=== PATIENT | male | born 1960 | race Caucasian/White ===

== ENCOUNTER 2017-06-15 22:32 | Inpatient (IN) | payer BC ==
[~2017-06-15] VITALS: Ht 182.9 cm; Wt 87.7 kg
[2017-06-15] MEDS ORDERED: HYDROmorphone 2 MG/ML VIAL IV/SQ PRN (23:30)
[2017-06-15] MEDS ORDERED: IV RINGERS,LACTATED 1000ML 1,000 ML IV SCH (23:30)
[2017-06-15] MEDS ORDERED: ONDANSETRON PF 4 MG/2 ML VIAL. IV ONE (23:30)
[2017-06-15 23:41] LABS: BASO # 0.1 x10^3/uL (0.0-0.2); BASO % 1 % (0-3); EOS % 0 % (0-3); HEMATOCRIT 47.5 % (39.0-53.0); HEMOGLOBIN 16.2 g/dL (13.0-17.5); LYMPH # 0.6 x10^3/uL (1.0-4.8); LYMPH % 5 % (24-48); MEAN CORPUSCULAR HEMOGLOBIN 32 pg (25-35); MEAN CORPUSCULAR HGB CONC 34 g/dL (31-37); MEAN CORPUSCULAR VOLUME 93 fL (79-100); MONO % 7 % (0-9); NEUT % 87 % (31-73); PLATELET COUNT 184 x10^3/uL (140-400); WHITE BLOOD COUNT 12.6 x10^3/uL (4.0-11.0)
[2017-06-16] VITALS (8 sets, daily range): BP systolic 115–141; BP diastolic 73–87
[2017-06-16] LABS: CALCIUM 9.5 mg/dL (8.5-10.1); CREATININE 0.9 mg/dL (0.7-1.3); GFR 86.4; POTASSIUM 3.8 mmol/L (3.5-5.1)
[2017-06-16 00:06] LABS: BILIRUBIN,URINE SMALL (NEG); GLUCOSE,URINE NEGATIVE (NEG); NITRITE,URINE NEGATIVE (NEG); PROTEIN,URINE NEGATIVE (NEG-TRACE)
[2017-06-16 00:11] LABS: ALBUMIN 4.3 g/dL (3.4-5.0); ALBUMIN/GLOBULIN RATIO 1.3 (1.0-1.7); TOTAL BILIRUBIN 0.8 mg/dL (0.2-1.0); TOTAL PROTEIN 7.5 g/dL (6.4-8.2)
[2017-06-16 00:22] LABS: BACTERIA,URINE FEW /HPF (0-FEW); SQUAMOUS EPITHELIAL CELL,UR OCC /LPF; WBC,URINE OCC /HPF (0-4)
[2017-06-16] MEDS ORDERED: IOHEXOL 300 MG/ML 100ML VIAL. IV ONE (00:30)
[2017-06-16] MEDS ORDERED: CONTRAST GIVEN MC PRN ×2 (00:30→10:45)
[2017-06-16 00:32] LABS: PLT ESTIMATE ADEQUATE (ADEQUATE)
--- NOTE | 2017-06-16 00:34 | PHYS DOC ---
Past Medical History Past Medical History: Other Additional Past Medical Histor: esophageal achalasia; bowel obstruction. Hairy cell leukemia (in remission) Past Medical History Gallstones; kidney stones Past Surgical History: Other Additional Past Surgical Histo: ESOPHAGECTOMY ( MED 08/2015) Past Surgical History Power port with removal Smoking: Quit Greater Than 1 Year Alcohol Use: None Drug Use: None Social History Narrative: Adult General Chief Complaint Chief Complaint: ABDOMINAL PAIN HPI HPI Patient is a 57 year old male who presents with abdominal pain. Pain first started on Saturday at 1600 PM. It was intermittent. However became persistent and worse tonight. He also started vomiting tonight. Last stool was yesterday. No blood in his stool. No recent travel. No fevers. Tonight with the pain however became very sweaty. He said prior bowel obstruction and is concerned that this could be a recurrent obstruction. He also was diagnosed with gallstones on a prior visit so is unclear if this is related to a flare of his gallbladder. He's had a esophagectomy performed at in August 2015 for esophageal achalasia. Review of Systems Review of Systems Constitutional: Denies fever or chills Eyes: Denies change in visual acuity, redness, or eye pain HENT: Denies nasal congestion or sore throat Respiratory: Denies cough or shortness of breath Cardiovascular: No chest pain GI: POS abdominal pain with nausea & vomiting, DENIES bloody stools or diarrhea (last stool yesterday) : Denies dysuria or hematuria Musculoskeletal: Denies back pain or joint pain Integument: Denies rash or skin lesions Neurologic: Denies headache, focal weakness or sensory changes All other systems were reviewed and found to be within normal limits, except as documented in this note. Current Medications Current Medications Current Medications Medications (Trade) Dose Ordered Sig/Michael Start Time Stop Time Status Last Admin Dose Admin Hydromorphone HCl (Dilaudid) 1 mg PRN Q15MIN PRN 06/15/17 23:30 06/16/17 23:29 06/15/17 23:54 1 MG Info (Do NOT chart on this entry -- for MONITORING) 1 each PRN DAILY PRN 06/16/17 00:30 06/18/17 00:29 Iohexol (Omnipaque 300 Mg/ml) 75 ml 1X ONCE 06/16/17 00:30 06/16/17 00:31 DC 06/16/17 00:40 75 ML Lidocaine HCl (Glydo (Lidocaine) Jelly) 1 nicolas 1X ONCE 06/16/17 01:30 06/16/17 01:31 DC 06/16/17 02:00 1 NICOLAS Morphine Sulfate 2 mg PRN Q2HR PRN 06/16/17 01:30 06/17/17 01:29 Ondansetron HCl (Zofran) 4 mg PRN Q8HRS PRN 06/16/17 01:30 06/17/17 01:29 Potassium Chloride/Dextrose/ Sod Cl 1,000 ml @ 125 mls/hr 1X ONCE 06/16/17 01:30 06/16/17 09:29 06/16/17 02:56 125 MLS/HR Ringer's Solution 1,000 ml @ 1,000 mls/hr Q1H 06/15/17 23:30 06/16/17 00:29 DC 06/15/17 23:54 1,000 MLS/HR Allergies Allergies Allergies Coded Allergies Type Severity Reaction Last Updated Verified clindamycin Allergy Intermediate 05/04/14 Yes codeine Allergy Intermediate 05/04/14 Yes sulfamethoxazole Allergy Intermediate Rash 05/04/14 Yes trimethoprim Allergy Intermediate Rash 05/04/14 Yes Physical Exam Physical Exam Constitutional: Well developed, well nourished, no acute distress, non-toxic appearance. HENT: Normocephalic, atraumatic, bilateral external ears normal, oropharynx moist, no oral exudates, nose normal. Eyes: PERRLA, EOMI, conjunctiva normal, no discharge. Neck: Normal range of motion, no tenderness, supple, no stridor. Cardiovascular:Heart rate regular rhythm, no murmur Lungs & Thorax: Bilateral breath sounds clear to auscultation Abdomen: Bowel sounds increased, soft, diffuse tenderness, no masses, no pulsatile masses. Skin: Warm, dry, no erythema, no rash. Back: No tenderness, no CVA tenderness. Extremities: No tenderness, no cyanosis, no clubbing, ROM intact, no edema. Neurologic: Alert and oriented X 3, normal motor function, normal sensory function, no focal deficits noted. Psychologic: Affect normal, judgement normal, mood normal. Current Patient Data Vital Signs Vital Signs Date Time Temp Pulse Resp B/P (MAP) Pulse Ox O2 Delivery O2 Flow Rate FiO2 06/16/17 01:05 84 16 111/66 (81) 94 Room Air 06/15/17 23:20 97.9 97.9 Lab Values Laboratory Tests Test 06/15/17 23:30 06/15/17 23:50 White Blood Count 12.6 x10^3/uL (4.0-11.0) H Red Blood Count 5.10 x10^6/uL (4.30-5.70) Hemoglobin 16.2 g/dL (13.0-17.5) Hematocrit 47.5 % (39.0-53.0) Mean Corpuscular Volume 93 fL (79-100) Mean Corpuscular Hemoglobin 32 pg (25-35) Mean Corpuscular Hemoglobin Concent 34 g/dL (31-37) Red Cell Distribution Width 13.0 % (11.5-14.5) Platelet Count 184 x10^3/uL (140-400) Neutrophils (%) (Auto) 87 % (31-73) H Lymphocytes (%) (Auto) 5 % (24-48) L Monocytes (%) (Auto) 7 % (0-9) Eosinophils (%) (Auto) 0 % (0-3) Basophils (%) (Auto) 1 % (0-3) Neutrophils # (Auto) 11.0 x10^3uL (1.8-7.7) H Lymphocytes # (Auto) 0.6 x10^3/uL (1.0-4.8) L Monocytes # (Auto) 0.9 x10^3/uL (0.0-1.1) Eosinophils # (Auto) 0.0 x10^3/uL (0.0-0.7) Basophils # (Auto) 0.1 x10^3/uL (0.0-0.2) Segmented Neutrophils % 93 % (35-66) H Band Neutrophils % 5 % (0-9) Lymphocytes % 1 % (24-48) L Monocytes % 1 % (0-10) Platelet Estimate Adequate (ADEQUATE) Sodium Level 142 mmol/L (136-145) Potassium Level 3.8 mmol/L (3.5-5.1) Chloride Level 104 mmol/L (98-107) Carbon Dioxide Level 26 mmol/L (21-32) Anion Gap 12 (6-14) Blood Urea Nitrogen 10 mg/dL (8-26) Creatinine 0.9 mg/dL (0.7-1.3) Estimated GFR (Cockcroft-Gault) 86.4 BUN/Creatinine Ratio 11 (6-20) Glucose Level 134 mg/dL (70-99) H Calcium Level 9.5 mg/dL (8.5-10.1) Total Bilirubin 0.8 mg/dL (0.2-1.0) Aspartate Amino Transferase (AST) 32 U/L (15-37) Alanine Aminotransferase (ALT) 32 U/L (16-63) Alkaline Phosphatase 143 U/L (46-116) H Total Protein 7.5 g/dL (6.4-8.2) Albumin 4.3 g/dL (3.4-5.0) Albumin/Globulin Ratio 1.3 (1.0-1.7) Lipase 95 U/L (73-393) Urine Collection Type Unknown Urine Color Tayler Urine Clarity Clear Urine pH 6.0 Urine Specific [place] >=1.030 Urine Protein Negative mg/dL (NEG-TRACE) Urine Glucose (UA) Negative mg/dL (NEG) Urine Ketones (Stick) 15 mg/dL (NEG) Urine Blood Negative (NEG) Urine Nitrite Negative (NEG) Urine Bilirubin Small (NEG) Urine Urobilinogen Dipstick 1.0 mg/dL (0.2 mg/dL) Urine Leukocyte Esterase Negative (NEG) Urine RBC 1-2 /HPF (0-2) Urine WBC Occ /HPF (0-4) Urine Squamous Epithelial Cells Occ /LPF Urine Bacteria Few /HPF (0-FEW) Urine Mucus Marked /LPF Laboratory Tests 06/15/17 23:30 Laboratory Tests 06/15/17 23:30 Radiology/Procedures Radiology/Procedures [facility] [address] [place], [place] [id number] IMAGING REPORT Signed PATIENT: FUENTES RAGLAND ACCOUNT: [id number] : 1960 LOCATION: ER AGE: 57 SEX: M EXAM STATUS: REG ER ORD. PHYSICIAN: ANABELLA MUNOZ MD REASON: esophagectomy; h/o prior bowel obst; h/o gallstones; now w pain and vomitin PROCEDURE: CT ABD PELV W/ IV CONTRST ONLY EXAM: CT ABDOMEN/PELVIS WITH CONTRAST. HISTORY: Abdominal pain, vomiting, small bowel obstruction, esophagectomy, leukemia. TECHNIQUE: Computed tomography of the abdomen and pelvis was performed after the intravenous administration of 75 mL Isovue-370. COMPARISON: None. FINDINGS: Lung windows through the visualized portions of the bases reveal changes of esophagectomy with gastric pull-through. There is mild associated atelectasis in the right base. Bone windows reveal no suspicious lesions. Gallstones are noted. There is no pericholecystic inflammation. The liver, spleen, adrenal glands, kidneys and pancreas are unremarkable. There are no pathologically enlarged lymph nodes. A small amount of free pelvic fluid is likely reactive. There is a small bowel obstruction with transition point just deep to the anterior abdominal wall, just superior to the umbilicus as seen on coronal image 13 and axial image 43. This is along the distal jejunum or proximal ileum. The remainder of the small bowel is completely decompressed. There is mild edema about the most distal involved small bowel loops. IMPRESSION: 1. Small bowel obstruction with transition point just deep to the anterior abdominal wall just superior to the umbilicus. This appears complete by CT. 2. Cholelithiasis. 3. Status post esophagectomy with gastric pull-through. No evidence of active disease. *One or more of the following individualized dose reduction techniques were utilized for this examination: 1. Automated exposure control. 2. Adjustment of the mA and/or kV according to patient size. 3. Use of iterative reconstruction technique. Electronically signed by: Pricila Vargas MD (06/16/2017 1:07 AM) [facility] DICTATED and SIGNED BY: DALE VARGAS MD DATE: 06/16/17101 CC: ANABELLA MUNOZ MD; MP ALBERTO MD ~ Course & Med Decision Making Course & Med Decision Making Evaluated patient upon arrival. IV NS, IV dilaudid and zofran. Concerned about recurrent bowel obstruction due to extensive abdominal surgery history. However , with recent gallstone diagnosis could be biliary colic. lab is unremarkable ( except for ketones in urine). At 0030 am; back from CT; awaiting results. CT results back at 0115 am with SBO. He would prefer to stay here and see if it would resolve with NG (which it did last time). Admit Dr Naik with consult Dr Benz. I have spoken with the patient and/or caregivers. I have explained the patient' s condition, diagnosis and treatment plan based on the information available to me at this time. I have answered the patient's and/or caregiver's questions and addressed any concerns. The patient and/or caregivers have as good an understanding of the patient's diagnosis, condition and treatment plan as can be expected at this point. The patient has been stabilized within the capability of the emergency department. The patient will be transported for further care and management or will be moved to an observation or inpatient service. I have communicated with the staff or medical practitioner taking over this patient's care. Dragon Disclaimer Dragon Disclaimer This electronic medical record was generated, in whole or in part, using a voice recognition dictation system. Departure Departure Impression: Primary Impression: Abdominal pain Additional Impressions: Nausea & vomiting Small bowel obstruction Disposition: 09 ADMITTED INPATIENT Admitting Physician: Alix Naik Condition: STABLE Referrals: MP ALBERTO MD (PCP) Problem Qualifiers Primary Impression: Abdominal pain Abdominal location: generalized Qualified Codes: R10.84 - Generalized abdominal pain Additional Impressions: Nausea & vomiting Vomiting type: unspecified Vomiting Intractability: intractable Qualified Codes: R11.2 - Nausea with vomiting, unspecified ANABELLA MUNOZ MD Jun 16, 2017 00:34
--- NOTE | 2017-06-16 01:11 | RAD ---
EXAM: CT ABDOMEN/PELVIS WITH CONTRAST. HISTORY: Abdominal pain, vomiting, small bowel obstruction, esophagectomy, leukemia. TECHNIQUE: Computed tomography of the abdomen and pelvis was performed after the intravenous administration of 75 mL Isovue-370. COMPARISON: None. FINDINGS: Lung windows through the visualized portions of the bases reveal changes of esophagectomy with gastric pull-through. There is mild associated atelectasis in the right base. Bone windows reveal no suspicious lesions. Gallstones are noted. There is no pericholecystic inflammation. The liver, spleen, adrenal glands, kidneys and pancreas are unremarkable. There are no pathologically enlarged lymph nodes. A small amount of free pelvic fluid is likely reactive. There is a small bowel obstruction with transition point just deep to the anterior abdominal wall, just superior to the umbilicus as seen on coronal image 13 and axial image 43. This is along the distal jejunum or proximal ileum. The remainder of the small bowel is completely decompressed. There is mild edema about the most distal involved small bowel loops. IMPRESSION: 1. Small bowel obstruction with transition point just deep to the anterior abdominal wall just superior to the umbilicus. This appears complete by CT. 2. Cholelithiasis. 3. Status post esophagectomy with gastric pull-through. No evidence of active disease. *One or more of the following individualized dose reduction techniques were utilized for this examination: 1. Automated exposure control. 2. Adjustment of the mA and/or kV according to patient size. 3. Use of iterative reconstruction technique. Electronically signed by: Pricila Vargas MD (06/16/2017 1:07 AM) [facility]
[2017-06-16] MEDS ORDERED: LIDOCAINE 2% JELLY 6ML IN APPLICATOR. MM ONE (01:30)
[2017-06-16] MEDS ORDERED: ONDANSETRON PF 4 MG/2 ML VIAL. IV PRN (01:30)
[2017-06-16] MEDS ORDERED: POTASSIUM CL 20MEQ D5-0.45NACL 1,000 ML IV ONE (01:30)
[2017-06-16] MEDS ORDERED: PHENOL ORAL SPRAY 177ML BOTTLE. PO PRN ×2 (06:30→13:15)
[2017-06-16] MEDS ORDERED: HYDROmorphone 2 MG/ML VIAL IV/SQ PRN (09:00)
--- NOTE | 2017-06-16 10:17 | PDOC2 ---
CONSULT Date of Consult Date of Consult DATE: 06/16/17 TIME: 10:12 Reason for Consult Reason for Consult: SBO Referring Physician Referring Physician: Gumaro Identification/Chief Complaint Chief Complaint abd pain Problems: Source Source: Patient History of Present Illness Reason for Visit: 57 yo M with hx of esophagectomy for achalasia in 08/2015. SBO previously 10/2015 , treated without surgery. Presents with c/o severe abd pain. Patient reports pain is much improved today. Feels somewhat bloated. No flatus or stools. Past Medical History Cardiovascular: No pertinent hx Pulmonary: Other GI: No pertinent hx Heme/Onc: Cancer Musculoskeletal: Other Renal/: No pertinent hx Endocrine: No pertinent hx Past Surgical History Past Surgical History: Other (esophagectomy) Family History Family History: No Significant Social History Quit ALCOHOL: none Current Problem List Problem List Problems Medical Problems: (1) Abdominal pain Status: Acute (2) Nausea & vomiting Status: Acute (3) Small bowel obstruction Status: Acute Current Medications Current Medications Current Medications Hydromorphone HCl (Dilaudid) 1 mg PRN Q15MIN PRN IV/SQ PAIN GREATER THAN 3/10 Last administered on 06/15/17 23:54; Start 06/15/17 at 23:30; Stop 06/16/17 at 08:49; Status DC Ringer's Solution 1,000 ml @ 1,000 mls/hr Q1H IV Last administered on 23:54; Start 06/15/17 at 23:30; Stop 06/16/17 at 00:29; Status DC Ondansetron HCl (Zofran) 4 mg 1X ONCE IV Last administered on 06/15/17 23:54 ; Start 06/15/17 at 23:30; Stop 06/15/17 at 23:31; Status DC Iohexol (Omnipaque 300 Mg/ml) 75 ml 1X ONCE IV Last administered on 00:40; Start 06/16/17 at 00:30; Stop 06/16/17 at 00:31; Status DC Info (Do NOT chart on this entry -- for MONITORING) 1 each PRN DAILY PRN MC SEE COMMENTS; Start 06/16/17 at 00:30; Stop 06/18/17 at 00:29 Lidocaine HCl (Glydo (Lidocaine) Jelly) 1 nicolas 1X ONCE MM Last administered on 06/16/17 02:00; Start 06/16/17 at 01:30; Stop 06/16/17 at 01:31; Status DC Ondansetron HCl (Zofran) 4 mg PRN Q8HRS PRN IV NAUSEA/VOMITING; Start at 01:30; Stop 06/16/17 at 08:49; Status DC Morphine Sulfate 2 mg PRN Q2HR PRN IV PAIN; Start 06/16/17 at 01:30; Stop at 01:29 Potassium Chloride/Dextrose/ Sod Cl 1,000 ml @ 125 mls/hr 1X ONCE IV Last administered on 06/16/17t 02:56; Start 06/16/17 at 01:30; Stop 06/16/17 at 09 :29; Status DC Throat Lozenges (Chloraseptic) 1 spray PRN Q2HR PRN PO SORE THROAT; Start at 06:30 Hydromorphone HCl (Dilaudid) 1 mg PRN Q2HR PRN IV/SQ PAIN GREATER THAN 3/10; Start 06/16/17 at 09:00; Stop 06/17/17 at 08:59 Ondansetron HCl (Zofran) 4 mg PRN Q6HRS PRN IV NAUSEA/VOMITING; Start at 09:00; Stop 06/17/17 at 08:59 Famotidine (Pepcid Vial) 20 mg BID IVP ; Start 06/16/17 at 09:00 Potassium Chloride/Dextrose/ Sod Cl 1,000 ml @ 75 mls/hr [id number] IV ; Start at 09:00 Active Scripts Active Reported No Known Medications Prior To Admisstion (Info) Each 1 Each MC Allergies Allergies: Coded Allergies: clindamycin (Verified Allergy, Intermediate, 05/04/14) codeine (Verified Allergy, Intermediate, 05/04/14) sulfamethoxazole (Verified Allergy, Intermediate, Rash, 05/04/14) trimethoprim (Verified Allergy, Intermediate, Rash, 05/04/14) ROS Gastrointestinal: Yes Abdominal Pain Physical Exam General: Alert, Oriented X3, Cooperative, No acute distress HEENT: Atraumatic, EOMI Lungs: Normal air movement Abdomen: Soft, No tenderness, Other (well healed incision, no hernia) Extremities: No clubbing, No cyanosis Skin: No rashes, No breakdown Neuro: Normal speech, Sensation intact Psych/Mental Status: Mental status NL, Mood NL Vitals VITALS Vital Signs Date Time Temp Pulse Resp B/P (MAP) Pulse Ox O2 Delivery O2 Flow Rate FiO2 06/16/17 07:00 98.2 73 18 115/76 (89) 96 Room Air 98.2 Labs Labs Laboratory Tests Test 06/15/17 23:30 06/15/17 23:50 White Blood Count 12.6 x10^3/uL (4.0-11.0) Red Blood Count 5.10 x10^6/uL (4.30-5.70) Hemoglobin 16.2 g/dL (13.0-17.5) Hematocrit 47.5 % (39.0-53.0) Mean Corpuscular Volume 93 fL (79-100) Mean Corpuscular Hemoglobin 32 pg (25-35) Mean Corpuscular Hemoglobin Concent 34 g/dL (31-37) Red Cell Distribution Width 13.0 % (11.5-14.5) Platelet Count 184 x10^3/uL (140-400) Neutrophils (%) (Auto) 87 % (31-73) Lymphocytes (%) (Auto) 5 % (24-48) Monocytes (%) (Auto) 7 % (0-9) Eosinophils (%) (Auto) 0 % (0-3) Basophils (%) (Auto) 1 % (0-3) Neutrophils # (Auto) 11.0 x10^3uL (1.8-7.7) Lymphocytes # (Auto) 0.6 x10^3/uL (1.0-4.8) Monocytes # (Auto) 0.9 x10^3/uL (0.0-1.1) Eosinophils # (Auto) 0.0 x10^3/uL (0.0-0.7) Basophils # (Auto) 0.1 x10^3/uL (0.0-0.2) Segmented Neutrophils % 93 % (35-66) Band Neutrophils % 5 % (0-9) Lymphocytes % 1 % (24-48) Monocytes % 1 % (0-10) Platelet Estimate Adequate (ADEQUATE) Sodium Level 142 mmol/L (136-145) Potassium Level 3.8 mmol/L (3.5-5.1) Chloride Level 104 mmol/L (98-107) Carbon Dioxide Level 26 mmol/L (21-32) Anion Gap 12 (6-14) Blood Urea Nitrogen 10 mg/dL (8-26) Creatinine 0.9 mg/dL (0.7-1.3) Estimated GFR (Cockcroft-Gault) 86.4 BUN/Creatinine Ratio 11 (6-20) Glucose Level 134 mg/dL (70-99) Calcium Level 9.5 mg/dL (8.5-10.1) Total Bilirubin 0.8 mg/dL (0.2-1.0) Aspartate Amino Transf (AST/SGOT) 32 U/L (15-37) Alanine Aminotransferase (ALT/SGPT) 32 U/L (16-63) Alkaline Phosphatase 143 U/L (46-116) Total Protein 7.5 g/dL (6.4-8.2) Albumin 4.3 g/dL (3.4-5.0) Albumin/Globulin Ratio 1.3 (1.0-1.7) Lipase 95 U/L (73-393) Urine Collection Type Unknown Urine Color Tayler Urine Clarity Clear Urine pH 6.0 Urine Specific [place] >=1.030 Urine Protein Negative mg/dL (NEG-TRACE) Urine Glucose (UA) Negative mg/dL (NEG) Urine Ketones (Stick) 15 mg/dL (NEG) Urine Blood Negative (NEG) Urine Nitrite Negative (NEG) Urine Bilirubin Small (NEG) Urine Urobilinogen Dipstick 1.0 mg/dL (0.2 mg/dL) Urine Leukocyte Esterase Negative (NEG) Urine RBC 1-2 /HPF (0-2) Urine WBC Occ /HPF (0-4) Urine Squamous Epithelial Cells Occ /LPF Urine Bacteria Few /HPF (0-FEW) Urine Mucus Marked /LPF Laboratory Tests Test 06/15/17 23:30 06/15/17 23:50 White Blood Count 12.6 x10^3/uL (4.0-11.0) Red Blood Count 5.10 x10^6/uL (4.30-5.70) Hemoglobin 16.2 g/dL (13.0-17.5) Hematocrit 47.5 % (39.0-53.0) Mean Corpuscular Volume 93 fL (79-100) Mean Corpuscular Hemoglobin 32 pg (25-35) Mean Corpuscular Hemoglobin Concent 34 g/dL (31-37) Red Cell Distribution Width 13.0 % (11.5-14.5) Platelet Count 184 x10^3/uL (140-400) Neutrophils (%) (Auto) 87 % (31-73) Lymphocytes (%) (Auto) 5 % (24-48) Monocytes (%) (Auto) 7 % (0-9) Eosinophils (%) (Auto) 0 % (0-3) Basophils (%) (Auto) 1 % (0-3) Neutrophils # (Auto) 11.0 x10^3uL (1.8-7.7) Lymphocytes # (Auto) 0.6 x10^3/uL (1.0-4.8) Monocytes # (Auto) 0.9 x10^3/uL (0.0-1.1) Eosinophils # (Auto) 0.0 x10^3/uL (0.0-0.7) Basophils # (Auto) 0.1 x10^3/uL (0.0-0.2) Segmented Neutrophils % 93 % (35-66) Band Neutrophils % 5 % (0-9) Lymphocytes % 1 % (24-48) Monocytes % 1 % (0-10) Platelet Estimate Adequate (ADEQUATE) Sodium Level 142 mmol/L (136-145) Potassium Level 3.8 mmol/L (3.5-5.1) Chloride Level 104 mmol/L (98-107) Carbon Dioxide Level 26 mmol/L (21-32) Anion Gap 12 (6-14) Blood Urea Nitrogen 10 mg/dL (8-26) Creatinine 0.9 mg/dL (0.7-1.3) Estimated GFR (Cockcroft-Gault) 86.4 BUN/Creatinine Ratio 11 (6-20) Glucose Level 134 mg/dL (70-99) Calcium Level 9.5 mg/dL (8.5-10.1) Total Bilirubin 0.8 mg/dL (0.2-1.0) Aspartate Amino Transf (AST/SGOT) 32 U/L (15-37) Alanine Aminotransferase (ALT/SGPT) 32 U/L (16-63) Alkaline Phosphatase 143 U/L (46-116) Total Protein 7.5 g/dL (6.4-8.2) Albumin 4.3 g/dL (3.4-5.0) Albumin/Globulin Ratio 1.3 (1.0-1.7) Lipase 95 U/L (73-393) Urine Collection Type Unknown Urine Color Tayler Urine Clarity Clear Urine pH 6.0 Urine Specific [place] >=1.030 Urine Protein Negative mg/dL (NEG-TRACE) Urine Glucose (UA) Negative mg/dL (NEG) Urine Ketones (Stick) 15 mg/dL (NEG) Urine Blood Negative (NEG) Urine Nitrite Negative (NEG) Urine Bilirubin Small (NEG) Urine Urobilinogen Dipstick 1.0 mg/dL (0.2 mg/dL) Urine Leukocyte Esterase Negative (NEG) Urine RBC 1-2 /HPF (0-2) Urine WBC Occ /HPF (0-4) Urine Squamous Epithelial Cells Occ /LPF Urine Bacteria Few /HPF (0-FEW) Urine Mucus Marked /LPF Images Images CT concerning for complete SBO Assessment/Plan Assessment/Plan SBO, clinically improved pt wishes to avoid surgery given CT findings, will proceed with SBFT, for therapeutic and diagnostic effect if not improved, may need to consider OR Thanks for consult! GILLIAN ORANTES MD Jun 16, 2017 10:17
[2017-06-16] MEDS: POTASSIUM CL 30MEQ D5-0.45NACL 1,000 ML IV SCH ×2 (10:36→23:51)
[2017-06-16] MEDS: FAMOTIDINE 20 MG/2 ML VIAL IVP SCH ×2 (10:37→22:23)
[2017-06-16] MEDS ORDERED: IOHEXOL 300 MG/ML 100ML VIAL. PO ONE (10:45)
[2017-06-16] MEDS: MORPHINE SULFATE 2 MG/ML DISP.SYRIN. IV PRN ×2 (12:39→18:28)
[2017-06-16] MEDS: ONDANSETRON PF 4 MG/2 ML VIAL. IV PRN ×2 (13:08→18:37)
--- NOTE | 2017-06-16 13:31 | RAD ---
Single AP view abdomen 06/16/2017 Clinical indication: Small bowel obstruction. Comparison: CT abdomen and pelvis 06/16/2017. Findings: Multiple mildly dilated loops of small bowel in the upper abdomen. There is a relative paucity of distal colonic gas. There is an NG tube with the proximal side port at the GE junction. There is retained contrast within the urinary bladder likely from prior intravenous administration. Impression: 1. Gaseous dilated loops of small bowel likely representing small bowel obstruction. Progress radiographs to completion recommended. 2. NG tube with proximal side port at the GE junction. Advancement is recommended.
[2017-06-16] MEDS ORDERED: PROCHLORPERAZINE 10 MG/2 ML VIAL. IV PRN (15:00)
--- NOTE | 2017-06-16 15:41 | PDOC1 ---
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 Acute onset of mostly epigastric pain severe 10 out of 10, some nausea, and emesis at home. SBO on CT scan, now seen with NG tube. Nausea, bucket at bedside, general surgery consulted. Conservative management. Small bowel series ordered done but results still pending. 3 of small bowel obstruction about a year ago, treated conservatively. Done at . History of aerosol 5 check to me for severe or end- stage achalasia in August 2015 with gastric pull-up. Chest x-ray shows the gastric pull-up and SBO He is improved. No flatus. Feels constipated. Past Medical History Cardiovascular: No pertinent hx Pulmonary: Other GI: No pertinent hx Heme/Onc: Cancer Musculoskeletal: Other Renal/: No pertinent hx Endocrine: No pertinent hx Past Surgical History Past Surgical History: Other (esophagectomy) Family History Family History: No Significant Social History Smoke: No ALCOHOL: none Drugs: None Current Problem List Problem List Problems Medical Problems: (1) Abdominal pain Status: Acute (2) Nausea & vomiting Status: Acute (3) Small bowel obstruction Status: Acute Problems: Current Medications Current Medications Current Medications Hydromorphone HCl (Dilaudid) 1 mg PRN Q15MIN PRN IV/SQ PAIN GREATER THAN 3/10 Last administered on 06/15/17 23:54; Start 06/15/17 at 23:30; Stop 06/16/17 at 08:49; Status DC Ringer's Solution 1,000 ml @ 1,000 mls/hr Q1H IV Last administered on 23:54; Start 06/15/17 at 23:30; Stop 06/16/17 at 00:29; Status DC Ondansetron HCl (Zofran) 4 mg 1X ONCE IV Last administered on 06/15/17 23:54 ; Start 06/15/17 at 23:30; Stop 06/15/17 at 23:31; Status DC Iohexol (Omnipaque 300 Mg/ml) 75 ml 1X ONCE IV Last administered on 00:40; Start 06/16/17 at 00:30; Stop 06/16/17 at 00:31; Status DC Info (Do NOT chart on this entry -- for MONITORING) 1 each PRN DAILY PRN MC SEE COMMENTS; Start 06/16/17 at 00:30; Stop 06/18/17 at 00:29 Lidocaine HCl (Glydo (Lidocaine) Jelly) 1 nicolas 1X ONCE MM Last administered on 06/16/17 02:00; Start 06/16/17 at 01:30; Stop 06/16/17 at 01:31; Status DC Ondansetron HCl (Zofran) 4 mg PRN Q8HRS PRN IV NAUSEA/VOMITING; Start at 01:30; Stop 06/16/17 at 08:49; Status DC Morphine Sulfate 2 mg PRN Q2HR PRN IV PAIN Last administered on 06/16/17 12: 39; Start 06/16/17 at 01:30; Stop 06/17/17 at 01:29 Potassium Chloride/Dextrose/ Sod Cl 1,000 ml @ 125 mls/hr 1X ONCE IV Last administered on 06/16/17 02:56; Start 06/16/17 at 01:30; Stop 06/16/17 at 09 :29; Status DC Throat Lozenges (Chloraseptic) 1 spray PRN Q2HR PRN PO SORE THROAT; Start at 06:30 Hydromorphone HCl (Dilaudid) 1 mg PRN Q2HR PRN IV/SQ PAIN GREATER THAN 3/10; Start 06/16/17 at 09:00; Stop 06/17/17 at 08:59 Ondansetron HCl (Zofran) 4 mg PRN Q6HRS PRN IV NAUSEA/VOMITING Last administered on 06/16/17 13:08; Start 06/16/17 at 09:00; Stop 06/17/17 at 08 :59 Famotidine (Pepcid Vial) 20 mg BID IVP Last administered on 06/16/17 10:37; Start 06/16/17 at 09:00 Potassium Chloride/Dextrose/ Sod Cl 1,000 ml @ 75 mls/hr [id number] IV Last administered on 06/16/17 10:36; Start 06/16/17 at 09:00 Iohexol (Omnipaque 300 Mg/ml) 400 ml 1X ONCE PO Last administered on 13:08; Start 06/16/17 at 10:45; Stop 06/16/17 at 10:46; Status DC Info (Do NOT chart on this entry -- for MONITORING) 1 each PRN DAILY PRN MC SEE COMMENTS; Start 06/16/17 at 10:45; Stop 06/18/17 at 10:44 Throat Lozenges (Chloraseptic) 1 spray PRN Q2HR PRN PO SORE THROAT; Start at 13:15; Status Cancel Prochlorperazine Edisylate (Compazine) 10 mg PRN Q6HRS PRN IV NAUSEA/VOMITING Last administered on 06/16/17t 14:57; Start 06/16/17 at 15:00 Active Scripts Active Reported No Known Medications Prior To Admisstion (Info) Each 1 Each MC Allergies Allergies: Coded Allergies: clindamycin (Verified Allergy, Intermediate, 05/04/14) codeine (Verified Allergy, Intermediate, 05/04/14) sulfamethoxazole (Verified Allergy, Intermediate, Rash, 05/04/14) trimethoprim (Verified Allergy, Intermediate, Rash, 05/04/14) ROS Review of System As per history of present illness, all else 14 point systems reviewed negative Physical Exam Physical Exam Physical Exam General: Alert, Oriented X3, Cooperative, No acute distress HEENT: Atraumatic, PERRLA, and NG tube right nostril, bucket at bedside Lungs: Normal air movement, Other (wheezy) Heart: S1S2, RRR, no thrills, no gallops, no murmurs Cardiovascular: S1, S2 Abdomen: Normal bowel sounds, Soft, No tenderness, No hepatosplenomegaly, No masses, Other (obese) Rectal Exam: not examined PELVIC: Nml ext genitalia Extremities: No rashes, no edema, pulses full and equal Skin: No rashes, No breakdown, No significant lesion Neuro: Normal gait, Normal speech, Strength at 5/5 X4 ext, Normal tone, Sensation intact, Cranial nerves 3-12 NL, Reflexes 2+ Psych/Mental Status: Mental status NL, Mood NL Vitals Vitals Vital Signs Date Time Temp Pulse Resp B/P (MAP) Pulse Ox O2 Delivery O2 Flow Rate FiO2 06/16/17 14:57 97.9 86 20 133/87 (102) 95 Room Air 97.9 Labs Labs Laboratory Tests Test 06/15/17 23:30 06/15/17 23:50 White Blood Count 12.6 x10^3/uL (4.0-11.0) Red Blood Count 5.10 x10^6/uL (4.30-5.70) Hemoglobin 16.2 g/dL (13.0-17.5) Hematocrit 47.5 % (39.0-53.0) Mean Corpuscular Volume 93 fL (79-100) Mean Corpuscular Hemoglobin 32 pg (25-35) Mean Corpuscular Hemoglobin Concent 34 g/dL (31-37) Red Cell Distribution Width 13.0 % (11.5-14.5) Platelet Count 184 x10^3/uL (140-400) Neutrophils (%) (Auto) 87 % (31-73) Lymphocytes (%) (Auto) 5 % (24-48) Monocytes (%) (Auto) 7 % (0-9) Eosinophils (%) (Auto) 0 % (0-3) Basophils (%) (Auto) 1 % (0-3) Neutrophils # (Auto) 11.0 x10^3uL (1.8-7.7) Lymphocytes # (Auto) 0.6 x10^3/uL (1.0-4.8) Monocytes # (Auto) 0.9 x10^3/uL (0.0-1.1) Eosinophils # (Auto) 0.0 x10^3/uL (0.0-0.7) Basophils # (Auto) 0.1 x10^3/uL (0.0-0.2) Segmented Neutrophils % 93 % (35-66) Band Neutrophils % 5 % (0-9) Lymphocytes % 1 % (24-48) Monocytes % 1 % (0-10) Platelet Estimate Adequate (ADEQUATE) Sodium Level 142 mmol/L (136-145) Potassium Level 3.8 mmol/L (3.5-5.1) Chloride Level 104 mmol/L (98-107) Carbon Dioxide Level 26 mmol/L (21-32) Anion Gap 12 (6-14) Blood Urea Nitrogen 10 mg/dL (8-26) Creatinine 0.9 mg/dL (0.7-1.3) Estimated GFR (Cockcroft-Gault) 86.4 BUN/Creatinine Ratio 11 (6-20) Glucose Level 134 mg/dL (70-99) Calcium Level 9.5 mg/dL (8.5-10.1) Total Bilirubin 0.8 mg/dL (0.2-1.0) Aspartate Amino Transf (AST/SGOT) 32 U/L (15-37) Alanine Aminotransferase (ALT/SGPT) 32 U/L (16-63) Alkaline Phosphatase 143 U/L (46-116) Total Protein 7.5 g/dL (6.4-8.2) Albumin 4.3 g/dL (3.4-5.0) Albumin/Globulin Ratio 1.3 (1.0-1.7) Lipase 95 U/L (73-393) Urine Collection Type Unknown Urine Color Tayler Urine Clarity Clear Urine pH 6.0 Urine Specific [place] >=1.030 Urine Protein Negative mg/dL (NEG-TRACE) Urine Glucose (UA) Negative mg/dL (NEG) Urine Ketones (Stick) 15 mg/dL (NEG) Urine Blood Negative (NEG) Urine Nitrite Negative (NEG) Urine Bilirubin Small (NEG) Urine Urobilinogen Dipstick 1.0 mg/dL (0.2 mg/dL) Urine Leukocyte Esterase Negative (NEG) Urine RBC 1-2 /HPF (0-2) Urine WBC Occ /HPF (0-4) Urine Squamous Epithelial Cells Occ /LPF Urine Bacteria Few /HPF (0-FEW) Urine Mucus Marked /LPF Laboratory Tests Test 06/15/17 23:30 06/15/17 23:50 White Blood Count 12.6 x10^3/uL (4.0-11.0) Red Blood Count 5.10 x10^6/uL (4.30-5.70) Hemoglobin 16.2 g/dL (13.0-17.5) Hematocrit 47.5 % (39.0-53.0) Mean Corpuscular Volume 93 fL (79-100) Mean Corpuscular Hemoglobin 32 pg (25-35) Mean Corpuscular Hemoglobin Concent 34 g/dL (31-37) Red Cell Distribution Width 13.0 % (11.5-14.5) Platelet Count 184 x10^3/uL (140-400) Neutrophils (%) (Auto) 87 % (31-73) Lymphocytes (%) (Auto) 5 % (24-48) Monocytes (%) (Auto) 7 % (0-9) Eosinophils (%) (Auto) 0 % (0-3) Basophils (%) (Auto) 1 % (0-3) Neutrophils # (Auto) 11.0 x10^3uL (1.8-7.7) Lymphocytes # (Auto) 0.6 x10^3/uL (1.0-4.8) Monocytes # (Auto) 0.9 x10^3/uL (0.0-1.1) Eosinophils # (Auto) 0.0 x10^3/uL (0.0-0.7) Basophils # (Auto) 0.1 x10^3/uL (0.0-0.2) Segmented Neutrophils % 93 % (35-66) Band Neutrophils % 5 % (0-9) Lymphocytes % 1 % (24-48) Monocytes % 1 % (0-10) Platelet Estimate Adequate (ADEQUATE) Sodium Level 142 mmol/L (136-145) Potassium Level 3.8 mmol/L (3.5-5.1) Chloride Level 104 mmol/L (98-107) Carbon Dioxide Level 26 mmol/L (21-32) Anion Gap 12 (6-14) Blood Urea Nitrogen 10 mg/dL (8-26) Creatinine 0.9 mg/dL (0.7-1.3) Estimated GFR (Cockcroft-Gault) 86.4 BUN/Creatinine Ratio 11 (6-20) Glucose Level 134 mg/dL (70-99) Calcium Level 9.5 mg/dL (8.5-10.1) Total Bilirubin 0.8 mg/dL (0.2-1.0) Aspartate Amino Transf (AST/SGOT) 32 U/L (15-37) Alanine Aminotransferase (ALT/SGPT) 32 U/L (16-63) Alkaline Phosphatase 143 U/L (46-116) Total Protein 7.5 g/dL (6.4-8.2) Albumin 4.3 g/dL (3.4-5.0) Albumin/Globulin Ratio 1.3 (1.0-1.7) Lipase 95 U/L (73-393) Urine Collection Type Unknown Urine Color [place] Urine Clarity Clear Urine pH 6.0 Urine Specific [place] >=1.030 Urine Protein Negative mg/dL (NEG-TRACE) Urine Glucose (UA) Negative mg/dL (NEG) Urine Ketones (Stick) 15 mg/dL (NEG) Urine Blood Negative (NEG) Urine Nitrite Negative (NEG) Urine Bilirubin Small (NEG) Urine Urobilinogen Dipstick 1.0 mg/dL (0.2 mg/dL) Urine Leukocyte Esterase Negative (NEG) Urine RBC 1-2 /HPF (0-2) Urine WBC Occ /HPF (0-4) Urine Squamous Epithelial Cells Occ /LPF Urine Bacteria Few /HPF (0-FEW) Urine Mucus Marked /LPF VTE Prophylaxis Ordered VTE Prophylaxis Devices: Yes VTE Pharmacological Prophylaxi: Yes Assessment/Plan Assessment/Plan Assessment: SBO, second episode, would want to avoid surgery if able Leukocytosis, likely reactive Hairy cell leukemia currently in remission Mild to moderate PCM Asymptomatic GB stones History of esophagectomy August 2059 for end-stage achalasia PLAN: Admit 2 MN IVF while nothing by mouth, bowel regimen per rectum for constipation Follow-up small bowel series results Follow GS recommendations Add PPI IV PT OT Ambulate ad jef. Discussed with him at recent my plan of care Labs tomorrow Nothing by mouth for now JENNIFER DE JESUS MD Jun 16, 2017 15:41
[2017-06-16] MEDS ORDERED: BISACODYL 10 MG SUPP.RECT. PR PRN (15:45)
[2017-06-17 03:00] VITALS: BP 97/62
[2017-06-17 07:00] VITALS: BP 117/74
[2017-06-17] MEDS: FAMOTIDINE 20 MG/2 ML VIAL IVP SCH ×2 (08:21→20:40)
--- NOTE | 2017-06-17 08:36 | RAD ---
Small bowel series Indication: Small bowel obstruction. History of gastroesophageal surgery. Technique: Small bowel series with water-soluble oral contrast. Comparison: CT abdomen from 06/16/2017 Findings: Suggestion of gastric pull-through. 0 minute image demonstrates opacification of the stomach and duodenum. 3 and 5 hour images demonstrates antegrade opacification of the proximal small bowel. The small bowel loops are dilated measuring 4.4 cm in diameter. The 17 hour image demonstrates opacification of the colon and rectum with clearing of the contrast from small bowel. Impression: Passage of oral contrast from the small bowel to colon suggests no complete bowel obstruction. Significantly prolonged transit time to the colon. The 17 hour image demonstrates no abnormally dilated bowel loops to suggest ileus or high grade obstruction.
--- NOTE | 2017-06-17 09:00 | PDOC ---
FLORENCIA FELICIANO W[employer] B[employer] OPERATOR 06/17/17 0900: SURGICAL PROGRESS NOTE Subjective feels much better had a large stool last night Vital Signs Vital Signs Date Time Temp Pulse Resp B/P (MAP) Pulse Ox O2 Delivery O2 Flow Rate FiO2 06/17/17 07:00 98.9 80 18 117/74 (88) 94 Room Air 98.9 I&O Intake and Output 06/17/17 07:00 Intake Total 0 ml Output Total 2500 ml Balance -2500 ml Intake Oral 0 ml Output Urine Total 1200 ml Gastric Drainage Total 1300 ml # Voids 1 # Bowel Movements 1 General: Alert, Oriented X3, Cooperative, No acute distress HEENT: Other (NG in place) Abdomen: Soft, No tenderness Labs Laboratory Tests Test 06/15/17 23:30 06/15/17 23:50 White Blood Count 12.6 x10^3/uL (4.0-11.0) Red Blood Count 5.10 x10^6/uL (4.30-5.70) Hemoglobin 16.2 g/dL (13.0-17.5) Hematocrit 47.5 % (39.0-53.0) Mean Corpuscular Volume 93 fL (79-100) Mean Corpuscular Hemoglobin 32 pg (25-35) Mean Corpuscular Hemoglobin Concent 34 g/dL (31-37) Red Cell Distribution Width 13.0 % (11.5-14.5) Platelet Count 184 x10^3/uL (140-400) Neutrophils (%) (Auto) 87 % (31-73) Lymphocytes (%) (Auto) 5 % (24-48) Monocytes (%) (Auto) 7 % (0-9) Eosinophils (%) (Auto) 0 % (0-3) Basophils (%) (Auto) 1 % (0-3) Neutrophils # (Auto) 11.0 x10^3uL (1.8-7.7) Lymphocytes # (Auto) 0.6 x10^3/uL (1.0-4.8) Monocytes # (Auto) 0.9 x10^3/uL (0.0-1.1) Eosinophils # (Auto) 0.0 x10^3/uL (0.0-0.7) Basophils # (Auto) 0.1 x10^3/uL (0.0-0.2) Segmented Neutrophils % 93 % (35-66) Band Neutrophils % 5 % (0-9) Lymphocytes % 1 % (24-48) Monocytes % 1 % (0-10) Platelet Estimate Adequate (ADEQUATE) Sodium Level 142 mmol/L (136-145) Potassium Level 3.8 mmol/L (3.5-5.1) Chloride Level 104 mmol/L (98-107) Carbon Dioxide Level 26 mmol/L (21-32) Anion Gap 12 (6-14) Blood Urea Nitrogen 10 mg/dL (8-26) Creatinine 0.9 mg/dL (0.7-1.3) Estimated GFR (Cockcroft-Gault) 86.4 BUN/Creatinine Ratio 11 (6-20) Glucose Level 134 mg/dL (70-99) Calcium Level 9.5 mg/dL (8.5-10.1) Total Bilirubin 0.8 mg/dL (0.2-1.0) Aspartate Amino Transf (AST/SGOT) 32 U/L (15-37) Alanine Aminotransferase (ALT/SGPT) 32 U/L (16-63) Alkaline Phosphatase 143 U/L (46-116) Total Protein 7.5 g/dL (6.4-8.2) Albumin 4.3 g/dL (3.4-5.0) Albumin/Globulin Ratio 1.3 (1.0-1.7) Lipase 95 U/L (73-393) Urine Collection Type Unknown Urine Color [place] Urine Clarity Clear Urine pH 6.0 Urine Specific [place] >=1.030 Urine Protein Negative mg/dL (NEG-TRACE) Urine Glucose (UA) Negative mg/dL (NEG) Urine Ketones (Stick) 15 mg/dL (NEG) Urine Blood Negative (NEG) Urine Nitrite Negative (NEG) Urine Bilirubin Small (NEG) Urine Urobilinogen Dipstick 1.0 mg/dL (0.2 mg/dL) Urine Leukocyte Esterase Negative (NEG) Urine RBC 1-2 /HPF (0-2) Urine WBC Occ /HPF (0-4) Urine Squamous Epithelial Cells Occ /LPF Urine Bacteria Few /HPF (0-FEW) Urine Mucus Marked /LPF Problem List Problems Medical Problems: (1) Abdominal pain Status: Acute (2) Nausea & vomiting Status: Acute (3) Small bowel obstruction Status: Acute Assessment/Plan SBO--SBFT at 17 hrs showing contrast in colon, had a large stool--will clamp NG Problems: GLILIAN ORANTES MD 06/17/17 1313: SURGICAL PROGRESS NOTE Assessment/Plan Pt seen and examined. Agree with MsGala Feliciano's note Pt feels much better, moving stools abd soft, ND, NTTP will d/c NGT and start clears Problems: FLORENCIA FELICIANO APRN Jun 17, 2017 09:00 GILLIAN ORANTES MD Jun 17, 2017 13:13
[2017-06-17 11:02] VITALS: BP 112/74
--- NOTE | 2017-06-17 12:18 | PDOC ---
PROGRESS NOTES Chief Complaint Chief Complaint Small bowel obstruction PMH of hairy cell leukemia in remission PSH esophagectomy in 2016 History of Present Illness History of Present Illness Patient is a 57 y/o male who presented 2 days ago for acute onset of 10/10 abdominal pain and vomiting. He was dx with a SBO as demonstrated on imaging, including a KUB yesterday with gas and dilated loop of bowel. He has been NPO, receiving IVF, and is on a small bowel regimen. He is clinically improving with reporting a large bowel movement last night. Upon entry to the room the NG tube had been clamped and advancing his diet as tolerated is planned. Vitals Vitals Vital Signs Date Time Temp Pulse Resp B/P (MAP) Pulse Ox O2 Delivery O2 Flow Rate FiO2 06/17/17 11:02 98.8 82 18 112/74 (87) 94 Room Air 98.8 Physical Exam Physical Exam Clinical appearance of old abdominal incision scar General: Alert, Oriented X3, Cooperative, No acute distress Abdomen: Soft, No tenderness, No masses, Other Extremities: No clubbing, No cyanosis Skin: No rashes, No breakdown Labs LABS Current Medications Medications (Trade) Dose Ordered Sig/Michael Route PRN Reason Start Time Stop Time Status Last Admin Dose Admin Hydromorphone HCl (Dilaudid) 1 mg PRN Q15MIN PRN IV/SQ PAIN GREATER THAN 3/10 06/15/17 23:30 06/16/17 08:49 DC 06/15/17 23:54 Ringer's Solution 1,000 ml @ 1,000 mls/hr Q1H IV 06/15/17 23:30 06/16/17 00:29 DC 06/15/17 23:54 Ondansetron HCl (Zofran) 4 mg 1X ONCE IV 06/15/17 23:30 06/15/17 23:31 DC 06/15/17 23:54 Iohexol (Omnipaque 300 Mg/ml) 75 ml 1X ONCE IV 06/16/17 00:30 06/16/17 00:31 DC 06/16/17 00:40 Info (Do NOT chart on this entry -- for MONITORING) 1 each PRN DAILY PRN MC SEE COMMENTS 06/16/17 00:30 06/17/17 10:33 DC Lidocaine HCl (Glydo (Lidocaine) Jelly) 1 nicolas 1X ONCE MM 06/16/17 01:30 06/16/17 01:31 DC 06/16/17 02:00 Ondansetron HCl (Zofran) 4 mg PRN Q8HRS PRN IV NAUSEA/VOMITING 06/16/17 01:30 06/16/17 08:49 DC Morphine Sulfate 2 mg PRN Q2HR PRN IV PAIN 06/16/17 01:30 06/17/17 01:29 DC 06/16/17 18:28 Potassium Chloride/Dextrose/ Sod Cl 1,000 ml @ 125 mls/hr 1X ONCE IV 06/16/17 01:30 06/16/17 09:29 DC 06/16/17 02:56 Throat Lozenges (Chloraseptic) 1 spray PRN Q2HR PRN PO SORE THROAT 06/16/17 06:30 Hydromorphone HCl (Dilaudid) 1 mg PRN Q2HR PRN IV/SQ PAIN GREATER THAN 3/10 06/16/17 09:00 06/17/17 08:59 DC Ondansetron HCl (Zofran) 4 mg PRN Q6HRS PRN IV NAUSEA/VOMITING 06/16/17 09:00 06/17/17 08:59 DC 06/16/17 18:37 Famotidine (Pepcid Vial) 20 mg BID IVP 06/16/17 09:00 06/17/17 08:21 Potassium Chloride/Dextrose/ Sod Cl 1,000 ml @ 75 mls/hr [id number] IV 06/16/17 09:00 06/16/17 23:51 Iohexol (Omnipaque 300 Mg/ml) 400 ml 1X ONCE PO 06/16/17 10:45 06/16/17 10:46 DC 06/16/17 13:08 Info (Do NOT chart on this entry -- for MONITORING) 1 each PRN DAILY PRN MC SEE COMMENTS 06/16/17 10:45 06/18/17 10:44 Throat Lozenges (Chloraseptic) 1 spray PRN Q2HR PRN PO SORE THROAT 06/16/17 13:15 Cancel Prochlorperazine Edisylate (Compazine) 10 mg PRN Q6HRS PRN IV NAUSEA/VOMITING 06/16/17 15:00 06/16/17 14:57 Bisacodyl (Dulcolax Supp) 10 mg PRN DAILY PRN [place] CONSTIPATION 06/16/17 15:45 Review of Systems Review of Systems Patient reports large bowel movement last night, patient denies abdominal pain, patient denies emesis Assessment and Plan Assessmemt and Plan Problems Medical Problems: (1) Abdominal pain Status: Acute (2) Nausea & vomiting Status: Acute (3) Small bowel obstruction Status: Acute Assessment: Small bowel obstruction PMH of hairy cell leukemia in remission PSH esophagectomy in 2016 Plan: NG tube clamped Monitor for clinical signs of SBO IV fluids Appreciate results of small bowel follow through series PRN pain control PT/OT evaluation Recheck labs Discharge as determined by surgery Problems: Comment Review of Relevant I have reviewed the following items fany (where applicable) has been applied. Labs Laboratory Tests Test 06/15/17 23:30 06/15/17 23:50 White Blood Count 12.6 x10^3/uL (4.0-11.0) Red Blood Count 5.10 x10^6/uL (4.30-5.70) Hemoglobin 16.2 g/dL (13.0-17.5) Hematocrit 47.5 % (39.0-53.0) Mean Corpuscular Volume 93 fL (79-100) Mean Corpuscular Hemoglobin 32 pg (25-35) Mean Corpuscular Hemoglobin Concent 34 g/dL (31-37) Red Cell Distribution Width 13.0 % (11.5-14.5) Platelet Count 184 x10^3/uL (140-400) Neutrophils (%) (Auto) 87 % (31-73) Lymphocytes (%) (Auto) 5 % (24-48) Monocytes (%) (Auto) 7 % (0-9) Eosinophils (%) (Auto) 0 % (0-3) Basophils (%) (Auto) 1 % (0-3) Neutrophils # (Auto) 11.0 x10^3uL (1.8-7.7) Lymphocytes # (Auto) 0.6 x10^3/uL (1.0-4.8) Monocytes # (Auto) 0.9 x10^3/uL (0.0-1.1) Eosinophils # (Auto) 0.0 x10^3/uL (0.0-0.7) Basophils # (Auto) 0.1 x10^3/uL (0.0-0.2) Segmented Neutrophils % 93 % (35-66) Band Neutrophils % 5 % (0-9) Lymphocytes % 1 % (24-48) Monocytes % 1 % (0-10) Platelet Estimate Adequate (ADEQUATE) Sodium Level 142 mmol/L (136-145) Potassium Level 3.8 mmol/L (3.5-5.1) Chloride Level 104 mmol/L (98-107) Carbon Dioxide Level 26 mmol/L (21-32) Anion Gap 12 (6-14) Blood Urea Nitrogen 10 mg/dL (8-26) Creatinine 0.9 mg/dL (0.7-1.3) Estimated GFR (Cockcroft-Gault) 86.4 BUN/Creatinine Ratio 11 (6-20) Glucose Level 134 mg/dL (70-99) Calcium Level 9.5 mg/dL (8.5-10.1) Total Bilirubin 0.8 mg/dL (0.2-1.0) Aspartate Amino Transf (AST/SGOT) 32 U/L (15-37) Alanine Aminotransferase (ALT/SGPT) 32 U/L (16-63) Alkaline Phosphatase 143 U/L (46-116) Total Protein 7.5 g/dL (6.4-8.2) Albumin 4.3 g/dL (3.4-5.0) Albumin/Globulin Ratio 1.3 (1.0-1.7) Lipase 95 U/L (73-393) Urine Collection Type Unknown Urine Color Tayler Urine Clarity Clear Urine pH 6.0 Urine Specific Opdyke >=1.030 Urine Protein Negative mg/dL (NEG-TRACE) Urine Glucose (UA) Negative mg/dL (NEG) Urine Ketones (Stick) 15 mg/dL (NEG) Urine Blood Negative (NEG) Urine Nitrite Negative (NEG) Urine Bilirubin Small (NEG) Urine Urobilinogen Dipstick 1.0 mg/dL (0.2 mg/dL) Urine Leukocyte Esterase Negative (NEG) Urine RBC 1-2 /HPF (0-2) Urine WBC Occ /HPF (0-4) Urine Squamous Epithelial Cells Occ /LPF Urine Bacteria Few /HPF (0-FEW) Urine Mucus Marked /LPF Medications Current Medications Hydromorphone HCl (Dilaudid) 1 mg PRN Q15MIN PRN IV/SQ PAIN GREATER THAN 3/10 Last administered on 06/15/17 23:54; Start 06/15/17 at 23:30; Stop 06/16/17 at 08:49; Status DC Ringer's Solution 1,000 ml @ 1,000 mls/hr Q1H IV Last administered on 23:54; Start 06/15/17 at 23:30; Stop 06/16/17 at 00:29; Status DC Ondansetron HCl (Zofran) 4 mg 1X ONCE IV Last administered on 06/15/17 23:54 ; Start 06/15/17 at 23:30; Stop 06/15/17 at 23:31; Status DC Iohexol (Omnipaque 300 Mg/ml) 75 ml 1X ONCE IV Last administered on 00:40; Start 06/16/17 at 00:30; Stop 06/16/17 at 00:31; Status DC Info (Do NOT chart on this entry -- for MONITORING) 1 each PRN DAILY PRN MC SEE COMMENTS; Start 06/16/17 at 00:30; Stop 06/17/17 at 10:33; Status DC Lidocaine HCl (Glydo (Lidocaine) Jelly) 1 nicolas 1X ONCE MM Last administered on 06/16/17 02:00; Start 06/16/17 at 01:30; Stop 06/16/17 at 01:31; Status DC Ondansetron HCl (Zofran) 4 mg PRN Q8HRS PRN IV NAUSEA/VOMITING; Start at 01:30; Stop 06/16/17 at 08:49; Status DC Morphine Sulfate 2 mg PRN Q2HR PRN IV PAIN Last administered on 06/16/17 18: 28; Start 06/16/17 at 01:30; Stop 06/17/17 at 01:29; Status DC Potassium Chloride/Dextrose/ Sod Cl 1,000 ml @ 125 mls/hr 1X ONCE IV Last administered on 06/16/17 02:56; Start 06/16/17 at 01:30; Stop 06/16/17 at 09 :29; Status DC Throat Lozenges (Chloraseptic) 1 spray PRN Q2HR PRN PO SORE THROAT; Start at 06:30 Hydromorphone HCl (Dilaudid) 1 mg PRN Q2HR PRN IV/SQ PAIN GREATER THAN 3/10; Start 06/16/17 at 09:00; Stop 06/17/17 at 08:59; Status DC Ondansetron HCl (Zofran) 4 mg PRN Q6HRS PRN IV NAUSEA/VOMITING Last administered on 06/16/17 18:37; Start 06/16/17 at 09:00; Stop 06/17/17 at 08 :59; Status DC Famotidine (Pepcid Vial) 20 mg BID IVP Last administered on 06/17/17 08:21; Start 06/16/17 at 09:00 Potassium Chloride/Dextrose/ Sod Cl 1,000 ml @ 75 mls/hr [id number] IV Last administered on 06/16/17 23:51; Start 06/16/17 at 09:00 Iohexol (Omnipaque 300 Mg/ml) 400 ml 1X ONCE PO Last administered on 13:08; Start 06/16/17 at 10:45; Stop 06/16/17 at 10:46; Status DC Info (Do NOT chart on this entry -- for MONITORING) 1 each PRN DAILY PRN MC SEE COMMENTS; Start 06/16/17 at 10:45; Stop 06/18/17 at 10:44 Throat Lozenges (Chloraseptic) 1 spray PRN Q2HR PRN PO SORE THROAT; Start at 13:15; Status Cancel Prochlorperazine Edisylate (Compazine) 10 mg PRN Q6HRS PRN IV NAUSEA/VOMITING Last administered on 06/16/17 14:57; Start 06/16/17 at 15:00 Bisacodyl (Dulcolax Supp) 10 mg PRN DAILY PRN [place] CONSTIPATION; Start 06/16/17 at 15:45 Active Scripts Active Reported No Known Medications Prior To Admisstion (Info) Each 1 Each Vitals/I & O Vital Sign - Last 24 Hours 06/16/17 06/16/17 06/16/17 06/16/17 14:57 19:00 19:00 19:50 Temp 97.9 98.8 97.9 98.8 Pulse 86 87 Resp 20 17 20 B/P (MAP) 133/87 (102) 127/79 (95) Pulse Ox 95 95 95 O2 Delivery Room Air Room Air Room Air 06/16/17 06/16/17 06/17/17 06/17/17 21:20 23:00 03:00 07:00 Temp 98.8 98.2 98.8 98.9 98.8 98.2 98.8 98.9 Pulse 87 79 82 80 Resp 20 16 18 18 B/P (MAP) 127/73 (91) 120/73 (89) 97/62 (74) 117/74 (88) Pulse Ox 98 91 94 94 O2 Delivery Room Air Room Air Room Air Room Air 06/17/17 11:02 Temp 98.8 98.8 Pulse 82 Resp 18 B/P (MAP) 112/74 (87) Pulse Ox 94 O2 Delivery Room Air Intake and Output 06/16/17 06/16/17 06/17/17 15:00 23:00 07:00 Intake Total 0 ml Output Total 400 ml 1050 ml 1050 ml Balance -400 ml -1050 ml -1050 ml MICHELLE LEMON III DO Jun 17, 2017 12:17
[2017-06-17] MEDS: POTASSIUM CL 30MEQ D5-0.45NACL 1,000 ML IV SCH (12:35)
[2017-06-17 15:14] VITALS: BP 112/72
[2017-06-17 19:00] VITALS: BP 117/75
[2017-06-18] MEDS: POTASSIUM CL 30MEQ D5-0.45NACL 1,000 ML IV SCH (01:14)
[2017-06-18 03:00] VITALS: BP 115/70
[2017-06-18 06:35] LABS: BASO % 1 % (0-3); EOS % 2 % (0-3); HEMATOCRIT 40.1 % (39.0-53.0); LYMPH # 0.7 x10^3/uL (1.0-4.8); LYMPH % 16 % (24-48); MEAN CORPUSCULAR HEMOGLOBIN 32 pg (25-35); MEAN CORPUSCULAR HGB CONC 35 g/dL (31-37); MEAN CORPUSCULAR VOLUME 91 fL (79-100); MONO % 15 % (0-9); NEUT % 66 % (31-73); PLATELET COUNT 159 x10^3/uL (140-400); RED CELL DISTRIBUTION WIDTH 12.6 % (11.5-14.5); WHITE BLOOD COUNT 4.1 x10^3/uL (4.0-11.0)
[2017-06-18 06:48] LABS: ALBUMIN 3.2 g/dL (3.4-5.0); ALBUMIN/GLOBULIN RATIO 1.2 (1.0-1.7); CREATININE 0.8 mg/dL (0.7-1.3); GFR 98.9; POTASSIUM 3.9 mmol/L (3.5-5.1); TOTAL BILIRUBIN 1.2 mg/dL (0.2-1.0); TOTAL PROTEIN 5.9 g/dL (6.4-8.2)
[2017-06-18 07:15] VITALS: BP 113/76
--- NOTE | 2017-06-18 08:41 | PDOC ---
FLORENCIA FELICIANO [employer] 06/18/17 0841: SURGICAL PROGRESS NOTE Subjective tolerating clears no pain + flatus and stool Vital Signs Vital Signs Date Time Temp Pulse Resp B/P (MAP) Pulse Ox O2 Delivery O2 Flow Rate FiO2 06/18/17 07:15 98.2 75 20 113/76 (88) 97 Room Air 98.2 I&O Intake and Output 06/18/17 07:00 Intake Total 1030 ml Output Total 1600 ml Balance -570 ml Intake Oral 1030 ml Output Urine Total 1500 ml Gastric Drainage Total 100 ml # Voids 2 General: Alert, Oriented X3, Cooperative, No acute distress Abdomen: Soft, No tenderness Labs Laboratory Tests Test 06/18/17 05:35 White Blood Count 4.1 x10^3/uL (4.0-11.0) Red Blood Count 4.40 x10^6/uL (4.30-5.70) Hemoglobin 14.0 g/dL (13.0-17.5) Hematocrit 40.1 % (39.0-53.0) Mean Corpuscular Volume 91 fL (79-100) Mean Corpuscular Hemoglobin 32 pg (25-35) Mean Corpuscular Hemoglobin Concent 35 g/dL (31-37) Red Cell Distribution Width 12.6 % (11.5-14.5) Platelet Count 159 x10^3/uL (140-400) Neutrophils (%) (Auto) 66 % (31-73) Lymphocytes (%) (Auto) 16 % (24-48) Monocytes (%) (Auto) 15 % (0-9) Eosinophils (%) (Auto) 2 % (0-3) Basophils (%) (Auto) 1 % (0-3) Neutrophils # (Auto) 2.7 x10^3uL (1.8-7.7) Lymphocytes # (Auto) 0.7 x10^3/uL (1.0-4.8) Monocytes # (Auto) 0.6 x10^3/uL (0.0-1.1) Eosinophils # (Auto) 0.1 x10^3/uL (0.0-0.7) Basophils # (Auto) 0.0 x10^3/uL (0.0-0.2) Sodium Level 145 mmol/L (136-145) Potassium Level 3.9 mmol/L (3.5-5.1) Chloride Level 108 mmol/L (98-107) Carbon Dioxide Level 31 mmol/L (21-32) Anion Gap 6 (6-14) Blood Urea Nitrogen 8 mg/dL (8-26) Creatinine 0.8 mg/dL (0.7-1.3) Estimated GFR (Cockcroft-Gault) 98.9 BUN/Creatinine Ratio 10 (6-20) Glucose Level 87 mg/dL (70-99) Calcium Level 9.0 mg/dL (8.5-10.1) Total Bilirubin 1.2 mg/dL (0.2-1.0) Aspartate Amino Transf (AST/SGOT) 37 U/L (15-37) Alanine Aminotransferase (ALT/SGPT) 71 U/L (16-63) Alkaline Phosphatase 156 U/L (46-116) Total Protein 5.9 g/dL (6.4-8.2) Albumin 3.2 g/dL (3.4-5.0) Albumin/Globulin Ratio 1.2 (1.0-1.7) Laboratory Tests Test 06/18/17 05:35 White Blood Count 4.1 x10^3/uL (4.0-11.0) Red Blood Count 4.40 x10^6/uL (4.30-5.70) Hemoglobin 14.0 g/dL (13.0-17.5) Hematocrit 40.1 % (39.0-53.0) Mean Corpuscular Volume 91 fL (79-100) Mean Corpuscular Hemoglobin 32 pg (25-35) Mean Corpuscular Hemoglobin Concent 35 g/dL (31-37) Red Cell Distribution Width 12.6 % (11.5-14.5) Platelet Count 159 x10^3/uL (140-400) Neutrophils (%) (Auto) 66 % (31-73) Lymphocytes (%) (Auto) 16 % (24-48) Monocytes (%) (Auto) 15 % (0-9) Eosinophils (%) (Auto) 2 % (0-3) Basophils (%) (Auto) 1 % (0-3) Neutrophils # (Auto) 2.7 x10^3uL (1.8-7.7) Lymphocytes # (Auto) 0.7 x10^3/uL (1.0-4.8) Monocytes # (Auto) 0.6 x10^3/uL (0.0-1.1) Eosinophils # (Auto) 0.1 x10^3/uL (0.0-0.7) Basophils # (Auto) 0.0 x10^3/uL (0.0-0.2) Sodium Level 145 mmol/L (136-145) Potassium Level 3.9 mmol/L (3.5-5.1) Chloride Level 108 mmol/L (98-107) Carbon Dioxide Level 31 mmol/L (21-32) Anion Gap 6 (6-14) Blood Urea Nitrogen 8 mg/dL (8-26) Creatinine 0.8 mg/dL (0.7-1.3) Estimated GFR (Cockcroft-Gault) 98.9 BUN/Creatinine Ratio 10 (6-20) Glucose Level 87 mg/dL (70-99) Calcium Level 9.0 mg/dL (8.5-10.1) Total Bilirubin 1.2 mg/dL (0.2-1.0) Aspartate Amino Transf (AST/SGOT) 37 U/L (15-37) Alanine Aminotransferase (ALT/SGPT) 71 U/L (16-63) Alkaline Phosphatase 156 U/L (46-116) Total Protein 5.9 g/dL (6.4-8.2) Albumin 3.2 g/dL (3.4-5.0) Albumin/Globulin Ratio 1.2 (1.0-1.7) Problem List Problems Medical Problems: (1) Abdominal pain Status: Acute (2) Nausea & vomiting Status: Acute (3) Small bowel obstruction Status: Acute Assessment/Plan SBO, improved advance diet as tolerated, ok to dc if tolerating diet Problems: GILLIAN ORANTES MD 06/18/17 1207: SURGICAL PROGRESS NOTE Assessment/Plan Pt seen and examined. Agree with MsGala Feliciano's note Pt feels much better, олег PO abd soft OK to d/c f/u PRN Problems: FLORENCIA FELICIANO [employer] Jun 18, 2017 08:41 GILLIAN ORANTES MD Jun 18, 2017 12:07
[2017-06-18] MEDS: FAMOTIDINE 20 MG/2 ML VIAL IVP SCH (09:00)
[2017-06-18] MEDS ORDERED: FAMOTIDINE 20 MG TABLET. PO SCH (10:00)
[2017-06-18 11:04] VITALS: BP 105/61
--- NOTE | 2017-06-18 11:08 | PDOC ---
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 He was dx with a SBO including a KUB with gas and dilated loop of bowel. there is prolonged emptying into colon has been advancing diet Past Medical History Cardiovascular: No pertinent hx Pulmonary: Other GI: No pertinent hx Heme/Onc: Cancer Musculoskeletal: Other Renal/: No pertinent hx Endocrine: No pertinent hx Past Surgical History Past Surgical History: Other (esophagectomy) Family History Family History: No Significant Social History Quit ALCOHOL: none Vitals Vitals Vital Signs Date Time Temp Pulse Resp B/P (MAP) Pulse Ox O2 Delivery O2 Flow Rate FiO2 06/18/17 08:20 Room Air 06/18/17 07:15 98.2 75 20 113/76 (88) 97 98.2 Physical Exam Physical Exam Clinical appearance of old abdominal incision scar General: Alert, Oriented X3, Cooperative, No acute distress Heart: Regular rate Lungs: Clear Abdomen: Normal bowel sounds, Soft, No tenderness Extremities: No clubbing, No cyanosis Skin: No rashes, No breakdown Labs LABS PROCEDURE: CT ABD PELV W/ IV CONTRST ONLY EXAM: CT ABDOMEN/PELVIS WITH CONTRAST. HISTORY: Abdominal pain, vomiting, small bowel obstruction, esophagectomy, leukemia. TECHNIQUE: Computed tomography of the abdomen and pelvis was performed after the intravenous administration of 75 mL [id number]. COMPARISON: None. FINDINGS: Lung windows through the visualized portions of the bases reveal changes of esophagectomy with gastric pull-through. There is mild associated atelectasis in the right base. Bone windows reveal no suspicious lesions. Gallstones are noted. There is no pericholecystic inflammation. The liver, spleen, adrenal glands, kidneys and pancreas are unremarkable. There are no pathologically enlarged lymph nodes. A small amount of free pelvic fluid is likely reactive. There is a small bowel obstruction with transition point just deep to the anterior abdominal wall, just superior to the umbilicus as seen on coronal image 13 and axial image 43. This is along the distal jejunum or proximal ileum. The remainder of the small bowel is completely decompressed. There is mild edema about the most distal involved small bowel loops. IMPRESSION: 1. Small bowel obstruction with transition point just deep to the anterior abdominal wall just superior to the umbilicus. This appears complete by CT. 2. Cholelithiasis. 3. Status post esophagectomy with gastric pull-through. No evidence of active disease. REASON: SBO, please use gastrograffin PROCEDURE: SMALL BOWEL SERIES Small bowel series Indication: Small bowel obstruction. History of gastroesophageal surgery. Technique: Small bowel series with water-soluble oral contrast. Comparison: CT abdomen from 06/16/2017 Findings: Suggestion of gastric pull-through. 0 minute image demonstrates opacification of the stomach and duodenum. 3 and 5 hour images demonstrates antegrade opacification of the proximal small bowel. The small bowel loops are dilated measuring 4.4 cm in diameter. The 17 hour image demonstrates opacification of the colon and rectum with clearing of the contrast from small bowel. Impression: Passage of oral contrast from the small bowel to colon suggests no complete bowel obstruction. Significantly prolonged transit time to the colon. The 17 hour image demonstrates no abnormally dilated bowel loops to suggest ileus or high grade obstruction. DICTATED and SIGNED BY: AMISH DIAZ DO DATE: 06/17/17 0826 Laboratory Tests Test 06/18/17 05:35 White Blood Count 4.1 x10^3/uL (4.0-11.0) Red Blood Count 4.40 x10^6/uL (4.30-5.70) Hemoglobin 14.0 g/dL (13.0-17.5) Hematocrit 40.1 % (39.0-53.0) Mean Corpuscular Volume 91 fL (79-100) Mean Corpuscular Hemoglobin 32 pg (25-35) Mean Corpuscular Hemoglobin Concent 35 g/dL (31-37) Red Cell Distribution Width 12.6 % (11.5-14.5) Platelet Count 159 x10^3/uL (140-400) Neutrophils (%) (Auto) 66 % (31-73) Lymphocytes (%) (Auto) 16 % (24-48) Monocytes (%) (Auto) 15 % (0-9) Eosinophils (%) (Auto) 2 % (0-3) Basophils (%) (Auto) 1 % (0-3) Neutrophils # (Auto) 2.7 x10^3uL (1.8-7.7) Lymphocytes # (Auto) 0.7 x10^3/uL (1.0-4.8) Monocytes # (Auto) 0.6 x10^3/uL (0.0-1.1) Eosinophils # (Auto) 0.1 x10^3/uL (0.0-0.7) Basophils # (Auto) 0.0 x10^3/uL (0.0-0.2) Sodium Level 145 mmol/L (136-145) Potassium Level 3.9 mmol/L (3.5-5.1) Chloride Level 108 mmol/L (98-107) Carbon Dioxide Level 31 mmol/L (21-32) Anion Gap 6 (6-14) Blood Urea Nitrogen 8 mg/dL (8-26) Creatinine 0.8 mg/dL (0.7-1.3) Estimated GFR (Cockcroft-Gault) 98.9 BUN/Creatinine Ratio 10 (6-20) Glucose Level 87 mg/dL (70-99) Calcium Level 9.0 mg/dL (8.5-10.1) Total Bilirubin 1.2 mg/dL (0.2-1.0) Aspartate Amino Transf (AST/SGOT) 37 U/L (15-37) Alanine Aminotransferase (ALT/SGPT) 71 U/L (16-63) Alkaline Phosphatase 156 U/L (46-116) Total Protein 5.9 g/dL (6.4-8.2) Albumin 3.2 g/dL (3.4-5.0) Albumin/Globulin Ratio 1.2 (1.0-1.7) Assessment and Plan Assessmemt and Plan Problems Medical Problems: (1) Abdominal pain Status: Acute (2) Nausea & vomiting Status: Acute (3) Small bowel obstruction Status: Acute plan home this afternoon if олег lunch well Problems: Comment Review of Relevant I have reviewed the following items fany (where applicable) has been applied. Labs Laboratory Tests Test 06/18/17 05:35 White Blood Count 4.1 x10^3/uL (4.0-11.0) Red Blood Count 4.40 x10^6/uL (4.30-5.70) Hemoglobin 14.0 g/dL (13.0-17.5) Hematocrit 40.1 % (39.0-53.0) Mean Corpuscular Volume 91 fL (79-100) Mean Corpuscular Hemoglobin 32 pg (25-35) Mean Corpuscular Hemoglobin Concent 35 g/dL (31-37) Red Cell Distribution Width 12.6 % (11.5-14.5) Platelet Count 159 x10^3/uL (140-400) Neutrophils (%) (Auto) 66 % (31-73) Lymphocytes (%) (Auto) 16 % (24-48) Monocytes (%) (Auto) 15 % (0-9) Eosinophils (%) (Auto) 2 % (0-3) Basophils (%) (Auto) 1 % (0-3) Neutrophils # (Auto) 2.7 x10^3uL (1.8-7.7) Lymphocytes # (Auto) 0.7 x10^3/uL (1.0-4.8) Monocytes # (Auto) 0.6 x10^3/uL (0.0-1.1) Eosinophils # (Auto) 0.1 x10^3/uL (0.0-0.7) Basophils # (Auto) 0.0 x10^3/uL (0.0-0.2) Sodium Level 145 mmol/L (136-145) Potassium Level 3.9 mmol/L (3.5-5.1) Chloride Level 108 mmol/L (98-107) Carbon Dioxide Level 31 mmol/L (21-32) Anion Gap 6 (6-14) Blood Urea Nitrogen 8 mg/dL (8-26) Creatinine 0.8 mg/dL (0.7-1.3) Estimated GFR (Cockcroft-Gault) 98.9 BUN/Creatinine Ratio 10 (6-20) Glucose Level 87 mg/dL (70-99) Calcium Level 9.0 mg/dL (8.5-10.1) Total Bilirubin 1.2 mg/dL (0.2-1.0) Aspartate Amino Transf (AST/SGOT) 37 U/L (15-37) Alanine Aminotransferase (ALT/SGPT) 71 U/L (16-63) Alkaline Phosphatase 156 U/L (46-116) Total Protein 5.9 g/dL (6.4-8.2) Albumin 3.2 g/dL (3.4-5.0) Albumin/Globulin Ratio 1.2 (1.0-1.7) Laboratory Tests Test 06/18/17 05:35 White Blood Count 4.1 x10^3/uL (4.0-11.0) Red Blood Count 4.40 x10^6/uL (4.30-5.70) Hemoglobin 14.0 g/dL (13.0-17.5) Hematocrit 40.1 % (39.0-53.0) Mean Corpuscular Volume 91 fL (79-100) Mean Corpuscular Hemoglobin 32 pg (25-35) Mean Corpuscular Hemoglobin Concent 35 g/dL (31-37) Red Cell Distribution Width 12.6 % (11.5-14.5) Platelet Count 159 x10^3/uL (140-400) Neutrophils (%) (Auto) 66 % (31-73) Lymphocytes (%) (Auto) 16 % (24-48) Monocytes (%) (Auto) 15 % (0-9) Eosinophils (%) (Auto) 2 % (0-3) Basophils (%) (Auto) 1 % (0-3) Neutrophils # (Auto) 2.7 x10^3uL (1.8-7.7) Lymphocytes # (Auto) 0.7 x10^3/uL (1.0-4.8) Monocytes # (Auto) 0.6 x10^3/uL (0.0-1.1) Eosinophils # (Auto) 0.1 x10^3/uL (0.0-0.7) Basophils # (Auto) 0.0 x10^3/uL (0.0-0.2) Sodium Level 145 mmol/L (136-145) Potassium Level 3.9 mmol/L (3.5-5.1) Chloride Level 108 mmol/L (98-107) Carbon Dioxide Level 31 mmol/L (21-32) Anion Gap 6 (6-14) Blood Urea Nitrogen 8 mg/dL (8-26) Creatinine 0.8 mg/dL (0.7-1.3) Estimated GFR (Cockcroft-Gault) 98.9 BUN/Creatinine Ratio 10 (6-20) Glucose Level 87 mg/dL (70-99) Calcium Level 9.0 mg/dL (8.5-10.1) Total Bilirubin 1.2 mg/dL (0.2-1.0) Aspartate Amino Transf (AST/SGOT) 37 U/L (15-37) Alanine Aminotransferase (ALT/SGPT) 71 U/L (16-63) Alkaline Phosphatase 156 U/L (46-116) Total Protein 5.9 g/dL (6.4-8.2) Albumin 3.2 g/dL (3.4-5.0) Albumin/Globulin Ratio 1.2 (1.0-1.7) Medications Current Medications Hydromorphone HCl (Dilaudid) 1 mg PRN Q15MIN PRN IV/SQ PAIN GREATER THAN 3/10 Last administered on 06/15/17 23:54; Start 06/15/17 at 23:30; Stop 06/16/17 at 08:49; Status DC Ringer's Solution 1,000 ml @ 1,000 mls/hr Q1H IV Last administered on 23:54; Start 06/15/17 at 23:30; Stop 06/16/17 at 00:29; Status DC Ondansetron HCl (Zofran) 4 mg 1X ONCE IV Last administered on 06/15/17 23:54 ; Start 06/15/17 at 23:30; Stop 06/15/17 at 23:31; Status DC Iohexol (Omnipaque 300 Mg/ml) 75 ml 1X ONCE IV Last administered on 00:40; Start 06/16/17 at 00:30; Stop 06/16/17 at 00:31; Status DC Info (Do NOT chart on this entry -- for MONITORING) 1 each PRN DAILY PRN MC SEE COMMENTS; Start 06/16/17 at 00:30; Stop 06/17/17 at 10:33; Status DC Lidocaine HCl (Glydo (Lidocaine) Jelly) 1 nicolas 1X ONCE MM Last administered on 06/16/17 02:00; Start 06/16/17 at 01:30; Stop 06/16/17 at 01:31; Status DC Ondansetron HCl (Zofran) 4 mg PRN Q8HRS PRN IV NAUSEA/VOMITING; Start at 01:30; Stop 06/16/17 at 08:49; Status DC Morphine Sulfate 2 mg PRN Q2HR PRN IV PAIN Last administered on 06/16/17 18: 28; Start 06/16/17 at 01:30; Stop 06/17/17 at 01:29; Status DC Potassium Chloride/Dextrose/ Sod Cl 1,000 ml @ 125 mls/hr 1X ONCE IV Last administered on 06/16/17 02:56; Start 06/16/17 at 01:30; Stop 06/16/17 at 09 :29; Status DC Throat Lozenges (Chloraseptic) 1 spray PRN Q2HR PRN PO SORE THROAT; Start at 06:30 Hydromorphone HCl (Dilaudid) 1 mg PRN Q2HR PRN IV/SQ PAIN GREATER THAN 3/10; Start 06/16/17 at 09:00; Stop 06/17/17 at 08:59; Status DC Ondansetron HCl (Zofran) 4 mg PRN Q6HRS PRN IV NAUSEA/VOMITING Last administered on 06/16/17 18:37; Start 06/16/17 at 09:00; Stop 06/17/17 at 08 :59; Status DC Famotidine (Pepcid Vial) 20 mg BID IVP Last administered on 06/17/17 20:40; Start 06/16/17 at 09:00; Stop 06/18/17 at 09:05; Status DC Potassium Chloride/Dextrose/ Sod Cl 1,000 ml @ 75 mls/hr [id number] IV Last administered on 06/17/17 12:35; Start 06/16/17 at 09:00 Iohexol (Omnipaque 300 Mg/ml) 400 ml 1X ONCE PO Last administered on 13:08; Start 06/16/17 at 10:45; Stop 06/16/17 at 10:46; Status DC Info (Do NOT chart on this entry -- for MONITORING) 1 each PRN DAILY PRN MC SEE COMMENTS; Start 06/16/17 at 10:45; Stop 06/18/17 at 10:44; Status DC Throat Lozenges (Chloraseptic) 1 spray PRN Q2HR PRN PO SORE THROAT; Start at 13:15; Status Cancel Prochlorperazine Edisylate (Compazine) 10 mg PRN Q6HRS PRN IV NAUSEA/VOMITING Last administered on 06/16/17 14:57; Start 06/16/17 at 15:00 Bisacodyl (Dulcolax Supp) 10 mg PRN DAILY PRN [place] CONSTIPATION; Start 06/16/17 at 15:45 Famotidine (Pepcid) 20 mg BID PO Last administered on 06/18/17t 09:25; Start 06/18/17 at 10:00 Active Scripts Active Reported No Known Medications Prior To Admisstion (Info) Each 1 Each Vitals/I & O Vital Sign - Last 24 Hours 06/17/17 06/17/17 06/17/17 06/17/17 15:14 19:00 19:25 23:00 Temp 98.2 97.6 98.2 98.2 97.6 98.2 Pulse 84 66 64 Resp 18 18 18 B/P (MAP) 112/72 (85) 117/75 (89) Pulse Ox 94 97 97 O2 Delivery Room Air Room Air Room Air Room Air 06/18/17 06/18/17 06/18/17 03:00 07:15 08:20 Temp 98.1 98.2 98.1 98.2 Pulse 65 75 Resp 18 20 B/P (MAP) 115/70 (85) 113/76 (88) Pulse Ox 96 97 O2 Delivery Room Air Room Air Room Air Intake and Output 06/17/17 06/17/17 06/18/17 15:00 23:00 07:00 Intake Total 670 ml 360 ml Output Total 450 ml 1150 ml Balance -450 ml -480 ml 360 ml MISTY ROBERSON MD Jun 18, 2017 11:08
--- NOTE | 2017-06-18 12:17 | PDOC3 ---
Discharge Summary Date of Admission: Jun 16, 2017 Date of Discharge: Jun 18, 2017 Follow-Up: 3-5 days FINAL DIAGNOSIS DISCHARGE DIAGNOSIS Small bowel obstruction, resolved, eating well, home after lunch today if lunch goes well PMH of hairy cell leukemia in remission PSH esophagectomy in 2016 History of Present Illness History of Present Illness 57 y/o male who presented for acute onset of 10/10 abdominal pain and vomiting. He was dx with a SBO including a KUB with gas and dilated loop of bowel. there is prolonged emptying into colon has been advancing diet without difficulty Past Medical History Cardiovascular: No pertinent hx Pulmonary: Other GI: No pertinent hx Heme/Onc: Cancer Musculoskeletal: Other Renal/: No pertinent hx Endocrine: No pertinent hx Past Surgical History Past Surgical History: Other (esophagectomy) Family History Family History: No Significant Social History Quit ALCOHOL: none Problems Medical Problems: (1) Abdominal pain Status: Acute (2) Nausea & vomiting Status: Acute (3) Small bowel obstruction Status: Acute Brief Hospital Course Mr. Schilling is a 57 old [sex] who presented with [ ] Discharge Medications Current Medications Hydromorphone HCl (Dilaudid) 1 mg PRN Q15MIN PRN IV/SQ PAIN GREATER THAN 3/10 Last administered on 06/15/17 23:54; Start 06/15/17 at 23:30; Stop 06/16/17 at 08:49; Status DC Ringer's Solution 1,000 ml @ 1,000 mls/hr Q1H IV Last administered on 23:54; Start 06/15/17 at 23:30; Stop 06/16/17 at 00:29; Status DC Ondansetron HCl (Zofran) 4 mg 1X ONCE IV Last administered on 06/15/17 23:54 ; Start 06/15/17 at 23:30; Stop 06/15/17 at 23:31; Status DC Iohexol (Omnipaque 300 Mg/ml) 75 ml 1X ONCE IV Last administered on 00:40; Start 06/16/17 at 00:30; Stop 06/16/17 at 00:31; Status DC Info (Do NOT chart on this entry -- for MONITORING) 1 each PRN DAILY PRN MC SEE COMMENTS; Start 06/16/17 at 00:30; Stop 06/17/17 at 10:33; Status DC Lidocaine HCl (Glydo (Lidocaine) Jelly) 1 nicolas 1X ONCE MM Last administered on 06/16/17 02:00; Start 06/16/17 at 01:30; Stop 06/16/17 at 01:31; Status DC Ondansetron HCl (Zofran) 4 mg PRN Q8HRS PRN IV NAUSEA/VOMITING; Start at 01:30; Stop 06/16/17 at 08:49; Status DC Morphine Sulfate 2 mg PRN Q2HR PRN IV PAIN Last administered on 06/16/17 18: 28; Start 06/16/17 at 01:30; Stop 06/17/17 at 01:29; Status DC Potassium Chloride/Dextrose/ Sod Cl 1,000 ml @ 125 mls/hr 1X ONCE IV Last administered on 06/16/17 02:56; Start 06/16/17 at 01:30; Stop 06/16/17 at 09 :29; Status DC Throat Lozenges (Chloraseptic) 1 spray PRN Q2HR PRN PO SORE THROAT; Start at 06:30 Hydromorphone HCl (Dilaudid) 1 mg PRN Q2HR PRN IV/SQ PAIN GREATER THAN 3/10; Start 06/16/17 at 09:00; Stop 06/17/17 at 08:59; Status DC Ondansetron HCl (Zofran) 4 mg PRN Q6HRS PRN IV NAUSEA/VOMITING Last administered on 06/16/17 18:37; Start 06/16/17 at 09:00; Stop 06/17/17 at 08 :59; Status DC Famotidine (Pepcid Vial) 20 mg BID IVP Last administered on 06/17/17 20:40; Start 06/16/17 at 09:00; Stop 06/18/17 at 09:05; Status DC Potassium Chloride/Dextrose/ Sod Cl 1,000 ml @ 75 mls/hr [id number] IV Last administered on 06/17/17 12:35; Start 06/16/17 at 09:00 Iohexol (Omnipaque 300 Mg/ml) 400 ml 1X ONCE PO Last administered on 13:08; Start 06/16/17 at 10:45; Stop 06/16/17 at 10:46; Status DC Info (Do NOT chart on this entry -- for MONITORING) 1 each PRN DAILY PRN MC SEE COMMENTS; Start 06/16/17 at 10:45; Stop 06/18/17 at 10:44; Status DC Throat Lozenges (Chloraseptic) 1 spray PRN Q2HR PRN PO SORE THROAT; Start at 13:15; Status Cancel Prochlorperazine Edisylate (Compazine) 10 mg PRN Q6HRS PRN IV NAUSEA/VOMITING Last administered on 06/16/17 14:57; Start 06/16/17 at 15:00 Bisacodyl (Dulcolax Supp) 10 mg PRN DAILY PRN [place] CONSTIPATION; Start 06/16/17 at 15:45 Famotidine (Pepcid) 20 mg BID PO Last administered on 06/18/17 09:25; Start 06/18/17 at 10:00 Active Scripts Active Reported No Known Medications Prior To Admisstion (Info) Each 1 Each Vital Signs Vital Signs Date Time Temp Pulse Resp B/P (MAP) Pulse Ox O2 Delivery O2 Flow Rate FiO2 06/18/17 11:04 98.1 71 18 105/61 (76) 96 Room Air 98.1 Labs Laboratory Tests Test 06/18/17 05:35 White Blood Count 4.1 x10^3/uL (4.0-11.0) Red Blood Count 4.40 x10^6/uL (4.30-5.70) Hemoglobin 14.0 g/dL (13.0-17.5) Hematocrit 40.1 % (39.0-53.0) Mean Corpuscular Volume 91 fL (79-100) Mean Corpuscular Hemoglobin 32 pg (25-35) Mean Corpuscular Hemoglobin Concent 35 g/dL (31-37) Red Cell Distribution Width 12.6 % (11.5-14.5) Platelet Count 159 x10^3/uL (140-400) Neutrophils (%) (Auto) 66 % (31-73) Lymphocytes (%) (Auto) 16 % (24-48) Monocytes (%) (Auto) 15 % (0-9) Eosinophils (%) (Auto) 2 % (0-3) Basophils (%) (Auto) 1 % (0-3) Neutrophils # (Auto) 2.7 x10^3uL (1.8-7.7) Lymphocytes # (Auto) 0.7 x10^3/uL (1.0-4.8) Monocytes # (Auto) 0.6 x10^3/uL (0.0-1.1) Eosinophils # (Auto) 0.1 x10^3/uL (0.0-0.7) Basophils # (Auto) 0.0 x10^3/uL (0.0-0.2) Sodium Level 145 mmol/L (136-145) Potassium Level 3.9 mmol/L (3.5-5.1) Chloride Level 108 mmol/L (98-107) Carbon Dioxide Level 31 mmol/L (21-32) Anion Gap 6 (6-14) Blood Urea Nitrogen 8 mg/dL (8-26) Creatinine 0.8 mg/dL (0.7-1.3) Estimated GFR (Cockcroft-Gault) 98.9 BUN/Creatinine Ratio 10 (6-20) Glucose Level 87 mg/dL (70-99) Calcium Level 9.0 mg/dL (8.5-10.1) Total Bilirubin 1.2 mg/dL (0.2-1.0) Aspartate Amino Transf (AST/SGOT) 37 U/L (15-37) Alanine Aminotransferase (ALT/SGPT) 71 U/L (16-63) Alkaline Phosphatase 156 U/L (46-116) Total Protein 5.9 g/dL (6.4-8.2) Albumin 3.2 g/dL (3.4-5.0) Albumin/Globulin Ratio 1.2 (1.0-1.7) Laboratory Tests Test 06/18/17 05:35 White Blood Count 4.1 x10^3/uL (4.0-11.0) Red Blood Count 4.40 x10^6/uL (4.30-5.70) Hemoglobin 14.0 g/dL (13.0-17.5) Hematocrit 40.1 % (39.0-53.0) Mean Corpuscular Volume 91 fL (79-100) Mean Corpuscular Hemoglobin 32 pg (25-35) Mean Corpuscular Hemoglobin Concent 35 g/dL (31-37) Red Cell Distribution Width 12.6 % (11.5-14.5) Platelet Count 159 x10^3/uL (140-400) Neutrophils (%) (Auto) 66 % (31-73) Lymphocytes (%) (Auto) 16 % (24-48) Monocytes (%) (Auto) 15 % (0-9) Eosinophils (%) (Auto) 2 % (0-3) Basophils (%) (Auto) 1 % (0-3) Neutrophils # (Auto) 2.7 x10^3uL (1.8-7.7) Lymphocytes # (Auto) 0.7 x10^3/uL (1.0-4.8) Monocytes # (Auto) 0.6 x10^3/uL (0.0-1.1) Eosinophils # (Auto) 0.1 x10^3/uL (0.0-0.7) Basophils # (Auto) 0.0 x10^3/uL (0.0-0.2) Sodium Level 145 mmol/L (136-145) Potassium Level 3.9 mmol/L (3.5-5.1) Chloride Level 108 mmol/L (98-107) Carbon Dioxide Level 31 mmol/L (21-32) Anion Gap 6 (6-14) Blood Urea Nitrogen 8 mg/dL (8-26) Creatinine 0.8 mg/dL (0.7-1.3) Estimated GFR (Cockcroft-Gault) 98.9 BUN/Creatinine Ratio 10 (6-20) Glucose Level 87 mg/dL (70-99) Calcium Level 9.0 mg/dL (8.5-10.1) Total Bilirubin 1.2 mg/dL (0.2-1.0) Aspartate Amino Transf (AST/SGOT) 37 U/L (15-37) Alanine Aminotransferase (ALT/SGPT) 71 U/L (16-63) Alkaline Phosphatase 156 U/L (46-116) Total Protein 5.9 g/dL (6.4-8.2) Albumin 3.2 g/dL (3.4-5.0) Albumin/Globulin Ratio 1.2 (1.0-1.7) Allergies Allergies Coded Allergies Type Severity Reaction Last Updated Verified clindamycin Allergy Intermediate 05/04/14 Yes codeine Allergy Intermediate 05/04/14 Yes sulfamethoxazole Allergy Intermediate Rash 05/04/14 Yes trimethoprim Allergy Intermediate Rash 05/04/14 Yes Disposition/Orders: D/C to Home Patient Instructions SEE PCP 3-5 DAYS MISTY ROBERSON MD Jun 18, 2017 12:17
--- NOTE | 2017-06-18 12:22 | DISCH ---
DISCHARGE INSTRUCTIONS Condition on Discharge Condition on Discharge: Stable Activity After Discharge Activity Instructions for Disc: Resume previous activity Lifting Instructions after Dis: No heavy lifting Diet after Discharge Diet after Discharge: Low Fat Checks after Discharge Checks after discharge: Check blood press - daily Contacting the DR. after DC Call your doctor for: If your condition worsens Treatment/Equipment after DC Adaptive Equipment Issued: None MISTY ROBERSON MD Jun 18, 2017 12:22
== END 2017-06-18 13:45 | disposition home or self-care (01) | DRG 389 ==
LOC: ER 22:32 → 4 NORTH 06-16 01:31
PROVIDERS: ADMIT Internal Medicine; ATTEND Internal Medicine
DX: K56.609 Unspecified intestinal obstruction, unspecified as to partial versus complete obstruction (principal); C91.41 Hairy cell leukemia, in remission; E44.0 Moderate protein-calorie malnutrition; K80.20 Calculus of gallbladder without cholecystitis without obstruction; Z87.442 Personal history of urinary calculi; Z87.891 Personal history of nicotine dependence; Z92.21 Personal history of antineoplastic chemotherapy; Z88.1 Allergy status to other antibiotic agents; Z88.5 Allergy status to narcotic agent; Z88.2 Allergy status to sulfonamides
CPT/HCPCS: 36415; 74000; 74177; 74250; 80053; 81001; 83690; 85007; 85025; 96361; 96374; 96375; J0780; J1170; J2270; J2405; J7120; Q9967; S0028; 99285-25

== ENCOUNTER 2019-10-27 13:06 | Inpatient (IN) | payer BC ==
[~2019-10-27] VITALS: Ht 182.9 cm; Wt 92.6 kg
[2019-10-27] MEDS ORDERED: IV NORMAL SALINE 1000ML BAG 1,000 ML IV ONE (13:30)
[2019-10-27 13:58] LABS: BASO % 0 % (0-3); EOS % 0 % (0-3); HEMATOCRIT 40.7 % (39.0-53.0); LYMPH # 0.3 x10^3/uL (1.0-4.8); LYMPH % 5 % (24-48); MEAN CORPUSCULAR HEMOGLOBIN 31 pg (25-35); MEAN CORPUSCULAR HGB CONC 34 g/dL (31-37); MEAN CORPUSCULAR VOLUME 90 fL (79-100); MONO # 0.2 x10^3/uL (0.0-1.1); MONO % 4 % (0-9); NEUT # 4.5 x10^3/uL (1.8-7.7); NEUT % 91 % (31-73); PLATELET COUNT 144 x10^3/uL (140-400); RED BLOOD COUNT 4.54 x10^6/uL (4.30-5.70)
--- NOTE | 2019-10-27 14:00 | RAD ---
EXAM: CHEST AP ONLY INDICATION: Short of breath. TECHNIQUE: Single view COMPARISON: None FINDINGS: The heart size is normal. The great vessels appear unremarkable. There is no hilar or mediastinal mass. Surgical clips overlying the mediastinum inferior to the left mainstem bronchus are again seen.. The lungs show bilateral ill-defined airspace opacities.. There is no pleural effusion or pneumothorax. There are no significant osseous abnormalities. IMPRESSION: Bilateral ill-defined airspace opacities are present. In the appropriate clinical context, these could reflect atypical pneumonia. Electronically signed by: Boubacar Lenz MD (10/27/2019 1:58 PM) [id number]
[2019-10-27 14:13] LABS: CALCIUM 8.2 mg/dL (8.5-10.1); CREATININE 0.6 mg/dL (0.7-1.3); POTASSIUM 3.7 mmol/L (3.5-5.1)
[2019-10-27 14:19] LABS: ALBUMIN 2.8 g/dL (3.4-5.0); ALBUMIN/GLOBULIN RATIO 1.1 (1.0-1.7); TOTAL BILIRUBIN 0.6 mg/dL (0.2-1.0); TOTAL PROTEIN 5.3 g/dL (6.4-8.2)
[2019-10-27 14:34] LABS: BASE EXCESS ABG 3 mmol/L (-3-3); HCO3 ABG 27 mmol/L (21-28); PCO2 ABG 39 mmHg (35-46); PO2 ABG 75 mmHg (65-108); SAT O2 ABG 95 % (92-99)
[2019-10-27 14:36] LABS: FIO2 ABG 21
--- NOTE | 2019-10-27 14:42 | PHYS DOC ---
Past Medical History Past Medical History: Other Additional Past Medical Histor: esophageal achalasia; bowel obstruction. 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 Since that time he has had progressive shortness of breath cough and congestion. He has had high fevers over the last 2 days. He denies any nausea vomiting. He denies any hemoptysis. He states he feels profoundly weak. [] Review of Systems: Review of Systems: Constitutional: Reports fever. [] Eyes: Denies change in visual acuity. [] HENT: Denies nasal congestion or sore throat. [] Respiratory: Reports cough congestion and shortness of breath. [] Cardiovascular: Denies chest pain or edema. [] GI: Denies abdominal pain, nausea, vomiting, bloody stools or diarrhea. [] : Denies dysuria. [] Musculoskeletal: Denies back pain or joint pain. [] Integument: Denies rash. [] Neurologic: Denies headache, focal weakness or sensory changes. [] Endocrine: Denies polyuria or polydipsia. [] Lymphatic: Denies swollen glands. [] Psychiatric: Denies depression or anxiety. [] Heart Score: Risk Factors: Risk Factors: DM, Current or recent (<one month) smoker, HTN, HLP, family history of CAD, obesity. Risk Scores: Score 0 - 3: 2.5% MACE over next 6 weeks - Discharge Home Score 4 - 6: 20.3% MACE over next 6 weeks - Admit for Clinical Observation Score 7 - 10: 72.7% MACE over next 6 weeks - Early Invasive Strategies Current Medications: Current Medications Medications (Trade) Dose Ordered Sig/Michael Start Time Stop Time Status Last Admin Dose Admin Sodium Chloride 1,000 ml @ 1,000 mls/hr 1X ONCE 10/27/19 13:30 10/27/19 14:29 DC 10/27/19 13:30 1,000 MLS/HR Allergies: Allergies: Allergies Coded Allergies Type Severity Reaction Last Updated Verified clindamycin Allergy Intermediate 05/04/14 Yes codeine Allergy Intermediate 05/04/14 Yes sulfamethoxazole Allergy Intermediate Rash 05/04/14 Yes trimethoprim Allergy Intermediate Rash 05/04/14 Yes Physical Exam: PE: Constitutional: Appears acutely ill [] HENT: Normocephalic, atraumatic, bilateral external ears normal, oropharynx moist, no oral exudates, nose normal. [] Eyes: PERRLA, EOMI, conjunctiva normal, no discharge. [] Neck: Normal range of motion, no tenderness, supple, no stridor. [] Cardiovascular:Heart rate regular rhythm, no murmur [] Lungs & Thorax: Bilateral breath sounds clear to auscultation [] Abdomen: Bowel sounds normal, soft, no tenderness, no masses, no pulsatile masses. [] Skin: Warm, dry, no erythema, no rash. [] Back: No tenderness, no CVA tenderness. [] Extremities: No tenderness, no cyanosis, no clubbing, ROM intact, no edema. [] Neurologic: Alert and oriented X 3, normal motor function, normal sensory function, no focal deficits noted. [] Psychologic: Anxious [] Current Patient Data: Labs: Laboratory Tests Test 10/27/19 13:29 10/27/19 13:40 O2 Saturation 95 % (92-99) Arterial Blood pH 7.46 (7.35-7.45) H Arterial Blood pCO2 at Patient Temp 39 mmHg (35-46) Arterial Blood pO2 at Patient Temp 75 mmHg (65-108) Arterial Blood HCO3 27 mmol/L (21-28) Arterial Blood Base Excess 3 mmol/L (-3-3) FiO2 21 White Blood Count 5.0 x10^3/uL (4.0-11.0) Red Blood Count 4.54 x10^6/uL (4.30-5.70) Hemoglobin 14.0 g/dL (13.0-17.5) Hematocrit 40.7 % (39.0-53.0) Mean Corpuscular Volume 90 fL (79-100) Mean Corpuscular Hemoglobin 31 pg (25-35) Mean Corpuscular Hemoglobin Concent 34 g/dL (31-37) Red Cell Distribution Width 13.0 % (11.5-14.5) Platelet Count 144 x10^3/uL (140-400) Neutrophils (%) (Auto) 91 % (31-73) H Lymphocytes (%) (Auto) 5 % (24-48) L Monocytes (%) (Auto) 4 % (0-9) Eosinophils (%) (Auto) 0 % (0-3) Basophils (%) (Auto) 0 % (0-3) Neutrophils # (Auto) 4.5 x10^3/uL (1.8-7.7) Lymphocytes # (Auto) 0.3 x10^3/uL (1.0-4.8) L Monocytes # (Auto) 0.2 x10^3/uL (0.0-1.1) Eosinophils # (Auto) 0.0 x10^3/uL (0.0-0.7) Basophils # (Auto) 0.0 x10^3/uL (0.0-0.2) Platelet Estimate Pending Sodium Level 141 mmol/L (136-145) Potassium Level 3.7 mmol/L (3.5-5.1) Chloride Level 103 mmol/L (98-107) Carbon Dioxide Level 29 mmol/L (21-32) Anion Gap 9 (6-14) Blood Urea Nitrogen 10 mg/dL (8-26) Creatinine 0.6 mg/dL (0.7-1.3) L Estimated GFR (Cockcroft-Gault) 137.0 BUN/Creatinine Ratio 17 (6-20) Glucose Level 116 mg/dL (70-99) H Lactic Acid Level 0.9 mmol/L (0.4-2.0) Calcium Level 8.2 mg/dL (8.5-10.1) L Total Bilirubin 0.6 mg/dL (0.2-1.0) Aspartate Amino Transferase (AST) 71 U/L (15-37) H Alanine Aminotransferase (ALT) 79 U/L (16-63) H Alkaline Phosphatase 664 U/L (46-116) H Total Protein 5.3 g/dL (6.4-8.2) L Albumin 2.8 g/dL (3.4-5.0) L Albumin/Globulin Ratio 1.1 (1.0-1.7) Laboratory Tests 10/27/19 13:40 Laboratory Tests 10/27/19 13:40 Vital Signs: Vital Signs Date Time Temp Pulse Resp B/P (MAP) Pulse Ox O2 Delivery O2 Flow Rate FiO2 10/27/19 13:10 100.6 96 18 136/62 (86) 86 Room Air 100.6 EKG: EKG: [] Radiology/Procedures: Radiology/Procedures: [] Impression: PROCEDURE: CHEST AP ONLY EXAM: CHEST AP ONLY INDICATION: Short of breath. TECHNIQUE: Single view COMPARISON: None FINDINGS: The heart size is normal. The great vessels appear unremarkable. There is no hilar or mediastinal mass. Surgical clips overlying the mediastinum inferior to the left mainstem bronchus are again seen.. The lungs show bilateral ill-defined airspace opacities.. There is no pleural effusion or pneumothorax. There are no significant osseous abnormalities. IMPRESSION: Bilateral ill-defined airspace opacities are present. In the appropriate clinical context, these could reflect atypical pneumonia. Course & Med Decision Making: Course & Med Decision Making Pertinent Labs and Imaging studies reviewed. (See chart for details) [ED course: Evaluation reveals a 59-year-old male who appears acutely ill. He likely has COVID-19 pneumonia. He was given IV fluids and Tylenol during his stay here in the emergency department. He was started on supplemental oxygen which did bring his oxygen saturation up into the mid 90s after the fluid Tylenol and oxygen the patient felt much better however given his degree of hypoxia he will need to stay in the hospital for close observation. The patient was examined to full PPE] Dragon Disclaimer: Dragon Disclaimer: This electronic medical record was generated, in whole or in part, using a voice recognition dictation system. Departure Departure Impression: Primary Impression: COVID-19 virus infection Disposition: ADMITTED INPATIENT Admitting [facility] Condition: GUARDED Referrals: MP ALBERTO MD (PCP) Scripts No Active Prescriptions or Reported Meds PATRICK LARIOS DO Oct 27, 2019 14:42
[2019-10-27 14:52] LABS: % BANDS 10 % (0-9); % LYMPHS 10 % (24-48); % MONOS 3 % (0-10); % SEGS 77 % (35-66)
[2019-10-27 14:53] LABS: PLT ESTIMATE ADEQUATE (ADEQUATE)
[2019-10-27] MEDS ORDERED: ACETAMINOPHEN 500 MG TABLET PO ONE (16:00)
--- NOTE | 2019-10-27 16:10 | PDOC1 ---
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 last saturday he has had progressive shortness of breath cough and congestion since exposure. He has had high fevers over the last 2 days.to 102 F denies nausea vomiting. denies hemoptysis. states he feels profoundly weak Past Medical History Past Medical History Past Medical History Past Medical History: Other Additional Past Medical Histor: esophageal achalasia; bowel obstruction. Hairy cell leukemia (in remission) PMH of hairy cell leukemia in remission PSH esophagectomy in 2015 Past Surgical History: Other Additional Past Surgical Histo: ESOPHAGECTOMY ([employer] MED 08/2015) Smoking Status: Former Smoker Alcohol Use: None Drug Use: None fhx copd Cardiovascular: No pertinent hx Pulmonary: Other GI: No pertinent hx Heme/Onc: Cancer Musculoskeletal: Other Renal/: No pertinent hx Endocrine: No pertinent hx Past Surgical History Past Surgical History: Other Family History Family History: No Significant, Chronic Bronchitis Social History Smoke: Quit ALCOHOL: occassional Drugs: None Current Problem List Problem List Problems Medical Problems: (1) COVID-19 virus infection Status: Acute Current Medications Current Medications Current Medications Sodium Chloride 1,000 ml @ 1,000 mls/hr 1X ONCE IV Last administered on 10/27/19at 13:30; Start 10/27/19 at 13:30; Stop 10/27/19 at 14:29; Status DC Acetaminophen (Tylenol) 1,000 mg 1X ONCE PO ; Start 10/27/19 at 16:00; Stop 10/27/19 at 16:01; Status DC Active Scripts Active No Active Prescriptions or Reported Medications Allergies Allergies: Coded Allergies: clindamycin (Verified Allergy, Intermediate, 05/04/14) codeine (Verified Allergy, Intermediate, 05/04/14) sulfamethoxazole (Verified Allergy, Intermediate, Rash, 05/04/14) trimethoprim (Verified Allergy, Intermediate, Rash, 05/04/14) ROS Review of System Constitutional: Reports fever. [] Eyes: Denies change in visual acuity. [] HENT: Denies nasal congestion or sore throat. [] Respiratory: Reports cough congestion and shortness of breath. [] Cardiovascular: Denies chest pain or edema. [] GI: Denies abdominal pain, nausea, vomiting, bloody stools or diarrhea. [] : Denies dysuria. [] Musculoskeletal: Denies back pain or joint pain. [] Integument: Denies rash. [] Neurologic: Denies headache, focal weakness or sensory changes. [] Endocrine: Denies polyuria or polydipsia. [] Lymphatic: Denies swollen glands. [] Psychiatric: Denies depression or anxiety. [] 14 pt ros otherwise neg Hematological and Lymphatic: No: Bleeding Problems, Blood Clots, Blood Transfusions, Brusing, Night Sweats, Pallor, Swollen Lymph Nodes, Other Respiratory: YES: Cough, Shortness of breath, SOB with excertion Gastrointestinal: Yes Nausea, Yes Vomiting; No Abdominal Pain, No Diarrhea, No Constipation, No Melena, No Hematochezia, No Other Skin: No Dry Skin, No Eczema, No Hair Changes, No Lumps, No Mole Changes, No Mottling, No Nail Changes, No Pruritus, No Rash, No Skin Lesion Changes, No Other, No Acne Physical Exam Physical Exam Physical Exam: PE: Constitutional: Appears acutely ill [] HENT: Normocephalic, atraumatic, bilateral external ears normal, oropharynx moist, no oral exudates, nose normal. [] Eyes: PERRLA, EOMI, conjunctiva normal, no discharge. [] Neck: Normal range of motion, no tenderness, supple, no stridor. [] Cardiovascular:Heart rate regular rhythm, no murmur [] Lungs & Thorax: Bilateral breath sounds clear to auscultation [] Abdomen: Bowel sounds normal, soft, no tenderness, no masses, no pulsatile masses. [] Skin: Warm, dry, no erythema, no rash. [] Back: No tenderness, no CVA tenderness. [] Extremities: No tenderness, no cyanosis, no clubbing, ROM intact, no edema. [] Neurologic: Alert and oriented X 3, normal motor function, normal sensory function, no focal deficits noted. [] Psychologic: Anxious [] General: Alert, Oriented X3, Cooperative, mild distress Heart: RRR Breasts: Not examined Abdomen: Soft Rectal Exam: not examined Extremities: No cyanosis Neuro: Normal speech, Cranial nerves 3-12 NL Vitals Vitals Vital Signs Date Time Temp Pulse Resp B/P (MAP) Pulse Ox O2 Delivery O2 Flow Rate FiO2 10/27/19 13:10 100.6 96 18 136/62 (86) 86 Room Air 100.6 Labs Labs Laboratory Tests Test 10/27/19 13:29 10/27/19 13:40 O2 Saturation 95 % (92-99) Arterial Blood pH 7.46 (7.35-7.45) Arterial Blood pCO2 at Patient Temp 39 mmHg (35-46) Arterial Blood pO2 at Patient Temp 75 mmHg (65-108) Arterial Blood HCO3 27 mmol/L (21-28) Arterial Blood Base Excess 3 mmol/L (-3-3) FiO2 21 White Blood Count 5.0 x10^3/uL (4.0-11.0) Red Blood Count 4.54 x10^6/uL (4.30-5.70) Hemoglobin 14.0 g/dL (13.0-17.5) Hematocrit 40.7 % (39.0-53.0) Mean Corpuscular Volume 90 fL (79-100) Mean Corpuscular Hemoglobin 31 pg (25-35) Mean Corpuscular Hemoglobin Concent 34 g/dL (31-37) Red Cell Distribution Width 13.0 % (11.5-14.5) Platelet Count 144 x10^3/uL (140-400) Neutrophils (%) (Auto) 91 % (31-73) Lymphocytes (%) (Auto) 5 % (24-48) Monocytes (%) (Auto) 4 % (0-9) Eosinophils (%) (Auto) 0 % (0-3) Basophils (%) (Auto) 0 % (0-3) Neutrophils # (Auto) 4.5 x10^3/uL (1.8-7.7) Lymphocytes # (Auto) 0.3 x10^3/uL (1.0-4.8) Monocytes # (Auto) 0.2 x10^3/uL (0.0-1.1) Eosinophils # (Auto) 0.0 x10^3/uL (0.0-0.7) Basophils # (Auto) 0.0 x10^3/uL (0.0-0.2) Segmented Neutrophils % 77 % (35-66) Band Neutrophils % 10 % (0-9) Lymphocytes % 10 % (24-48) Monocytes % 3 % (0-10) Platelet Estimate Adequate (ADEQUATE) Sodium Level 141 mmol/L (136-145) Potassium Level 3.7 mmol/L (3.5-5.1) Chloride Level 103 mmol/L (98-107) Carbon Dioxide Level 29 mmol/L (21-32) Anion Gap 9 (6-14) Blood Urea Nitrogen 10 mg/dL (8-26) Creatinine 0.6 mg/dL (0.7-1.3) Estimated GFR (Cockcroft-Gault) 137.0 BUN/Creatinine Ratio 17 (6-20) Glucose Level 116 mg/dL (70-99) Lactic Acid Level 0.9 mmol/L (0.4-2.0) Calcium Level 8.2 mg/dL (8.5-10.1) Total Bilirubin 0.6 mg/dL (0.2-1.0) Aspartate Amino Transf (AST/SGOT) 71 U/L (15-37) Alanine Aminotransferase (ALT/SGPT) 79 U/L (16-63) Alkaline Phosphatase 664 U/L (46-116) Total Protein 5.3 g/dL (6.4-8.2) Albumin 2.8 g/dL (3.4-5.0) Albumin/Globulin Ratio 1.1 (1.0-1.7) Laboratory Tests Test 10/27/19 13:29 10/27/19 13:40 O2 Saturation 95 % (92-99) Arterial Blood pH 7.46 (7.35-7.45) Arterial Blood pCO2 at Patient Temp 39 mmHg (35-46) Arterial Blood pO2 at Patient Temp 75 mmHg (65-108) Arterial Blood HCO3 27 mmol/L (21-28) Arterial Blood Base Excess 3 mmol/L (-3-3) FiO2 21 White Blood Count 5.0 x10^3/uL (4.0-11.0) Red Blood Count 4.54 x10^6/uL (4.30-5.70) Hemoglobin 14.0 g/dL (13.0-17.5) Hematocrit 40.7 % (39.0-53.0) Mean Corpuscular Volume 90 fL (79-100) Mean Corpuscular Hemoglobin 31 pg (25-35) Mean Corpuscular Hemoglobin Concent 34 g/dL (31-37) Red Cell Distribution Width 13.0 % (11.5-14.5) Platelet Count 144 x10^3/uL (140-400) Neutrophils (%) (Auto) 91 % (31-73) Lymphocytes (%) (Auto) 5 % (24-48) Monocytes (%) (Auto) 4 % (0-9) Eosinophils (%) (Auto) 0 % (0-3) Basophils (%) (Auto) 0 % (0-3) Neutrophils # (Auto) 4.5 x10^3/uL (1.8-7.7) Lymphocytes # (Auto) 0.3 x10^3/uL (1.0-4.8) Monocytes # (Auto) 0.2 x10^3/uL (0.0-1.1) Eosinophils # (Auto) 0.0 x10^3/uL (0.0-0.7) Basophils # (Auto) 0.0 x10^3/uL (0.0-0.2) Segmented Neutrophils % 77 % (35-66) Band Neutrophils % 10 % (0-9) Lymphocytes % 10 % (24-48) Monocytes % 3 % (0-10) Platelet Estimate Adequate (ADEQUATE) Sodium Level 141 mmol/L (136-145) Potassium Level 3.7 mmol/L (3.5-5.1) Chloride Level 103 mmol/L (98-107) Carbon Dioxide Level 29 mmol/L (21-32) Anion Gap 9 (6-14) Blood Urea Nitrogen 10 mg/dL (8-26) Creatinine 0.6 mg/dL (0.7-1.3) Estimated GFR (Cockcroft-Gault) 137.0 BUN/Creatinine Ratio 17 (6-20) Glucose Level 116 mg/dL (70-99) Lactic Acid Level 0.9 mmol/L (0.4-2.0) Calcium Level 8.2 mg/dL (8.5-10.1) Total Bilirubin 0.6 mg/dL (0.2-1.0) Aspartate Amino Transf (AST/SGOT) 71 U/L (15-37) Alanine Aminotransferase (ALT/SGPT) 79 U/L (16-63) Alkaline Phosphatase 664 U/L (46-116) Total Protein 5.3 g/dL (6.4-8.2) Albumin 2.8 g/dL (3.4-5.0) Albumin/Globulin Ratio 1.1 (1.0-1.7) Images Images EXAM: CHEST AP ONLY INDICATION: Short of breath. TECHNIQUE: Single view COMPARISON: None FINDINGS: The heart size is normal. The great vessels appear unremarkable. There is no hilar or mediastinal mass. Surgical clips overlying the mediastinum inferior to the left mainstem bronchus are again seen.. The lungs show bilateral ill-defined airspace opacities.. There is no pleural effusion or pneumothorax. There are no significant osseous abnormalities. IMPRESSION: Bilateral ill-defined airspace opacities are present. In the appropriate clinical context, these could reflect atypical pneumonia. Electronically signed by: Zari Lenz MD (10/27/2019 1:58 PM) [id number] DICTATED and SIGNED BY: ZARI LENZ MD DATE: 10/27/19 1358 VTE Prophylaxis Ordered VTE Prophylaxis Devices: No VTE Pharmacological Prophylaxi: Yes Assessment/Plan Assessment/Plan impression Acute hypoxic resp failure acute pneumonia, possible covid-19 PMH of hairy cell leukemia in remission SEES DR SADI Jacobo 6 MONTHS PSH esophagectomy in 2016 remote tobacco abuse plan admit consult pulm med blood cult o2 support dvt prophylaxis consult oncology consult ID COVID-19 CRITERIA: The patient was evaluated during the global COVID-19 pandemic, and that diagnosis was suspected/considered upon their initial presentation. Their evaluation, treatment and testing were consistent with current guidelines for patients who present with complaints or symptoms that may be related to COVID-19. 35 MIN CC TIME MISTY ROBERSON MD Oct 27, 2019 16:10
[2019-10-27] MEDS ORDERED: SODIUM PHOSPHATES 19/7GM 133 ML ENEMA. PR PRN (16:30)
[2019-10-27] MEDS ORDERED: IPRATRPIUM/ALBUTEROL 0.5/2.5MG 3 ML NEBU. NEB SCH (16:30)
[2019-10-27] MEDS ORDERED: AZITHRMYCN 500MG IVPB FOR OMNI 250 ML IV ONE (16:30)
[2019-10-27] MEDS ORDERED: MAG HYDROX/ALUMINUM HYD/SIMETH 30 ML ORAL.SUSP PO PRN (16:30)
[2019-10-27] MEDS ORDERED: DOCUSATE SODIUM 100 MG CAPSULE. PO PRN (16:30)
[2019-10-27] MEDS ORDERED: 0.9 % SODIUM CHLORIDE 10 ML DISP.SYRIN. IV PRN (16:30)
[2019-10-27 17:10] VITALS: BP 121/76
[2019-10-27] MEDS ORDERED: CETI10TA24 PO (18:03)
[2019-10-27] MEDS: PIPERACILLIN/TAZOBACTAM 3.375 GM in IV NORMAL SALINE 50ML 50 ML IV SCH (18:18)
[2019-10-27] MEDS: IV NORMAL SALINE 1000ML BAG 1,000 ML IV SCH (18:18)
[2019-10-27] MEDS: guaiFENesin ORAL 200 MG/10 ML LIQUID. PO PRN (18:19)
[2019-10-27] MEDS ORDERED: ALBUTEROL SULFATE 2.5 MG/3 ML NEBU. NEB PRN (18:30)
[2019-10-27 20:00] VITALS: BP 107/66
--- NOTE | 2019-10-27 21:27 | CONS ---
DATE OF CONSULTATION: 10/27/2019 PULMONARY CONSULTATION ATTENDING PHYSICIAN: Dr. Sanchez. REASON FOR CONSULTATION: Hypoxia. HISTORY OF PRESENT ILLNESS: The patient is a 59-year-old male who has history of hairy cell leukemia, which has been in remission. 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 Last week was exposed to COVID-19. He is not sure whether it was the guard or inmate. He was tested positive. The patient had some shortness of breath recently along with some cough and chest congestion. He had a fever of 102 degrees Fahrenheit. No nausea, vomiting, no diarrhea. No hemoptysis. The patient was brought into the hospital, placed on oxygen. Saturations were low. Currently on 2 liters. His T-max is 102. His chest x-ray showed bilateral faint patchy infiltrates. I have been asked to see him for further evaluation. PAST MEDICAL HISTORY: Significant for history of hairy cell leukemia, in remission. History of esophageal achalasia, history of bowel obstruction. No significant tobacco history. PAST SURGICAL HISTORY: Esophagectomy at [facility]. SOCIAL HISTORY: Very minimal tobacco history. Only for 2 years, quit 38 years ago. REVIEW OF SYSTEMS: Twelve-point system obtained. Pertinent positives discussed in my history of present illness, otherwise noncontributory. All systems that were negative were reviewed as well. ALLERGIES: CLINDAMYCIN, CODEINE, SULFA AND TRIMETHOPRIM. MEDICATIONS: Reviewed including antibiotic azithromycin and Zosyn. PHYSICAL EXAMINATION: GENERAL: Which was performed via telemedicine. He is in no obvious respiratory distress on minimal oxygen. No obvious rash. EXTREMITIES: No leg edema. LABORATORY DATA: Reviewed. White cell count 5.0, hemoglobin 14.0. BUN and creatinine normal. AST, ALT are elevated. Albumin 2.8. ABGs, pO2 of 75 on room air. IMPRESSION: 1. Acute hypoxic respiratory failure secondary to COVID-19 pneumonia. 2. Abnormal chest x-ray with faint bilateral infiltrates suggestive of COVID-19 pneumonia. Cannot exclude superimposed bacterial pneumonia. 3. Hairy cell leukemia, in remission. 4. Abnormal LFTs, likely related to COVID-19 infection. RECOMMENDATIONS: 1. We will continue with present oxygen. Keep saturation 92 and above. 2. Continue empiric antibiotic. 3. The patient was instructed about the prone positioning during the nighttime. 4. We will follow the response to treatment and monitor for any cytokine. 5. Discussed with RN and patient. We will follow along with you. Critical care time 33 minutes including review of the chart, labs, x-rays and decision making. I did discuss with the patient that if his oxygenation status gets worse then we may be considering convalescent serum. EDDA HOLDER MD DR: AYAN/kristin JOB#: [id number] / [id number] VALENCIA
[2019-10-27] MEDS: ENOXAPARIN 40 MG/0.4 ML SYRINGE. SQ SCH (21:33)
[2019-10-27 23:00] VITALS: BP 106/68
[2019-10-27] MEDS: AZITHROMYCIN 500 MG in IV NORMAL SALINE 250ML 250 ML IV SCH (23:55)
[2019-10-28] MEDS: guaiFENesin ORAL 200 MG/10 ML LIQUID. PO PRN ×2 (00:49→21:42)
[2019-10-28] MEDS: PIPERACILLIN/TAZOBACTAM 3.375 GM in IV NORMAL SALINE 50ML 50 ML IV SCH ×5 (00:56→23:29)
[2019-10-28] MEDS: ACETAMINOPHEN 325 MG TABLET. PO PRN ×5 (02:45→21:39)
[2019-10-28 03:00] VITALS: BP 126/69
[2019-10-28] MEDS: IV NORMAL SALINE 1000ML BAG 1,000 ML IV SCH ×3 (05:37→15:37)
[2019-10-28 07:00] VITALS: BP 113/69
--- NOTE | 2019-10-28 09:59 | PDOC ---
Provider Note Provider Note Med Onc Tele-Health consult Hairy cell leukemia in remission - f/u with me for surveillance in 3 months. COVIC-19 pneumonia - appreciate pulm elisaal. I d/w RN See dictation # [id number] KODY AVITIA MD Oct 28, 2019 09:59
--- NOTE | 2019-10-28 10:35 | PDOC ---
PROGRESS NOTES History of Present Illness History of Present Illness VTE Prophylaxis Ordered VTE Prophylaxis Devices: No VTE Pharmacological Prophylaxi: Yes Assessment/Plan Assessment/Plan impression Acute hypoxic resp failure acute pneumonia, possible covid-19 PMH of hairy cell leukemia in remission SEES DR SADI Jacobo 6 MONTHS PSH esophagectomy in 2016 remote tobacco abuse plan admit consult pulm med blood cult o2 support dvt prophylaxis consult oncology consult ID prone positioning during the nighttime. COVID-19 CRITERIA: The patient was evaluated during the global COVID-19 pandemic, and that diagnosis was suspected/considered upon their initial presentation. Their evaluation, treatment and testing were consistent with current guidelines for patients who present with complaints or symptoms that may be related to COVID-19. 35 MIN CC TIME Vitals Vitals Vital Signs Date Time Temp Pulse Resp B/P (MAP) Pulse Ox O2 Delivery O2 Flow Rate FiO2 10/28/19 08:00 Nasal Cannula 2.0 10/28/19 07:00 98.8 82 22 113/69 (84) 94 98.8 Physical Exam General: Alert, Oriented X3, Cooperative, mild distress Lungs: Clear Abdomen: Soft Extremities: No cyanosis Labs LABS PATIENT: FUENTES RAGLAND ACCT: [id number] LOC: 1 [facility] U: [id number] AGE/SX: 59/M ROOM: 115 RE10/27/[address]: MISTY ROBERSON MD : 1960 BED: 1 DIS: STATUS: ADM IN TLOC: SPEC #: [id number] TYSON: 10/27/19-1340 STATUS: RES REQ #: [id number] RECD: 10/27/19-[address]: PATRICK LARIOS DO SOURCE: BLOOD ENTR: 10/27/19-[address]: MP ALBERTO MD SPDESC: ORDERED: BCULT -- Procedure Result BLOOD CULTURE Preliminary NO GROWTH AFTER 1 DAY Laboratory Tests Test 10/27/19 13:29 10/27/19 13:40 O2 Saturation 95 % (92-99) Arterial Blood pH 7.46 (7.35-7.45) Arterial Blood pCO2 at Patient Temp 39 mmHg (35-46) Arterial Blood pO2 at Patient Temp 75 mmHg (65-108) Arterial Blood HCO3 27 mmol/L (21-28) Arterial Blood Base Excess 3 mmol/L (-3-3) FiO2 21 White Blood Count 5.0 x10^3/uL (4.0-11.0) Red Blood Count 4.54 x10^6/uL (4.30-5.70) Hemoglobin 14.0 g/dL (13.0-17.5) Hematocrit 40.7 % (39.0-53.0) Mean Corpuscular Volume 90 fL (79-100) Mean Corpuscular Hemoglobin 31 pg (25-35) Mean Corpuscular Hemoglobin Concent 34 g/dL (31-37) Red Cell Distribution Width 13.0 % (11.5-14.5) Platelet Count 144 x10^3/uL (140-400) Neutrophils (%) (Auto) 91 % (31-73) Lymphocytes (%) (Auto) 5 % (24-48) Monocytes (%) (Auto) 4 % (0-9) Eosinophils (%) (Auto) 0 % (0-3) Basophils (%) (Auto) 0 % (0-3) Neutrophils # (Auto) 4.5 x10^3/uL (1.8-7.7) Lymphocytes # (Auto) 0.3 x10^3/uL (1.0-4.8) Monocytes # (Auto) 0.2 x10^3/uL (0.0-1.1) Eosinophils # (Auto) 0.0 x10^3/uL (0.0-0.7) Basophils # (Auto) 0.0 x10^3/uL (0.0-0.2) Segmented Neutrophils % 77 % (35-66) Band Neutrophils % 10 % (0-9) Lymphocytes % 10 % (24-48) Monocytes % 3 % (0-10) Platelet Estimate Adequate (ADEQUATE) Sodium Level 141 mmol/L (136-145) Potassium Level 3.7 mmol/L (3.5-5.1) Chloride Level 103 mmol/L (98-107) Carbon Dioxide Level 29 mmol/L (21-32) Anion Gap 9 (6-14) Blood Urea Nitrogen 10 mg/dL (8-26) Creatinine 0.6 mg/dL (0.7-1.3) Estimated GFR (Cockcroft-Gault) 137.0 BUN/Creatinine Ratio 17 (6-20) Glucose Level 116 mg/dL (70-99) Lactic Acid Level 0.9 mmol/L (0.4-2.0) Calcium Level 8.2 mg/dL (8.5-10.1) Total Bilirubin 0.6 mg/dL (0.2-1.0) Aspartate Amino Transf (AST/SGOT) 71 U/L (15-37) Alanine Aminotransferase (ALT/SGPT) 79 U/L (16-63) Alkaline Phosphatase 664 U/L (46-116) Total Protein 5.3 g/dL (6.4-8.2) Albumin 2.8 g/dL (3.4-5.0) Albumin/Globulin Ratio 1.1 (1.0-1.7) Assessment and Plan Assessmemt and Plan Problems Medical Problems: (1) COVID-19 virus infection Status: Acute Comment Review of Relevant I have reviewed the following items fany (where applicable) has been applied. Labs Laboratory Tests Test 10/27/19 13:29 10/27/19 13:40 O2 Saturation 95 % (92-99) Arterial Blood pH 7.46 (7.35-7.45) Arterial Blood pCO2 at Patient Temp 39 mmHg (35-46) Arterial Blood pO2 at Patient Temp 75 mmHg (65-108) Arterial Blood HCO3 27 mmol/L (21-28) Arterial Blood Base Excess 3 mmol/L (-3-3) FiO2 21 White Blood Count 5.0 x10^3/uL (4.0-11.0) Red Blood Count 4.54 x10^6/uL (4.30-5.70) Hemoglobin 14.0 g/dL (13.0-17.5) Hematocrit 40.7 % (39.0-53.0) Mean Corpuscular Volume 90 fL (79-100) Mean Corpuscular Hemoglobin 31 pg (25-35) Mean Corpuscular Hemoglobin Concent 34 g/dL (31-37) Red Cell Distribution Width 13.0 % (11.5-14.5) Platelet Count 144 x10^3/uL (140-400) Neutrophils (%) (Auto) 91 % (31-73) Lymphocytes (%) (Auto) 5 % (24-48) Monocytes (%) (Auto) 4 % (0-9) Eosinophils (%) (Auto) 0 % (0-3) Basophils (%) (Auto) 0 % (0-3) Neutrophils # (Auto) 4.5 x10^3/uL (1.8-7.7) Lymphocytes # (Auto) 0.3 x10^3/uL (1.0-4.8) Monocytes # (Auto) 0.2 x10^3/uL (0.0-1.1) Eosinophils # (Auto) 0.0 x10^3/uL (0.0-0.7) Basophils # (Auto) 0.0 x10^3/uL (0.0-0.2) Segmented Neutrophils % 77 % (35-66) Band Neutrophils % 10 % (0-9) Lymphocytes % 10 % (24-48) Monocytes % 3 % (0-10) Platelet Estimate Adequate (ADEQUATE) Sodium Level 141 mmol/L (136-145) Potassium Level 3.7 mmol/L (3.5-5.1) Chloride Level 103 mmol/L (98-107) Carbon Dioxide Level 29 mmol/L (21-32) Anion Gap 9 (6-14) Blood Urea Nitrogen 10 mg/dL (8-26) Creatinine 0.6 mg/dL (0.7-1.3) Estimated GFR (Cockcroft-Gault) 137.0 BUN/Creatinine Ratio 17 (6-20) Glucose Level 116 mg/dL (70-99) Lactic Acid Level 0.9 mmol/L (0.4-2.0) Calcium Level 8.2 mg/dL (8.5-10.1) Total Bilirubin 0.6 mg/dL (0.2-1.0) Aspartate Amino Transf (AST/SGOT) 71 U/L (15-37) Alanine Aminotransferase (ALT/SGPT) 79 U/L (16-63) Alkaline Phosphatase 664 U/L (46-116) Total Protein 5.3 g/dL (6.4-8.2) Albumin 2.8 g/dL (3.4-5.0) Albumin/Globulin Ratio 1.1 (1.0-1.7) Laboratory Tests Test 10/27/19 13:29 10/27/19 13:40 O2 Saturation 95 % (92-99) Arterial Blood pH 7.46 (7.35-7.45) Arterial Blood pCO2 at Patient Temp 39 mmHg (35-46) Arterial Blood pO2 at Patient Temp 75 mmHg (65-108) Arterial Blood HCO3 27 mmol/L (21-28) Arterial Blood Base Excess 3 mmol/L (-3-3) FiO2 21 White Blood Count 5.0 x10^3/uL (4.0-11.0) Red Blood Count 4.54 x10^6/uL (4.30-5.70) Hemoglobin 14.0 g/dL (13.0-17.5) Hematocrit 40.7 % (39.0-53.0) Mean Corpuscular Volume 90 fL (79-100) Mean Corpuscular Hemoglobin 31 pg (25-35) Mean Corpuscular Hemoglobin Concent 34 g/dL (31-37) Red Cell Distribution Width 13.0 % (11.5-14.5) Platelet Count 144 x10^3/uL (140-400) Neutrophils (%) (Auto) 91 % (31-73) Lymphocytes (%) (Auto) 5 % (24-48) Monocytes (%) (Auto) 4 % (0-9) Eosinophils (%) (Auto) 0 % (0-3) Basophils (%) (Auto) 0 % (0-3) Neutrophils # (Auto) 4.5 x10^3/uL (1.8-7.7) Lymphocytes # (Auto) 0.3 x10^3/uL (1.0-4.8) Monocytes # (Auto) 0.2 x10^3/uL (0.0-1.1) Eosinophils # (Auto) 0.0 x10^3/uL (0.0-0.7) Basophils # (Auto) 0.0 x10^3/uL (0.0-0.2) Segmented Neutrophils % 77 % (35-66) Band Neutrophils % 10 % (0-9) Lymphocytes % 10 % (24-48) Monocytes % 3 % (0-10) Platelet Estimate Adequate (ADEQUATE) Sodium Level 141 mmol/L (136-145) Potassium Level 3.7 mmol/L (3.5-5.1) Chloride Level 103 mmol/L (98-107) Carbon Dioxide Level 29 mmol/L (21-32) Anion Gap 9 (6-14) Blood Urea Nitrogen 10 mg/dL (8-26) Creatinine 0.6 mg/dL (0.7-1.3) Estimated GFR (Cockcroft-Gault) 137.0 BUN/Creatinine Ratio 17 (6-20) Glucose Level 116 mg/dL (70-99) Lactic Acid Level 0.9 mmol/L (0.4-2.0) Calcium Level 8.2 mg/dL (8.5-10.1) Total Bilirubin 0.6 mg/dL (0.2-1.0) Aspartate Amino Transf (AST/SGOT) 71 U/L (15-37) Alanine Aminotransferase (ALT/SGPT) 79 U/L (16-63) Alkaline Phosphatase 664 U/L (46-116) Total Protein 5.3 g/dL (6.4-8.2) Albumin 2.8 g/dL (3.4-5.0) Albumin/Globulin Ratio 1.1 (1.0-1.7) Medications Current Medications Sodium Chloride 1,000 ml @ 1,000 mls/hr 1X ONCE IV Last administered on 10/27/19at 13:30; Start 10/27/19 at 13:30; Stop 10/27/19 at 14:29; Status DC Acetaminophen (Tylenol) 1,000 mg 1X ONCE PO Last administered on 10/27/19at 16:10; Start 10/27/19 at 16:00; Stop 10/27/19 at 16:01; Status DC Sodium Chloride (Normal Saline Flush) 3 ml QSHIFT PRN IV AFTER MEDS AND BLOOD DRAWS; Start 10/27/19 at 16:30 Sodium Chloride 1,000 ml @ 100 mls/hr Q10H IV Last administered on 10/28/19at 05:37; Start 10/27/19 at 16:22 Ondansetron HCl (Zofran) 4 mg PRN Q4HRS PRN IV NAUSEA/VOMITING; Start 10/27/19 at 16:30 Acetaminophen (Tylenol) 650 mg PRN Q4HRS PRN PO TEMP OVER 100.4F OR MILD PAIN Last administered on 10/28/19at 08:52; Start 10/27/19 at 16:30 Al Hydroxide/Mg Hydroxide (Mylanta Plus Xs) 30 ml PRN DAILY PRN PO HEARTBURN / GAS; Start 10/27/19 at 16:30 Sodium Monofluorophosphate (Fleet Adult) 133 ml PRN DAILY PRN WA CONSTIPATION; Start 10/27/19 at 16:30 Docusate Sodium (Colace) 100 mg PRN BID PRN PO CONSTIPATION; Start 10/27/19 at 16:30 Albuterol/ Ipratropium (Duoneb) 3 ml Q4H NEB ; Start 10/27/19 at 16:30; Stop 10/27/19 at 18:28; Status DC Guaifenesin (Robitussin) 200 mg PRN Q4HRS PRN PO COUGH Last administered on 10/28/19at 00:49; Start 10/27/19 at 16:30 Lorazepam (Ativan) 0.5 mg PRN Q4HRS PRN PO ANXIETY / AGITATION; Start 10/27/19 at 16:30 Enoxaparin Sodium (Lovenox 40mg Syringe) 40 mg Q24H SQ Last administered on 10/27/19at 21:33; Start 10/27/19 at 21:00 Piperacillin Sod/ Tazobactam Sod 3.375 gm/Sodium Chloride 50 ml @ 100 mls/hr Q6HRS IV Last administered on 10/28/19at 05:38; Start 10/27/19 at 18:00 Azithromycin 250 ml @ 250 mls/hr 1X ONCE IV ; Start 10/27/19 at 16:30; Stop 10/27/19 at 17:29; Status Cancel Azithromycin 500 mg/Sodium Chloride 250 ml @ 250 mls/hr Q24H IV Last administered on 10/27/19at 23:55; Start 10/27/19 at 18:00 Albuterol Sulfate (Ventolin Neb Soln) 2.5 mg PRN Q4HRS PRN NEB SHORTNESS OF BREATH; Start 10/27/19 at 18:30 Active Scripts Active Reported Zyrtec (Cetirizine Hcl) 10 Mg Tablet 10 Mg PO DAILY Vitals/I & O Vital Sign - Last 24 Hours 10/27/19 10/27/19 10/27/19 10/27/19 13:10 14:30 15:00 15:30 Temp 100.6 100.6 Pulse 96 101 88 87 Resp 18 B/P (MAP) 136/62 (86) 129/72 (91) 145/75 (98) 138/70 (92) Pulse Ox 86 94 97 95 O2 Delivery Room Air Nasal Cannula Nasal Cannula Nasal Cannula O2 Flow Rate 2.0 2.0 2.0 10/27/19 10/27/19 10/27/19 10/27/19 16:00 16:13 17:00 17:10 Temp 102.0 101.9 102.0 101.9 Pulse 96 90 Resp 20 B/P (MAP) 138/72 (94) 121/76 (91) Pulse Ox 95 O2 Delivery Nasal Cannula Nasal Cannula Nasal Cannula O2 Flow Rate 2.0 2.0 2.0 10/27/19 10/27/19 10/27/19 10/28/19 20:00 20:30 23:00 03:00 Temp 98.9 102.9 98.9 102.9 Pulse 78 76 99 Resp 16 18 26 B/P (MAP) 107/66 (80) 106/68 (81) 126/69 (88) Pulse Ox 96 99 95 O2 Delivery Nasal Cannula Nasal Cannula Nasal Cannula Nasal Cannula O2 Flow Rate 2.0 2.0 2.0 2.0 10/28/19 10/28/19 07:00 08:00 Temp 98.8 98.8 Pulse 82 Resp 22 B/P (MAP) 113/69 (84) Pulse Ox 94 O2 Delivery Nasal Cannula Nasal Cannula O2 Flow Rate 2.0 2.0 Intake and Output 10/27/19 10/27/19 10/28/19 15:00 23:00 07:00 Intake Total 200 ml 475 ml Output Total 500 ml 400 ml Balance -300 ml 75 ml MISTY ROBERSON MD Oct 28, 2019 10:35
[2019-10-28 11:00] VITALS: BP 114/70
--- NOTE | 2019-10-28 11:05 | CONS ---
DATE OF CONSULTATION: 10/28/2019 MEDICAL ONCOLOGY CONSULTATION REQUESTING PHYSICIAN: Juwan Sanchez MD REASON FOR CONSULTATION: Hairy cell leukemia in remission and the patient is now admitted with COVID-19 pneumonia. 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 He finished that, showed a partial response. He was then given pentostatin from 10/17/2012. His bone marrow biopsy after completion of pentostatin on 11/06/2013 revealed a small population of hairy cell leukemia. Consolidation weekly rituximab was given from 12/18/2013 and he completed 8 doses. Bone marrow biopsy on 03/05/2014 revealed complete remission with no residual leukemia. He continues to be in remission. He was admitted to [facility] on 10/27/2019 with complaints of dyspnea and he was noted to have hypoxia. 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 He was exposed to COVID-19 a week prior to his admission to the hospital. He is not sure whether it was the guard or the inmate. He was tested positive. He had cough, chest congestion, dyspnea and a fever of 102 degrees. No nausea or vomiting. No hemoptysis. He was brought into the hospital, placed on oxygen and admitted to the ICU. His chest x-ray revealed bilateral faint patchy infiltrates. He was evaluated by Pulmonary Medicine. I was asked to see the patient for hairy cell leukemia. His CBC performed on 10/27/2019 reveals normal WBC count of 5.0, hemoglobin 14, platelet count 144. There is evidence of 10% bands. No evidence of recurrent hairy cell leukemia. PAST MEDICAL HISTORY: Hairy cell leukemia, in remission; esophageal achalasia, status post surgery; history of bowel obstruction. SOCIAL HISTORY: Minimal tobacco history that he quit 38 years ago and he smoked only for 2 years. FAMILY HISTORY: Negative for hairy cell leukemia. REVIEW OF SYSTEMS: A 12-point review of system was performed. Pertinent positives are mentioned in the history of present illness. Rest of the system review is negative. PHYSICAL EXAMINATION: I reviewed the physical examination per HPI. LABORATORY DATA: WBC 5, hemoglobin 14, platelet count 144, bands 10%. Creatinine 0.6. RADIOLOGICAL STUDIES: Chest x-ray performed on 10/27/2019 revealed bilateral ill-defined airspace opacities, could be suggestive of atypical pneumonia. IMPRESSION AND PLAN: 1. 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 Bone marrow biopsy on 03/05/2014 revealed complete remission with no evidence of residual leukemia. He has never had any evidence of recurrent leukemia since then. His CBC from 10/27/2019 also reveals no evidence of recurrent leukemia. 2. Pneumonia secondary to COVID-19 infection. He has hypoxic respiratory failure. He is not requiring intubation. Appreciate pulmonary consultation. 3. Fever due to COVID-19, improving. I discussed with the registered nurse. This is a telehealth consultation visit. I discussed in detail with the registered nurse and I also reviewed the chart in detail. I d/w pt's Kerri. KODY AVITIA MD DR: [place]/kristin JOB#: [id number] / [id number] VALENCIA
--- NOTE | 2019-10-28 11:27 | PDOC ---
PULMONARY PROGRESS NOTES Subjective no increase SOA Vitals Vital Signs Date Time Temp Pulse Resp B/P (MAP) Pulse Ox O2 Delivery O2 Flow Rate FiO2 10/28/19 11:14 99.9 99.9 10/28/19 11:00 82 16 114/70 (85) 95 Nasal Cannula 2.0 Comments visual exam done due to COVID 19 no soa, no rash no edema General: Alert Lungs: Clear Labs Laboratory Tests Test 10/27/19 13:29 10/27/19 13:40 O2 Saturation 95 % (92-99) Arterial Blood pH 7.46 (7.35-7.45) Arterial Blood pCO2 at Patient Temp 39 mmHg (35-46) Arterial Blood pO2 at Patient Temp 75 mmHg (65-108) Arterial Blood HCO3 27 mmol/L (21-28) Arterial Blood Base Excess 3 mmol/L (-3-3) FiO2 21 White Blood Count 5.0 x10^3/uL (4.0-11.0) Red Blood Count 4.54 x10^6/uL (4.30-5.70) Hemoglobin 14.0 g/dL (13.0-17.5) Hematocrit 40.7 % (39.0-53.0) Mean Corpuscular Volume 90 fL (79-100) Mean Corpuscular Hemoglobin 31 pg (25-35) Mean Corpuscular Hemoglobin Concent 34 g/dL (31-37) Red Cell Distribution Width 13.0 % (11.5-14.5) Platelet Count 144 x10^3/uL (140-400) Neutrophils (%) (Auto) 91 % (31-73) Lymphocytes (%) (Auto) 5 % (24-48) Monocytes (%) (Auto) 4 % (0-9) Eosinophils (%) (Auto) 0 % (0-3) Basophils (%) (Auto) 0 % (0-3) Neutrophils # (Auto) 4.5 x10^3/uL (1.8-7.7) Lymphocytes # (Auto) 0.3 x10^3/uL (1.0-4.8) Monocytes # (Auto) 0.2 x10^3/uL (0.0-1.1) Eosinophils # (Auto) 0.0 x10^3/uL (0.0-0.7) Basophils # (Auto) 0.0 x10^3/uL (0.0-0.2) Segmented Neutrophils % 77 % (35-66) Band Neutrophils % 10 % (0-9) Lymphocytes % 10 % (24-48) Monocytes % 3 % (0-10) Platelet Estimate Adequate (ADEQUATE) Sodium Level 141 mmol/L (136-145) Potassium Level 3.7 mmol/L (3.5-5.1) Chloride Level 103 mmol/L (98-107) Carbon Dioxide Level 29 mmol/L (21-32) Anion Gap 9 (6-14) Blood Urea Nitrogen 10 mg/dL (8-26) Creatinine 0.6 mg/dL (0.7-1.3) Estimated GFR (Cockcroft-Gault) 137.0 BUN/Creatinine Ratio 17 (6-20) Glucose Level 116 mg/dL (70-99) Lactic Acid Level 0.9 mmol/L (0.4-2.0) Calcium Level 8.2 mg/dL (8.5-10.1) Total Bilirubin 0.6 mg/dL (0.2-1.0) Aspartate Amino Transf (AST/SGOT) 71 U/L (15-37) Alanine Aminotransferase (ALT/SGPT) 79 U/L (16-63) Alkaline Phosphatase 664 U/L (46-116) Total Protein 5.3 g/dL (6.4-8.2) Albumin 2.8 g/dL (3.4-5.0) Albumin/Globulin Ratio 1.1 (1.0-1.7) Laboratory Tests Test 10/27/19 13:29 10/27/19 13:40 O2 Saturation 95 % (92-99) Arterial Blood pH 7.46 (7.35-7.45) Arterial Blood pCO2 at Patient Temp 39 mmHg (35-46) Arterial Blood pO2 at Patient Temp 75 mmHg (65-108) Arterial Blood HCO3 27 mmol/L (21-28) Arterial Blood Base Excess 3 mmol/L (-3-3) FiO2 21 White Blood Count 5.0 x10^3/uL (4.0-11.0) Red Blood Count 4.54 x10^6/uL (4.30-5.70) Hemoglobin 14.0 g/dL (13.0-17.5) Hematocrit 40.7 % (39.0-53.0) Mean Corpuscular Volume 90 fL (79-100) Mean Corpuscular Hemoglobin 31 pg (25-35) Mean Corpuscular Hemoglobin Concent 34 g/dL (31-37) Red Cell Distribution Width 13.0 % (11.5-14.5) Platelet Count 144 x10^3/uL (140-400) Neutrophils (%) (Auto) 91 % (31-73) Lymphocytes (%) (Auto) 5 % (24-48) Monocytes (%) (Auto) 4 % (0-9) Eosinophils (%) (Auto) 0 % (0-3) Basophils (%) (Auto) 0 % (0-3) Neutrophils # (Auto) 4.5 x10^3/uL (1.8-7.7) Lymphocytes # (Auto) 0.3 x10^3/uL (1.0-4.8) Monocytes # (Auto) 0.2 x10^3/uL (0.0-1.1) Eosinophils # (Auto) 0.0 x10^3/uL (0.0-0.7) Basophils # (Auto) 0.0 x10^3/uL (0.0-0.2) Segmented Neutrophils % 77 % (35-66) Band Neutrophils % 10 % (0-9) Lymphocytes % 10 % (24-48) Monocytes % 3 % (0-10) Platelet Estimate Adequate (ADEQUATE) Sodium Level 141 mmol/L (136-145) Potassium Level 3.7 mmol/L (3.5-5.1) Chloride Level 103 mmol/L (98-107) Carbon Dioxide Level 29 mmol/L (21-32) Anion Gap 9 (6-14) Blood Urea Nitrogen 10 mg/dL (8-26) Creatinine 0.6 mg/dL (0.7-1.3) Estimated GFR (Cockcroft-Gault) 137.0 BUN/Creatinine Ratio 17 (6-20) Glucose Level 116 mg/dL (70-99) Lactic Acid Level 0.9 mmol/L (0.4-2.0) Calcium Level 8.2 mg/dL (8.5-10.1) Total Bilirubin 0.6 mg/dL (0.2-1.0) Aspartate Amino Transf (AST/SGOT) 71 U/L (15-37) Alanine Aminotransferase (ALT/SGPT) 79 U/L (16-63) Alkaline Phosphatase 664 U/L (46-116) Total Protein 5.3 g/dL (6.4-8.2) Albumin 2.8 g/dL (3.4-5.0) Albumin/Globulin Ratio 1.1 (1.0-1.7) Medications Active Scripts Medications Dose Route/Sig Max Daily Dose Days Date Category Zyrtec (Cetirizine Hcl) 10 Mg Tablet 10 Mg PO DAILY 10/27/19 Reported Impression . 1. Acute hypoxic respiratory failure secondary to COVID-19 pneumonia. 2. Abnormal chest x-ray with faint bilateral infiltrates suggestive of COVID-19 pneumonia. Cannot exclude superimposed bacterial pneumonia. 3. Hairy cell leukemia, in remission. 4. Abnormal LFTs, likely related to COVID-19 infection. Plan . 1. We will continue with present oxygen. Keep saturation 92 and above. 2. Continue empiric antibiotic. 3. The patient was instructed about the prone positioning during the nighttime. 4. We will follow the response to treatment and monitor for any cytokine surge 5. Discussed with RN and patient. We will follow along with you. EDDA HOLDER MD Oct 28, 2019 11:27
--- NOTE | 2019-10-28 12:58 | CONS ---
DATE OF CONSULTATION: 10/28/2019 REFERRING PHYSICIAN: Juwan Sanchez MD REASON FOR CONSULTATION: COVID-19 pneumonia. HISTORY OF PRESENT ILLNESS: The patient is a 59-year-old male with history of hairy cell leukemia, in remission, presented to the ER on 10/27/2019 with complaints of fever, progressive shortness of breath, worsening cough, congestion, nausea, headache, generalized weakness. 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 The patient started having nausea last Saturday and had fever. [facility] and got COVID-19 tested last Saturday, which was positive last Saturday. Subsequently he started having worsening shortness of breath, cough, nausea, headache and generalized weakness, so he presented to the ER. He had a fever of 100.6, which went up to 102*F here. White count was 5 with lymphopenia and bandemia. Creatinine of 0.6. LFT elevation noted. Lactate of 0.9. Chest x-ray showed bilateral ill-defined airspace opacities. The patient was started on azithromycin and Zosyn. ID consult has been requested for antibiotic management. Today, the patient continues to feel weak. He remains on 2 liters of O2. He has headache, still continues to have poor appetite, has some nausea. Temperature was 99.9 this morning. He requires 2 liters of O2 by nasal cannula. PAST MEDICAL HISTORY: Hairy cell leukemia, status post chemotherapy, in remission; achalasia, status post esophagectomy 4 years ago; history of bowel obstruction. SOCIAL HISTORY: Quit smoking. Lives with his family. 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 REVIEW OF SYSTEMS: Negative except for above in HPI. FAMILY HISTORY: As per HPI. ALLERGIES: CLINDAMYCIN, CODEINE, SULFA. CURRENT MEDICATIONS: Azithromycin, Zosyn, enoxaparin, albuterol, lorazepam, guaifenesin, docusate, acetaminophen, Zofran. PHYSICAL EXAMINATION: VITAL SIGNS: Temperature 99.9, T-max was 102.9, pulse 82, respiratory rate 16, blood pressure 114/70, oxygen saturation 95% on 2 liters by nasal cannula. GENERAL: Alert and oriented x 3 male lying in bed comfortably, in no acute distress, appears tired on nasal O2. HEENT: Normocephalic, atraumatic, anicteric. NECK: Supple, no JVD. LUNGS: Decreased breath sounds at the bases. No wheezing. No accessory muscle use. ABDOMEN: Soft, nontender, nondistended. EXTREMITIES: No edema, no cyanosis. DERMATOLOGIC: No generalized rash. BACK: Reveals normal curvature. No CVA tenderness. NEUROLOGIC: Alert, oriented x 3, grossly nonfocal. PSYCHIATRIC: Cooperative. LABORATORY DATA: WBC 5.0, hemoglobin 14.0, hematocrit 40.7, platelets 144, neutrophil percent 91, lymphocytes 5, bands 10. Sodium 141, potassium 3.7, chloride 103, bicarbonate 29, BUN 10, creatinine 0.6, glucose 116. Lactate 0.9, calcium 8.2, total protein 0.6, AST 71, ALT 79, alkaline phosphatase 664, total protein 5.3, albumin 2.8. IMAGING: Chest x-ray shows, bilateral ill-defined airspace opacities are present in the appropriate context. These could reflect atypical pneumonia. IMPRESSION: 1. Fever. 2. COVID-19 respiratory illness wiht progressive worsening of respiratory symptoms . 3. Pneumonia, secondary bacterial infection cannot be ruled out. 4. Nausea. 5. Headache. 6. Generalized weakness. 7. History of hairy cell leukemia in remission 8. Abnormal liver function tests likely from COVID 19. 9. Diarrhea prior to admission, now resolved. 10. Achalasia, status post esophagectomy. RECOMMENDATIONS: 1. Continue supportive care. 2. Continue empiric azithromycin and Zosyn for now. 3. Will initiate convalescent serum administration . Pharmacy to help coordinate. 4. Follow up labs and cultures. Discussed with RN Thank you for allowing me to participate in this patient's care. If you have any questions, do not hesitate to contact me. MELISSA MURPHY MD DR: [email or web address]/[email or web address] JOB#: [id number] / [id number] [place]
[2019-10-28 15:00] VITALS: BP 112/67
--- NOTE | 2019-10-28 15:48 | NUR ---
SS following for discharge planning. SS reviewed pt chart and discussed with RN, Chente. Pt is from home with spouse and is currently requiring oxygen. Pt works at [employer] and is COVID19 positive. SS will continue to follow for discharge planning.
[2019-10-28] MEDS: ONDANSETRON PF 4 MG/2 ML VIAL. IV PRN ×2 (17:28→21:42)
[2019-10-28] MEDS: AZITHROMYCIN 500 MG in IV NORMAL SALINE 250ML 250 ML IV SCH (18:21)
[2019-10-28 18:47] VITALS: BP 114/66
[2019-10-28] MEDS: ENOXAPARIN 40 MG/0.4 ML SYRINGE. SQ SCH (21:38)
[2019-10-28] MEDS: LORazepam 0.5 MG TABLET PO PRN (21:41)
[2019-10-28 23:34] VITALS: BP 103/68
[2019-10-29] VITALS (7 sets, daily range): BP systolic 105–125; BP diastolic 63–74
[2019-10-29] MEDS: ACETAMINOPHEN 325 MG TABLET. PO PRN ×4 (03:08→17:40)
[2019-10-29] MEDS: SODIUM CHLORIDE 0.65% NASAL SPRAY 45ML BOTTLE. NS PRN (03:08)
[2019-10-29] MEDS: IV NORMAL SALINE 1000ML BAG 1,000 ML IV SCH ×2 (03:22→12:50)
[2019-10-29] MEDS: PIPERACILLIN/TAZOBACTAM 3.375 GM in IV NORMAL SALINE 50ML 50 ML IV SCH ×4 (05:07→23:04)
[2019-10-29 05:16] LABS: BASO % 0 % (0-3); EOS % 0 % (0-3); HEMATOCRIT 37.6 % (39.0-53.0); HEMOGLOBIN 12.8 g/dL (13.0-17.5); LYMPH # 0.5 x10^3/uL (1.0-4.8); LYMPH % 6 % (24-48); MEAN CORPUSCULAR HEMOGLOBIN 31 pg (25-35); MEAN CORPUSCULAR HGB CONC 34 g/dL (31-37); MEAN CORPUSCULAR VOLUME 92 fL (79-100); MONO # 0.2 x10^3/uL (0.0-1.1); MONO % 2 % (0-9); NEUT % 91 % (31-73); RED BLOOD COUNT 4.09 x10^6/uL (4.30-5.70); RED CELL DISTRIBUTION WIDTH 13.1 % (11.5-14.5); WHITE BLOOD COUNT 7.7 x10^3/uL (4.0-11.0)
[2019-10-29 05:18] LABS: PLATELET COUNT 142 x10^3/uL (140-400)
[2019-10-29 05:25] LABS: ALBUMIN/GLOBULIN RATIO 0.6 (1.0-1.7); CALCIUM 8.3 mg/dL (8.5-10.1); CREATININE 0.8 mg/dL (0.7-1.3); GFR 98.3; TOTAL BILIRUBIN 0.8 mg/dL (0.2-1.0); TOTAL PROTEIN 5.3 g/dL (6.4-8.2)
[2019-10-29] MEDS: ONDANSETRON PF 4 MG/2 ML VIAL. IV PRN (05:26)
[2019-10-29] MEDS: guaiFENesin ORAL 200 MG/10 ML LIQUID. PO PRN ×3 (09:23→17:40)
--- NOTE | 2019-10-29 10:20 | PDOC ---
Infectious Disease Note Subjective: Subjective Patient continues to remain febrile Less short of breath and cough Headache is improving Denies any nausea vomiting diarrhea rash or abdominal pain Vital Signs: Vital Signs Vital Signs Date Time Temp Pulse Resp B/P (MAP) Pulse Ox O2 Delivery O2 Flow Rate FiO2 10/29/19 08:00 Nasal Cannula 2.0 10/29/19 07:00 99.5 88 20 125/74 (91) 99.5 10/29/19 05:15 95 Physical Exam: PHYSICAL EXAM GENERAL: Alert and oriented x 3 male lying in bed comfortably, in no acute distress, on nasal O2 HEENT: Normocephalic, atraumatic, anicteric. NECK: Supple, no JVD. LUNGS: Decreased breath sounds at the bases. No wheezing. No accessory muscle use. ABDOMEN: Soft, nontender, nondistended. EXTREMITIES: No edema, no cyanosis. DERMATOLOGIC: No generalized rash. BACK: Reveals normal curvature. No CVA tenderness. NEUROLOGIC: Alert, oriented x 3, grossly nonfocal. PSYCHIATRIC: Cooperative. Medications: Inpatient Meds: Current Medications Medications (Trade) Dose Ordered Sig/Michael Start Time Stop Time Status Last Admin Dose Admin Acetaminophen (Tylenol) 650 mg PRN Q4HRS PRN 10/27/19 16:30 10/29/19 09:23 650 MG Al Hydroxide/Mg Hydroxide (Mylanta Plus Xs) 30 ml PRN DAILY PRN 10/27/19 16:30 Albuterol Sulfate (Ventolin Neb Soln) 2.5 mg PRN Q4HRS PRN 10/27/19 18:30 Albuterol/ Ipratropium (Duoneb) 3 ml Q4H 10/27/19 16:30 10/27/19 18:28 DC Azithromycin 250 ml @ 250 mls/hr 1X ONCE 10/27/19 16:30 10/27/19 17:29 Cancel Azithromycin 500 mg/Sodium Chloride 250 ml @ 250 mls/hr Q24H 10/27/19 18:00 10/28/19 18:21 250 MLS/HR Docusate Sodium (Colace) 100 mg PRN BID PRN 10/27/19 16:30 Enoxaparin Sodium (Lovenox 40mg Syringe) 40 mg Q24H 10/27/19 21:00 10/28/19 21:38 40 MG Guaifenesin (Robitussin) 200 mg PRN Q4HRS PRN 10/27/19 16:30 10/29/19 09:23 200 MG Lorazepam (Ativan) 0.5 mg PRN Q4HRS PRN 10/27/19 16:30 10/28/19 21:41 0.5 MG Ondansetron HCl (Zofran) 4 mg PRN Q4HRS PRN 10/27/19 16:30 10/29/19 05:26 4 MG Piperacillin Sod/ Tazobactam Sod 3.375 gm/Sodium Chloride 50 ml @ 100 mls/hr Q6HRS 10/27/19 18:00 10/29/19 05:07 100 MLS/HR Sodium Monofluorophosphate (Fleet Adult) 133 ml PRN DAILY PRN 10/27/19 16:30 Sodium Chloride (Normal Saline Flush) 3 ml QSHIFT PRN 10/27/19 16:30 Sodium Chloride (Saline Mist Nasal) 1 nicolas PRN Q1HR PRN 10/29/19 02:45 10/29/19 03:08 1 NICOLAS Labs: Lab Laboratory Tests Test 10/29/19 04:50 White Blood Count 7.7 x10^3/uL (4.0-11.0) Red Blood Count 4.09 x10^6/uL (4.30-5.70) Hemoglobin 12.8 g/dL (13.0-17.5) Hematocrit 37.6 % (39.0-53.0) Mean Corpuscular Volume 92 fL (79-100) Mean Corpuscular Hemoglobin 31 pg (25-35) Mean Corpuscular Hemoglobin Concent 34 g/dL (31-37) Red Cell Distribution Width 13.1 % (11.5-14.5) Platelet Count 142 x10^3/uL (140-400) Neutrophils (%) (Auto) 91 % (31-73) Lymphocytes (%) (Auto) 6 % (24-48) Monocytes (%) (Auto) 2 % (0-9) Eosinophils (%) (Auto) 0 % (0-3) Basophils (%) (Auto) 0 % (0-3) Neutrophils # (Auto) 7.0 x10^3/uL (1.8-7.7) Lymphocytes # (Auto) 0.5 x10^3/uL (1.0-4.8) Monocytes # (Auto) 0.2 x10^3/uL (0.0-1.1) Eosinophils # (Auto) 0.0 x10^3/uL (0.0-0.7) Basophils # (Auto) 0.0 x10^3/uL (0.0-0.2) Sodium Level 137 mmol/L (136-145) Potassium Level 4.0 mmol/L (3.5-5.1) Chloride Level 104 mmol/L (98-107) Carbon Dioxide Level 24 mmol/L (21-32) Anion Gap 9 (6-14) Blood Urea Nitrogen 7 mg/dL (8-26) Creatinine 0.8 mg/dL (0.7-1.3) Estimated GFR (Cockcroft-Gault) 98.3 BUN/Creatinine Ratio 9 (6-20) Glucose Level 87 mg/dL (70-99) Calcium Level 8.3 mg/dL (8.5-10.1) Total Bilirubin 0.8 mg/dL (0.2-1.0) Aspartate Amino Transf (AST/SGOT) 56 U/L (15-37) Alanine Aminotransferase (ALT/SGPT) 56 U/L (16-63) Alkaline Phosphatase 586 U/L (46-116) Total Protein 5.3 g/dL (6.4-8.2) Albumin 2.0 g/dL (3.4-5.0) Albumin/Globulin Ratio 0.6 (1.0-1.7) Objective: Assessment: 1. Fever. 2. COVID-19 respiratory illness wiht progressive worsening of respiratory symptoms . 3. Pneumonia, secondary bacterial infection cannot be ruled out. 4. Nausea. 5. Headache. 6. Generalized weakness. 7. History of hairy cell leukemia in remission 8. Abnormal liver function tests likely from COVID 19. 9. Diarrhea prior to admission, now resolved. 10. Achalasia, status post esophagectomy. Plan: Plan of Care Continue supportive care Continue empiric azithromycin and Zosyn Follow-up lab and culture Patient is not a candidate for convalescent serum administration per team Follow up labs and cultures. Discussed with MELISSA RENEE MD Oct 29, 2019 10:20
--- NOTE | 2019-10-29 10:24 | PDOC ---
PROGRESS NOTES History of Present Illness History of Present Illness VTE Prophylaxis Ordered VTE Prophylaxis Devices: No VTE Pharmacological Prophylaxi: Yes Assessment/Plan Assessment/Plan impression Acute hypoxic resp failure acute pneumonia, possible covid-19 PMH of hairy cell leukemia in remission SEES DR SADI Jacobo 6 MONTHS Hairy cell leukemia, diagnosed on 03/30/2010. Bone marrow biopsy on 03/05/2014 revealed complete remission PSH esophagectomy in 2016 remote tobacco abuse inc alkphos hx Cholelithiasis severe protein-caloric malnutrition plan admit consult pulm med blood cult o2 support dvt prophylaxis oncology Following consult ID prone positioning during the nighttime. hepatitis dx panel GI consult re inc alk phos abd sono ON HOLD PER GI COVID-19 CRITERIA: The patient was evaluated during the global COVID-19 pandemic, and that diagnosis was suspected/considered upon their initial presentation. Their evaluation, treatment and testing were consistent with current guidelines for patients who present with complaints or symptoms that may be related to COVID-19. 34 MIN CC TIME Vitals Vitals Vital Signs Date Time Temp Pulse Resp B/P (MAP) Pulse Ox O2 Delivery O2 Flow Rate FiO2 10/29/19 08:00 Nasal Cannula 2.0 10/29/19 07:00 99.5 88 20 125/74 (91) 99.5 10/29/19 05:15 95 Physical Exam General: Alert, Oriented X3, Cooperative, mild distress Lungs: Clear Abdomen: Soft Extremities: No cyanosis, No edema Labs LABS EXAM: CT ABDOMEN/PELVIS WITH CONTRAST. HISTORY: Abdominal pain, vomiting, small bowel obstruction, esophagectomy, leukemia. TECHNIQUE: Computed tomography of the abdomen and pelvis was performed after the intravenous administration of 75 mL [id number]. COMPARISON: None. FINDINGS: Lung windows through the visualized portions of the bases reveal changes of esophagectomy with gastric pull-through. There is mild associated atelectasis in the right base. Bone windows reveal no suspicious lesions. Gallstones are noted. There is no pericholecystic inflammation. The liver, spleen, adrenal glands, kidneys and pancreas are unremarkable. There are no pathologically enlarged lymph nodes. A small amount of free pelvic fluid is likely reactive. There is a small bowel obstruction with transition point just deep to the anterior abdominal wall, just superior to the umbilicus as seen on coronal image 13 and axial image 43. This is along the distal jejunum or proximal ileum. The remainder of the small bowel is completely decompressed. There is mild edema about the most distal involved small bowel loops. IMPRESSION: 1. Small bowel obstruction with transition point just deep to the anterior abdominal wall just superior to the umbilicus. This appears complete by CT. 2. Cholelithiasis. 3. Status post esophagectomy with gastric pull-through. No evidence of active disease. *One or more of the following individualized dose reduction techniques were utilized for this examination: 1. Automated exposure control. 2. Adjustment of the mA and/or kV according to patient size. 3. Use of iterative reconstruction technique. Electronically signed by: Pricila Vargas MD (06/16/2017 1:07 AM) [place] [id number] DICTATED and SIGNED BY: DALE VARGAS MD DATE: 06/16/17101 CC: ANABELLA MUNOZ MD; MP ALBERTO MD ~ Laboratory Tests Test 10/29/19 04:50 White Blood Count 7.7 x10^3/uL (4.0-11.0) Red Blood Count 4.09 x10^6/uL (4.30-5.70) Hemoglobin 12.8 g/dL (13.0-17.5) Hematocrit 37.6 % (39.0-53.0) Mean Corpuscular Volume 92 fL (79-100) Mean Corpuscular Hemoglobin 31 pg (25-35) Mean Corpuscular Hemoglobin Concent 34 g/dL (31-37) Red Cell Distribution Width 13.1 % (11.5-14.5) Platelet Count 142 x10^3/uL (140-400) Neutrophils (%) (Auto) 91 % (31-73) Lymphocytes (%) (Auto) 6 % (24-48) Monocytes (%) (Auto) 2 % (0-9) Eosinophils (%) (Auto) 0 % (0-3) Basophils (%) (Auto) 0 % (0-3) Neutrophils # (Auto) 7.0 x10^3/uL (1.8-7.7) Lymphocytes # (Auto) 0.5 x10^3/uL (1.0-4.8) Monocytes # (Auto) 0.2 x10^3/uL (0.0-1.1) Eosinophils # (Auto) 0.0 x10^3/uL (0.0-0.7) Basophils # (Auto) 0.0 x10^3/uL (0.0-0.2) Sodium Level 137 mmol/L (136-145) Potassium Level 4.0 mmol/L (3.5-5.1) Chloride Level 104 mmol/L (98-107) Carbon Dioxide Level 24 mmol/L (21-32) Anion Gap 9 (6-14) Blood Urea Nitrogen 7 mg/dL (8-26) Creatinine 0.8 mg/dL (0.7-1.3) Estimated GFR (Cockcroft-Gault) 98.3 BUN/Creatinine Ratio 9 (6-20) Glucose Level 87 mg/dL (70-99) Calcium Level 8.3 mg/dL (8.5-10.1) Total Bilirubin 0.8 mg/dL (0.2-1.0) Aspartate Amino Transf (AST/SGOT) 56 U/L (15-37) Alanine Aminotransferase (ALT/SGPT) 56 U/L (16-63) Alkaline Phosphatase 586 U/L (46-116) Total Protein 5.3 g/dL (6.4-8.2) Albumin 2.0 g/dL (3.4-5.0) Albumin/Globulin Ratio 0.6 (1.0-1.7) Assessment and Plan Assessmemt and Plan Problems Medical Problems: (1) COVID-19 virus infection Status: Acute Comment Review of Relevant I have reviewed the following items fany (where applicable) has been applied. Labs Laboratory Tests Test 10/27/19 13:29 10/27/19 13:40 10/29/19 04:50 O2 Saturation 95 % (92-99) Arterial Blood pH 7.46 (7.35-7.45) Arterial Blood pCO2 at Patient Temp 39 mmHg (35-46) Arterial Blood pO2 at Patient Temp 75 mmHg (65-108) Arterial Blood HCO3 27 mmol/L (21-28) Arterial Blood Base Excess 3 mmol/L (-3-3) FiO2 21 White Blood Count 5.0 x10^3/uL (4.0-11.0) 7.7 x10^3/uL (4.0-11.0) Red Blood Count 4.54 x10^6/uL (4.30-5.70) 4.09 x10^6/uL (4.30-5.70) Hemoglobin 14.0 g/dL (13.0-17.5) 12.8 g/dL (13.0-17.5) Hematocrit 40.7 % (39.0-53.0) 37.6 % (39.0-53.0) Mean Corpuscular Volume 90 fL (79-100) 92 fL (79-100) Mean Corpuscular Hemoglobin 31 pg (25-35) 31 pg (25-35) Mean Corpuscular Hemoglobin Concent 34 g/dL (31-37) 34 g/dL (31-37) Red Cell Distribution Width 13.0 % (11.5-14.5) 13.1 % (11.5-14.5) Platelet Count 144 x10^3/uL (140-400) 142 x10^3/uL (140-400) Neutrophils (%) (Auto) 91 % (31-73) 91 % (31-73) Lymphocytes (%) (Auto) 5 % (24-48) 6 % (24-48) Monocytes (%) (Auto) 4 % (0-9) 2 % (0-9) Eosinophils (%) (Auto) 0 % (0-3) 0 % (0-3) Basophils (%) (Auto) 0 % (0-3) 0 % (0-3) Neutrophils # (Auto) 4.5 x10^3/uL (1.8-7.7) 7.0 x10^3/uL (1.8-7.7) Lymphocytes # (Auto) 0.3 x10^3/uL (1.0-4.8) 0.5 x10^3/uL (1.0-4.8) Monocytes # (Auto) 0.2 x10^3/uL (0.0-1.1) 0.2 x10^3/uL (0.0-1.1) Eosinophils # (Auto) 0.0 x10^3/uL (0.0-0.7) 0.0 x10^3/uL (0.0-0.7) Basophils # (Auto) 0.0 x10^3/uL (0.0-0.2) 0.0 x10^3/uL (0.0-0.2) Segmented Neutrophils % 77 % (35-66) Band Neutrophils % 10 % (0-9) Lymphocytes % 10 % (24-48) Monocytes % 3 % (0-10) Platelet Estimate Adequate (ADEQUATE) Sodium Level 141 mmol/L (136-145) 137 mmol/L (136-145) Potassium Level 3.7 mmol/L (3.5-5.1) 4.0 mmol/L (3.5-5.1) Chloride Level 103 mmol/L (98-107) 104 mmol/L (98-107) Carbon Dioxide Level 29 mmol/L (21-32) 24 mmol/L (21-32) Anion Gap 9 (6-14) 9 (6-14) Blood Urea Nitrogen 10 mg/dL (8-26) 7 mg/dL (8-26) Creatinine 0.6 mg/dL (0.7-1.3) 0.8 mg/dL (0.7-1.3) Estimated GFR (Cockcroft-Gault) 137.0 98.3 BUN/Creatinine Ratio 17 (6-20) 9 (6-20) Glucose Level 116 mg/dL (70-99) 87 mg/dL (70-99) Lactic Acid Level 0.9 mmol/L (0.4-2.0) Calcium Level 8.2 mg/dL (8.5-10.1) 8.3 mg/dL (8.5-10.1) Total Bilirubin 0.6 mg/dL (0.2-1.0) 0.8 mg/dL (0.2-1.0) Aspartate Amino Transf (AST/SGOT) 71 U/L (15-37) 56 U/L (15-37) Alanine Aminotransferase (ALT/SGPT) 79 U/L (16-63) 56 U/L (16-63) Alkaline Phosphatase 664 U/L (46-116) 586 U/L (46-116) Total Protein 5.3 g/dL (6.4-8.2) 5.3 g/dL (6.4-8.2) Albumin 2.8 g/dL (3.4-5.0) 2.0 g/dL (3.4-5.0) Albumin/Globulin Ratio 1.1 (1.0-1.7) 0.6 (1.0-1.7) Laboratory Tests Test 10/29/19 04:50 White Blood Count 7.7 x10^3/uL (4.0-11.0) Red Blood Count 4.09 x10^6/uL (4.30-5.70) Hemoglobin 12.8 g/dL (13.0-17.5) Hematocrit 37.6 % (39.0-53.0) Mean Corpuscular Volume 92 fL (79-100) Mean Corpuscular Hemoglobin 31 pg (25-35) Mean Corpuscular Hemoglobin Concent 34 g/dL (31-37) Red Cell Distribution Width 13.1 % (11.5-14.5) Platelet Count 142 x10^3/uL (140-400) Neutrophils (%) (Auto) 91 % (31-73) Lymphocytes (%) (Auto) 6 % (24-48) Monocytes (%) (Auto) 2 % (0-9) Eosinophils (%) (Auto) 0 % (0-3) Basophils (%) (Auto) 0 % (0-3) Neutrophils # (Auto) 7.0 x10^3/uL (1.8-7.7) Lymphocytes # (Auto) 0.5 x10^3/uL (1.0-4.8) Monocytes # (Auto) 0.2 x10^3/uL (0.0-1.1) Eosinophils # (Auto) 0.0 x10^3/uL (0.0-0.7) Basophils # (Auto) 0.0 x10^3/uL (0.0-0.2) Sodium Level 137 mmol/L (136-145) Potassium Level 4.0 mmol/L (3.5-5.1) Chloride Level 104 mmol/L (98-107) Carbon Dioxide Level 24 mmol/L (21-32) Anion Gap 9 (6-14) Blood Urea Nitrogen 7 mg/dL (8-26) Creatinine 0.8 mg/dL (0.7-1.3) Estimated GFR (Cockcroft-Gault) 98.3 BUN/Creatinine Ratio 9 (6-20) Glucose Level 87 mg/dL (70-99) Calcium Level 8.3 mg/dL (8.5-10.1) Total Bilirubin 0.8 mg/dL (0.2-1.0) Aspartate Amino Transf (AST/SGOT) 56 U/L (15-37) Alanine Aminotransferase (ALT/SGPT) 56 U/L (16-63) Alkaline Phosphatase 586 U/L (46-116) Total Protein 5.3 g/dL (6.4-8.2) Albumin 2.0 g/dL (3.4-5.0) Albumin/Globulin Ratio 0.6 (1.0-1.7) Microbiology 10/27/19 Blood Culture - Preliminary, Resulted NO GROWTH AFTER 1 DAY Medications Current Medications Sodium Chloride 1,000 ml @ 1,000 mls/hr 1X ONCE IV Last administered on 10/27/19at 13:30; Start 10/27/19 at 13:30; Stop 10/27/19 at 14:29; Status DC Acetaminophen (Tylenol) 1,000 mg 1X ONCE PO Last administered on 10/27/19at 16:10; Start 10/27/19 at 16:00; Stop 10/27/19 at 16:01; Status DC Sodium Chloride (Normal Saline Flush) 3 ml QSHIFT PRN IV AFTER MEDS AND BLOOD DRAWS; Start 10/27/19 at 16:30 Sodium Chloride 1,000 ml @ 100 mls/hr Q10H IV Last administered on 10/29/19at 03:22; Start 10/27/19 at 16:22 Ondansetron HCl (Zofran) 4 mg PRN Q4HRS PRN IV NAUSEA/VOMITING Last administered on 10/29/19at 05:26; Start 10/27/19 at 16:30 Acetaminophen (Tylenol) 650 mg PRN Q4HRS PRN PO TEMP OVER 100.4F OR MILD PAIN Last administered on 10/29/19at 09:23; Start 10/27/19 at 16:30 Al Hydroxide/Mg Hydroxide (Mylanta Plus Xs) 30 ml PRN DAILY PRN PO HEARTBURN / GAS; Start 10/27/19 at 16:30 Sodium Monofluorophosphate (Fleet Adult) 133 ml PRN DAILY PRN NC CONSTIPATION; Start 10/27/19 at 16:30 Docusate Sodium (Colace) 100 mg PRN BID PRN PO CONSTIPATION; Start 10/27/19 at 16:30 Albuterol/ Ipratropium (Duoneb) 3 ml Q4H NEB ; Start 10/27/19 at 16:30; Stop 10/27/19 at 18:28; Status DC Guaifenesin (Robitussin) 200 mg PRN Q4HRS PRN PO COUGH Last administered on 10/29/19at 09:23; Start 10/27/19 at 16:30 Lorazepam (Ativan) 0.5 mg PRN Q4HRS PRN PO ANXIETY / AGITATION Last administered on 10/28/19at 21:41; Start 10/27/19 at 16:30 Enoxaparin Sodium (Lovenox 40mg Syringe) 40 mg Q24H SQ Last administered on 10/28/19at 21:38; Start 10/27/19 at 21:00 Piperacillin Sod/ Tazobactam Sod 3.375 gm/Sodium Chloride 50 ml @ 100 mls/hr Q6HRS IV Last administered on 10/29/19at 05:07; Start 10/27/19 at 18:00 Azithromycin 250 ml @ 250 mls/hr 1X ONCE IV ; Start 10/27/19 at 16:30; Stop 10/27/19 at 17:29; Status Cancel Azithromycin 500 mg/Sodium Chloride 250 ml @ 250 mls/hr Q24H IV Last administered on 10/28/19at 18:21; Start 10/27/19 at 18:00 Albuterol Sulfate (Ventolin Neb Soln) 2.5 mg PRN Q4HRS PRN NEB SHORTNESS OF BREATH; Start 10/27/19 at 18:30 Sodium Chloride (Saline Mist Nasal) 1 nicolas PRN Q1HR PRN NS NASAL CONGESTION Last administered on 10/29/19at 03:08; Start 10/29/19 at 02:45 Active Scripts Active Reported Zyrtec (Cetirizine Hcl) 10 Mg Tablet 10 Mg PO DAILY Vitals/I & O Vital Sign - Last 24 Hours 10/28/19 10/28/19 10/28/19 10/28/19 11:00 11:14 15:00 17:30 Temp 99.9 99.5 100.1 99.9 99.5 100.1 Pulse 82 97 Resp 16 28 B/P (MAP) 114/70 (85) 112/67 (82) Pulse Ox 95 94 O2 Delivery Nasal Cannula Nasal Cannula O2 Flow Rate 2.0 2.0 10/28/19 10/28/19 10/28/19 10/29/19 18:47 20:00 23:34 03:10 Temp 101.2 101.8 101.5 101.2 101.8 101.5 Pulse 92 91 87 Resp 20 20 20 B/P (MAP) 114/66 (82) 103/68 (80) 113/66 (82) Pulse Ox 95 97 97 O2 Delivery Nasal Cannula Nasal Cannula Nasal Cannula Nasal Cannula O2 Flow Rate 2.0 2.0 2.0 2.0 10/29/19 10/29/19 10/29/19 05:15 07:00 08:00 Temp 101.1 99.5 101.1 99.5 Pulse 85 88 Resp 18 20 B/P (MAP) 120/72 (88) 125/74 (91) Pulse Ox 95 O2 Delivery Nasal Cannula Nasal Cannula Nasal Cannula O2 Flow Rate 2.0 2.0 2.0 Intake and Output 10/28/19 10/28/19 10/29/19 15:00 23:00 07:00 Intake Total 450 ml 690 ml 1290 ml Output Total 250 ml 200 ml Balance 200 ml 490 ml 1290 ml MISTY ROBERSON MD Oct 29, 2019 10:24
--- NOTE | 2019-10-29 11:08 | PDOC ---
PULMONARY PROGRESS NOTES Subjective no increase SOA Vitals Vital Signs Date Time Temp Pulse Resp B/P (MAP) Pulse Ox O2 Delivery O2 Flow Rate FiO2 10/29/19 11:00 98.8 85 18 119/70 (86) Nasal Cannula 2.0 98.8 10/29/19 05:15 95 Comments visual exam done due to COVID 19 no soa, no rash no edema Labs Laboratory Tests Test 10/27/19 13:29 10/27/19 13:40 10/29/19 04:50 O2 Saturation 95 % (92-99) Arterial Blood pH 7.46 (7.35-7.45) Arterial Blood pCO2 at Patient Temp 39 mmHg (35-46) Arterial Blood pO2 at Patient Temp 75 mmHg (65-108) Arterial Blood HCO3 27 mmol/L (21-28) Arterial Blood Base Excess 3 mmol/L (-3-3) FiO2 21 White Blood Count 5.0 x10^3/uL (4.0-11.0) 7.7 x10^3/uL (4.0-11.0) Red Blood Count 4.54 x10^6/uL (4.30-5.70) 4.09 x10^6/uL (4.30-5.70) Hemoglobin 14.0 g/dL (13.0-17.5) 12.8 g/dL (13.0-17.5) Hematocrit 40.7 % (39.0-53.0) 37.6 % (39.0-53.0) Mean Corpuscular Volume 90 fL (79-100) 92 fL (79-100) Mean Corpuscular Hemoglobin 31 pg (25-35) 31 pg (25-35) Mean Corpuscular Hemoglobin Concent 34 g/dL (31-37) 34 g/dL (31-37) Red Cell Distribution Width 13.0 % (11.5-14.5) 13.1 % (11.5-14.5) Platelet Count 144 x10^3/uL (140-400) 142 x10^3/uL (140-400) Neutrophils (%) (Auto) 91 % (31-73) 91 % (31-73) Lymphocytes (%) (Auto) 5 % (24-48) 6 % (24-48) Monocytes (%) (Auto) 4 % (0-9) 2 % (0-9) Eosinophils (%) (Auto) 0 % (0-3) 0 % (0-3) Basophils (%) (Auto) 0 % (0-3) 0 % (0-3) Neutrophils # (Auto) 4.5 x10^3/uL (1.8-7.7) 7.0 x10^3/uL (1.8-7.7) Lymphocytes # (Auto) 0.3 x10^3/uL (1.0-4.8) 0.5 x10^3/uL (1.0-4.8) Monocytes # (Auto) 0.2 x10^3/uL (0.0-1.1) 0.2 x10^3/uL (0.0-1.1) Eosinophils # (Auto) 0.0 x10^3/uL (0.0-0.7) 0.0 x10^3/uL (0.0-0.7) Basophils # (Auto) 0.0 x10^3/uL (0.0-0.2) 0.0 x10^3/uL (0.0-0.2) Segmented Neutrophils % 77 % (35-66) Band Neutrophils % 10 % (0-9) Lymphocytes % 10 % (24-48) Monocytes % 3 % (0-10) Platelet Estimate Adequate (ADEQUATE) Sodium Level 141 mmol/L (136-145) 137 mmol/L (136-145) Potassium Level 3.7 mmol/L (3.5-5.1) 4.0 mmol/L (3.5-5.1) Chloride Level 103 mmol/L (98-107) 104 mmol/L (98-107) Carbon Dioxide Level 29 mmol/L (21-32) 24 mmol/L (21-32) Anion Gap 9 (6-14) 9 (6-14) Blood Urea Nitrogen 10 mg/dL (8-26) 7 mg/dL (8-26) Creatinine 0.6 mg/dL (0.7-1.3) 0.8 mg/dL (0.7-1.3) Estimated GFR (Cockcroft-Gault) 137.0 98.3 BUN/Creatinine Ratio 17 (6-20) 9 (6-20) Glucose Level 116 mg/dL (70-99) 87 mg/dL (70-99) Lactic Acid Level 0.9 mmol/L (0.4-2.0) Calcium Level 8.2 mg/dL (8.5-10.1) 8.3 mg/dL (8.5-10.1) Total Bilirubin 0.6 mg/dL (0.2-1.0) 0.8 mg/dL (0.2-1.0) Aspartate Amino Transf (AST/SGOT) 71 U/L (15-37) 56 U/L (15-37) Alanine Aminotransferase (ALT/SGPT) 79 U/L (16-63) 56 U/L (16-63) Alkaline Phosphatase 664 U/L (46-116) 586 U/L (46-116) Total Protein 5.3 g/dL (6.4-8.2) 5.3 g/dL (6.4-8.2) Albumin 2.8 g/dL (3.4-5.0) 2.0 g/dL (3.4-5.0) Albumin/Globulin Ratio 1.1 (1.0-1.7) 0.6 (1.0-1.7) Laboratory Tests Test 10/29/19 04:50 White Blood Count 7.7 x10^3/uL (4.0-11.0) Red Blood Count 4.09 x10^6/uL (4.30-5.70) Hemoglobin 12.8 g/dL (13.0-17.5) Hematocrit 37.6 % (39.0-53.0) Mean Corpuscular Volume 92 fL (79-100) Mean Corpuscular Hemoglobin 31 pg (25-35) Mean Corpuscular Hemoglobin Concent 34 g/dL (31-37) Red Cell Distribution Width 13.1 % (11.5-14.5) Platelet Count 142 x10^3/uL (140-400) Neutrophils (%) (Auto) 91 % (31-73) Lymphocytes (%) (Auto) 6 % (24-48) Monocytes (%) (Auto) 2 % (0-9) Eosinophils (%) (Auto) 0 % (0-3) Basophils (%) (Auto) 0 % (0-3) Neutrophils # (Auto) 7.0 x10^3/uL (1.8-7.7) Lymphocytes # (Auto) 0.5 x10^3/uL (1.0-4.8) Monocytes # (Auto) 0.2 x10^3/uL (0.0-1.1) Eosinophils # (Auto) 0.0 x10^3/uL (0.0-0.7) Basophils # (Auto) 0.0 x10^3/uL (0.0-0.2) Sodium Level 137 mmol/L (136-145) Potassium Level 4.0 mmol/L (3.5-5.1) Chloride Level 104 mmol/L (98-107) Carbon Dioxide Level 24 mmol/L (21-32) Anion Gap 9 (6-14) Blood Urea Nitrogen 7 mg/dL (8-26) Creatinine 0.8 mg/dL (0.7-1.3) Estimated GFR (Cockcroft-Gault) 98.3 BUN/Creatinine Ratio 9 (6-20) Glucose Level 87 mg/dL (70-99) Calcium Level 8.3 mg/dL (8.5-10.1) Total Bilirubin 0.8 mg/dL (0.2-1.0) Aspartate Amino Transf (AST/SGOT) 56 U/L (15-37) Alanine Aminotransferase (ALT/SGPT) 56 U/L (16-63) Alkaline Phosphatase 586 U/L (46-116) Total Protein 5.3 g/dL (6.4-8.2) Albumin 2.0 g/dL (3.4-5.0) Albumin/Globulin Ratio 0.6 (1.0-1.7) Medications Active Scripts Medications Dose Route/Sig Max Daily Dose Days Date Category Zyrtec (Cetirizine Hcl) 10 Mg Tablet 10 Mg PO DAILY 10/27/19 Reported Impression . 1. Acute hypoxic respiratory failure secondary to COVID-19 pneumonia. 2. Abnormal chest x-ray with faint bilateral infiltrates suggestive of COVID-19 pneumonia. Cannot exclude superimposed bacterial pneumonia. 3. Hairy cell leukemia, in remission. 4. Abnormal LFTs, likely related to COVID-19 infection. Plan . 1. We will continue with present oxygen. Keep saturation 92 and above. 2. Continue empiric antibiotic. 3. The patient was instructed about the prone positioning during the nighttime. 4. We will follow the response to treatment and monitor for any cytokine surge 5. Discussed with RN and patient. We will follow along with you. EDDA HOLDER MD Oct 29, 2019 11:08
--- NOTE | 2019-10-29 11:12 | PDOC ---
PROGRESS NOTES Subjective Subjective Tele-health f/u 10/29/19 HPI - f/u of Hairy cell leukemia ROS - no increase in dyspnea Objective Objective Vital Signs Date Time Temp Pulse Resp B/P (MAP) Pulse Ox O2 Delivery O2 Flow Rate FiO2 10/29/19 11:00 98.8 85 18 119/70 (86) Nasal Cannula 2.0 98.8 10/29/19 05:15 95 Intake and Output 10/29/19 07:00 Intake Total 2430 ml Output Total 450 ml Balance 1980 ml Intake Oral 1130 ml IV Total 1300 ml Output Urine Total 450 ml # Voids 2 Assessment Assessment Problems Medical Problems: (1) COVID-19 virus infection Status: Acute IMPRESSION AND PLAN: 1. 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 Bone marrow biopsy on 03/05/2014 revealed complete remission with no evidence of residual leukemia. He has never had any evidence of recurrent leukemia since then. His CBC from 10/27/2019 also reveals no evidence of recurrent leukemia. 2. Pneumonia secondary to COVID-19 infection. He has hypoxic respiratory failure. He is not requiring intubation. Appreciate pulmonary consultation. 3. Fever due to COVID-19, appreciate ID [email or web address].. Comment Review of Relevant I have reviewed the following items fany (where applicable) has been applied. Labs Laboratory Tests Test 10/27/19 13:29 10/27/19 13:40 10/29/19 04:50 O2 Saturation 95 % (92-99) Arterial Blood pH 7.46 (7.35-7.45) Arterial Blood pCO2 at Patient Temp 39 mmHg (35-46) Arterial Blood pO2 at Patient Temp 75 mmHg (65-108) Arterial Blood HCO3 27 mmol/L (21-28) Arterial Blood Base Excess 3 mmol/L (-3-3) FiO2 21 White Blood Count 5.0 x10^3/uL (4.0-11.0) 7.7 x10^3/uL (4.0-11.0) Red Blood Count 4.54 x10^6/uL (4.30-5.70) 4.09 x10^6/uL (4.30-5.70) Hemoglobin 14.0 g/dL (13.0-17.5) 12.8 g/dL (13.0-17.5) Hematocrit 40.7 % (39.0-53.0) 37.6 % (39.0-53.0) Mean Corpuscular Volume 90 fL (79-100) 92 fL (79-100) Mean Corpuscular Hemoglobin 31 pg (25-35) 31 pg (25-35) Mean Corpuscular Hemoglobin Concent 34 g/dL (31-37) 34 g/dL (31-37) Red Cell Distribution Width 13.0 % (11.5-14.5) 13.1 % (11.5-14.5) Platelet Count 144 x10^3/uL (140-400) 142 x10^3/uL (140-400) Neutrophils (%) (Auto) 91 % (31-73) 91 % (31-73) Lymphocytes (%) (Auto) 5 % (24-48) 6 % (24-48) Monocytes (%) (Auto) 4 % (0-9) 2 % (0-9) Eosinophils (%) (Auto) 0 % (0-3) 0 % (0-3) Basophils (%) (Auto) 0 % (0-3) 0 % (0-3) Neutrophils # (Auto) 4.5 x10^3/uL (1.8-7.7) 7.0 x10^3/uL (1.8-7.7) Lymphocytes # (Auto) 0.3 x10^3/uL (1.0-4.8) 0.5 x10^3/uL (1.0-4.8) Monocytes # (Auto) 0.2 x10^3/uL (0.0-1.1) 0.2 x10^3/uL (0.0-1.1) Eosinophils # (Auto) 0.0 x10^3/uL (0.0-0.7) 0.0 x10^3/uL (0.0-0.7) Basophils # (Auto) 0.0 x10^3/uL (0.0-0.2) 0.0 x10^3/uL (0.0-0.2) Segmented Neutrophils % 77 % (35-66) Band Neutrophils % 10 % (0-9) Lymphocytes % 10 % (24-48) Monocytes % 3 % (0-10) Platelet Estimate Adequate (ADEQUATE) Sodium Level 141 mmol/L (136-145) 137 mmol/L (136-145) Potassium Level 3.7 mmol/L (3.5-5.1) 4.0 mmol/L (3.5-5.1) Chloride Level 103 mmol/L (98-107) 104 mmol/L (98-107) Carbon Dioxide Level 29 mmol/L (21-32) 24 mmol/L (21-32) Anion Gap 9 (6-14) 9 (6-14) Blood Urea Nitrogen 10 mg/dL (8-26) 7 mg/dL (8-26) Creatinine 0.6 mg/dL (0.7-1.3) 0.8 mg/dL (0.7-1.3) Estimated GFR (Cockcroft-Gault) 137.0 98.3 BUN/Creatinine Ratio 17 (6-20) 9 (6-20) Glucose Level 116 mg/dL (70-99) 87 mg/dL (70-99) Lactic Acid Level 0.9 mmol/L (0.4-2.0) Calcium Level 8.2 mg/dL (8.5-10.1) 8.3 mg/dL (8.5-10.1) Total Bilirubin 0.6 mg/dL (0.2-1.0) 0.8 mg/dL (0.2-1.0) Aspartate Amino Transf (AST/SGOT) 71 U/L (15-37) 56 U/L (15-37) Alanine Aminotransferase (ALT/SGPT) 79 U/L (16-63) 56 U/L (16-63) Alkaline Phosphatase 664 U/L (46-116) 586 U/L (46-116) Total Protein 5.3 g/dL (6.4-8.2) 5.3 g/dL (6.4-8.2) Albumin 2.8 g/dL (3.4-5.0) 2.0 g/dL (3.4-5.0) Albumin/Globulin Ratio 1.1 (1.0-1.7) 0.6 (1.0-1.7) Laboratory Tests Test 10/29/19 04:50 White Blood Count 7.7 x10^3/uL (4.0-11.0) Red Blood Count 4.09 x10^6/uL (4.30-5.70) Hemoglobin 12.8 g/dL (13.0-17.5) Hematocrit 37.6 % (39.0-53.0) Mean Corpuscular Volume 92 fL (79-100) Mean Corpuscular Hemoglobin 31 pg (25-35) Mean Corpuscular Hemoglobin Concent 34 g/dL (31-37) Red Cell Distribution Width 13.1 % (11.5-14.5) Platelet Count 142 x10^3/uL (140-400) Neutrophils (%) (Auto) 91 % (31-73) Lymphocytes (%) (Auto) 6 % (24-48) Monocytes (%) (Auto) 2 % (0-9) Eosinophils (%) (Auto) 0 % (0-3) Basophils (%) (Auto) 0 % (0-3) Neutrophils # (Auto) 7.0 x10^3/uL (1.8-7.7) Lymphocytes # (Auto) 0.5 x10^3/uL (1.0-4.8) Monocytes # (Auto) 0.2 x10^3/uL (0.0-1.1) Eosinophils # (Auto) 0.0 x10^3/uL (0.0-0.7) Basophils # (Auto) 0.0 x10^3/uL (0.0-0.2) Sodium Level 137 mmol/L (136-145) Potassium Level 4.0 mmol/L (3.5-5.1) Chloride Level 104 mmol/L (98-107) Carbon Dioxide Level 24 mmol/L (21-32) Anion Gap 9 (6-14) Blood Urea Nitrogen 7 mg/dL (8-26) Creatinine 0.8 mg/dL (0.7-1.3) Estimated GFR (Cockcroft-Gault) 98.3 BUN/Creatinine Ratio 9 (6-20) Glucose Level 87 mg/dL (70-99) Calcium Level 8.3 mg/dL (8.5-10.1) Total Bilirubin 0.8 mg/dL (0.2-1.0) Aspartate Amino Transf (AST/SGOT) 56 U/L (15-37) Alanine Aminotransferase (ALT/SGPT) 56 U/L (16-63) Alkaline Phosphatase 586 U/L (46-116) Total Protein 5.3 g/dL (6.4-8.2) Albumin 2.0 g/dL (3.4-5.0) Albumin/Globulin Ratio 0.6 (1.0-1.7) Microbiology 10/27/19 Blood Culture - Preliminary, Resulted NO GROWTH AFTER 1 DAY Medications Current Medications Sodium Chloride 1,000 ml @ 1,000 mls/hr 1X ONCE IV Last administered on 10/27/19at 13:30; Start 10/27/19 at 13:30; Stop 10/27/19 at 14:29; Status DC Acetaminophen (Tylenol) 1,000 mg 1X ONCE PO Last administered on 10/27/19at 16:10; Start 10/27/19 at 16:00; Stop 10/27/19 at 16:01; Status DC Sodium Chloride (Normal Saline Flush) 3 ml QSHIFT PRN IV AFTER MEDS AND BLOOD DRAWS; Start 10/27/19 at 16:30 Sodium Chloride 1,000 ml @ 100 mls/hr Q10H IV Last administered on 10/29/19at 03:22; Start 10/27/19 at 16:22 Ondansetron HCl (Zofran) 4 mg PRN Q4HRS PRN IV NAUSEA/VOMITING Last administered on 10/29/19at 05:26; Start 10/27/19 at 16:30 Acetaminophen (Tylenol) 650 mg PRN Q4HRS PRN PO TEMP OVER 100.4F OR MILD PAIN Last administered on 10/29/19at 09:23; Start 10/27/19 at 16:30 Al Hydroxide/Mg Hydroxide (Mylanta Plus Xs) 30 ml PRN DAILY PRN PO HEARTBURN / GAS; Start 10/27/19 at 16:30 Sodium Monofluorophosphate (Fleet Adult) 133 ml PRN DAILY PRN AR CONSTIPATION; Start 10/27/19 at 16:30 Docusate Sodium (Colace) 100 mg PRN BID PRN PO CONSTIPATION; Start 10/27/19 at 16:30 Albuterol/ Ipratropium (Duoneb) 3 ml Q4H NEB ; Start 10/27/19 at 16:30; Stop 10/27/19 at 18:28; Status DC Guaifenesin (Robitussin) 200 mg PRN Q4HRS PRN PO COUGH Last administered on 10/29/19at 09:23; Start 10/27/19 at 16:30 Lorazepam (Ativan) 0.5 mg PRN Q4HRS PRN PO ANXIETY / AGITATION Last administered on 10/28/19at 21:41; Start 10/27/19 at 16:30 Enoxaparin Sodium (Lovenox 40mg Syringe) 40 mg Q24H SQ Last administered on 10/28/19at 21:38; Start 10/27/19 at 21:00 Piperacillin Sod/ Tazobactam Sod 3.375 gm/Sodium Chloride 50 ml @ 100 mls/hr Q6HRS IV Last administered on 10/29/19at 05:07; Start 10/27/19 at 18:00 Azithromycin 250 ml @ 250 mls/hr 1X ONCE IV ; Start 10/27/19 at 16:30; Stop 10/27/19 at 17:29; Status Cancel Azithromycin 500 mg/Sodium Chloride 250 ml @ 250 mls/hr Q24H IV Last administered on 10/28/19at 18:21; Start 10/27/19 at 18:00 Albuterol Sulfate (Ventolin Neb Soln) 2.5 mg PRN Q4HRS PRN NEB SHORTNESS OF BREATH; Start 10/27/19 at 18:30 Sodium Chloride (Saline Mist Nasal) 1 nicolas PRN Q1HR PRN NS NASAL CONGESTION Last administered on 10/29/19at 03:08; Start 10/29/19 at 02:45 Active Scripts Active Reported Zyrtec (Cetirizine Hcl) 10 Mg Tablet 10 Mg PO DAILY Vitals/I & O Vital Sign - Last 24 Hours 10/28/19 10/28/19 10/28/19 10/28/19 11:14 15:00 17:30 18:47 Temp 99.9 99.5 100.1 101.2 99.9 99.5 100.1 101.2 Pulse 97 92 Resp 28 20 B/P (MAP) 112/67 (82) 114/66 (82) Pulse Ox 94 95 O2 Delivery Nasal Cannula Nasal Cannula O2 Flow Rate 2.0 2.0 10/28/19 10/28/19 10/29/19 10/29/19 20:00 23:34 03:10 05:15 Temp 101.8 101.5 101.1 101.8 101.5 101.1 Pulse 91 87 85 Resp 20 20 18 B/P (MAP) 103/68 (80) 113/66 (82) 120/72 (88) Pulse Ox 97 97 95 O2 Delivery Nasal Cannula Nasal Cannula Nasal Cannula Nasal Cannula O2 Flow Rate 2.0 2.0 2.0 2.0 10/29/19 10/29/19 10/29/19 07:00 08:00 11:00 Temp 99.5 98.8 99.5 98.8 Pulse 88 85 Resp 20 18 B/P (MAP) 125/74 (91) 119/70 (86) O2 Delivery Nasal Cannula Nasal Cannula Nasal Cannula O2 Flow Rate 2.0 2.0 2.0 Intake and Output 10/28/19 10/28/19 10/29/19 15:00 23:00 07:00 Intake Total 450 ml 690 ml 1290 ml Output Total 250 ml 200 ml Balance 200 ml 490 ml 1290 ml KODY AVITIA MD Oct 29, 2019 11:12
--- NOTE | 2019-10-29 14:33 | PDOC2 ---
GI CONSULT Reason For Consult: inc alk phos HPI: HPI: 59 y/o male in isolation in ICU w/ +COVID-19 pneumonia. We are asked to see re: elevated Alk Phos. Typically has no GI issues. With this illness, has had decreased appetite and some n/v. Has stooled in a day or two because of this. Denies hematemesis, abd pain, diarrhea, hematochezia, melena, and weight loss. H/o achalasia s/p Heller myotomy and then then esophagectomy and gastric pull through at in 2016. H/o colon polyps on several colonoscopies - see Dr. Guzman every three years. Known cholelithiasis (noted on CT here in 2017). Denies liver, pancreas, and PUD history - normal liver on past CT. H/o SBOs which resolved w/o surgical intervention. 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 PMH: PMH: SBOs, achalasia, cholelithiasis, colon polyps, Hairy cell leukemia port placement/removal, chemo, bone marrow biopsies, Heller myotomy, esophagectomy/gastric pull through, knee surgery (stap) FH: Family History: No pertinent hx (denies liver disease) Social History: Smoke: Quit ALCOHOL: rare Drugs: None ROS: GEN: +fever HEENT: Denies blurred vision, sore throat CV: +CP RESP: +cough GI: Per HPI : Denies hematuria, dysuria ENDO: Denies weight changes NEURO: Denies confusion, dizziness MSK: +weakness SKIN: Denies jaundice, pruritus Vitals: Vitals: Vital Signs Date Time Temp Pulse Resp B/P (MAP) Pulse Ox O2 Delivery O2 Flow Rate FiO2 10/29/19 11:00 98.8 85 18 119/70 (86) Nasal Cannula 2.0 98.8 10/29/19 05:15 95 Labs: Labs: Laboratory Tests Test 10/29/19 04:50 White Blood Count 7.7 x10^3/uL (4.0-11.0) Red Blood Count 4.09 x10^6/uL (4.30-5.70) Hemoglobin 12.8 g/dL (13.0-17.5) Hematocrit 37.6 % (39.0-53.0) Mean Corpuscular Volume 92 fL (79-100) Mean Corpuscular Hemoglobin 31 pg (25-35) Mean Corpuscular Hemoglobin Concent 34 g/dL (31-37) Red Cell Distribution Width 13.1 % (11.5-14.5) Platelet Count 142 x10^3/uL (140-400) Neutrophils (%) (Auto) 91 % (31-73) Lymphocytes (%) (Auto) 6 % (24-48) Monocytes (%) (Auto) 2 % (0-9) Eosinophils (%) (Auto) 0 % (0-3) Basophils (%) (Auto) 0 % (0-3) Neutrophils # (Auto) 7.0 x10^3/uL (1.8-7.7) Lymphocytes # (Auto) 0.5 x10^3/uL (1.0-4.8) Monocytes # (Auto) 0.2 x10^3/uL (0.0-1.1) Eosinophils # (Auto) 0.0 x10^3/uL (0.0-0.7) Basophils # (Auto) 0.0 x10^3/uL (0.0-0.2) Sodium Level 137 mmol/L (136-145) Potassium Level 4.0 mmol/L (3.5-5.1) Chloride Level 104 mmol/L (98-107) Carbon Dioxide Level 24 mmol/L (21-32) Anion Gap 9 (6-14) Blood Urea Nitrogen 7 mg/dL (8-26) Creatinine 0.8 mg/dL (0.7-1.3) Estimated GFR (Cockcroft-Gault) 98.3 BUN/Creatinine Ratio 9 (6-20) Glucose Level 87 mg/dL (70-99) Calcium Level 8.3 mg/dL (8.5-10.1) Total Bilirubin 0.8 mg/dL (0.2-1.0) Aspartate Amino Transf (AST/SGOT) 56 U/L (15-37) Alanine Aminotransferase (ALT/SGPT) 56 U/L (16-63) Alkaline Phosphatase 586 U/L (46-116) Total Protein 5.3 g/dL (6.4-8.2) Albumin 2.0 g/dL (3.4-5.0) Albumin/Globulin Ratio 0.6 (1.0-1.7) BLOOD CULTURE Preliminary NO GROWTH AFTER 2 DAYS Allergies: Coded Allergies: clindamycin (Verified Allergy, Intermediate, 05/04/14) codeine (Verified Allergy, Intermediate, 05/04/14) sulfamethoxazole (Verified Allergy, Intermediate, Rash, 05/04/14) trimethoprim (Verified Allergy, Intermediate, Rash, 05/04/14) Medications: Current Medications Medications (Trade) Dose Ordered Sig/Michael Route PRN Reason Start Time Stop Time Status Last Admin Dose Admin Sodium Chloride (Saline Mist Nasal) 1 nicolas PRN Q1HR PRN NS NASAL CONGESTION 10/29/19 02:45 10/29/19 03:08 Imaging: Imaging: CXR 10/26 IMPRESSION: Bilateral ill-defined airspace opacities are present. In the appropriate clinical context, these could reflect atypical pneumonia. PE: GEN: NAD HEENT: Atraumatic, PERRL LUNGS: diminished, frequent coughing HEART: RRR ABD: NABS, S/ND/NT EXTREMITY: No edema SKIN: No rashes, no jaundice NEURO/PSYCH: A & O 3 A/P: A/P: Resp failure, +COVID-19 pneumonia Decreased appetite, n/v Elevated Alk Phos - in 140-150 range in 2017, this time more significant (664 on 10/26, 586 today) w/ normal liver on past CT - AST and ALT mildly elevated this time as well, both improved H/o achalasia s/p esophagectomy and gastric pull through CRC screen, h/o colon polyps - screening UTD Cholelithiasis - on past CT H/o SBOs H/o leukemia in remission -- D/w Dr. Tolbert - will ask for US and follow labs. 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 D/w Dr. Cardona - will hold on US for today and d/w Dr. Tolbert. ALEXIS COSTELLO Oct 29, 2019 14:33
[2019-10-29] MEDS ORDERED: POLYETHYLENE GLYCOL 3350 17 GM PACKET. PO PRN (14:45)
[2019-10-29] MEDS ORDERED: CALCIUM CARBONATE 500 MG TAB.CHEW PO PRN (14:45)
--- NOTE | 2019-10-29 15:08 | NUR ---
SS following up with discharge planning. SS discussed with RN, Nimisha. Pt is from home and is currently requiring oxygen and COVID19 positive. SS will continue to follow for discharge planning.
[2019-10-29] MEDS: AZITHROMYCIN 500 MG in IV NORMAL SALINE 250ML 250 ML IV SCH (17:35)
[2019-10-29] MEDS: ENOXAPARIN 40 MG/0.4 ML SYRINGE. SQ SCH (20:26)
[2019-10-29] MEDS: LORazepam 0.5 MG TABLET PO PRN (22:00)
[2019-10-30] MEDS: IV NORMAL SALINE 1000ML BAG 1,000 ML IV SCH ×2 (01:34→14:16)
[2019-10-30] MEDS: ACETAMINOPHEN 325 MG TABLET. PO PRN ×2 (02:48→17:48)
[2019-10-30 03:00] VITALS: BP 121/70
[2019-10-30] MEDS: ONDANSETRON PF 4 MG/2 ML VIAL. IV PRN (03:01)
--- NOTE | 2019-10-30 04:00 | NUR ---
Patient O2 sats decreased to low-mid 80's on 4 liters. Patient reports increased SOA. Patient sating low-mid 90's now on 10L per NC. Will continue to monitor patient.
[2019-10-30] MEDS: PIPERACILLIN/TAZOBACTAM 3.375 GM in IV NORMAL SALINE 50ML 50 ML IV SCH ×3 (05:50→17:38)
[2019-10-30 08:26] LABS: ALBUMIN 1.8 g/dL (3.4-5.0); DIRECT BILIRUBIN 0.7 mg/dL (0.0-0.2); TOTAL BILIRUBIN 0.9 mg/dL (0.2-1.0); TOTAL PROTEIN 4.9 g/dL (6.4-8.2)
--- NOTE | 2019-10-30 08:48 | PDOC ---
Subjective: Subjective: Less responsive today, doesn't offer much. Objective: Objective: Reviewed chart - decreased O2, increased SOA overnight. Vital Signs: Vital Signs Date Time Temp Pulse Resp B/P (MAP) Pulse Ox O2 Delivery O2 Flow Rate FiO2 10/30/19 03:00 101.1 88 22 121/70 (87) 94 Nasal Cannula 4.0 101.1 Labs: Laboratory Tests Test 10/29/19 16:00 10/30/19 08:00 D-Dimer (Padmini) 0.87 ug/mlFEU C-Reactive Protein, Quantitative 187.7 mg/L Procalcitonin 0.85 ng/mL Total Bilirubin 0.9 mg/dL Direct Bilirubin 0.7 mg/dL Aspartate Amino Transf (AST/SGOT) 48 U/L Alanine Aminotransferase (ALT/SGPT) 46 U/L Alkaline Phosphatase 548 U/L Total Protein 4.9 g/dL Albumin 1.8 g/dL PE: GEN: appears ill LUNGS: diminished 4L HEART: RRR ABD: S/ND/NT NEURO/PSYCH: drowsy A/P: Resp failure, +COVID-19 pneumonia Elevated Alk Phos - US on hold Cholelithiasis -- Seen w/ Dr. Tolbert - continue support for resp issues. Will check additional labs and monitor LFTs. US as able. Hemodynamically unstable?: No Is patient in severe pain?: No Is NPO status required?: No BRIDGETTE-ALEXIS BUSBY October 30, 2019 08:48
[2019-10-30] MEDS: PANTOPRAZOLE 40 MG TABLET.DR. PO SCH (09:36)
--- NOTE | 2019-10-30 10:32 | PDOC ---
Infectious Disease Note Subjective: Subjective Patient continues to remain febrile Continues to have shortness of breath and cough Headache is improving Appetite remains poor On 4 L of O2 since this a.m. Vital Signs: Vital Signs Vital Signs Date Time Temp Pulse Resp B/P (MAP) Pulse Ox O2 Delivery O2 Flow Rate FiO2 10/30/19 07:00 101.1 88 24 97 Nasal Cannula 5.0 101.1 Physical Exam: PHYSICAL EXAM GENERAL: Alert and oriented x 3 male lying in bed comfortably, in no acute distress, on nasal O2 HEENT: Normocephalic, atraumatic, anicteric. NECK: Supple, no JVD. LUNGS: Decreased breath sounds at the bases. No wheezing. No accessory muscle use. ABDOMEN: Soft, nontender, nondistended. EXTREMITIES: No edema, no cyanosis. DERMATOLOGIC: No generalized rash. BACK: Reveals normal curvature. No CVA tenderness. NEUROLOGIC: Alert, oriented x 3, grossly nonfocal. PSYCHIATRIC: Cooperative. Medications: Inpatient Meds: Current Medications Medications (Trade) Dose Ordered Sig/Michael Start Time Stop Time Status Last Admin Dose Admin Acetaminophen (Tylenol) 650 mg PRN Q4HRS PRN 10/27/19 16:30 10/30/19 02:48 650 MG Al Hydroxide/Mg Hydroxide (Mylanta Plus Xs) 30 ml PRN DAILY PRN 10/27/19 16:30 Albuterol Sulfate (Ventolin Neb Soln) 2.5 mg PRN Q4HRS PRN 10/27/19 18:30 Albuterol/ Ipratropium (Duoneb) 3 ml Q4H 10/27/19 16:30 10/27/19 18:28 DC Azithromycin 250 ml @ 250 mls/hr 1X ONCE 10/27/19 16:30 10/27/19 17:29 Cancel Azithromycin 500 mg/Sodium Chloride 250 ml @ 250 mls/hr Q24H 10/27/19 18:00 10/29/19 17:35 250 MLS/HR Calcium Carbonate/ Glycine (Tums) 500 mg PRN AFTMEALHC PRN 10/29/19 14:45 Docusate Sodium (Colace) 100 mg PRN BID PRN 10/27/19 16:30 Enoxaparin Sodium (Lovenox 40mg Syringe) 40 mg Q24H 10/27/19 21:00 10/29/19 20:26 40 MG Guaifenesin (Robitussin) 200 mg PRN Q4HRS PRN 10/27/19 16:30 10/29/19 17:40 200 MG Lactobacillus Rhamnosus (Culturelle) 1 cap BID 10/30/19 21:00 Lorazepam (Ativan) 0.5 mg PRN Q4HRS PRN 10/27/19 16:30 10/29/19 22:00 0.5 MG Ondansetron HCl (Zofran) 4 mg PRN Q4HRS PRN 10/27/19 16:30 10/30/19 03:01 4 MG Pantoprazole Sodium (Protonix) 40 mg DAILYAC 10/30/19 07:30 10/30/19 09:36 40 MG Piperacillin Sod/ Tazobactam Sod 3.375 gm/Sodium Chloride 50 ml @ 100 mls/hr Q6HRS 10/27/19 18:00 10/30/19 05:50 100 MLS/HR Polyethylene Glycol (miraLAX PACKET) 17 gm PRN DAILY PRN 10/29/19 14:45 Sodium Monofluorophosphate (Fleet Adult) 133 ml PRN DAILY PRN 10/27/19 16:30 Sodium Chloride (Normal Saline Flush) 3 ml QSHIFT PRN 10/27/19 16:30 Sodium Chloride (Saline Mist Nasal) 1 nicolas PRN Q1HR PRN 10/29/19 02:45 10/29/19 03:08 1 NICOLAS Labs: Lab Laboratory Tests Test 10/29/19 16:00 10/30/19 08:00 D-Dimer (Padmini) 0.87 ug/mlFEU (0.00-0.50) C-Reactive Protein, Quantitative 187.7 mg/L (0-3.3) Procalcitonin 0.85 ng/mL (0.00-0.10) Total Bilirubin 0.9 mg/dL (0.2-1.0) Direct Bilirubin 0.7 mg/dL (0.0-0.2) Gamma Glutamyl Transpeptidase 714 U/L (10-85) Aspartate Amino Transf (AST/SGOT) 48 U/L (15-37) Alanine Aminotransferase (ALT/SGPT) 46 U/L (16-63) Alkaline Phosphatase 548 U/L (46-116) Total Protein 4.9 g/dL (6.4-8.2) Albumin 1.8 g/dL (3.4-5.0) Objective: Assessment: 1. Fever. Likely from COVID-19 2. COVID-19 respiratory illness wiht progressive worsening of respiratory symptoms . 3. Pneumonia, secondary bacterial infection cannot be ruled out. 4. Nausea. 5. Headache. 6. Generalized weakness. 7. History of hairy cell leukemia in remission 8. Abnormal liver function tests likely from COVID 19. 9. Diarrhea prior to admission, now resolved. 10. Achalasia, status post esophagectomy. Plan: Plan of Care Continue supportive care Continue empiric azithromycin and Zosyn Follow-up lab and culture Maintain aspiration precautions Discussed with MELISSA RENEE MD October 30, 2019 10:32
--- NOTE | 2019-10-30 10:36 | PDOC ---
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 Bone marrow biopsy on 03/05/2014 revealed complete remission PSH esophagectomy in 2016 remote tobacco abuse inc alkphos hx Cholelithiasis severe protein-caloric malnutrition plan admit consult pulm med blood cult o2 support dvt prophylaxis oncology Following consult ID prone positioning during the nighttime. hepatitis dx panel GI consult re inc alk phos abd sono ON HOLD PER GI 10/29 COUGH WORSE TODAY WILL TRY HUMIBID DM /// 2 PO BID COVID-19 CRITERIA: The patient was evaluated during the global COVID-19 pandemic, and that diagnosis was suspected/considered upon their initial presentation. Their evaluation, treatment and testing were consistent with current guidelines for patients who present with complaints or symptoms that may be related to COVID-19. 33 MIN CC TIME Vitals Vitals Vital Signs Date Time Temp Pulse Resp B/P (MAP) Pulse Ox O2 Delivery O2 Flow Rate FiO2 10/30/19 07:00 101.1 88 24 97 Nasal Cannula 5.0 101.1 Physical Exam Physical Exam GENERAL: Alert and oriented x 3 male lying in bed comfortably, in no acute distress, on nasal O2 HEENT: Normocephalic, atraumatic, anicteric. NECK: Supple, no JVD. LUNGS: Decreased breath sounds at the bases. No wheezing. No accessory muscle use. ABDOMEN: Soft, nontender, nondistended. EXTREMITIES: No edema, no cyanosis. DERMATOLOGIC: No generalized rash. BACK: Reveals normal curvature. No CVA tenderness. NEUROLOGIC: Alert, oriented x 3, grossly nonfocal. PSYCHIATRIC: Cooperative. General: Alert, Oriented X3, Cooperative, mild distress Abdomen: Soft Extremities: No cyanosis, No edema Labs LABS Laboratory Tests Test 10/29/19 16:00 10/30/19 08:00 D-Dimer (Padmini) 0.87 ug/mlFEU (0.00-0.50) C-Reactive Protein, Quantitative 187.7 mg/L (0-3.3) Procalcitonin 0.85 ng/mL (0.00-0.10) Total Bilirubin 0.9 mg/dL (0.2-1.0) Direct Bilirubin 0.7 mg/dL (0.0-0.2) Gamma Glutamyl Transpeptidase 714 U/L (10-85) Aspartate Amino Transf (AST/SGOT) 48 U/L (15-37) Alanine Aminotransferase (ALT/SGPT) 46 U/L (16-63) Alkaline Phosphatase 548 U/L (46-116) Total Protein 4.9 g/dL (6.4-8.2) Albumin 1.8 g/dL (3.4-5.0) Assessment and Plan Assessmemt and Plan Problems Medical Problems: (1) COVID-19 virus infection Status: Acute Comment Review of Relevant I have reviewed the following items fany (where applicable) has been applied. Labs Laboratory Tests Test 10/29/19 04:50 10/29/19 16:00 10/30/19 08:00 White Blood Count 7.7 x10^3/uL (4.0-11.0) Red Blood Count 4.09 x10^6/uL (4.30-5.70) Hemoglobin 12.8 g/dL (13.0-17.5) Hematocrit 37.6 % (39.0-53.0) Mean Corpuscular Volume 92 fL (79-100) Mean Corpuscular Hemoglobin 31 pg (25-35) Mean Corpuscular Hemoglobin Concent 34 g/dL (31-37) Red Cell Distribution Width 13.1 % (11.5-14.5) Platelet Count 142 x10^3/uL (140-400) Neutrophils (%) (Auto) 91 % (31-73) Lymphocytes (%) (Auto) 6 % (24-48) Monocytes (%) (Auto) 2 % (0-9) Eosinophils (%) (Auto) 0 % (0-3) Basophils (%) (Auto) 0 % (0-3) Neutrophils # (Auto) 7.0 x10^3/uL (1.8-7.7) Lymphocytes # (Auto) 0.5 x10^3/uL (1.0-4.8) Monocytes # (Auto) 0.2 x10^3/uL (0.0-1.1) Eosinophils # (Auto) 0.0 x10^3/uL (0.0-0.7) Basophils # (Auto) 0.0 x10^3/uL (0.0-0.2) Sodium Level 137 mmol/L (136-145) Potassium Level 4.0 mmol/L (3.5-5.1) Chloride Level 104 mmol/L (98-107) Carbon Dioxide Level 24 mmol/L (21-32) Anion Gap 9 (6-14) Blood Urea Nitrogen 7 mg/dL (8-26) Creatinine 0.8 mg/dL (0.7-1.3) Estimated GFR (Cockcroft-Gault) 98.3 BUN/Creatinine Ratio 9 (6-20) Glucose Level 87 mg/dL (70-99) Calcium Level 8.3 mg/dL (8.5-10.1) Total Bilirubin 0.8 mg/dL (0.2-1.0) 0.9 mg/dL (0.2-1.0) Aspartate Amino Transf (AST/SGOT) 56 U/L (15-37) 48 U/L (15-37) Alanine Aminotransferase (ALT/SGPT) 56 U/L (16-63) 46 U/L (16-63) Alkaline Phosphatase 586 U/L (46-116) 548 U/L (46-116) Total Protein 5.3 g/dL (6.4-8.2) 4.9 g/dL (6.4-8.2) Albumin 2.0 g/dL (3.4-5.0) 1.8 g/dL (3.4-5.0) Albumin/Globulin Ratio 0.6 (1.0-1.7) Hepatitis A IgM Antibody Nonreactive (Nonreactive) Hepatitis B Surface Antigen Nonreactive (Nonreactive) Hepatitis B Core IgM Antibody Nonreactive (Nonreactive) Hepatitis C IgG Antibody Nonreactive (Nonreactive) D-Dimer (Padmini) 0.87 ug/mlFEU (0.00-0.50) C-Reactive Protein, Quantitative 187.7 mg/L (0-3.3) Procalcitonin 0.85 ng/mL (0.00-0.10) Direct Bilirubin 0.7 mg/dL (0.0-0.2) Gamma Glutamyl Transpeptidase 714 U/L (10-85) Laboratory Tests Test 10/29/19 16:00 10/30/19 08:00 D-Dimer (Padmini) 0.87 ug/mlFEU (0.00-0.50) C-Reactive Protein, Quantitative 187.7 mg/L (0-3.3) Procalcitonin 0.85 ng/mL (0.00-0.10) Total Bilirubin 0.9 mg/dL (0.2-1.0) Direct Bilirubin 0.7 mg/dL (0.0-0.2) Gamma Glutamyl Transpeptidase 714 U/L (10-85) Aspartate Amino Transf (AST/SGOT) 48 U/L (15-37) Alanine Aminotransferase (ALT/SGPT) 46 U/L (16-63) Alkaline Phosphatase 548 U/L (46-116) Total Protein 4.9 g/dL (6.4-8.2) Albumin 1.8 g/dL (3.4-5.0) Microbiology 10/27/19 Blood Culture - Preliminary, Resulted NO GROWTH AFTER 2 DAYS Medications Current Medications Sodium Chloride 1,000 ml @ 1,000 mls/hr 1X ONCE IV Last administered on 10/27/19at 13:30; Start 10/27/19 at 13:30; Stop 10/27/19 at 14:29; Status DC Acetaminophen (Tylenol) 1,000 mg 1X ONCE PO Last administered on 10/27/19at 16:10; Start 10/27/19 at 16:00; Stop 10/27/19 at 16:01; Status DC Sodium Chloride (Normal Saline Flush) 3 ml QSHIFT PRN IV AFTER MEDS AND BLOOD DRAWS; Start 10/27/19 at 16:30 Sodium Chloride 1,000 ml @ 100 mls/hr Q10H IV Last administered on 10/30/19at 01:34; Start 10/27/19 at 16:22 Ondansetron HCl (Zofran) 4 mg PRN Q4HRS PRN IV NAUSEA/VOMITING Last administered on 10/30/19at 03:01; Start 10/27/19 at 16:30 Acetaminophen (Tylenol) 650 mg PRN Q4HRS PRN PO TEMP OVER 100.4F OR MILD PAIN Last administered on 10/30/19at 02:48; Start 10/27/19 at 16:30 Al Hydroxide/Mg Hydroxide (Mylanta Plus Xs) 30 ml PRN DAILY PRN PO HEARTBURN / GAS; Start 10/27/19 at 16:30 Sodium Monofluorophosphate (Fleet Adult) 133 ml PRN DAILY PRN MD CONSTIPATION; Start 10/27/19 at 16:30 Docusate Sodium (Colace) 100 mg PRN BID PRN PO HARD STOOLS; Start 10/27/19 at 16:30 Albuterol/ Ipratropium (Duoneb) 3 ml Q4H NEB ; Start 10/27/19 at 16:30; Stop 10/27/19 at 18:28; Status DC Guaifenesin (Robitussin) 200 mg PRN Q4HRS PRN PO COUGH Last administered on 10/29/19at 17:40; Start 10/27/19 at 16:30 Lorazepam (Ativan) 0.5 mg PRN Q4HRS PRN PO ANXIETY / AGITATION Last administered on 10/29/19at 22:00; Start 10/27/19 at 16:30 Enoxaparin Sodium (Lovenox 40mg Syringe) 40 mg Q24H SQ Last administered on 10/29/19at 20:26; Start 10/27/19 at 21:00 Piperacillin Sod/ Tazobactam Sod 3.375 gm/Sodium Chloride 50 ml @ 100 mls/hr Q6HRS IV Last administered on 10/30/19at 05:50; Start 10/27/19 at 18:00 Azithromycin 250 ml @ 250 mls/hr 1X ONCE IV ; Start 10/27/19 at 16:30; Stop 10/27/19 at 17:29; Status Cancel Azithromycin 500 mg/Sodium Chloride 250 ml @ 250 mls/hr Q24H IV Last administered on 10/29/19at 17:35; Start 10/27/19 at 18:00 Albuterol Sulfate (Ventolin Neb Soln) 2.5 mg PRN Q4HRS PRN NEB SHORTNESS OF BREATH; Start 10/27/19 at 18:30 Sodium Chloride (Saline Mist Nasal) 1 nicolas PRN Q1HR PRN NS NASAL CONGESTION Last administered on 10/29/19at 03:08; Start 10/29/19 at 02:45 Pantoprazole Sodium (Protonix) 40 mg DAILYAC PO Last administered on 10/30/19at 09:36; Start 10/30/19 at 07:30 Calcium Carbonate/ Glycine (Tums) 500 mg PRN AFTMEALHC PRN PO INDIGESTION; Start 10/29/19 at 14:45 Polyethylene Glycol (miraLAX PACKET) 17 gm PRN DAILY PRN PO CONSTIPATION; Start 10/29/19 at 14:45 Lactobacillus Rhamnosus (Culturelle) 1 cap BID PO ; Start 10/30/19 at 21:00 Active Scripts Active Reported Zyrtec (Cetirizine Hcl) 10 Mg Tablet 10 Mg PO DAILY Vitals/I & O Vital Sign - Last 24 Hours 10/29/19 10/29/19 10/29/19 10/29/19 11:00 14:53 19:00 20:00 Temp 98.8 99.2 99.1 98.8 99.2 99.1 Pulse 85 84 83 Resp 18 22 19 B/P (MAP) 119/70 (86) 108/67 (81) 105/63 (77) Pulse Ox 94 93 O2 Delivery Nasal Cannula Nasal Cannula Nasal Cannula Nasal Cannula O2 Flow Rate 2.0 2.0 2.0 2.0 10/29/19 10/30/19 10/30/19 23:00 03:00 07:00 Temp 98.9 101.1 101.1 98.9 101.1 101.1 Pulse 72 88 88 Resp 20 22 24 B/P (MAP) 115/67 (83) 121/70 (87) Pulse Ox 94 94 97 O2 Delivery Nasal Cannula Nasal Cannula Nasal Cannula O2 Flow Rate 2.0 4.0 5.0 Intake and Output 10/29/19 10/29/19 10/30/19 15:00 23:00 07:00 Intake Total 140 ml 1200 ml Output Total 275 ml 225 ml 800 ml Balance -135 ml -225 ml 400 ml Hemodynamically unstable?: No Is patient in severe pain?: No Is NPO status required?: No MISTY ROBERSON MD October 30, 2019 10:36
[2019-10-30 11:00] VITALS: BP 119/74
[2019-10-30] MEDS: guaiFENesin ORAL 200 MG/10 ML LIQUID. PO PRN (11:43)
--- NOTE | 2019-10-30 12:31 | PDOC ---
PROGRESS NOTES Subjective Subjective Tele-health f/u 10/30/2019 HPI - f/u of Hairy cell leukemia ROS - Has fever, cough and dyspnea Objective Objective Vital Signs Date Time Temp Pulse Resp B/P (MAP) Pulse Ox O2 Delivery O2 Flow Rate FiO2 10/30/19 11:00 98.0 82 22 119/74 (89) 93 Nasal Cannula 4.0 98.0 Intake and Output 10/30/19 07:00 Intake Total 1340 ml Output Total 1300 ml Balance 40 ml Intake Oral 140 ml Other 1200 ml Output Urine Total 1300 ml Assessment Assessment Problems Medical Problems: (1) COVID-19 virus infection Status: Acute IMPRESSION AND PLAN: 1. 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 Bone marrow biopsy on 03/05/2014 revealed complete remission with no evidence of residual leukemia. He has never had any evidence of recurrent leukemia since then. His CBC from 10/27/2019 also reveals no evidence of recurrent leukemia. 2. Pneumonia secondary to COVID-19 infection. He has hypoxic respiratory failure. He is not requiring intubation. Appreciate pulmonary consultation. 3. Fever due to COVID-19, appreciate ID eval.. Remains febrile. Comment Review of Relevant I have reviewed the following items afny (where applicable) has been applied. Labs Laboratory Tests Test 10/29/19 04:50 10/29/19 16:00 10/30/19 08:00 White Blood Count 7.7 x10^3/uL (4.0-11.0) Red Blood Count 4.09 x10^6/uL (4.30-5.70) Hemoglobin 12.8 g/dL (13.0-17.5) Hematocrit 37.6 % (39.0-53.0) Mean Corpuscular Volume 92 fL (79-100) Mean Corpuscular Hemoglobin 31 pg (25-35) Mean Corpuscular Hemoglobin Concent 34 g/dL (31-37) Red Cell Distribution Width 13.1 % (11.5-14.5) Platelet Count 142 x10^3/uL (140-400) Neutrophils (%) (Auto) 91 % (31-73) Lymphocytes (%) (Auto) 6 % (24-48) Monocytes (%) (Auto) 2 % (0-9) Eosinophils (%) (Auto) 0 % (0-3) Basophils (%) (Auto) 0 % (0-3) Neutrophils # (Auto) 7.0 x10^3/uL (1.8-7.7) Lymphocytes # (Auto) 0.5 x10^3/uL (1.0-4.8) Monocytes # (Auto) 0.2 x10^3/uL (0.0-1.1) Eosinophils # (Auto) 0.0 x10^3/uL (0.0-0.7) Basophils # (Auto) 0.0 x10^3/uL (0.0-0.2) Sodium Level 137 mmol/L (136-145) Potassium Level 4.0 mmol/L (3.5-5.1) Chloride Level 104 mmol/L (98-107) Carbon Dioxide Level 24 mmol/L (21-32) Anion Gap 9 (6-14) Blood Urea Nitrogen 7 mg/dL (8-26) Creatinine 0.8 mg/dL (0.7-1.3) Estimated GFR (Cockcroft-Gault) 98.3 BUN/Creatinine Ratio 9 (6-20) Glucose Level 87 mg/dL (70-99) Calcium Level 8.3 mg/dL (8.5-10.1) Total Bilirubin 0.8 mg/dL (0.2-1.0) 0.9 mg/dL (0.2-1.0) Aspartate Amino Transf (AST/SGOT) 56 U/L (15-37) 48 U/L (15-37) Alanine Aminotransferase (ALT/SGPT) 56 U/L (16-63) 46 U/L (16-63) Alkaline Phosphatase 586 U/L (46-116) 548 U/L (46-116) Total Protein 5.3 g/dL (6.4-8.2) 4.9 g/dL (6.4-8.2) Albumin 2.0 g/dL (3.4-5.0) 1.8 g/dL (3.4-5.0) Albumin/Globulin Ratio 0.6 (1.0-1.7) Hepatitis A IgM Antibody Nonreactive (Nonreactive) Hepatitis B Surface Antigen Nonreactive (Nonreactive) Hepatitis B Core IgM Antibody Nonreactive (Nonreactive) Hepatitis C IgG Antibody Nonreactive (Nonreactive) D-Dimer (Padmini) 0.87 ug/mlFEU (0.00-0.50) C-Reactive Protein, Quantitative 187.7 mg/L (0-3.3) Procalcitonin 0.85 ng/mL (0.00-0.10) Direct Bilirubin 0.7 mg/dL (0.0-0.2) Gamma Glutamyl Transpeptidase 714 U/L (10-85) Laboratory Tests Test 10/29/19 16:00 10/30/19 08:00 D-Dimer (Padmini) 0.87 ug/mlFEU (0.00-0.50) C-Reactive Protein, Quantitative 187.7 mg/L (0-3.3) Procalcitonin 0.85 ng/mL (0.00-0.10) Total Bilirubin 0.9 mg/dL (0.2-1.0) Direct Bilirubin 0.7 mg/dL (0.0-0.2) Gamma Glutamyl Transpeptidase 714 U/L (10-85) Aspartate Amino Transf (AST/SGOT) 48 U/L (15-37) Alanine Aminotransferase (ALT/SGPT) 46 U/L (16-63) Alkaline Phosphatase 548 U/L (46-116) Total Protein 4.9 g/dL (6.4-8.2) Albumin 1.8 g/dL (3.4-5.0) Microbiology 10/27/19 Blood Culture - Preliminary, Resulted NO GROWTH AFTER 2 DAYS Medications Current Medications Sodium Chloride 1,000 ml @ 1,000 mls/hr 1X ONCE IV Last administered on 10/27/19at 13:30; Start 10/27/19 at 13:30; Stop 10/27/19 at 14:29; Status DC Acetaminophen (Tylenol) 1,000 mg 1X ONCE PO Last administered on 10/27/19at 16:10; Start 10/27/19 at 16:00; Stop 10/27/19 at 16:01; Status DC Sodium Chloride (Normal Saline Flush) 3 ml QSHIFT PRN IV AFTER MEDS AND BLOOD DRAWS; Start 10/27/19 at 16:30 Sodium Chloride 1,000 ml @ 100 mls/hr Q10H IV Last administered on 10/30/19at 01:34; Start 10/27/19 at 16:22 Ondansetron HCl (Zofran) 4 mg PRN Q4HRS PRN IV NAUSEA/VOMITING Last administered on 10/30/19at 03:01; Start 10/27/19 at 16:30 Acetaminophen (Tylenol) 650 mg PRN Q4HRS PRN PO TEMP OVER 100.4F OR MILD PAIN Last administered on 10/30/19at 02:48; Start 10/27/19 at 16:30 Al Hydroxide/Mg Hydroxide (Mylanta Plus Xs) 30 ml PRN DAILY PRN PO HEARTBURN / GAS; Start 10/27/19 at 16:30 Sodium Monofluorophosphate (Fleet Adult) 133 ml PRN DAILY PRN NE CONSTIPATION; Start 10/27/19 at 16:30 Docusate Sodium (Colace) 100 mg PRN BID PRN PO HARD STOOLS; Start 10/27/19 at 16:30 Albuterol/ Ipratropium (Duoneb) 3 ml Q4H NEB ; Start 10/27/19 at 16:30; Stop 10/27/19 at 18:28; Status DC Guaifenesin (Robitussin) 200 mg PRN Q4HRS PRN PO COUGH 2ND CHOICE Last admi nistered on 10/30/19at 11:43; Start 10/27/19 at 16:30 Lorazepam (Ativan) 0.5 mg PRN Q4HRS PRN PO ANXIETY / AGITATION Last adminis tered on 10/29/19at 22:00; Start 10/27/19 at 16:30 Enoxaparin Sodium (Lovenox 40mg Syringe) 40 mg Q24H SQ Last administered on at 20:26; Start 10/27/19 at 21:00 Piperacillin Sod/ Tazobactam Sod 3.375 gm/Sodium Chloride 50 ml @ 100 mls/hr Q6HRS IV Last administered on 10/30/19at 11:44; Start 10/27/19 at 18:00 Azithromycin 250 ml @ 250 mls/hr 1X ONCE IV ; Start 10/27/19 at 16:30; Stop 10/27/19 at 17:29; Status Cancel Azithromycin 500 mg/Sodium Chloride 250 ml @ 250 mls/hr Q24H IV Last administered on 10/29/19at 17:35; Start 10/27/19 at 18:00 Albuterol Sulfate (Ventolin Neb Soln) 2.5 mg PRN Q4HRS PRN NEB SHORTNESS OF BREATH; Start 10/27/19 at 18:30 Sodium Chloride (Saline Mist Nasal) 1 nicolas PRN Q1HR PRN NS NASAL CONGESTION Last administered on 10/29/19at 03:08; Start 10/29/19 at 02:45 Pantoprazole Sodium (Protonix) 40 mg DAILYAC PO Last administered on 10/30/19at 09:36; Start 10/30/19 at 07:30 Calcium Carbonate/ Glycine (Tums) 500 mg PRN AFTMEALHC PRN PO INDIGESTION; Start 10/29/19 at 14:45 Polyethylene Glycol (miraLAX PACKET) 17 gm PRN DAILY PRN PO CONSTIPATION; Start 10/29/19 at 14:45 Lactobacillus Rhamnosus (Culturelle) 1 cap BID PO ; Start 10/30/19 at 21:00 Guaifenesin (MUCINEX ER with DM) 2 tab PRN Q12HR PRN PO COUGH 1ST CHOICE; Start 10/30/19 at 11:15 Active Scripts Active Reported Zyrtec (Cetirizine Hcl) 10 Mg Tablet 10 Mg PO DAILY Vitals/I & O Vital Sign - Last 24 Hours 10/29/19 10/29/19 10/29/19 10/29/19 14:53 19:00 20:00 23:00 Temp 99.2 99.1 98.9 99.2 99.1 98.9 Pulse 84 83 72 Resp 22 19 20 B/P (MAP) 108/67 (81) 105/63 (77) 115/67 (83) Pulse Ox 94 93 94 O2 Delivery Nasal Cannula Nasal Cannula Nasal Cannula Nasal Cannula O2 Flow Rate 2.0 2.0 2.0 2.0 10/30/19 10/30/19 10/30/19 10/30/19 03:00 07:00 08:00 11:00 Temp 101.1 98.0 101.1 98.0 Pulse 88 88 82 Resp 22 24 22 B/P (MAP) 121/70 (87) 119/74 (89) Pulse Ox 94 97 93 O2 Delivery Nasal Cannula Nasal Cannula Nasal Cannula Nasal Cannula O2 Flow Rate 4.0 5.0 5.0 4.0 Intake and Output 10/29/19 10/29/19 10/30/19 15:00 23:00 07:00 Intake Total 140 ml 1200 ml Output Total 275 ml 225 ml 800 ml Balance -135 ml -225 ml 400 ml Hemodynamically unstable?: No Is patient in severe pain?: No Is NPO status required?: No KODY AVITIA MD October 30, 2019 12:31
--- NOTE | 2019-10-30 12:54 | PDOC ---
PULMONARY PROGRESS NOTES Subjective had some soa last night better today Vitals Vital Signs Date Time Temp Pulse Resp B/P (MAP) Pulse Ox O2 Delivery O2 Flow Rate FiO2 10/30/19 11:00 98.0 82 22 119/74 (89) 93 Nasal Cannula 4.0 98.0 Comments visual exam done due to COVID 19 no soa, no rash no edema Labs Laboratory Tests Test 10/29/19 04:50 10/29/19 16:00 10/30/19 08:00 White Blood Count 7.7 x10^3/uL (4.0-11.0) Red Blood Count 4.09 x10^6/uL (4.30-5.70) Hemoglobin 12.8 g/dL (13.0-17.5) Hematocrit 37.6 % (39.0-53.0) Mean Corpuscular Volume 92 fL (79-100) Mean Corpuscular Hemoglobin 31 pg (25-35) Mean Corpuscular Hemoglobin Concent 34 g/dL (31-37) Red Cell Distribution Width 13.1 % (11.5-14.5) Platelet Count 142 x10^3/uL (140-400) Neutrophils (%) (Auto) 91 % (31-73) Lymphocytes (%) (Auto) 6 % (24-48) Monocytes (%) (Auto) 2 % (0-9) Eosinophils (%) (Auto) 0 % (0-3) Basophils (%) (Auto) 0 % (0-3) Neutrophils # (Auto) 7.0 x10^3/uL (1.8-7.7) Lymphocytes # (Auto) 0.5 x10^3/uL (1.0-4.8) Monocytes # (Auto) 0.2 x10^3/uL (0.0-1.1) Eosinophils # (Auto) 0.0 x10^3/uL (0.0-0.7) Basophils # (Auto) 0.0 x10^3/uL (0.0-0.2) Sodium Level 137 mmol/L (136-145) Potassium Level 4.0 mmol/L (3.5-5.1) Chloride Level 104 mmol/L (98-107) Carbon Dioxide Level 24 mmol/L (21-32) Anion Gap 9 (6-14) Blood Urea Nitrogen 7 mg/dL (8-26) Creatinine 0.8 mg/dL (0.7-1.3) Estimated GFR (Cockcroft-Gault) 98.3 BUN/Creatinine Ratio 9 (6-20) Glucose Level 87 mg/dL (70-99) Calcium Level 8.3 mg/dL (8.5-10.1) Total Bilirubin 0.8 mg/dL (0.2-1.0) 0.9 mg/dL (0.2-1.0) Aspartate Amino Transf (AST/SGOT) 56 U/L (15-37) 48 U/L (15-37) Alanine Aminotransferase (ALT/SGPT) 56 U/L (16-63) 46 U/L (16-63) Alkaline Phosphatase 586 U/L (46-116) 548 U/L (46-116) Total Protein 5.3 g/dL (6.4-8.2) 4.9 g/dL (6.4-8.2) Albumin 2.0 g/dL (3.4-5.0) 1.8 g/dL (3.4-5.0) Albumin/Globulin Ratio 0.6 (1.0-1.7) Hepatitis A IgM Antibody Nonreactive (Nonreactive) Hepatitis B Surface Antigen Nonreactive (Nonreactive) Hepatitis B Core IgM Antibody Nonreactive (Nonreactive) Hepatitis C IgG Antibody Nonreactive (Nonreactive) D-Dimer (Padmini) 0.87 ug/mlFEU (0.00-0.50) C-Reactive Protein, Quantitative 187.7 mg/L (0-3.3) Procalcitonin 0.85 ng/mL (0.00-0.10) Direct Bilirubin 0.7 mg/dL (0.0-0.2) Gamma Glutamyl Transpeptidase 714 U/L (10-85) Laboratory Tests Test 10/29/19 16:00 10/30/19 08:00 D-Dimer (Padmini) 0.87 ug/mlFEU (0.00-0.50) C-Reactive Protein, Quantitative 187.7 mg/L (0-3.3) Procalcitonin 0.85 ng/mL (0.00-0.10) Total Bilirubin 0.9 mg/dL (0.2-1.0) Direct Bilirubin 0.7 mg/dL (0.0-0.2) Gamma Glutamyl Transpeptidase 714 U/L (10-85) Aspartate Amino Transf (AST/SGOT) 48 U/L (15-37) Alanine Aminotransferase (ALT/SGPT) 46 U/L (16-63) Alkaline Phosphatase 548 U/L (46-116) Total Protein 4.9 g/dL (6.4-8.2) Albumin 1.8 g/dL (3.4-5.0) Medications Active Scripts Medications Dose Route/Sig Max Daily Dose Days Date Category Zyrtec (Cetirizine Hcl) 10 Mg Tablet 10 Mg PO DAILY 10/27/19 Reported Impression . 1. Acute hypoxic respiratory failure secondary to COVID-19 pneumonia. 2. Abnormal chest x-ray with faint bilateral infiltrates suggestive of COVID-19 pneumonia. Cannot exclude superimposed bacterial pneumonia. 3. Hairy cell leukemia, in remission. 4. Abnormal LFTs, likely related to COVID-19 infection. 5. Increase inflammatory markers Plan . 1. We will continue with present oxygen. Keep saturation 92 and above. 2. Continue empiric antibiotic. 3. The patient was instructed about the prone positioning during the nighttime. 4. We will follow the response to treatment and monitor for any cytokine surge 5. Discussed with RN and patient. We will follow along with you. 6. May use vapotherm if hypoxia worsens EDDA HOLDER MD October 30, 2019 12:54
--- NOTE | 2019-10-30 12:55 | NUR ---
Spoke with the Kerri at approx 1245 at [phone] and gave her updates on the pt. The pt has not ran a fever this shift and is currently titrating between 4l to 5l nc. Patient given cough medicine this shift and has not had much of an appetite. Plenty of fluids offered and IV fluids still running. Offered the pt a bath and linen/gown change. pt was wanting to rest currently and may get cleaned up later.
[2019-10-30 15:00] VITALS: BP 122/74
--- NOTE | 2019-10-30 15:11 | NUR ---
SS following up with discharge planning. SS discussed with RN, Bea. Pt is COVID19 positive and is currently requiring oxygen. SS will continue to follow for discharge planning.
[2019-10-30] MEDS: AZITHROMYCIN 500 MG in IV NORMAL SALINE 250ML 250 ML IV SCH (17:50)
[2019-10-30 19:49] VITALS: BP 119/70
[2019-10-30] MEDS: LACTOBACILLUS RHAMNOSUS GG 1 CAPSULE. PO SCH (22:14)
[2019-10-30] MEDS: ENOXAPARIN 40 MG/0.4 ML SYRINGE. SQ SCH (22:14)
[2019-10-30 23:00] VITALS: BP 129/75
[2019-10-31] VITALS (12 sets, daily range): BP systolic 121–139; BP diastolic 66–84
[2019-10-31] MEDS: PIPERACILLIN/TAZOBACTAM 3.375 GM in IV NORMAL SALINE 50ML 50 ML IV SCH ×5 (00:30→23:21)
[2019-10-31] MEDS: IV NORMAL SALINE 1000ML BAG 1,000 ML IV SCH ×3 (00:54→20:40)
--- NOTE | 2019-10-31 07:22 | RAD ---
EXAM: CHEST AP ONLY INDICATION: Pneumonia. TECHNIQUE: Single view COMPARISON: 10/27/2019 FINDINGS: The heart size is normal. The great vessels appear unremarkable. There is no hilar or mediastinal mass. Lungs show interval worsening of bilateral ill-defined airspace opacities, now more confluent and focal at the mid lungs bilaterally. There is no pleural effusion or pneumothorax. There are no significant osseous abnormalities. IMPRESSION: Radiographic progression of bilateral pneumonia. Electronically signed by: Boubacar Lenz MD (10/31/2019 7:20 AM) [id number]
[2019-10-31] MEDS: ACETAMINOPHEN 325 MG TABLET. PO PRN ×2 (08:02→18:46)
[2019-10-31] MEDS: LACTOBACILLUS RHAMNOSUS GG 1 CAPSULE. PO SCH ×2 (08:02→20:41)
[2019-10-31] MEDS: PANTOPRAZOLE 40 MG TABLET.DR. PO SCH (08:02)
[2019-10-31] MEDS: ONDANSETRON PF 4 MG/2 ML VIAL. IV PRN ×2 (08:03→17:57)
--- NOTE | 2019-10-31 09:52 | PDOC ---
PULMONARY PROGRESS NOTES Subjective no soa Vitals Vital Signs Date Time Temp Pulse Resp B/P (MAP) Pulse Ox O2 Delivery O2 Flow Rate FiO2 10/31/19 09:26 Nasal Cannula 4.0 10/31/19 07:30 98.2 80 22 124/72 (89) 90 98.2 Comments visual exam done due to COVID 19 no soa, no rash no edema Labs Laboratory Tests Test 10/29/19 16:00 10/30/19 08:00 D-Dimer (Padmini) 0.87 ug/mlFEU (0.00-0.50) C-Reactive Protein, Quantitative 187.7 mg/L (0-3.3) Procalcitonin 0.85 ng/mL (0.00-0.10) Total Bilirubin 0.9 mg/dL (0.2-1.0) Direct Bilirubin 0.7 mg/dL (0.0-0.2) Gamma Glutamyl Transpeptidase 714 U/L (10-85) Aspartate Amino Transf (AST/SGOT) 48 U/L (15-37) Alanine Aminotransferase (ALT/SGPT) 46 U/L (16-63) Alkaline Phosphatase 548 U/L (46-116) Total Protein 4.9 g/dL (6.4-8.2) Albumin 1.8 g/dL (3.4-5.0) Medications Active Scripts Medications Dose Route/Sig Max Daily Dose Days Date Category Zyrtec (Cetirizine Hcl) 10 Mg Tablet 10 Mg PO DAILY 10/27/19 Reported Impression . 1. Acute hypoxic respiratory failure secondary to COVID-19 pneumonia. 2. Abnormal chest x-ray with faint bilateral infiltrates suggestive of COVID-19 pneumonia. Cannot exclude superimposed bacterial pneumonia. cxr / with worsening infiltrates 3. Hairy cell leukemia, in remission. 4. Abnormal LFTs, likely related to COVID-19 infection. 5. Increase inflammatory markers Plan . 1. We will continue with present oxygen. Keep saturation 92 and above. Now on 4-5 litres 2. Continue empiric antibiotic. 3. The patient was instructed about the prone positioning during the nighttime. 4. We will follow the response to treatment and monitor for any cytokine surge, 5. Discussed with RN and Dr Luther. Clinically declined 6. May use vapotherm if hypoxia worsens further 7. d/w ID. will consider convalesent plasma . repeat CRP. May also consider Tocilizumab EDDA HOLDER MD October 31, 2019 09:52
[2019-10-31] MEDS: guaiFENesin ORAL 200 MG/10 ML LIQUID. PO PRN ×2 (10:12→17:39)
[2019-10-31] MEDS: guaiFENesin DM 600/30MG 1 TAB TAB.ER.12H PO PRN ×2 (10:12→23:21)
--- NOTE | 2019-10-31 11:54 | PDOC ---
Infectious Disease Note Subjective: Subjective Patient continues to have shortness of breath and cough Has chest pain from dry cough Appetite remains poor Headache has resolved Appetite remains poor On 5 L of O2 Vital Signs: Vital Signs Vital Signs Date Time Temp Pulse Resp B/P (MAP) Pulse Ox O2 Delivery O2 Flow Rate FiO2 10/31/19 10:48 98.2 85 20 134/75 (94) 94 Nasal Cannula 4.0 98.2 Physical Exam: PHYSICAL EXAM GENERAL: Alert and oriented x 3 male lying in bed comfortably, in no acute distress, on nasal O2 HEENT: Normocephalic, atraumatic, anicteric. NECK: Supple, no JVD. LUNGS: Decreased breath sounds at the bases. No wheezing. No accessory muscle use. ABDOMEN: Soft, nontender, nondistended. EXTREMITIES: No edema, no cyanosis. DERMATOLOGIC: No generalized rash. BACK: Reveals normal curvature. No CVA tenderness. NEUROLOGIC: Alert, oriented x 3, grossly nonfocal. PSYCHIATRIC: Cooperative. Medications: Inpatient Meds: Current Medications Medications (Trade) Dose Ordered Sig/Michael Start Time Stop Time Status Last Admin Dose Admin Acetaminophen (Tylenol) 650 mg PRN Q4HRS PRN 10/27/19 16:30 10/31/19 08:02 650 MG Al Hydroxide/Mg Hydroxide (Mylanta Plus Xs) 30 ml PRN DAILY PRN 10/27/19 16:30 Albuterol Sulfate (Ventolin Neb Soln) 2.5 mg PRN Q4HRS PRN 10/27/19 18:30 Albuterol/ Ipratropium (Duoneb) 3 ml Q4H 10/27/19 16:30 10/27/19 18:28 DC Azithromycin 250 ml @ 250 mls/hr 1X ONCE 10/27/19 16:30 10/27/19 17:29 Cancel Azithromycin 500 mg/Sodium Chloride 250 ml @ 250 mls/hr Q24H 10/27/19 18:00 10/30/19 17:50 250 MLS/HR Calcium Carbonate/ Glycine (Tums) 500 mg PRN AFTMEALHC PRN 10/29/19 14:45 Docusate Sodium (Colace) 100 mg PRN BID PRN 10/27/19 16:30 Enoxaparin Sodium (Lovenox 40mg Syringe) 40 mg Q24H 10/27/19 21:00 10/30/19 22:14 40 MG Guaifenesin (MUCINEX ER with DM) 2 tab PRN Q12HR PRN 10/30/19 11:15 10/31/19 10:12 2 TAB Guaifenesin (Robitussin) 200 mg PRN Q4HRS PRN 10/27/19 16:30 10/31/19 10:12 200 MG Lactobacillus Rhamnosus (Culturelle) 1 cap BID 10/30/19 21:00 10/31/19 08:02 1 CAP Lorazepam (Ativan) 0.5 mg PRN Q4HRS PRN 10/27/19 16:30 10/29/19 22:00 0.5 MG Ondansetron HCl (Zofran) 4 mg PRN Q4HRS PRN 10/27/19 16:30 10/31/19 08:03 4 MG Pantoprazole Sodium (Protonix) 40 mg DAILYAC 10/30/19 07:30 10/31/19 08:02 40 MG Piperacillin Sod/ Tazobactam Sod 3.375 gm/Sodium Chloride 50 ml @ 100 mls/hr Q6HRS 10/27/19 18:00 10/31/19 11:34 100 MLS/HR Polyethylene Glycol (miraLAX PACKET) 17 gm PRN DAILY PRN 10/29/19 14:45 Sodium Monofluorophosphate (Fleet Adult) 133 ml PRN DAILY PRN 10/27/19 16:30 Sodium Chloride (Normal Saline Flush) 3 ml QSHIFT PRN 10/27/19 16:30 Sodium Chloride (Saline Mist Nasal) 1 nicolas PRN Q1HR PRN 10/29/19 02:45 10/29/19 03:08 1 NICOLAS Objective: Assessment: 1. Fever. Likely from COVID-19 2. COVID-19 respiratory illness wiht progressive worsening of respiratory symptoms . 3. Pneumonia, secondary bacterial infection cannot be ruled out. 4. Nausea. 5. Headache. Resolved 6. Generalized weakness. 7. History of hairy cell leukemia in remission 8. Abnormal liver function tests likely from COVID 19. 9. Diarrhea prior to admission, now resolved. 10. Achalasia, status post esophagectomy. Plan: Plan of Care Continue supportive care Continue empiric azithromycin and Zosyn Considering convalescent serum administration; discussed with Dr. Barros Follow-up lab and culture Maintain aspiration precautions Discussed with MELISSA RENEE MD October 31, 2019 11:54
--- NOTE | 2019-10-31 14:56 | PDOC ---
GENERAL General: Patient examined chart reviewed today is hospital day 5 for this patient with a cute hypoxic respiratory failure secondary to bilateral pneumonia tested positive for COVID-19 on . last Saturday we are still awaiting repeat testing here. We appreciate subspecialty support. He is frustrated by his continued cough. His oxygen needs have remained stable he is holding about 92 to 93% saturation on 4 L of oxygen continuously. He has been moved out of the intensive care unit to the stepdown COVID unit. He is curious when the convalescent plasma will be available. Unfortunately he is allergic to codeine so he does not have many options regarding cough suppression. We will continue current management otherwise. Total time today is 30 minutes with greater than 50% in counseling and coordination of care most of which in discussion with patient. His alkaline phosphatase stays high but until we have a better handle on the COVID he will not be able to have the abdominal sonogram per hospital policy. We are still awaiting alkaline phosphatase fractions. Patient seems to be on top of his GI symptoms at the moment. Problems: (1) Elevated alkaline phosphatase level (2) Hypoxia (3) History of leukemia VITAL SIGNS Vital Signs/I&O: Vital Signs Date Time Temp Pulse Resp B/P (MAP) Pulse Ox O2 Delivery O2 Flow Rate FiO2 10/31/19 10:48 98.2 85 20 134/75 (94) 94 Nasal Cannula 4.0 98.2 I & O 10/30/19 10/30/19 10/31/19 15:00 23:00 07:00 Intake Total 1065 ml 120 ml 100 ml Output Total 200 ml 200 ml Balance 865 ml -80 ml 100 ml Patient is resting comfortably this afternoon though does have quite a significant cough. He tells me it is very productive. HEENT exam is unremarkable for acute abnormality Neck is soft and supple no adenopathy or thyromegaly noted Chest bilateral equal air entry though diminished throughout inspiratory and expiratory crackles noted at the bilateral bases Heart S1-S2 normal regular rate and rhythm no murmurs or gallops are noted Abdomen soft nontender nondistended no masses or organomegaly noted Extremity exam is unremarkable for acute abnormality ALLERGIES Allergies: Allergies Coded Allergies Type Severity Reaction Last Updated Verified clindamycin Allergy Intermediate 05/04/14 Yes codeine Allergy Intermediate 05/04/14 Yes sulfamethoxazole Allergy Intermediate Rash 05/04/14 Yes trimethoprim Allergy Intermediate Rash 05/04/14 Yes MEDS Medications: Current Medications Medications (Trade) Dose Ordered Sig/Michael Route PRN Reason Start Time Stop Time Status Last Admin Dose Admin Lactobacillus Rhamnosus (Culturelle) 1 cap BID PO 10/30/19 21:00 10/31/19 08:02 IMAGING Imaging: PATIENT: FUENTES RAGLAND ACCOUNT: [id number] : 1960 LOCATION: [facility] ICU AGE: 59 SEX: M EXAM STATUS: ADM IN ORD. PHYSICIAN: MISTY ROBERSON MD REASON: PNEUMONIA 115 PROCEDURE: CHEST AP ONLY EXAM: CHEST AP ONLY INDICATION: Pneumonia. TECHNIQUE: Single view COMPARISON: 10/27/2019 FINDINGS: The heart size is normal. The great vessels appear unremarkable. There is no hilar or mediastinal mass. Lungs show interval worsening of bilateral ill-defined airspace opacities, now more confluent and focal at the mid lungs bilaterally. There is no pleural effusion or pneumothorax. There are no significant osseous abnormalities. IMPRESSION: Radiographic progression of bilateral pneumonia. ASSESSMENT & PLAN A&P Plan as noted above All medications were reviewed in full and may not be reflected on the active medication list in this progress note. Please see the medication administration record for full details. This note was created using [employer] and may have omissions and/or errors due to the nature of real-time voice paver installer. Hemodynamically unstable?: No Is patient in severe pain?: No Is NPO status required?: No CIERA RUEDA MD October 31, 2019 14:56
[2019-10-31] MEDS: AZITHROMYCIN 500 MG in IV NORMAL SALINE 250ML 250 ML IV SCH (18:28)
[2019-10-31] MEDS: ENOXAPARIN 40 MG/0.4 ML SYRINGE. SQ SCH (20:41)
[2019-11-01] VITALS (10 sets, daily range): BP systolic 127–155; BP diastolic 72–87
[2019-11-01 04:33] LABS: BASO % 0 % (0-3); EOS % 0 % (0-3); HEMATOCRIT 32.4 % (39.0-53.0); HEMOGLOBIN 11.1 g/dL (13.0-17.5); LYMPH # 0.3 x10^3/uL (1.0-4.8); LYMPH % 6 % (24-48); MEAN CORPUSCULAR HEMOGLOBIN 31 pg (25-35); MEAN CORPUSCULAR HGB CONC 34 g/dL (31-37); MEAN CORPUSCULAR VOLUME 90 fL (79-100); MONO # 0.5 x10^3/uL (0.0-1.1); MONO % 10 % (0-9); NEUT # 4.3 x10^3/uL (1.8-7.7); NEUT % 85 % (31-73); PLATELET COUNT 184 x10^3/uL (140-400); RED CELL DISTRIBUTION WIDTH 13.2 % (11.5-14.5); WHITE BLOOD COUNT 5.1 x10^3/uL (4.0-11.0)
[2019-11-01 05:07] LABS: ALBUMIN 1.6 g/dL (3.4-5.0); ALBUMIN/GLOBULIN RATIO 0.5 (1.0-1.7); CALCIUM 7.9 mg/dL (8.5-10.1); CREATININE 0.7 mg/dL (0.7-1.3); GFR 114.6; POTASSIUM 3.1 mmol/L (3.5-5.1); TOTAL BILIRUBIN 1.1 mg/dL (0.2-1.0); TOTAL PROTEIN 4.9 g/dL (6.4-8.2)
[2019-11-01] MEDS: PIPERACILLIN/TAZOBACTAM 3.375 GM in IV NORMAL SALINE 50ML 50 ML IV SCH ×2 (05:57→11:26)
[2019-11-01] MEDS: IV NORMAL SALINE 1000ML BAG 1,000 ML IV SCH ×3 (06:22→21:01)
[2019-11-01] MEDS: ACETAMINOPHEN 325 MG TABLET. PO PRN (06:22)
[2019-11-01] MEDS: ONDANSETRON PF 4 MG/2 ML VIAL. IV PRN ×2 (06:26→13:14)
[2019-11-01] MEDS: PANTOPRAZOLE 40 MG TABLET.DR. PO SCH (07:38)
[2019-11-01] MEDS: guaiFENesin ORAL 200 MG/10 ML LIQUID. PO PRN ×2 (07:41→12:57)
--- NOTE | 2019-11-01 08:40 | PDOC ---
Infectious Disease Note Subjective: Subjective Patient continues to have shortness of breath and cough Has chest pain mainly on the right side Appetite remains poor Headache has resolved Has some nausea, no vomiting On 5 L of O2 Vital Signs: Vital Signs Vital Signs Date Time Temp Pulse Resp B/P (MAP) Pulse Ox O2 Delivery O2 Flow Rate FiO2 11/01/19 07:00 99.1 91 20 140/83 (102) 94 Nasal Cannula 5.0 99.1 Physical Exam: PHYSICAL EXAM GENERAL: Alert and oriented x 3 male lying in bed comfortably, in no acute distress, on nasal O2 HEENT: Normocephalic, atraumatic, anicteric. NECK: Supple, no JVD. LUNGS: Decreased breath sounds at the bases. No wheezing. No accessory muscle use. ABDOMEN: Soft, nontender, nondistended. EXTREMITIES: No edema, no cyanosis. DERMATOLOGIC: No generalized rash. BACK: Reveals normal curvature. No CVA tenderness. NEUROLOGIC: Alert, oriented x 3, grossly nonfocal. PSYCHIATRIC: Cooperative. Medications: Inpatient Meds: Current Medications Medications (Trade) Dose Ordered Sig/Michael Start Time Stop Time Status Last Admin Dose Admin Acetaminophen (Tylenol) 650 mg PRN Q4HRS PRN 10/27/19 16:30 11/01/19 06:22 650 MG Al Hydroxide/Mg Hydroxide (Mylanta Plus Xs) 30 ml PRN DAILY PRN 10/27/19 16:30 Albuterol Sulfate (Ventolin Neb Soln) 2.5 mg PRN Q4HRS PRN 10/27/19 18:30 Albuterol/ Ipratropium (Duoneb) 3 ml Q4H 10/27/19 16:30 10/27/19 18:28 DC Azithromycin 250 ml @ 250 mls/hr 1X ONCE 10/27/19 16:30 10/27/19 17:29 Cancel Azithromycin 500 mg/Sodium Chloride 250 ml @ 250 mls/hr Q24H 10/27/19 18:00 10/31/19 18:28 250 MLS/HR Calcium Carbonate/ Glycine (Tums) 500 mg PRN AFTMEALHC PRN 10/29/19 14:45 Docusate Sodium (Colace) 100 mg PRN BID PRN 10/27/19 16:30 Enoxaparin Sodium (Lovenox 40mg Syringe) 40 mg Q24H 10/27/19 21:00 10/31/19 20:41 40 MG Guaifenesin (MUCINEX ER with DM) 2 tab PRN Q12HR PRN 10/30/19 11:15 10/31/19 23:21 2 TAB Guaifenesin (Robitussin) 200 mg PRN Q4HRS PRN 10/27/19 16:30 11/01/19 07:41 200 MG Lactobacillus Rhamnosus (Culturelle) 1 cap BID 10/30/19 21:00 10/31/19 20:41 1 CAP Lorazepam (Ativan) 0.5 mg PRN Q4HRS PRN 10/27/19 16:30 10/29/19 22:00 0.5 MG Ondansetron HCl (Zofran) 4 mg PRN Q4HRS PRN 10/27/19 16:30 11/01/19 06:26 4 MG Pantoprazole Sodium (Protonix) 40 mg DAILYAC 10/30/19 07:30 11/01/19 07:38 40 MG Piperacillin Sod/ Tazobactam Sod 3.375 gm/Sodium Chloride 50 ml @ 100 mls/hr Q6HRS 10/27/19 18:00 11/01/19 05:57 100 MLS/HR Polyethylene Glycol (miraLAX PACKET) 17 gm PRN DAILY PRN 10/29/19 14:45 Sodium Monofluorophosphate (Fleet Adult) 133 ml PRN DAILY PRN 10/27/19 16:30 Sodium Chloride (Normal Saline Flush) 3 ml QSHIFT PRN 10/27/19 16:30 Sodium Chloride (Saline Mist Nasal) 1 nicolas PRN Q1HR PRN 10/29/19 02:45 10/29/19 03:08 1 NICOLAS Labs: Lab Laboratory Tests Test 11/01/19 03:45 11/01/19 04:45 White Blood Count 5.1 x10^3/uL (4.0-11.0) Red Blood Count 3.60 x10^6/uL (4.30-5.70) Hemoglobin 11.1 g/dL (13.0-17.5) Hematocrit 32.4 % (39.0-53.0) Mean Corpuscular Volume 90 fL (79-100) Mean Corpuscular Hemoglobin 31 pg (25-35) Mean Corpuscular Hemoglobin Concent 34 g/dL (31-37) Red Cell Distribution Width 13.2 % (11.5-14.5) Platelet Count 184 x10^3/uL (140-400) Neutrophils (%) (Auto) 85 % (31-73) Lymphocytes (%) (Auto) 6 % (24-48) Monocytes (%) (Auto) 10 % (0-9) Eosinophils (%) (Auto) 0 % (0-3) Basophils (%) (Auto) 0 % (0-3) Neutrophils # (Auto) 4.3 x10^3/uL (1.8-7.7) Lymphocytes # (Auto) 0.3 x10^3/uL (1.0-4.8) Monocytes # (Auto) 0.5 x10^3/uL (0.0-1.1) Eosinophils # (Auto) 0.0 x10^3/uL (0.0-0.7) Basophils # (Auto) 0.0 x10^3/uL (0.0-0.2) Sodium Level 143 mmol/L (136-145) Potassium Level 3.1 mmol/L (3.5-5.1) Chloride Level 107 mmol/L (98-107) Carbon Dioxide Level 30 mmol/L (21-32) Anion Gap 6 (6-14) Blood Urea Nitrogen 10 mg/dL (8-26) Creatinine 0.7 mg/dL (0.7-1.3) Estimated GFR (Cockcroft-Gault) 114.6 BUN/Creatinine Ratio 14 (6-20) Glucose Level 98 mg/dL (70-99) Calcium Level 7.9 mg/dL (8.5-10.1) Total Bilirubin 1.1 mg/dL (0.2-1.0) Aspartate Amino Transf (AST/SGOT) 38 U/L (15-37) Alanine Aminotransferase (ALT/SGPT) 36 U/L (16-63) Alkaline Phosphatase 516 U/L (46-116) Total Protein 4.9 g/dL (6.4-8.2) Albumin 1.6 g/dL (3.4-5.0) Albumin/Globulin Ratio 0.5 (1.0-1.7) C-Reactive Protein, Quantitative 169.6 mg/L (0-3.3) Objective: Assessment: 1. Fever. Likely from COVID-19 2. COVID-19 respiratory illness Status post convalescent serum administration 10/31/2019 3. Pneumonia, secondary bacterial infection cannot be ruled out. 4. Nausea. 5. Headache. Resolved 6. Generalized weakness. 7. History of hairy cell leukemia in remission 8. Abnormal liver function tests likely from COVID 19. 9. Diarrhea prior to admission, now resolved. 10. Achalasia, status post esophagectomy. Plan: Plan of Care Continue supportive care Continue Zosyn Completed azithromycin Chest x-ray Follow-up lab and culture Maintain aspiration precautions Discussed with MELISSA RENEE MD November 01, 2019 08:39
[2019-11-01] MEDS: LACTOBACILLUS RHAMNOSUS GG 1 CAPSULE. PO SCH ×2 (09:20→21:00)
--- NOTE | 2019-11-01 09:57 | PDOC ---
PULMONARY PROGRESS NOTES Subjective does not feel well s/p convalescent plasma 10/30 on 5 litres Vitals Vital Signs Date Time Temp Pulse Resp B/P (MAP) Pulse Ox O2 Delivery O2 Flow Rate FiO2 11/01/19 08:29 Nasal Cannula 5.0 11/01/19 07:00 99.1 91 20 140/83 (102) 94 99.1 Comments visual exam done due to COVID 19 no soa, no rash no edema General: Alert, No acute distress Labs Laboratory Tests Test 11/01/19 03:45 11/01/19 04:45 White Blood Count 5.1 x10^3/uL (4.0-11.0) Red Blood Count 3.60 x10^6/uL (4.30-5.70) Hemoglobin 11.1 g/dL (13.0-17.5) Hematocrit 32.4 % (39.0-53.0) Mean Corpuscular Volume 90 fL (79-100) Mean Corpuscular Hemoglobin 31 pg (25-35) Mean Corpuscular Hemoglobin Concent 34 g/dL (31-37) Red Cell Distribution Width 13.2 % (11.5-14.5) Platelet Count 184 x10^3/uL (140-400) Neutrophils (%) (Auto) 85 % (31-73) Lymphocytes (%) (Auto) 6 % (24-48) Monocytes (%) (Auto) 10 % (0-9) Eosinophils (%) (Auto) 0 % (0-3) Basophils (%) (Auto) 0 % (0-3) Neutrophils # (Auto) 4.3 x10^3/uL (1.8-7.7) Lymphocytes # (Auto) 0.3 x10^3/uL (1.0-4.8) Monocytes # (Auto) 0.5 x10^3/uL (0.0-1.1) Eosinophils # (Auto) 0.0 x10^3/uL (0.0-0.7) Basophils # (Auto) 0.0 x10^3/uL (0.0-0.2) Sodium Level 143 mmol/L (136-145) Potassium Level 3.1 mmol/L (3.5-5.1) Chloride Level 107 mmol/L (98-107) Carbon Dioxide Level 30 mmol/L (21-32) Anion Gap 6 (6-14) Blood Urea Nitrogen 10 mg/dL (8-26) Creatinine 0.7 mg/dL (0.7-1.3) Estimated GFR (Cockcroft-Gault) 114.6 BUN/Creatinine Ratio 14 (6-20) Glucose Level 98 mg/dL (70-99) Calcium Level 7.9 mg/dL (8.5-10.1) Total Bilirubin 1.1 mg/dL (0.2-1.0) Aspartate Amino Transf (AST/SGOT) 38 U/L (15-37) Alanine Aminotransferase (ALT/SGPT) 36 U/L (16-63) Alkaline Phosphatase 516 U/L (46-116) Total Protein 4.9 g/dL (6.4-8.2) Albumin 1.6 g/dL (3.4-5.0) Albumin/Globulin Ratio 0.5 (1.0-1.7) C-Reactive Protein, Quantitative 169.6 mg/L (0-3.3) Laboratory Tests Test 11/01/19 03:45 11/01/19 04:45 White Blood Count 5.1 x10^3/uL (4.0-11.0) Red Blood Count 3.60 x10^6/uL (4.30-5.70) Hemoglobin 11.1 g/dL (13.0-17.5) Hematocrit 32.4 % (39.0-53.0) Mean Corpuscular Volume 90 fL (79-100) Mean Corpuscular Hemoglobin 31 pg (25-35) Mean Corpuscular Hemoglobin Concent 34 g/dL (31-37) Red Cell Distribution Width 13.2 % (11.5-14.5) Platelet Count 184 x10^3/uL (140-400) Neutrophils (%) (Auto) 85 % (31-73) Lymphocytes (%) (Auto) 6 % (24-48) Monocytes (%) (Auto) 10 % (0-9) Eosinophils (%) (Auto) 0 % (0-3) Basophils (%) (Auto) 0 % (0-3) Neutrophils # (Auto) 4.3 x10^3/uL (1.8-7.7) Lymphocytes # (Auto) 0.3 x10^3/uL (1.0-4.8) Monocytes # (Auto) 0.5 x10^3/uL (0.0-1.1) Eosinophils # (Auto) 0.0 x10^3/uL (0.0-0.7) Basophils # (Auto) 0.0 x10^3/uL (0.0-0.2) Sodium Level 143 mmol/L (136-145) Potassium Level 3.1 mmol/L (3.5-5.1) Chloride Level 107 mmol/L (98-107) Carbon Dioxide Level 30 mmol/L (21-32) Anion Gap 6 (6-14) Blood Urea Nitrogen 10 mg/dL (8-26) Creatinine 0.7 mg/dL (0.7-1.3) Estimated GFR (Cockcroft-Gault) 114.6 BUN/Creatinine Ratio 14 (6-20) Glucose Level 98 mg/dL (70-99) Calcium Level 7.9 mg/dL (8.5-10.1) Total Bilirubin 1.1 mg/dL (0.2-1.0) Aspartate Amino Transf (AST/SGOT) 38 U/L (15-37) Alanine Aminotransferase (ALT/SGPT) 36 U/L (16-63) Alkaline Phosphatase 516 U/L (46-116) Total Protein 4.9 g/dL (6.4-8.2) Albumin 1.6 g/dL (3.4-5.0) Albumin/Globulin Ratio 0.5 (1.0-1.7) C-Reactive Protein, Quantitative 169.6 mg/L (0-3.3) Medications Active Scripts Medications Dose Route/Sig Max Daily Dose Days Date Category Zyrtec (Cetirizine Hcl) 10 Mg Tablet 10 Mg PO DAILY 10/27/19 Reported Impression . 1. Acute hypoxic respiratory failure secondary to COVID-19 pneumonia. increase need for oxygen and worsening pneumonia 2. Abnormal chest x-ray with faint bilateral infiltrates suggestive of COVID-19 pneumonia. Cannot exclude superimposed bacterial pneumonia. cxr 10/30 with worsening infiltrates 3. Hairy cell leukemia, in remission. 4. Abnormal LFTs, likely related to COVID-19 infection. 5. Increase inflammatory markers Plan . 1. We will continue with present oxygen. Keep saturation 92 and above. Now on 5 litres 2. Continue empiric antibiotic. 3. The patient was instructed about the prone positioning during the nighttime. 4. s/p convalescent plasma 5/2 5. Discussed with RN and Dr Luther. Clinically declined. will add anti-IL6 inhibitor today 6. May use vapotherm if hypoxia worsens further 7. d/w ID. Tocilizumab ordered EDDA HOLDER MD November 01, 2019 09:57
[2019-11-01] MEDS: guaiFENesin DM 600/30MG 1 TAB TAB.ER.12H PO PRN ×2 (11:26→21:46)
[2019-11-01] MEDS ORDERED: POTASSIUM CHLORIDE 20 MEQ TABLET.ER. PO ONE (12:15)
--- NOTE | 2019-11-01 12:50 | PDOC ---
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 Bone marrow biopsy on 03/05/2014 revealed complete remission PSH esophagectomy in 2016 remote tobacco abuse Elevated alkaline phos - hx Cholelithiasis. This is possibly 2/2 Zosyn as this is a reported side effect severe protein-caloric malnutrition History of Present Illness History of Present Illness Mr Schilling is a 59 yo M w/ PMHx Hairy cell leukemia, achalasia admitted in [facility] in ICU w/ +COVID-19 pneumonia. 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 10/29: Cough worsening. Admitted to ICU 10/30: Transferred from ICU. Received 1 unit of FFP from [facility] COVID 19 convalescent plasma program donor Today seen on COVID isolation unit, does not feel well, says he has felt sick for 12 days and would not wish this on his worst enemy. Pain on coughing. On 5 liters/min. Plan: Have d/w ID and pulm to consider giving actemra as his CXR appears to be slightly worse and his O2 status is not improving. Will transition to merrem from zosyn. Add zinc and tessalon perles. COVID-19 CRITERIA: The patient was evaluated during the global COVID-19 pandemic, and that diagnosis was suspected/considered upon their initial presentation. Their evaluation, treatment and testing were consistent with current guidelines for patients who present with complaints or symptoms that may be related to COVID-19. Vitals Vitals Vital Signs Date Time Temp Pulse Resp B/P (MAP) Pulse Ox O2 Delivery O2 Flow Rate FiO2 11/01/19 11:04 98.1 92 22 138/77 (97) 92 Nasal Cannula 5.0 98.1 Physical Exam Physical Exam GENERAL: Alert and oriented x 3 male lying in bed comfortably, in no acute distress, on nasal O2 HEENT: Normocephalic, atraumatic, anicteric. NECK: Supple, no JVD. LUNGS: Decreased breath sounds at the bases. No wheezing. No accessory muscle use. ABDOMEN: Soft, nontender, nondistended. EXTREMITIES: No edema, no cyanosis. DERMATOLOGIC: No generalized rash. BACK: Reveals normal curvature. No CVA tenderness. NEUROLOGIC: Alert, oriented x 3, grossly nonfocal. PSYCHIATRIC: Cooperative. General: Alert, Oriented X3, Cooperative, mild distress Abdomen: Soft Extremities: No cyanosis, No edema Labs LABS Laboratory Tests Test 11/01/19 03:45 11/01/19 04:45 White Blood Count 5.1 x10^3/uL (4.0-11.0) Red Blood Count 3.60 x10^6/uL (4.30-5.70) Hemoglobin 11.1 g/dL (13.0-17.5) Hematocrit 32.4 % (39.0-53.0) Mean Corpuscular Volume 90 fL (79-100) Mean Corpuscular Hemoglobin 31 pg (25-35) Mean Corpuscular Hemoglobin Concent 34 g/dL (31-37) Red Cell Distribution Width 13.2 % (11.5-14.5) Platelet Count 184 x10^3/uL (140-400) Neutrophils (%) (Auto) 85 % (31-73) Lymphocytes (%) (Auto) 6 % (24-48) Monocytes (%) (Auto) 10 % (0-9) Eosinophils (%) (Auto) 0 % (0-3) Basophils (%) (Auto) 0 % (0-3) Neutrophils # (Auto) 4.3 x10^3/uL (1.8-7.7) Lymphocytes # (Auto) 0.3 x10^3/uL (1.0-4.8) Monocytes # (Auto) 0.5 x10^3/uL (0.0-1.1) Eosinophils # (Auto) 0.0 x10^3/uL (0.0-0.7) Basophils # (Auto) 0.0 x10^3/uL (0.0-0.2) Sodium Level 143 mmol/L (136-145) Potassium Level 3.1 mmol/L (3.5-5.1) Chloride Level 107 mmol/L (98-107) Carbon Dioxide Level 30 mmol/L (21-32) Anion Gap 6 (6-14) Blood Urea Nitrogen 10 mg/dL (8-26) Creatinine 0.7 mg/dL (0.7-1.3) Estimated GFR (Cockcroft-Gault) 114.6 BUN/Creatinine Ratio 14 (6-20) Glucose Level 98 mg/dL (70-99) Calcium Level 7.9 mg/dL (8.5-10.1) Total Bilirubin 1.1 mg/dL (0.2-1.0) Aspartate Amino Transf (AST/SGOT) 38 U/L (15-37) Alanine Aminotransferase (ALT/SGPT) 36 U/L (16-63) Alkaline Phosphatase 516 U/L (46-116) Total Protein 4.9 g/dL (6.4-8.2) Albumin 1.6 g/dL (3.4-5.0) Albumin/Globulin Ratio 0.5 (1.0-1.7) C-Reactive Protein, Quantitative 169.6 mg/L (0-3.3) Assessment and Plan Assessmemt and Plan Problems Medical Problems: (1) COVID-19 virus infection Status: Acute Comment Review of Relevant I have reviewed the following items fany (where applicable) has been applied. Labs Laboratory Tests Test 11/01/19 03:45 11/01/19 04:45 White Blood Count 5.1 x10^3/uL (4.0-11.0) Red Blood Count 3.60 x10^6/uL (4.30-5.70) Hemoglobin 11.1 g/dL (13.0-17.5) Hematocrit 32.4 % (39.0-53.0) Mean Corpuscular Volume 90 fL (79-100) Mean Corpuscular Hemoglobin 31 pg (25-35) Mean Corpuscular Hemoglobin Concent 34 g/dL (31-37) Red Cell Distribution Width 13.2 % (11.5-14.5) Platelet Count 184 x10^3/uL (140-400) Neutrophils (%) (Auto) 85 % (31-73) Lymphocytes (%) (Auto) 6 % (24-48) Monocytes (%) (Auto) 10 % (0-9) Eosinophils (%) (Auto) 0 % (0-3) Basophils (%) (Auto) 0 % (0-3) Neutrophils # (Auto) 4.3 x10^3/uL (1.8-7.7) Lymphocytes # (Auto) 0.3 x10^3/uL (1.0-4.8) Monocytes # (Auto) 0.5 x10^3/uL (0.0-1.1) Eosinophils # (Auto) 0.0 x10^3/uL (0.0-0.7) Basophils # (Auto) 0.0 x10^3/uL (0.0-0.2) Sodium Level 143 mmol/L (136-145) Potassium Level 3.1 mmol/L (3.5-5.1) Chloride Level 107 mmol/L (98-107) Carbon Dioxide Level 30 mmol/L (21-32) Anion Gap 6 (6-14) Blood Urea Nitrogen 10 mg/dL (8-26) Creatinine 0.7 mg/dL (0.7-1.3) Estimated GFR (Cockcroft-Gault) 114.6 BUN/Creatinine Ratio 14 (6-20) Glucose Level 98 mg/dL (70-99) Calcium Level 7.9 mg/dL (8.5-10.1) Total Bilirubin 1.1 mg/dL (0.2-1.0) Aspartate Amino Transf (AST/SGOT) 38 U/L (15-37) Alanine Aminotransferase (ALT/SGPT) 36 U/L (16-63) Alkaline Phosphatase 516 U/L (46-116) Total Protein 4.9 g/dL (6.4-8.2) Albumin 1.6 g/dL (3.4-5.0) Albumin/Globulin Ratio 0.5 (1.0-1.7) C-Reactive Protein, Quantitative 169.6 mg/L (0-3.3) Laboratory Tests Test 11/01/19 03:45 11/01/19 04:45 White Blood Count 5.1 x10^3/uL (4.0-11.0) Red Blood Count 3.60 x10^6/uL (4.30-5.70) Hemoglobin 11.1 g/dL (13.0-17.5) Hematocrit 32.4 % (39.0-53.0) Mean Corpuscular Volume 90 fL (79-100) Mean Corpuscular Hemoglobin 31 pg (25-35) Mean Corpuscular Hemoglobin Concent 34 g/dL (31-37) Red Cell Distribution Width 13.2 % (11.5-14.5) Platelet Count 184 x10^3/uL (140-400) Neutrophils (%) (Auto) 85 % (31-73) Lymphocytes (%) (Auto) 6 % (24-48) Monocytes (%) (Auto) 10 % (0-9) Eosinophils (%) (Auto) 0 % (0-3) Basophils (%) (Auto) 0 % (0-3) Neutrophils # (Auto) 4.3 x10^3/uL (1.8-7.7) Lymphocytes # (Auto) 0.3 x10^3/uL (1.0-4.8) Monocytes # (Auto) 0.5 x10^3/uL (0.0-1.1) Eosinophils # (Auto) 0.0 x10^3/uL (0.0-0.7) Basophils # (Auto) 0.0 x10^3/uL (0.0-0.2) Sodium Level 143 mmol/L (136-145) Potassium Level 3.1 mmol/L (3.5-5.1) Chloride Level 107 mmol/L (98-107) Carbon Dioxide Level 30 mmol/L (21-32) Anion Gap 6 (6-14) Blood Urea Nitrogen 10 mg/dL (8-26) Creatinine 0.7 mg/dL (0.7-1.3) Estimated GFR (Cockcroft-Gault) 114.6 BUN/Creatinine Ratio 14 (6-20) Glucose Level 98 mg/dL (70-99) Calcium Level 7.9 mg/dL (8.5-10.1) Total Bilirubin 1.1 mg/dL (0.2-1.0) Aspartate Amino Transf (AST/SGOT) 38 U/L (15-37) Alanine Aminotransferase (ALT/SGPT) 36 U/L (16-63) Alkaline Phosphatase 516 U/L (46-116) Total Protein 4.9 g/dL (6.4-8.2) Albumin 1.6 g/dL (3.4-5.0) Albumin/Globulin Ratio 0.5 (1.0-1.7) C-Reactive Protein, Quantitative 169.6 mg/L (0-3.3) Microbiology 10/27/19 Blood Culture - Preliminary, Resulted NO GROWTH AFTER 4 DAYS Medications Current Medications Sodium Chloride 1,000 ml @ 1,000 mls/hr 1X ONCE IV Last administered on 10/27/19at 13:30; Start 10/27/19 at 13:30; Stop 10/27/19 at 14:29; Status DC Acetaminophen (Tylenol) 1,000 mg 1X ONCE PO Last administered on 10/27/19at 16:10; Start 10/27/19 at 16:00; Stop 10/27/19 at 16:01; Status DC Sodium Chloride (Normal Saline Flush) 3 ml QSHIFT PRN IV AFTER MEDS AND BLOOD DRAWS; Start 10/27/19 at 16:30 Sodium Chloride 1,000 ml @ 100 mls/hr Q10H IV Last administered on 11/01/19at 09:21; Start 10/27/19 at 16:22 Ondansetron HCl (Zofran) 4 mg PRN Q4HRS PRN IV NAUSEA/VOMITING Last administered on 11/01/19at 06:26; Start 10/27/19 at 16:30 Acetaminophen (Tylenol) 650 mg PRN Q4HRS PRN PO TEMP OVER 100.4F OR MILD PAIN Last administered on 11/01/19at 06:22; Start 10/27/19 at 16:30 Al Hydroxide/Mg Hydroxide (Mylanta Plus Xs) 30 ml PRN DAILY PRN PO HEARTBURN / GAS; Start 10/27/19 at 16:30 Sodium Monofluorophosphate (Fleet Adult) 133 ml PRN DAILY PRN [place] CONSTIPATION; Start 10/27/19 at 16:30 Docusate Sodium (Colace) 100 mg PRN BID PRN PO HARD STOOLS; Start 10/27/19 at 16:30 Albuterol/ Ipratropium (Duoneb) 3 ml Q4H NEB ; Start 10/27/19 at 16:30; Stop 10/27/19 at 18:28; Status DC Guaifenesin (Robitussin) 200 mg PRN Q4HRS PRN PO COUGH 2ND CHOICE Last administered on 11/01/19 07:41; Start 10/27/19 at 16:30 Lorazepam (Ativan) 0.5 mg PRN Q4HRS PRN PO ANXIETY / AGITATION Last administered on 10/29/19at 22:00; Start 10/27/19 at 16:30 Enoxaparin Sodium (Lovenox 40mg Syringe) 40 mg Q24H SQ Last administered on 10/31/19at 20:41; Start 10/27/19 at 21:00 Piperacillin Sod/ Tazobactam Sod 3.375 gm/Sodium Chloride 50 ml @ 100 mls/hr Q6HRS IV Last administered on 11/01/19at 11:26; Start 10/27/19 at 18:00 Azithromycin 250 ml @ 250 mls/hr 1X ONCE IV ; Start 10/27/19 at 16:30; Stop 10/27/19 at 17:29; Status Cancel Azithromycin 500 mg/Sodium Chloride 250 ml @ 250 mls/hr Q24H IV Last administered on 10/31/19at 18:28; Start 10/27/19 at 18:00; Stop 11/01/19 at 08:39; Status DC Albuterol Sulfate (Ventolin Neb Soln) 2.5 mg PRN Q4HRS PRN NEB SHORTNESS OF BREATH; Start 10/27/19 at 18:30 Sodium Chloride (Saline Mist Nasal) 1 nicolas PRN Q1HR PRN NS NASAL CONGESTION Last administered on 10/29/19at 03:08; Start 10/29/19 at 02:45 Pantoprazole Sodium (Protonix) 40 mg DAILYAC PO Last administered on 11/01/19at 07:38; Start 10/30/19 at 07:30 Calcium Carbonate/ Glycine (Tums) 500 mg PRN AFTMEALHC PRN PO INDIGESTION; Start 10/29/19 at 14:45 Polyethylene Glycol (miraLAX PACKET) 17 gm PRN DAILY PRN PO CONSTIPATION; Start 10/29/19 at 14:45 Lactobacillus Rhamnosus (Culturelle) 1 cap BID PO Last administered on 11/01/19at 09:20; Start 10/30/19 at 21:00 Guaifenesin (MUCINEX ER with DM) 2 tab PRN Q12HR PRN PO COUGH 1ST CHOICE Last administered on 11/01/19at 11:26; Start 10/30/19 at 11:15 Active Scripts Active Reported Zyrtec (Cetirizine Hcl) 10 Mg Tablet 10 Mg PO DAILY Vitals/I & O Vital Sign - Last 24 Hours 10/31/19 10/31/19 10/31/19 10/31/19 15:20 16:10 16:25 17:29 Temp 98.6 98.1 98.7 98.6 98.6 98.1 98.7 98.6 Pulse 83 78 79 80 Resp 22 20 B/P (MAP) 135/80 (98) 132/79 134/74 134/78 Pulse Ox 92 O2 Delivery Nasal Cannula O2 Flow Rate 4.0 10/31/19 10/31/19 10/31/19 10/31/19 17:50 18:46 18:55 20:00 Temp 98.6 99.3 99.3 98.6 99.3 99.3 Pulse 85 84 84 Resp 24 B/P (MAP) 137/80 124/80 (95) 124/80 Pulse Ox 93 O2 Delivery Nasal Cannula Nasal Cannula O2 Flow Rate 4.0 4.0 10/31/19 10/31/19 11/01/19 11/01/19 20:19 23:35 02:54 07:00 Temp 99.6 98.7 98.6 99.1 99.6 98.7 98.6 99.1 Pulse 84 63 86 91 Resp 20 B/P (MAP) 133/84 (100) 139/78 (98) 146/72 (96) 140/83 (102) Pulse Ox 90 95 95 94 O2 Delivery Nasal Cannula NonRebreather Mask Nasal Cannula Nasal Cannula O2 Flow Rate 4.0 15.0 4.0 5.0 11/01/19 11/01/19 08:29 11:04 Temp 98.1 98.1 Pulse 92 B/P (MAP) 138/77 (97) Pulse Ox 92 O2 Delivery Nasal Cannula Nasal Cannula O2 Flow Rate 5.0 5.0 Intake and Output 10/31/19 10/31/19 11/01/19 15:00 23:00 07:00 Intake Total 290 ml 1211 ml Output Total 350 ml 550 ml 0 ml Balance -60 ml 661 ml 0 ml Hemodynamically unstable?: No Is patient in severe pain?: No Is NPO status required?: No EUGENIO DEVLIN MD November 01, 2019 12:50
[2019-11-01] MEDS: ZINC SULFATE 220 MG CAPSULE. PO SCH (12:56)
--- NOTE | 2019-11-01 12:58 | RAD ---
CHEST AP ONLY Clinical indications: Lung infiltrates. Follow-up study. COMPARISON: October 31, 2019. Findings: Bilateral consolidative lung infiltrates are seen which have slightly increased in size and density. Small right-sided pleural effusion is seen. No pneumothorax is evident. Heart size and mediastinum are stable. Impression: Bilateral consolidative lung infiltrates with slight worsening. Electronically signed by: Austin King MD (11/01/2019 12:55 PM) [id number]
[2019-11-01] MEDS: BENZONATATE 100 MG CAPSULE. PO SCH ×2 (13:00→21:00)
[2019-11-01] MEDS: MEROPENEM 500 MG in IV NORMAL SALINE 50ML 50 ML IV SCH ×2 (13:01→21:00)
[2019-11-01] MEDS ORDERED: diphenhydrAMINE 50 MG/ML VIAL IV ONE (14:00)
[2019-11-01] MEDS ORDERED: ACETAMINOPHEN 325 MG TABLET. PO ONE (14:00)
[2019-11-01] MEDS ORDERED: methylPREDNISolone SOD SUCC PF 40 MG/ML VIAL. IV ONE (14:00)
[2019-11-01] MEDS ORDERED: TOCILIZUMAB IV ONE (14:30)
[2019-11-01] MEDS ORDERED: NORMAL SALINE IV ONE (14:30)
--- NOTE | 2019-11-01 15:05 | NUR ---
This RN witnessed pt's O2 sats drop to 77% on the monitor while on 5 L NC. This RN paged respiratory and while on the phone, this RN witnessed pt's O2 sats drop to 65%. Pt showing no signs of obvious distress. Non-rebreather placed on pt at 10 L. Pt's O2 increased to 93%, BP 141/79, HR 93 and respirations 26. Pt's breathing does not appear labored. This RN notified Dr. Jara of these findings by telephone and he had no new orders. Will continue to monitor pt very closely.
[2019-11-01] MEDS: ENOXAPARIN 40 MG/0.4 ML SYRINGE. SQ SCH (21:01)
[2019-11-01] MEDS: LORazepam 0.5 MG TABLET PO PRN (21:46)
[2019-11-02] VITALS (23 sets, daily range): BP systolic 119–150; BP diastolic 66–87
--- NOTE | 2019-11-02 00:10 | NUR ---
Patient transferred via bed from 6S to room 110 at 2310 for increased Respiratory distress/increased O2 demand. Patient alert/oriented x4, and, cooperative but does appear anxious and states, "Its hard to get my breath". RR 28, O2 at 100%NRB and 6L/NC with O2 saturations initially 90% but did increase to 96%. Patient oriented to ICU routine, room, activity (BR), and POC; reviewed use of nursing call light, numeric pain scale and bed controls. Patient verbalized understanding. ABGs drawn and resulted at 0010 of pH 7.41, pCO2 44.6, pO2 774, HCO3 28.1, BE 3; notified patient of ABG and no change of plan at this time. Patient verbalized understanding and is resting.
[2019-11-02 00:26] LABS: BASE EXCESS ABG 3 mmol/L (-3-3); HCO3 ABG 28 mmol/L (21-28); PCO2 ABG 45 mmHg (35-46); PO2 ABG 74 mmHg (65-108); SAT O2 ABG 95 % (92-99)
[2019-11-02 00:27] LABS: FIO2 ABG 100
[2019-11-02] MEDS: LORazepam 0.5 MG TABLET PO PRN ×2 (01:34→22:02)
[2019-11-02] MEDS: MEROPENEM 500 MG in IV NORMAL SALINE 50ML 50 ML IV SCH ×3 (05:57→22:02)
[2019-11-02 06:32] LABS: ALBUMIN 1.6 g/dL (3.4-5.0); ALBUMIN/GLOBULIN RATIO 0.5 (1.0-1.7); CALCIUM 8.6 mg/dL (8.5-10.1); CREATININE 0.6 mg/dL (0.7-1.3); POTASSIUM 3.7 mmol/L (3.5-5.1); TOTAL BILIRUBIN 0.5 mg/dL (0.2-1.0)
[2019-11-02] MEDS: IV NORMAL SALINE 1000ML BAG 1,000 ML IV SCH ×2 (07:42→17:47)
--- NOTE | 2019-11-02 07:51 | PDOC ---
Infectious Disease Note Subjective Subjective Patient continues to have shortness of breath and cough Abd pain with cough Appetite remains poor Headache has resolved Has some nausea, no vomiting On Ventimask and 6 L NC of O2 ROS ROS o/w neg Vital Sign Vital Signs Vital Signs Date Time Temp Pulse Resp B/P (MAP) Pulse Ox O2 Delivery O2 Flow Rate FiO2 11/02/19 07:00 74 20 140/82 (101) 93 NonRebreather with Nasal Cannula 6.0 11/02/19 04:00 98.4 98.4 Physical Exam PHYSICAL EXAM GENERAL: Alert and oriented x 3 male lying in bed comfortably, in no acute distress but looks a little tired, on nasal O2 and Ventimask HEENT: Normocephalic, atraumatic, anicteric. NECK: Supple, no JVD. LUNGS: Decreased breath sounds at the bases. No wheezing. No accessory muscle use. ABDOMEN: Soft, nontender, nondistended. EXTREMITIES: No edema, no cyanosis. DERMATOLOGIC: No generalized rash. BACK: Reveals normal curvature. No CVA tenderness. NEUROLOGIC: Alert, oriented x 3, grossly nonfocal. PSYCHIATRIC: Cooperative. Labs Lab Laboratory Tests Test 11/02/19 05:00 Sodium Level 142 mmol/L (136-145) Potassium Level 3.7 mmol/L (3.5-5.1) Chloride Level 107 mmol/L (98-107) Carbon Dioxide Level 29 mmol/L (21-32) Anion Gap 6 (6-14) Blood Urea Nitrogen 14 mg/dL (8-26) Creatinine 0.6 mg/dL (0.7-1.3) Estimated GFR (Cockcroft-Gault) 137.0 BUN/Creatinine Ratio 23 (6-20) Glucose Level 152 mg/dL (70-99) Calcium Level 8.6 mg/dL (8.5-10.1) Magnesium Level 2.0 mg/dL (1.8-2.4) Total Bilirubin 0.5 mg/dL (0.2-1.0) Aspartate Amino Transf (AST/SGOT) 28 U/L (15-37) Alanine Aminotransferase (ALT/SGPT) 24 U/L (16-63) Alkaline Phosphatase 449 U/L (46-116) Total Protein 5.0 g/dL (6.4-8.2) Albumin 1.6 g/dL (3.4-5.0) Albumin/Globulin Ratio 0.5 (1.0-1.7) Micro Microbiology 10/27/19 Blood Culture - Final, Complete NO GROWTH AFTER 5 DAYS Objective Assessment 1. Fever - better. Likely from COVID-19 2. COVID-19 respiratory illness to ICU 10/31 Status post convalescent serum administration 10/31/2019 IL- 6 10/31 3. Pneumonia, secondary bacterial infection cannot be ruled out.s/p solumedrol 10/31 CXR 10/31 - slight worse 4. Nausea. 5. Headache. Resolved 6. Generalized weakness. 7. History of hairy cell leukemia in remission 8. Abnormal liver function tests likely from COVID 19. 9. Diarrhea prior to admission, now resolved. 10. Achalasia, status post esophagectomy. Plan Plan of Care Zyvox/Meropenem 10/31 Actemera 10/31 and plasma 10/30 Continue supportive care off Zosyn 10/26 - 10/31 Completed azithromycin Follow-up lab and culture Maintain aspiration precautions Discussed with RN D/w EDUARDO Santos MD November 02, 2019 07:51
[2019-11-02] MEDS: ACETAMINOPHEN 325 MG TABLET. PO PRN ×2 (09:06→14:12)
[2019-11-02] MEDS: LACTOBACILLUS RHAMNOSUS GG 1 CAPSULE. PO SCH ×2 (09:06→21:10)
[2019-11-02] MEDS: BENZONATATE 100 MG CAPSULE. PO SCH ×3 (09:06→21:10)
[2019-11-02] MEDS: PANTOPRAZOLE 40 MG TABLET.DR. PO SCH (09:06)
[2019-11-02] MEDS: ZINC SULFATE 220 MG CAPSULE. PO SCH (09:06)
--- NOTE | 2019-11-02 09:34 | PDOC ---
Objective: Objective: Moved back to ICU w/ worsening resp status. D/w nurse - no GI issues except maybe some decreased appetite. Vital Signs: Vital Signs Date Time Temp Pulse Resp B/P (MAP) Pulse Ox O2 Delivery O2 Flow Rate FiO2 11/02/19 09:00 77 22 143/84 (103) NonRebreather Mask 6.0 11/02/19 07:00 93 11/02/19 04:00 98.4 98.4 Labs: Laboratory Tests Test 11/02/19 05:00 Sodium Level 142 mmol/L Potassium Level 3.7 mmol/L Chloride Level 107 mmol/L Carbon Dioxide Level 29 mmol/L Anion Gap 6 Blood Urea Nitrogen 14 mg/dL Creatinine 0.6 mg/dL Estimated GFR (Cockcroft-Gault) 137.0 BUN/Creatinine Ratio 23 Glucose Level 152 mg/dL Calcium Level 8.6 mg/dL Magnesium Level 2.0 mg/dL Total Bilirubin 0.5 mg/dL Aspartate Amino Transf (AST/SGOT) 28 U/L Alanine Aminotransferase (ALT/SGPT) 24 U/L Alkaline Phosphatase 449 U/L Total Protein 5.0 g/dL Albumin 1.6 g/dL Albumin/Globulin Ratio 0.5 Imaging: CXR 10/31 Impression: Bilateral consolidative lung infiltrates with slight worsening. PE: GEN: visual exam in COVID isolation unit LUNGS: nonrebreather and NC HEART: RRR on monitor ABD: not distended NEURO/PSYCH: awake A/P: Resp failure, +COVID-19 pneumonia, decreased appetite Elevated Alk Phos - better; GGT also elevated, AMA pending, and US on hold Elevated CRP H/o achalasia s/p esophagectomy and gastric pull through Cholelithiasis on past imaging -- Continue support for respiratory issues. Monitor labs, US later on as able. Hemodynamically unstable?: No Is patient in severe pain?: No Is NPO status required?: No BRIDGETTE-ALEXIS BUSBY November 02, 2019 09:33
--- NOTE | 2019-11-02 09:58 | PDOC ---
PULMONARY PROGRESS NOTES Subjective transfer to ICU thia am due to increase O2 requirement on 100 fio2 Vitals Vital Signs Date Time Temp Pulse Resp B/P (MAP) Pulse Ox O2 Delivery O2 Flow Rate FiO2 11/02/19 09:00 77 22 143/84 (103) NonRebreather Mask 6.0 11/02/19 07:00 93 11/02/19 04:00 98.4 98.4 Comments visual exam done due to COVID 19 no soa, no rash no edema General: Alert, No acute distress Labs Laboratory Tests Test 11/01/19 00:00 11/01/19 03:45 11/01/19 04:45 11/02/19 05:00 O2 Saturation 95 % (92-99) Arterial Blood pH 7.42 (7.35-7.45) Arterial Blood pCO2 at Patient Temp 45 mmHg (35-46) Arterial Blood pO2 at Patient Temp 74 mmHg (65-108) Arterial Blood HCO3 28 mmol/L (21-28) Arterial Blood Base Excess 3 mmol/L (-3-3) FiO2 100 White Blood Count 5.1 x10^3/uL (4.0-11.0) Red Blood Count 3.60 x10^6/uL (4.30-5.70) Hemoglobin 11.1 g/dL (13.0-17.5) Hematocrit 32.4 % (39.0-53.0) Mean Corpuscular Volume 90 fL (79-100) Mean Corpuscular Hemoglobin 31 pg (25-35) Mean Corpuscular Hemoglobin Concent 34 g/dL (31-37) Red Cell Distribution Width 13.2 % (11.5-14.5) Platelet Count 184 x10^3/uL (140-400) Neutrophils (%) (Auto) 85 % (31-73) Lymphocytes (%) (Auto) 6 % (24-48) Monocytes (%) (Auto) 10 % (0-9) Eosinophils (%) (Auto) 0 % (0-3) Basophils (%) (Auto) 0 % (0-3) Neutrophils # (Auto) 4.3 x10^3/uL (1.8-7.7) Lymphocytes # (Auto) 0.3 x10^3/uL (1.0-4.8) Monocytes # (Auto) 0.5 x10^3/uL (0.0-1.1) Eosinophils # (Auto) 0.0 x10^3/uL (0.0-0.7) Basophils # (Auto) 0.0 x10^3/uL (0.0-0.2) Sodium Level 143 mmol/L (136-145) 142 mmol/L (136-145) Potassium Level 3.1 mmol/L (3.5-5.1) 3.7 mmol/L (3.5-5.1) Chloride Level 107 mmol/L (98-107) 107 mmol/L (98-107) Carbon Dioxide Level 30 mmol/L (21-32) 29 mmol/L (21-32) Anion Gap 6 (6-14) 6 (6-14) Blood Urea Nitrogen 10 mg/dL (8-26) 14 mg/dL (8-26) Creatinine 0.7 mg/dL (0.7-1.3) 0.6 mg/dL (0.7-1.3) Estimated GFR (Cockcroft-Gault) 114.6 137.0 BUN/Creatinine Ratio 14 (6-20) 23 (6-20) Glucose Level 98 mg/dL (70-99) 152 mg/dL (70-99) Calcium Level 7.9 mg/dL (8.5-10.1) 8.6 mg/dL (8.5-10.1) Total Bilirubin 1.1 mg/dL (0.2-1.0) 0.5 mg/dL (0.2-1.0) Aspartate Amino Transf (AST/SGOT) 38 U/L (15-37) 28 U/L (15-37) Alanine Aminotransferase (ALT/SGPT) 36 U/L (16-63) 24 U/L (16-63) Alkaline Phosphatase 516 U/L (46-116) 449 U/L (46-116) Total Protein 4.9 g/dL (6.4-8.2) 5.0 g/dL (6.4-8.2) Albumin 1.6 g/dL (3.4-5.0) 1.6 g/dL (3.4-5.0) Albumin/Globulin Ratio 0.5 (1.0-1.7) 0.5 (1.0-1.7) C-Reactive Protein, Quantitative 169.6 mg/L (0-3.3) Magnesium Level 2.0 mg/dL (1.8-2.4) Laboratory Tests Test 11/02/19 05:00 Sodium Level 142 mmol/L (136-145) Potassium Level 3.7 mmol/L (3.5-5.1) Chloride Level 107 mmol/L (98-107) Carbon Dioxide Level 29 mmol/L (21-32) Anion Gap 6 (6-14) Blood Urea Nitrogen 14 mg/dL (8-26) Creatinine 0.6 mg/dL (0.7-1.3) Estimated GFR (Cockcroft-Gault) 137.0 BUN/Creatinine Ratio 23 (6-20) Glucose Level 152 mg/dL (70-99) Calcium Level 8.6 mg/dL (8.5-10.1) Magnesium Level 2.0 mg/dL (1.8-2.4) Total Bilirubin 0.5 mg/dL (0.2-1.0) Aspartate Amino Transf (AST/SGOT) 28 U/L (15-37) Alanine Aminotransferase (ALT/SGPT) 24 U/L (16-63) Alkaline Phosphatase 449 U/L (46-116) Total Protein 5.0 g/dL (6.4-8.2) Albumin 1.6 g/dL (3.4-5.0) Albumin/Globulin Ratio 0.5 (1.0-1.7) Medications Active Scripts Medications Dose Route/Sig Max Daily Dose Days Date Category Zyrtec (Cetirizine Hcl) 10 Mg Tablet 10 Mg PO DAILY 10/27/19 Reported Impression . 1. Acute hypoxic respiratory failure secondary to COVID-19 pneumonia. increase need for oxygen and worsening pneumonia 2. Abnormal chest x-ray with faint bilateral infiltrates suggestive of COVID-19 pneumonia. Cannot exclude superimposed bacterial pneumonia. cxr / with worsening infiltrates 3. Hairy cell leukemia, in remission. 4. Abnormal LFTs, likely related to COVID-19 infection. 5. Increase inflammatory markers Plan . 1. Will place him on Vapotherm. Keep saturation 92 and above. Flow at 40 litres/ 100%FIO2 2. Continue empiric antibiotic. 3. The patient was instructed about the prone positioning during the nighttime. 4. s/p convalescent plasma /. 5. Discussed with RN and ID. Clinically declined..s/p anti-IL6 inhibitor 5/3 6. vapotherm 7. follow clinical course closely d/w RN/RT. Chart reviewed. labs reviewed. cct 30 min EDDA HOLDER MD November 02, 2019 09:58
[2019-11-02] MEDS: SODIUM CHLORIDE 0.65% NASAL SPRAY 45ML BOTTLE. NS PRN (12:34)
[2019-11-02] MEDS: guaiFENesin DM 600/30MG 1 TAB TAB.ER.12H PO PRN (12:34)
--- NOTE | 2019-11-02 13:35 | NUR ---
SS following up with discharge planning. SS reviewed pt chart and discussed with RN, Yazmin. Pt is currently on 6 liters nasal cannula and 100% non rebreather mask. Pt is COVID19 positive. SS will continue to follow for discharge planning.
--- NOTE | 2019-11-02 13:42 | PDOC ---
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 Bone marrow biopsy on 03/05/2014 revealed complete remission PSH esophagectomy in 2016 remote tobacco abuse Elevated alkaline phos - hx Cholelithiasis. This is possibly 2/2 Zosyn as this is a reported side effect severe protein-caloric malnutrition Plan: Continue on Vapotherm Antibiotics as per ID Status post administration of convalescent plasma on October 30 Status post anti-IL 6 inhibitor Supportive measures Reassess in the a.m. COVID-19 CRITERIA: The patient was evaluated during the global COVID-19 pandemic, and that diagnosis was suspected/considered upon their initial presentation. Their evaluation, treatment and testing was consistent with current guidelines for patients who present with complaints or symptoms that may be related to COVID-19. History of Present Illness History of Present Illness Mr Schilling is a 59 yo M w/ PMHx Hairy cell leukemia, achalasia admitted in solation in ICU w/ +COVID-19 pneumonia. 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 10/29: Cough worsening. Admitted to ICU 10/30: Transferred from ICU. Received 1 unit of [facility]FP from [facility] COVID 19 convalescent plasma program donor 10/31:Today seen on COVID isolation unit, does not feel well, says he has felt sick for 12 days and would not wish this on his worst enemy. Pain on coughing. On 5 liters/min. 11/01: No acute events reported overnight, case discussed with nursing staff patient in no acute distress no complaints during my visit Plan: ATB as per ID supprotive measures COVID-19 CRITERIA: The patient was evaluated during the global COVID-19 pandemic, and that diagnosis was suspected/considered upon their initial presentation. Their evaluation, treatment and testing were consistent with current guidelines for patients who present with complaints or symptoms that may be related to COVID-19. Vitals Vitals Vital Signs Date Time Temp Pulse Resp B/P (MAP) Pulse Ox O2 Delivery O2 Flow Rate FiO2 11/02/19 13:00 86 22 142/84 (103) NonRebreather Mask 6.0 11/02/19 07:00 93 11/02/19 04:00 98.4 98.4 Physical Exam Physical Exam GENERAL: Alert and oriented x 3 male lying in bed comfortably, in no acute distress but looks a little tired, on nasal O2 and Ventimask HEENT: Normocephalic, atraumatic, anicteric. NECK: Supple, no JVD. LUNGS: Decreased breath sounds at the bases. No wheezing. No accessory muscle use. ABDOMEN: Soft, nontender, nondistended. EXTREMITIES: No edema, no cyanosis. DERMATOLOGIC: No generalized rash. BACK: Reveals normal curvature. No CVA tenderness. NEUROLOGIC: Alert, oriented x 3, grossly nonfocal. PSYCHIATRIC: Cooperative. General: Alert, Oriented X3, Cooperative, mild distress Abdomen: Soft Extremities: No cyanosis, No edema Labs LABS Laboratory Tests Test 11/02/19 05:00 Sodium Level 142 mmol/L (136-145) Potassium Level 3.7 mmol/L (3.5-5.1) Chloride Level 107 mmol/L (98-107) Carbon Dioxide Level 29 mmol/L (21-32) Anion Gap 6 (6-14) Blood Urea Nitrogen 14 mg/dL (8-26) Creatinine 0.6 mg/dL (0.7-1.3) Estimated GFR (Cockcroft-Gault) 137.0 BUN/Creatinine Ratio 23 (6-20) Glucose Level 152 mg/dL (70-99) Calcium Level 8.6 mg/dL (8.5-10.1) Magnesium Level 2.0 mg/dL (1.8-2.4) Total Bilirubin 0.5 mg/dL (0.2-1.0) Aspartate Amino Transf (AST/SGOT) 28 U/L (15-37) Alanine Aminotransferase (ALT/SGPT) 24 U/L (16-63) Alkaline Phosphatase 449 U/L (46-116) Total Protein 5.0 g/dL (6.4-8.2) Albumin 1.6 g/dL (3.4-5.0) Albumin/Globulin Ratio 0.5 (1.0-1.7) Review of Systems Review of Systems Pertinent as per HPI otherwise 10 point review of system is negative Assessment and Plan Assessmemt and Plan Problems Medical Problems: (1) COVID-19 virus infection Status: Acute Comment Review of Relevant I have reviewed the following items fany (where applicable) has been applied. Labs Laboratory Tests Test 11/01/19 00:00 11/01/19 03:45 11/01/19 04:45 11/02/19 05:00 O2 Saturation 95 % (92-99) Arterial Blood pH 7.42 (7.35-7.45) Arterial Blood pCO2 at Patient Temp 45 mmHg (35-46) Arterial Blood pO2 at Patient Temp 74 mmHg (65-108) Arterial Blood HCO3 28 mmol/L (21-28) Arterial Blood Base Excess 3 mmol/L (-3-3) FiO2 100 White Blood Count 5.1 x10^3/uL (4.0-11.0) Red Blood Count 3.60 x10^6/uL (4.30-5.70) Hemoglobin 11.1 g/dL (13.0-17.5) Hematocrit 32.4 % (39.0-53.0) Mean Corpuscular Volume 90 fL (79-100) Mean Corpuscular Hemoglobin 31 pg (25-35) Mean Corpuscular Hemoglobin Concent 34 g/dL (31-37) Red Cell Distribution Width 13.2 % (11.5-14.5) Platelet Count 184 x10^3/uL (140-400) Neutrophils (%) (Auto) 85 % (31-73) Lymphocytes (%) (Auto) 6 % (24-48) Monocytes (%) (Auto) 10 % (0-9) Eosinophils (%) (Auto) 0 % (0-3) Basophils (%) (Auto) 0 % (0-3) Neutrophils # (Auto) 4.3 x10^3/uL (1.8-7.7) Lymphocytes # (Auto) 0.3 x10^3/uL (1.0-4.8) Monocytes # (Auto) 0.5 x10^3/uL (0.0-1.1) Eosinophils # (Auto) 0.0 x10^3/uL (0.0-0.7) Basophils # (Auto) 0.0 x10^3/uL (0.0-0.2) Sodium Level 143 mmol/L (136-145) 142 mmol/L (136-145) Potassium Level 3.1 mmol/L (3.5-5.1) 3.7 mmol/L (3.5-5.1) Chloride Level 107 mmol/L (98-107) 107 mmol/L (98-107) Carbon Dioxide Level 30 mmol/L (21-32) 29 mmol/L (21-32) Anion Gap 6 (6-14) 6 (6-14) Blood Urea Nitrogen 10 mg/dL (8-26) 14 mg/dL (8-26) Creatinine 0.7 mg/dL (0.7-1.3) 0.6 mg/dL (0.7-1.3) Estimated GFR (Cockcroft-Gault) 114.6 137.0 BUN/Creatinine Ratio 14 (6-20) 23 (6-20) Glucose Level 98 mg/dL (70-99) 152 mg/dL (70-99) Calcium Level 7.9 mg/dL (8.5-10.1) 8.6 mg/dL (8.5-10.1) Total Bilirubin 1.1 mg/dL (0.2-1.0) 0.5 mg/dL (0.2-1.0) Aspartate Amino Transf (AST/SGOT) 38 U/L (15-37) 28 U/L (15-37) Alanine Aminotransferase (ALT/SGPT) 36 U/L (16-63) 24 U/L (16-63) Alkaline Phosphatase 516 U/L (46-116) 449 U/L (46-116) Total Protein 4.9 g/dL (6.4-8.2) 5.0 g/dL (6.4-8.2) Albumin 1.6 g/dL (3.4-5.0) 1.6 g/dL (3.4-5.0) Albumin/Globulin Ratio 0.5 (1.0-1.7) 0.5 (1.0-1.7) C-Reactive Protein, Quantitative 169.6 mg/L (0-3.3) Magnesium Level 2.0 mg/dL (1.8-2.4) Laboratory Tests Test 11/02/19 05:00 Sodium Level 142 mmol/L (136-145) Potassium Level 3.7 mmol/L (3.5-5.1) Chloride Level 107 mmol/L (98-107) Carbon Dioxide Level 29 mmol/L (21-32) Anion Gap 6 (6-14) Blood Urea Nitrogen 14 mg/dL (8-26) Creatinine 0.6 mg/dL (0.7-1.3) Estimated GFR (Cockcroft-Gault) 137.0 BUN/Creatinine Ratio 23 (6-20) Glucose Level 152 mg/dL (70-99) Calcium Level 8.6 mg/dL (8.5-10.1) Magnesium Level 2.0 mg/dL (1.8-2.4) Total Bilirubin 0.5 mg/dL (0.2-1.0) Aspartate Amino Transf (AST/SGOT) 28 U/L (15-37) Alanine Aminotransferase (ALT/SGPT) 24 U/L (16-63) Alkaline Phosphatase 449 U/L (46-116) Total Protein 5.0 g/dL (6.4-8.2) Albumin 1.6 g/dL (3.4-5.0) Albumin/Globulin Ratio 0.5 (1.0-1.7) Microbiology 10/27/19 Blood Culture - Final, Complete NO GROWTH AFTER 5 DAYS Medications Current Medications Sodium Chloride 1,000 ml @ 1,000 mls/hr 1X ONCE IV Last administered on 10/27/19at 13:30; Start 10/27/19 at 13:30; Stop 10/27/19 at 14:29; Status DC Acetaminophen (Tylenol) 1,000 mg 1X ONCE PO Last administered on 10/27/19at 16:10; Start 10/27/19 at 16:00; Stop 10/27/19 at 16:01; Status DC Sodium Chloride (Normal Saline Flush) 3 ml QSHIFT PRN IV AFTER MEDS AND BLOOD DRAWS; Start 10/27/19 at 16:30 Sodium Chloride 1,000 ml @ 100 mls/hr Q10H IV Last administered on 11/02/19 07:42; Start 10/27/19 at 16:22 Ondansetron HCl (Zofran) 4 mg PRN Q4HRS PRN IV NAUSEA/VOMITING Last administered on 11/01/19 13:14; Start 10/27/19 at 16:30 Acetaminophen (Tylenol) 650 mg PRN Q4HRS PRN PO TEMP OVER 100.4F OR MILD PAIN Last administered on 11/02/19 09:06; Start 10/27/19 at 16:30 Al Hydroxide/Mg Hydroxide (Mylanta Plus Xs) 30 ml PRN DAILY PRN PO HEARTBURN / GAS; Start 10/27/19 at 16:30 Sodium Monofluorophosphate (Fleet Adult) 133 ml PRN DAILY PRN NV CONSTIPATION; Start 10/27/19 at 16:30 Docusate Sodium (Colace) 100 mg PRN BID PRN PO HARD STOOLS; Start 10/27/19 at 16:30 Albuterol/ Ipratropium (Duoneb) 3 ml Q4H NEB ; Start 10/27/19 at 16:30; Stop 10/27/19 at 18:28; Status DC Guaifenesin (Robitussin) 200 mg PRN Q4HRS PRN PO COUGH 2ND CHOICE Last administered on 11/01/19at 12:57; Start 10/27/19 at 16:30 Lorazepam (Ativan) 0.5 mg PRN Q4HRS PRN PO ANXIETY / AGITATION Last administered on 11/02/19at 01:34; Start 10/27/19 at 16:30 Enoxaparin Sodium (Lovenox 40mg Syringe) 40 mg Q24H SQ Last administered on 11/01/19at 21:01; Start 10/27/19 at 21:00 Piperacillin Sod/ Tazobactam Sod 3.375 gm/Sodium Chloride 50 ml @ 100 mls/hr Q6HRS IV Last administered on 11/01/19at 11:26; Start 10/27/19 at 18:00; Stop 11/01/19 at 12:49; Status DC Azithromycin 250 ml @ 250 mls/hr 1X ONCE IV ; Start 10/27/19 at 16:30; Stop 10/27/19 at 17:29; Status Cancel Azithromycin 500 mg/Sodium Chloride 250 ml @ 250 mls/hr Q24H IV Last administered on 10/31/19at 18:28; Start 10/27/19 at 18:00; Stop 11/01/19 at 08:39; Status DC Albuterol Sulfate (Ventolin Neb Soln) 2.5 mg PRN Q4HRS PRN NEB SHORTNESS OF BREATH; Start 10/27/19 at 18:30 Sodium Chloride (Saline Mist Nasal) 1 nicolas PRN Q1HR PRN NS NASAL CONGESTION Last administered on 11/02/19at 12:34; Start 4/30/20 at 02:45 Pantoprazole Sodium (Protonix) 40 mg DAILYAC PO Last administered on 11/02/19at 09:06; Start 10/30/19 at 07:30 Calcium Carbonate/ Glycine (Tums) 500 mg PRN AFTMEALHC PRN PO INDIGESTION; Start 10/29/19 at 14:45 Polyethylene Glycol (miraLAX PACKET) 17 gm PRN DAILY PRN PO CONSTIPATION; Start 10/29/19 at 14:45 Lactobacillus Rhamnosus (Culturelle) 1 cap BID PO Last administered on 11/02/19at 09:06; Start 10/30/19 at 21:00 Guaifenesin (MUCINEX ER with DM) 2 tab PRN Q12HR PRN PO COUGH 1ST CHOICE Last administered on 11/02/19at 12:34; Start 10/30/19 at 11:15 Potassium Chloride (Klor-Con) 40 meq 1X ONCE PO Last administered on 11/01/19at 12:10; Start 11/01/19 at 12:15; Stop 11/01/19 at 12:16; Status DC Zinc Sulfate (Orazinc) 220 mg DAILY PO Last administered on 11/02/19at 09:06; Start 11/01/19 at 13:00 Meropenem 500 mg/ Sodium Chloride 50 ml @ 100 mls/hr Q8HRS IV Last administere d on 11/02/19at 05:57; Start 11/01/19 at 14:00 Benzonatate (Tessalon Perle) 100 mg [id number] PO Last administered on 11/02/19at 09:06; Start 11/01/19 at 14:00 Acetaminophen (Tylenol) 650 mg 1X ONCE PO Last administered on 11/01/19at 14:24; Start 11/01/19 at 14:00; Stop 11/01/19 at 14:01; Status DC Diphenhydramine HCl (Benadryl) 25 mg 1X ONCE IV Last administered on 11/01/19at 14:25; Start 11/01/19 at 14:00; Stop 11/01/19 at 14:01; Status DC Methylprednisolone Sodium Succinate (SOLU-Medrol 40MG VIAL) 40 mg 1X ONCE IV Last administered on 11/01/19at 14:25; Start 11/01/19 at 14:00; Stop 11/01/19 at 14:01; Status DC Tocilizumab 400 mg/Sodium Chloride 100 ml @ 100 mls/hr 1X ONCE IV Last administered on 11/01/19at 15:18; Start 11/01/19 at 14:30; Stop 11/01/19 at 15:29; Status DC Linezolid/Dextrose 300 ml @ 300 mls/hr Q12HR IV Last administered on 11/02/19at 09:06; Start 11/01/19 at 21:00 Active Scripts Active Reported Zyrtec (Cetirizine Hcl) 10 Mg Tablet 10 Mg PO DAILY Vitals/I & O Vital Sign - Last 24 Hours 11/01/19 11/01/19 11/01/19 11/01/19 15:21 19:40 19:57 22:05 Temp 98.1 96.7 97.5 98.1 96.7 97.5 Pulse 93 82 88 Resp 26 22 24 B/P (MAP) 141/79 (99) 130/83 (99) 144/82 (102) Pulse Ox 93 92 92 O2 Delivery NonRebreather Mask NonRebreather Mask Non-Rebreather NonRebreather Mask O2 Flow Rate 10.0 12.0 15.0 11/01/19 11/01/19 11/01/19 11/01/19 22:15 23:15 23:30 23:30 Temp 97.8 97.8 Pulse 86 82 Resp 22 26 B/P (MAP) 155/83 (107) 145/87 (106) Pulse Ox 93 92 93 O2 Delivery NonRebreather Mask NonRebreather with Nasal Cannula NonRebreather with Nasal Cannula Non-Rebreather O2 Flow Rate 15.0 6.0 6.0 6.0 11/01/19 11/01/19 11/02/19 11/02/19 23:45 23:59 00:30 01:00 Pulse 76 78 74 80 Resp 20 18 20 20 B/P (MAP) 137/84 (101) 127/82 (97) 141/87 (105) 148/83 (104) Pulse Ox 96 96 96 96 O2 Delivery NonRebreather with Nasal Cannula NonRebreather with Nasal Cannula NonRebreather with Nasal Cannula NonRebreather with Nasal Cannula O2 Flow Rate 6.0 6.0 6.0 6.0 11/02/19 11/02/19 11/02/19 11/02/19 02:00 03:00 04:00 04:00 Temp 98.4 98.4 Pulse 72 69 70 Resp 18 24 24 B/P (MAP) 128/80 (96) 132/81 (98) 132/85 (101) Pulse Ox 94 94 94 O2 Delivery NonRebreather with Nasal Cannula NonRebreather with Nasal Cannula Non-Rebreather NonRebreather with Nasal Cannula O2 Flow Rate 6.0 6.0 6.0 6.0 11/02/19 11/02/19 11/02/19 11/02/19 05:00 06:00 07:00 08:00 Pulse 75 74 74 Resp 20 22 20 B/P (MAP) 133/84 (100) 150/84 (106) 140/82 (101) Pulse Ox 92 94 93 O2 Delivery NonRebreather with Nasal Cannula NonRebreather with Nasal Cannula NonRebreather with Nasal Cannula Non-Rebreather O2 Flow Rate 6.0 6.0 6.0 6.0 11/02/19 11/02/19 11/02/19 11/02/19 09:00 11:00 12:00 12:16 Pulse 77 78 83 Resp 22 22 22 B/P (MAP) 143/84 (103) 141/84 (103) 140/84 (102) O2 Delivery NonRebreather Mask NonRebreather Mask NonRebreather Mask Non- Rebreather O2 Flow Rate 6.0 6.0 6.0 6.0 11/02/19 13:00 Pulse 86 Resp 22 B/P (MAP) 142/84 (103) O2 Delivery NonRebreather Mask O2 Flow Rate 6.0 Intake and Output 11/01/19 11/01/19 11/02/19 15:00 23:00 07:00 Intake Total 1340 ml 650 ml 3419 ml Output Total 550 ml 500 ml 300 ml Balance 790 ml 150 ml 3119 ml Hemodynamically unstable?: No Is patient in severe pain?: No Is NPO status required?: No MARTINA GODOY MD November 02, 2019 13:42
[2019-11-02] MEDS: ENOXAPARIN 40 MG/0.4 ML SYRINGE. SQ SCH (21:11)
[2019-11-02] MEDS: ONDANSETRON PF 4 MG/2 ML VIAL. IV PRN (22:05)
[2019-11-03] VITALS (31 sets, daily range): BP systolic 76–162; BP diastolic 54–89
[2019-11-03] MEDS: guaiFENesin DM 600/30MG 1 TAB TAB.ER.12H PO PRN (00:07)
[2019-11-03] MEDS: ACETAMINOPHEN 325 MG TABLET. PO PRN (00:14)
[2019-11-03] MEDS: IV NORMAL SALINE 1000ML BAG 1,000 ML IV SCH ×2 (04:23→19:57)
[2019-11-03 05:03] LABS: BASO % 0 % (0-3); EOS % 0 % (0-3); HEMATOCRIT 36.4 % (39.0-53.0); HEMOGLOBIN 12.3 g/dL (13.0-17.5); LYMPH # 0.4 x10^3/uL (1.0-4.8); LYMPH % 6 % (24-48); MEAN CORPUSCULAR HEMOGLOBIN 31 pg (25-35); MEAN CORPUSCULAR HGB CONC 34 g/dL (31-37); MEAN CORPUSCULAR VOLUME 90 fL (79-100); MONO # 0.3 x10^3/uL (0.0-1.1); MONO % 4 % (0-9); NEUT # 6.8 x10^3/uL (1.8-7.7); NEUT % 90 % (31-73); PLATELET COUNT 260 x10^3/uL (140-400); RED BLOOD COUNT 4.03 x10^6/uL (4.30-5.70); WHITE BLOOD COUNT 7.5 x10^3/uL (4.0-11.0)
[2019-11-03 05:31] LABS: ALBUMIN 1.6 g/dL (3.4-5.0); ALBUMIN/GLOBULIN RATIO 0.5 (1.0-1.7); C-REACTIVE PROTEIN 69.7 mg/L (0-3.3); CALCIUM 8.1 mg/dL (8.5-10.1); CREATININE 0.7 mg/dL (0.7-1.3); GFR 114.6; POTASSIUM 3.3 mmol/L (3.5-5.1); TOTAL BILIRUBIN 0.4 mg/dL (0.2-1.0); TOTAL PROTEIN 4.6 g/dL (6.4-8.2)
[2019-11-03] MEDS: ONDANSETRON PF 4 MG/2 ML VIAL. IV PRN (05:59)
[2019-11-03] MEDS: LORazepam 0.5 MG TABLET PO PRN (05:59)
[2019-11-03] MEDS: MEROPENEM 500 MG in IV NORMAL SALINE 50ML 50 ML IV SCH ×3 (06:01→21:40)
[2019-11-03 06:30] LABS: BASE EXCESS ABG 4 mmol/L (-3-3); HCO3 ABG 29 mmol/L (21-28); PCO2 ABG 46 mmHg (35-46); PO2 ABG 65 mmHg (65-108); SAT O2 ABG 92 % (92-99)
[2019-11-03 06:35] LABS: FIO2 ABG 100
[2019-11-03] MEDS: PANTOPRAZOLE 40 MG TABLET.DR. PO SCH (07:30)
--- NOTE | 2019-11-03 07:44 | PDOC ---
Infectious Disease Note Subjective Subjective Patient continues to have shortness of breath Less cough non productive Abd pain with cough less Appetite remains poor Has some nausea, no vomiting On 100 nonrebreather of 10 O2 ROS ROS o/w neg Vital Sign Vital Signs Vital Signs Date Time Temp Pulse Resp B/P (MAP) Pulse Ox O2 Delivery O2 Flow Rate FiO2 11/03/19 06:00 75 17 155/88 (110) 91 NonRebreather Mask 10.0 11/03/19 04:00 97.8 97.8 Physical Exam PHYSICAL EXAM GENERAL: Alert and oriented x 3 male lying in bed comfortably, in no acute distress but looks a little tired, on nasal O2 and Ventimask HEENT: Normocephalic, atraumatic, anicteric. NECK: Supple, no JVD. LUNGS: Decreased breath sounds at the bases. No wheezing. No accessory muscle use. ABDOMEN: Soft, nontender, nondistended. EXTREMITIES: No edema, no cyanosis. DERMATOLOGIC: No generalized rash. BACK: Reveals normal curvature. No CVA tenderness. NEUROLOGIC: Alert, oriented x 3, grossly nonfocal. PSYCHIATRIC: Cooperative. Labs Lab Laboratory Tests Test 11/03/19 04:32 11/03/19 06:25 White Blood Count 7.5 x10^3/uL (4.0-11.0) Red Blood Count 4.03 x10^6/uL (4.30-5.70) Hemoglobin 12.3 g/dL (13.0-17.5) Hematocrit 36.4 % (39.0-53.0) Mean Corpuscular Volume 90 fL (79-100) Mean Corpuscular Hemoglobin 31 pg (25-35) Mean Corpuscular Hemoglobin Concent 34 g/dL (31-37) Red Cell Distribution Width 13.0 % (11.5-14.5) Platelet Count 260 x10^3/uL (140-400) Neutrophils (%) (Auto) 90 % (31-73) Lymphocytes (%) (Auto) 6 % (24-48) Monocytes (%) (Auto) 4 % (0-9) Eosinophils (%) (Auto) 0 % (0-3) Basophils (%) (Auto) 0 % (0-3) Neutrophils # (Auto) 6.8 x10^3/uL (1.8-7.7) Lymphocytes # (Auto) 0.4 x10^3/uL (1.0-4.8) Monocytes # (Auto) 0.3 x10^3/uL (0.0-1.1) Eosinophils # (Auto) 0.0 x10^3/uL (0.0-0.7) Basophils # (Auto) 0.0 x10^3/uL (0.0-0.2) Sodium Level 146 mmol/L (136-145) Potassium Level 3.3 mmol/L (3.5-5.1) Chloride Level 108 mmol/L (98-107) Carbon Dioxide Level 33 mmol/L (21-32) Anion Gap 5 (6-14) Blood Urea Nitrogen 15 mg/dL (8-26) Creatinine 0.7 mg/dL (0.7-1.3) Estimated GFR (Cockcroft-Gault) 114.6 BUN/Creatinine Ratio 21 (6-20) Glucose Level 99 mg/dL (70-99) Calcium Level 8.1 mg/dL (8.5-10.1) Total Bilirubin 0.4 mg/dL (0.2-1.0) Aspartate Amino Transf (AST/SGOT) 30 U/L (15-37) Alanine Aminotransferase (ALT/SGPT) 27 U/L (16-63) Alkaline Phosphatase 367 U/L (46-116) Lactate Dehydrogenase 268 U/L (85-227) C-Reactive Protein, Quantitative 69.7 mg/L (0-3.3) Total Protein 4.6 g/dL (6.4-8.2) Albumin 1.6 g/dL (3.4-5.0) Albumin/Globulin Ratio 0.5 (1.0-1.7) O2 Saturation 92 % (92-99) Arterial Blood pH 7.41 (7.35-7.45) Arterial Blood pCO2 at Patient Temp 46 mmHg (35-46) Arterial Blood pO2 at Patient Temp 65 mmHg (65-108) Arterial Blood HCO3 29 mmol/L (21-28) Arterial Blood Base Excess 4 mmol/L (-3-3) FiO2 100 Micro Microbiology 10/27/19 Blood Culture - Final, Complete NO GROWTH AFTER 5 DAYS Objective Assessment 1. Fever - better. Likely from COVID-19 2. COVID-19 respiratory illness to ICU 10/31 LFTs and CRP better - but requiring more 02 Status post convalescent serum administration 10/31/2019 IL- 6 10/31 3. Pneumonia, secondary bacterial infection cannot be ruled out.s/p solumedrol 10/31 CXR 10/31 - slight worse 4. Nausea. 5. Headache. Resolved 6. Generalized weakness. 7. History of hairy cell leukemia in remission 8. Abnormal liver function tests likely from COVID 19. 9. Diarrhea prior to admission, now resolved. 10. Achalasia, status post esophagectomy. Plan Plan of Care May require intubation with increasing 02 requirements Zyvox/Meropenem 10/31 - my wean soon Actemera 10/31 and plasma 10/30 Continue supportive care off Zosyn 10/26 - 10/31 Completed azithromycin Follow-up lab in am and culture Maintain aspiration precautions Discussed with EDUARDO VERA MD November 03, 2019 07:44
--- NOTE | 2019-11-03 08:20 | PDOC ---
PULMONARY PROGRESS NOTES Subjective Patient deteriorated this morning, intubated now FiO2 and 10 of PEEP Vitals Vital Signs Date Time Temp Pulse Resp B/P (MAP) Pulse Ox O2 Delivery O2 Flow Rate FiO2 11/03/19 08:00 98.2 85 28 155/82 (106) 87 NonRebreather Mask 10.0 98.2 Comments Patient seen during the the pandemic, visual exam, in sync with the ventilator. No respiratory distress edema Labs Laboratory Tests Test 11/02/19 05:00 11/03/19 04:32 11/03/19 06:25 Sodium Level 142 mmol/L (136-145) 146 mmol/L (136-145) Potassium Level 3.7 mmol/L (3.5-5.1) 3.3 mmol/L (3.5-5.1) Chloride Level 107 mmol/L (98-107) 108 mmol/L (98-107) Carbon Dioxide Level 29 mmol/L (21-32) 33 mmol/L (21-32) Anion Gap 6 (6-14) 5 (6-14) Blood Urea Nitrogen 14 mg/dL (8-26) 15 mg/dL (8-26) Creatinine 0.6 mg/dL (0.7-1.3) 0.7 mg/dL (0.7-1.3) Estimated GFR (Cockcroft-Gault) 137.0 114.6 BUN/Creatinine Ratio 23 (6-20) 21 (6-20) Glucose Level 152 mg/dL (70-99) 99 mg/dL (70-99) Calcium Level 8.6 mg/dL (8.5-10.1) 8.1 mg/dL (8.5-10.1) Magnesium Level 2.0 mg/dL (1.8-2.4) Total Bilirubin 0.5 mg/dL (0.2-1.0) 0.4 mg/dL (0.2-1.0) Aspartate Amino Transf (AST/SGOT) 28 U/L (15-37) 30 U/L (15-37) Alanine Aminotransferase (ALT/SGPT) 24 U/L (16-63) 27 U/L (16-63) Alkaline Phosphatase 449 U/L (46-116) 367 U/L (46-116) Total Protein 5.0 g/dL (6.4-8.2) 4.6 g/dL (6.4-8.2) Albumin 1.6 g/dL (3.4-5.0) 1.6 g/dL (3.4-5.0) Albumin/Globulin Ratio 0.5 (1.0-1.7) 0.5 (1.0-1.7) White Blood Count 7.5 x10^3/uL (4.0-11.0) Red Blood Count 4.03 x10^6/uL (4.30-5.70) Hemoglobin 12.3 g/dL (13.0-17.5) Hematocrit 36.4 % (39.0-53.0) Mean Corpuscular Volume 90 fL (79-100) Mean Corpuscular Hemoglobin 31 pg (25-35) Mean Corpuscular Hemoglobin Concent 34 g/dL (31-37) Red Cell Distribution Width 13.0 % (11.5-14.5) Platelet Count 260 x10^3/uL (140-400) Neutrophils (%) (Auto) 90 % (31-73) Lymphocytes (%) (Auto) 6 % (24-48) Monocytes (%) (Auto) 4 % (0-9) Eosinophils (%) (Auto) 0 % (0-3) Basophils (%) (Auto) 0 % (0-3) Neutrophils # (Auto) 6.8 x10^3/uL (1.8-7.7) Lymphocytes # (Auto) 0.4 x10^3/uL (1.0-4.8) Monocytes # (Auto) 0.3 x10^3/uL (0.0-1.1) Eosinophils # (Auto) 0.0 x10^3/uL (0.0-0.7) Basophils # (Auto) 0.0 x10^3/uL (0.0-0.2) Lactate Dehydrogenase 268 U/L (85-227) C-Reactive Protein, Quantitative 69.7 mg/L (0-3.3) O2 Saturation 92 % (92-99) Arterial Blood pH 7.41 (7.35-7.45) Arterial Blood pCO2 at Patient Temp 46 mmHg (35-46) Arterial Blood pO2 at Patient Temp 65 mmHg (65-108) Arterial Blood HCO3 29 mmol/L (21-28) Arterial Blood Base Excess 4 mmol/L (-3-3) FiO2 100 Laboratory Tests Test 11/03/19 04:32 11/03/19 06:25 White Blood Count 7.5 x10^3/uL (4.0-11.0) Red Blood Count 4.03 x10^6/uL (4.30-5.70) Hemoglobin 12.3 g/dL (13.0-17.5) Hematocrit 36.4 % (39.0-53.0) Mean Corpuscular Volume 90 fL (79-100) Mean Corpuscular Hemoglobin 31 pg (25-35) Mean Corpuscular Hemoglobin Concent 34 g/dL (31-37) Red Cell Distribution Width 13.0 % (11.5-14.5) Platelet Count 260 x10^3/uL (140-400) Neutrophils (%) (Auto) 90 % (31-73) Lymphocytes (%) (Auto) 6 % (24-48) Monocytes (%) (Auto) 4 % (0-9) Eosinophils (%) (Auto) 0 % (0-3) Basophils (%) (Auto) 0 % (0-3) Neutrophils # (Auto) 6.8 x10^3/uL (1.8-7.7) Lymphocytes # (Auto) 0.4 x10^3/uL (1.0-4.8) Monocytes # (Auto) 0.3 x10^3/uL (0.0-1.1) Eosinophils # (Auto) 0.0 x10^3/uL (0.0-0.7) Basophils # (Auto) 0.0 x10^3/uL (0.0-0.2) Sodium Level 146 mmol/L (136-145) Potassium Level 3.3 mmol/L (3.5-5.1) Chloride Level 108 mmol/L (98-107) Carbon Dioxide Level 33 mmol/L (21-32) Anion Gap 5 (6-14) Blood Urea Nitrogen 15 mg/dL (8-26) Creatinine 0.7 mg/dL (0.7-1.3) Estimated GFR (Cockcroft-Gault) 114.6 BUN/Creatinine Ratio 21 (6-20) Glucose Level 99 mg/dL (70-99) Calcium Level 8.1 mg/dL (8.5-10.1) Total Bilirubin 0.4 mg/dL (0.2-1.0) Aspartate Amino Transf (AST/SGOT) 30 U/L (15-37) Alanine Aminotransferase (ALT/SGPT) 27 U/L (16-63) Alkaline Phosphatase 367 U/L (46-116) Lactate Dehydrogenase 268 U/L (85-227) C-Reactive Protein, Quantitative 69.7 mg/L (0-3.3) Total Protein 4.6 g/dL (6.4-8.2) Albumin 1.6 g/dL (3.4-5.0) Albumin/Globulin Ratio 0.5 (1.0-1.7) O2 Saturation 92 % (92-99) Arterial Blood pH 7.41 (7.35-7.45) Arterial Blood pCO2 at Patient Temp 46 mmHg (35-46) Arterial Blood pO2 at Patient Temp 65 mmHg (65-108) Arterial Blood HCO3 29 mmol/L (21-28) Arterial Blood Base Excess 4 mmol/L (-3-3) FiO2 100 Medications Active Scripts Medications Dose Route/Sig Max Daily Dose Days Date Category Zyrtec (Cetirizine Hcl) 10 Mg Tablet 10 Mg PO DAILY 10/27/19 Reported Impression . 1. Acute hypoxic respiratory failure secondary to COVID-19/ARDS status post convalescent serum, and Tocilizumab 2. Abnormal chest x-ray with faint bilateral infiltrates suggestive of COVID-19 pneumonia. 3. Hairy cell leukemia, in remission. 4. Abnormal LFTs, likely related to COVID-19 infection. 5. Increase inflammatory markers 6. Achalasia 7. Encephalopathy Plan . Patient intubated this morning adjust minute ventilation Status post convalescent center Antibiotics, per ID Prone position IV fluids Nutritional support Total cumulative critical care time of 35 minutes, discussed case with ARIC, RN, reviewing labs, chest x-ray, formulating a plan ERMA NICHOLE MD November 03, 2019 08:20
[2019-11-03] MEDS ORDERED: SUCCINYLCHOLINE 200 MG/10 ML VIAL. ONE ×2 (08:24→09:00)
[2019-11-03] MEDS ORDERED: ETOMIDATE 20 MG/10 ML VIAL. IV ONE ×2 (08:24→09:00)
--- NOTE | 2019-11-03 08:29 | PDOC ---
GI PROGRESS NOTES Date Date/Time DATE: 11/03/19 TIME: 08:27 Subjective Subjective COVID- respiratory distress Elevated Alk phos and GGTP with near normal transaminases and bili Objective Vitals Vital Signs Date Time Temp Pulse Resp B/P (MAP) Pulse Ox O2 Delivery O2 Flow Rate FiO2 11/03/19 08:00 98.2 85 28 155/82 (106) 87 NonRebreather Mask 10.0 98.2 11/03/19 07:00 92 24 162/89 (113) 85 NonRebreather Mask 10.0 11/03/19 06:00 75 17 155/88 (110) 91 NonRebreather Mask 10.0 11/03/19 05:00 83 23 140/83 (102) 92 NonRebreather Mask 6.0 11/03/19 04:00 97.8 75 15 118/77 (91) 92 NonRebreather Mask 6.0 97.8 11/03/19 03:45 Non-Rebreather 6.0 11/03/19 03:00 80 18 133/80 (97) 96 NonRebreather Mask 6.0 11/03/19 02:00 77 17 150/83 (105) 94 NonRebreather Mask 6.0 11/03/19 01:00 76 19 140/82 (101) 91 NonRebreather Mask 6.0 11/03/19 00:00 Non-Rebreather 6.0 11/03/19 00:00 97.7 78 21 148/89 (108) 92 NonRebreather Mask 6.0 97.7 11/02/19 23:00 74 23 147/82 (103) 93 NonRebreather Mask 6.0 11/02/19 22:00 75 21 144/85 (104) 93 NonRebreather Mask 6.0 11/02/19 21:00 75 22 138/85 (102) 94 NonRebreather Mask 6.0 11/02/19 20:00 Non-Rebreather 6.0 11/02/19 20:00 98.5 81 20 142/79 (100) 97 NonRebreather Mask 6.0 98.5 11/02/19 19:00 89 24 143/81 (101) 93 NonRebreather Mask 6.0 11/02/19 18:00 70 24 140/82 (101) NonRebreather Mask 6.0 11/02/19 16:22 Non-Rebreather 6.0 11/02/19 16:00 76 24 129/76 (93) NonRebreather Mask 6.0 11/02/19 15:50 97.9 97.9 11/02/19 15:02 80 22 142/81 (101) NonRebreather Mask 6.0 11/02/19 14:00 83 22 130/83 (99) NonRebreather Mask 6.0 11/02/19 14:00 84 20 130/83 (99) 97 NonRebreather Mask 6.0 11/02/19 13:00 86 22 142/84 (103) NonRebreather Mask 6.0 11/02/19 12:16 Non-Rebreather 6.0 11/02/19 12:00 83 22 140/84 (102) NonRebreather Mask 6.0 11/02/19 11:00 78 22 141/84 (103) NonRebreather Mask 6.0 11/02/19 10:00 84 22 119/66 (83) NonRebreather Mask 6.0 11/02/19 09:00 77 22 143/84 (103) NonRebreather Mask 6.0 Labs Labs Laboratory Tests Test 11/03/19 04:32 11/03/19 06:25 White Blood Count 7.5 x10^3/uL (4.0-11.0) Red Blood Count 4.03 x10^6/uL (4.30-5.70) Hemoglobin 12.3 g/dL (13.0-17.5) Hematocrit 36.4 % (39.0-53.0) Mean Corpuscular Volume 90 fL (79-100) Mean Corpuscular Hemoglobin 31 pg (25-35) Mean Corpuscular Hemoglobin Concent 34 g/dL (31-37) Red Cell Distribution Width 13.0 % (11.5-14.5) Platelet Count 260 x10^3/uL (140-400) Neutrophils (%) (Auto) 90 % (31-73) Lymphocytes (%) (Auto) 6 % (24-48) Monocytes (%) (Auto) 4 % (0-9) Eosinophils (%) (Auto) 0 % (0-3) Basophils (%) (Auto) 0 % (0-3) Neutrophils # (Auto) 6.8 x10^3/uL (1.8-7.7) Lymphocytes # (Auto) 0.4 x10^3/uL (1.0-4.8) Monocytes # (Auto) 0.3 x10^3/uL (0.0-1.1) Eosinophils # (Auto) 0.0 x10^3/uL (0.0-0.7) Basophils # (Auto) 0.0 x10^3/uL (0.0-0.2) Sodium Level 146 mmol/L (136-145) Potassium Level 3.3 mmol/L (3.5-5.1) Chloride Level 108 mmol/L (98-107) Carbon Dioxide Level 33 mmol/L (21-32) Anion Gap 5 (6-14) Blood Urea Nitrogen 15 mg/dL (8-26) Creatinine 0.7 mg/dL (0.7-1.3) Estimated GFR (Cockcroft-Gault) 114.6 BUN/Creatinine Ratio 21 (6-20) Glucose Level 99 mg/dL (70-99) Calcium Level 8.1 mg/dL (8.5-10.1) Total Bilirubin 0.4 mg/dL (0.2-1.0) Aspartate Amino Transf (AST/SGOT) 30 U/L (15-37) Alanine Aminotransferase (ALT/SGPT) 27 U/L (16-63) Alkaline Phosphatase 367 U/L (46-116) Lactate Dehydrogenase 268 U/L (85-227) C-Reactive Protein, Quantitative 69.7 mg/L (0-3.3) Total Protein 4.6 g/dL (6.4-8.2) Albumin 1.6 g/dL (3.4-5.0) Albumin/Globulin Ratio 0.5 (1.0-1.7) O2 Saturation 92 % (92-99) Arterial Blood pH 7.41 (7.35-7.45) Arterial Blood pCO2 at Patient Temp 46 mmHg (35-46) Arterial Blood pO2 at Patient Temp 65 mmHg (65-108) Arterial Blood HCO3 29 mmol/L (21-28) Arterial Blood Base Excess 4 mmol/L (-3-3) FiO2 100 Assessment Assessment Elevated Alk phos and GGTP- cause unknown- awaiting AMA - continue to monitor- when more stable, consider US or other imaging History of Achalasia s/p esophagectomy COVID 19 with respiratory distress- back in ICU- likely re-intubation planned Hemodynamically unstable?: No Is patient in severe pain?: No Is NPO status required?: No JUSTEN GARNICA MD November 03, 2019 08:29
[2019-11-03] MEDS ORDERED: fentaNYL PF VIAL 100 MCG/2 ML VIAL ONE ×2 (08:45→09:00)
[2019-11-03] MEDS: CHLORHEXIDINE 0.12% 15 ML MOUTHWASH. MM SCH ×2 (09:00→19:57)
[2019-11-03] MEDS: ZINC SULFATE 220 MG CAPSULE. PO SCH (09:00)
[2019-11-03] MEDS: LACTOBACILLUS RHAMNOSUS GG 1 CAPSULE. PO SCH ×2 (09:00→19:59)
[2019-11-03] MEDS: BENZONATATE 100 MG CAPSULE. PO SCH ×3 (09:00→19:58)
[2019-11-03] MEDS: OXYMETAZOLINE 0.05% NASAL SPRAY 30ML BOTTLE. NS SCH ×2 (09:00→19:58)
[2019-11-03] MEDS: MIDAZOLAM 100mg/100ml NS BAG 100 ML IV PRN ×2 (09:04→13:03)
[2019-11-03] MEDS ORDERED: IV NORMAL SALINE 500ML BAG 500 ML IV PRN (09:15)
[2019-11-03] MEDS ORDERED: ATROPINE 0.5 MG/5 ML DISP.SYRINGE. IV PRN (09:15)
[2019-11-03] MEDS ORDERED: VECURONIUM BOLUS 10 MG VIAL. IV ONE ×2 (09:27→09:30)
[2019-11-03] MEDS: DEXMEDETOMIDINE 400 MCG in IV NORMAL SALINE 100ML 96 ML IV PRN ×2 (09:42→14:59)
--- NOTE | 2019-11-03 09:42 | PDOC ---
PROGRESS NOTES Chief Complaint Chief Complaint A/P: Acute hypoxic resp failure - 2/2 SARS-CoV-2 unfortunately requiring mechanical ventilation now. 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 Bone marrow biopsy on 03/05/2014 revealed complete remission PSH esophagectomy in 2016 remote tobacco abuse Elevated alkaline phos - hx Cholelithiasis. This is possibly 2/2 Zosyn as this is a reported side effect severe protein-caloric malnutrition Plan: ventilatory support as per pulmonary x ray reviewed abdominal x ray reviewed will need to reposition OG tube Antibiotics as per ID Status post administration of convalescent plasma on October 30 Status post anti-IL 6 inhibitor Supportive measures Reassess in the a.m. COVID-19 CRITERIA: The patient was evaluated during the global COVID-19 pandemic, and that diagnosis was suspected/considered upon their initial presentation. Their evaluation, treatment and testing was consistent with c calliet guidelines for patients who present with complaints or symptoms that may be related to COVID-19. History of Present Illness History of Present Illness Mr Schilling is a 59 yo M w/ PMHx Hairy cell leukemia, achalasia admitted in isolation in ICU w/ +COVID-19 pneumonia. 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 5: Cough worsening. Admitted to ICU 10/30: Transferred from ICU. Received 1 unit of FFP from [facility] blood morrow COVID 19 convalescent plasma program donor 10/31:Today seen on COVID isolation unit, does not feel well, says he has felt sick for 12 days and would not wish this on his worst enemy. Pain on coughing. On 5 liters/min. 11/01: No acute events reported overnight, case discussed with nursing staff patient in no acute distress no complaints during my visit Plan: ATB as per ID supprotive measures COVID-19 CRITERIA: The patient was evaluated during the global COVID-19 pandemic, and that diagnosis was suspected/considered upon their initial present ation. Their evaluation, treatment and testing were consistent with current guidelines for patients who present with complaints or symptoms that may be related to COVID-19. Vitals Vitals Vital Signs Date Time Temp Pulse Resp B/P (MAP) Pulse Ox O2 Delivery O2 Flow Rate FiO2 11/03/19 08:00 98.2 85 28 155/82 (106) 87 NonRebreather Mask 10.0 98.2 Physical Exam Physical Exam GENERAL: Alert and oriented x 3 male lying in bed comfortably, in no acute distress but looks a little tired, on nasal O2 and Ventimask HEENT: Normocephalic, atraumatic, anicteric. NECK: Supple, no JVD. LUNGS: Decreased breath sounds at the bases. No wheezing. No accessory muscle use. ABDOMEN: Soft, nontender, nondistended. EXTREMITIES: No edema, no cyanosis. DERMATOLOGIC: No generalized rash. BACK: Reveals normal curvature. No CVA tenderness. NEUROLOGIC: Alert, oriented x 3, grossly nonfocal. PSYCHIATRIC: Cooperative. General: Alert, Oriented X3, Cooperative, mild distress Abdomen: Soft Extremities: No cyanosis, No edema Labs LABS Laboratory Tests Test 11/03/19 04:32 11/03/19 06:25 White Blood Count 7.5 x10^3/uL (4.0-11.0) Red Blood Count 4.03 x10^6/uL (4.30-5.70) Hemoglobin 12.3 g/dL (13.0-17.5) Hematocrit 36.4 % (39.0-53.0) Mean Corpuscular Volume 90 fL (79-100) Mean Corpuscular Hemoglobin 31 pg (25-35) Mean Corpuscular Hemoglobin Concent 34 g/dL (31-37) Red Cell Distribution Width 13.0 % (11.5-14.5) Platelet Count 260 x10^3/uL (140-400) Neutrophils (%) (Auto) 90 % (31-73) Lymphocytes (%) (Auto) 6 % (24-48) Monocytes (%) (Auto) 4 % (0-9) Eosinophils (%) (Auto) 0 % (0-3) Basophils (%) (Auto) 0 % (0-3) Neutrophils # (Auto) 6.8 x10^3/uL (1.8-7.7) Lymphocytes # (Auto) 0.4 x10^3/uL (1.0-4.8) Monocytes # (Auto) 0.3 x10^3/uL (0.0-1.1) Eosinophils # (Auto) 0.0 x10^3/uL (0.0-0.7) Basophils # (Auto) 0.0 x10^3/uL (0.0-0.2) Sodium Level 146 mmol/L (136-145) Potassium Level 3.3 mmol/L (3.5-5.1) Chloride Level 108 mmol/L (98-107) Carbon Dioxide Level 33 mmol/L (21-32) Anion Gap 5 (6-14) Blood Urea Nitrogen 15 mg/dL (8-26) Creatinine 0.7 mg/dL (0.7-1.3) Estimated GFR (Cockcroft-Gault) 114.6 BUN/Creatinine Ratio 21 (6-20) Glucose Level 99 mg/dL (70-99) Calcium Level 8.1 mg/dL (8.5-10.1) Total Bilirubin 0.4 mg/dL (0.2-1.0) Aspartate Amino Transf (AST/SGOT) 30 U/L (15-37) Alanine Aminotransferase (ALT/SGPT) 27 U/L (16-63) Alkaline Phosphatase 367 U/L (46-116) Lactate Dehydrogenase 268 U/L (85-227) C-Reactive Protein, Quantitative 69.7 mg/L (0-3.3) Total Protein 4.6 g/dL (6.4-8.2) Albumin 1.6 g/dL (3.4-5.0) Albumin/Globulin Ratio 0.5 (1.0-1.7) O2 Saturation 92 % (92-99) Arterial Blood pH 7.41 (7.35-7.45) Arterial Blood pCO2 at Patient Temp 46 mmHg (35-46) Arterial Blood pO2 at Patient Temp 65 mmHg (65-108) Arterial Blood HCO3 29 mmol/L (21-28) Arterial Blood Base Excess 4 mmol/L (-3-3) FiO2 100 Assessment and Plan Assessmemt and Plan Problems Medical Problems: (1) COVID-19 virus infection Status: Acute Comment Review of Relevant I have reviewed the following items fany (where applicable) has been applied. Labs Laboratory Tests Test 11/02/19 05:00 11/03/19 04:32 11/03/19 06:25 Sodium Level 142 mmol/L (136-145) 146 mmol/L (136-145) Potassium Level 3.7 mmol/L (3.5-5.1) 3.3 mmol/L (3.5-5.1) Chloride Level 107 mmol/L (98-107) 108 mmol/L (98-107) Carbon Dioxide Level 29 mmol/L (21-32) 33 mmol/L (21-32) Anion Gap 6 (6-14) 5 (6-14) Blood Urea Nitrogen 14 mg/dL (8-26) 15 mg/dL (8-26) Creatinine 0.6 mg/dL (0.7-1.3) 0.7 mg/dL (0.7-1.3) Estimated GFR (Cockcroft-Gault) 137.0 114.6 BUN/Creatinine Ratio 23 (6-20) 21 (6-20) Glucose Level 152 mg/dL (70-99) 99 mg/dL (70-99) Calcium Level 8.6 mg/dL (8.5-10.1) 8.1 mg/dL (8.5-10.1) Magnesium Level 2.0 mg/dL (1.8-2.4) Total Bilirubin 0.5 mg/dL (0.2-1.0) 0.4 mg/dL (0.2-1.0) Aspartate Amino Transf (AST/SGOT) 28 U/L (15-37) 30 U/L (15-37) Alanine Aminotransferase (ALT/SGPT) 24 U/L (16-63) 27 U/L (16-63) Alkaline Phosphatase 449 U/L (46-116) 367 U/L (46-116) Total Protein 5.0 g/dL (6.4-8.2) 4.6 g/dL (6.4-8.2) Albumin 1.6 g/dL (3.4-5.0) 1.6 g/dL (3.4-5.0) Albumin/Globulin Ratio 0.5 (1.0-1.7) 0.5 (1.0-1.7) White Blood Count 7.5 x10^3/uL (4.0-11.0) Red Blood Count 4.03 x10^6/uL (4.30-5.70) Hemoglobin 12.3 g/dL (13.0-17.5) Hematocrit 36.4 % (39.0-53.0) Mean Corpuscular Volume 90 fL (79-100) Mean Corpuscular Hemoglobin 31 pg (25-35) Mean Corpuscular Hemoglobin Concent 34 g/dL (31-37) Red Cell Distribution Width 13.0 % (11.5-14.5) Platelet Count 260 x10^3/uL (140-400) Neutrophils (%) (Auto) 90 % (31-73) Lymphocytes (%) (Auto) 6 % (24-48) Monocytes (%) (Auto) 4 % (0-9) Eosinophils (%) (Auto) 0 % (0-3) Basophils (%) (Auto) 0 % (0-3) Neutrophils # (Auto) 6.8 x10^3/uL (1.8-7.7) Lymphocytes # (Auto) 0.4 x10^3/uL (1.0-4.8) Monocytes # (Auto) 0.3 x10^3/uL (0.0-1.1) Eosinophils # (Auto) 0.0 x10^3/uL (0.0-0.7) Basophils # (Auto) 0.0 x10^3/uL (0.0-0.2) Lactate Dehydrogenase 268 U/L (85-227) C-Reactive Protein, Quantitative 69.7 mg/L (0-3.3) O2 Saturation 92 % (92-99) Arterial Blood pH 7.41 (7.35-7.45) Arterial Blood pCO2 at Patient Temp 46 mmHg (35-46) Arterial Blood pO2 at Patient Temp 65 mmHg (65-108) Arterial Blood HCO3 29 mmol/L (21-28) Arterial Blood Base Excess 4 mmol/L (-3-3) FiO2 100 Laboratory Tests Test 11/03/19 04:32 11/03/19 06:25 White Blood Count 7.5 x10^3/uL (4.0-11.0) Red Blood Count 4.03 x10^6/uL (4.30-5.70) Hemoglobin 12.3 g/dL (13.0-17.5) Hematocrit 36.4 % (39.0-53.0) Mean Corpuscular Volume 90 fL (79-100) Mean Corpuscular Hemoglobin 31 pg (25-35) Mean Corpuscular Hemoglobin Concent 34 g/dL (31-37) Red Cell Distribution Width 13.0 % (11.5-14.5) Platelet Count 260 x10^3/uL (140-400) Neutrophils (%) (Auto) 90 % (31-73) Lymphocytes (%) (Auto) 6 % (24-48) Monocytes (%) (Auto) 4 % (0-9) Eosinophils (%) (Auto) 0 % (0-3) Basophils (%) (Auto) 0 % (0-3) Neutrophils # (Auto) 6.8 x10^3/uL (1.8-7.7) Lymphocytes # (Auto) 0.4 x10^3/uL (1.0-4.8) Monocytes # (Auto) 0.3 x10^3/uL (0.0-1.1) Eosinophils # (Auto) 0.0 x10^3/uL (0.0-0.7) Basophils # (Auto) 0.0 x10^3/uL (0.0-0.2) Sodium Level 146 mmol/L (136-145) Potassium Level 3.3 mmol/L (3.5-5.1) Chloride Level 108 mmol/L (98-107) Carbon Dioxide Level 33 mmol/L (21-32) Anion Gap 5 (6-14) Blood Urea Nitrogen 15 mg/dL (8-26) Creatinine 0.7 mg/dL (0.7-1.3) Estimated GFR (Cockcroft-Gault) 114.6 BUN/Creatinine Ratio 21 (6-20) Glucose Level 99 mg/dL (70-99) Calcium Level 8.1 mg/dL (8.5-10.1) Total Bilirubin 0.4 mg/dL (0.2-1.0) Aspartate Amino Transf (AST/SGOT) 30 U/L (15-37) Alanine Aminotransferase (ALT/SGPT) 27 U/L (16-63) Alkaline Phosphatase 367 U/L (46-116) Lactate Dehydrogenase 268 U/L (85-227) C-Reactive Protein, Quantitative 69.7 mg/L (0-3.3) Total Protein 4.6 g/dL (6.4-8.2) Albumin 1.6 g/dL (3.4-5.0) Albumin/Globulin Ratio 0.5 (1.0-1.7) O2 Saturation 92 % (92-99) Arterial Blood pH 7.41 (7.35-7.45) Arterial Blood pCO2 at Patient Temp 46 mmHg (35-46) Arterial Blood pO2 at Patient Temp 65 mmHg (65-108) Arterial Blood HCO3 29 mmol/L (21-28) Arterial Blood Base Excess 4 mmol/L (-3-3) FiO2 100 Microbiology 10/27/19 Blood Culture - Final, Complete NO GROWTH AFTER 5 DAYS Medications Current Medications Sodium Chloride 1,000 ml @ 1,000 mls/hr 1X ONCE IV Last administered on 10/27/19at 13:30; Start 10/27/19 at 13:30; Stop 10/27/19 at 14:29; Status DC Acetaminophen (Tylenol) 1,000 mg 1X ONCE PO Last administered on 10/27/19at 16:10; Start 10/27/19 at 16:00; Stop 10/27/19 at 16:01; Status DC Sodium Chloride (Normal Saline Flush) 3 ml QSHIFT PRN IV AFTER MEDS AND BLOOD DRAWS; Start 10/27/19 at 16:30 Sodium Chloride 1,000 ml @ 100 mls/hr Q10H IV Last administered on 11/03/19at 04:23; Start 10/27/19 at 16:22 Ondansetron HCl (Zofran) 4 mg PRN Q4HRS PRN IV NAUSEA/VOMITING Last administered on 11/03/19at 05:59; Start 10/27/19 at 16:30 Acetaminophen (Tylenol) 650 mg PRN Q4HRS PRN PO TEMP OVER 100.4F OR MILD PAIN Last administered on 11/03/19at 00:14; Start 10/27/19 at 16:30 Al Hydroxide/Mg Hydroxide (Mylanta Plus Xs) 30 ml PRN DAILY PRN PO HEARTBURN / GAS; Start 10/27/19 at 16:30 Sodium Monofluorophosphate (Fleet Adult) 133 ml PRN DAILY PRN CA CONSTIPATION; Start 10/27/19 at 16:30 Docusate Sodium (Colace) 100 mg PRN BID PRN PO HARD STOOLS; Start 10/27/19 at 16:30 Albuterol/ Ipratropium (Duoneb) 3 ml Q4H NEB ; Start 10/27/19 at 16:30; Stop 10/27/19 at 18:28; Status DC Guaifenesin (Robitussin) 200 mg PRN Q4HRS PRN PO COUGH 2ND CHOICE Last administered on 11/01/19 12:57; Start 10/27/19 at 16:30 Lorazepam (Ativan) 0.5 mg PRN Q4HRS PRN PO ANXIETY / AGITATION Last administered on 11/03/19 05:59; Start 10/27/19 at 16:30 Enoxaparin Sodium (Lovenox 40mg Syringe) 40 mg Q24H SQ Last administered on 11/02/19at 21:11; Start 10/27/19 at 21:00 Piperacillin Sod/ Tazobactam Sod 3.375 gm/Sodium Chloride 50 ml @ 100 mls/hr Q6HRS IV Last administered on 11/01/19 11:26; Start 10/27/19 at 18:00; Stop 11/01/19 at 12:49; Status DC Azithromycin 250 ml @ 250 mls/hr 1X ONCE IV ; Start 10/27/19 at 16:30; Stop 10/27/19 at 17:29; Status Cancel Azithromycin 500 mg/Sodium Chloride 250 ml @ 250 mls/hr Q24H IV Last administe red on 10/31/19at 18:28; Start 10/27/19 at 18:00; Stop 11/01/19 at 08:39; Status DC Albuterol Sulfate (Ventolin Neb Soln) 2.5 mg PRN Q4HRS PRN NEB SHORTNESS OF BREATH; Start 10/27/19 at 18:30 Sodium Chloride (Saline Mist Nasal) 1 nicolas PRN Q1HR PRN NS NASAL CONGESTION Last administered on 11/02/19at 12:34; Start 10/29/19 at 02:45 Pantoprazole Sodium (Protonix) 40 mg DAILYAC PO Last administered on 11/02/19at 09:06; Start 10/30/19 at 07:30 Calcium Carbonate/ Glycine (Tums) 500 mg PRN AFTMEALHC PRN PO INDIGESTION; Start 10/29/19 at 14:45 Polyethylene Glycol (miraLAX PACKET) 17 gm PRN DAILY PRN PO CONSTIPATION; Start 10/29/19 at 14:45 Lactobacillus Rhamnosus (Culturelle) 1 cap BID PO Last administered on 11/02/19at 21:10; Start 10/30/19 at 21:00 Guaifenesin (MUCINEX ER with DM) 2 tab PRN Q12HR PRN PO COUGH 1ST CHOICE Last administered on 11/03/19at 00:07; Start 10/30/19 at 11:15 Potassium Chloride (Klor-Con) 40 meq 1X ONCE PO Last administered on 11/01/19at 12:10; Start 11/01/19 at 12:15; Stop 11/01/19 at 12:16; Status DC Zinc Sulfate (Orazinc) 220 mg DAILY PO Last administered on 11/02/19at 09:06; Start 11/01/19 at 13:00 Meropenem 500 mg/ Sodium Chloride 50 ml @ 100 mls/hr Q8HRS IV Last administered on 11/03/19at 06:01; Start 11/01/19 at 14:00 Benzonatate (Tessalon Perle) 100 mg [id number] PO Last administered on 11/02/19at 21:10; Start 11/01/19 at 14:00 Acetaminophen (Tylenol) 650 mg 1X ONCE PO Last administered on 11/01/19at 14:24; Start 11/01/19 at 14:00; Stop 11/01/19 at 14:01; Status DC Diphenhydramine HCl (Benadryl) 25 mg 1X ONCE IV Last administered on 11/01/19at 14:25; Start 11/01/19 at 14:00; Stop 11/01/19 at 14:01; Status DC Methylprednisolone Sodium Succinate (SOLU-Medrol 40MG VIAL) 40 mg 1X ONCE IV Last administered on 11/01/19at 14:25; Start 11/01/19 at 14:00; Stop 11/01/19 at 14:01; Status DC Tocilizumab 400 mg/Sodium Chloride 100 ml @ 100 mls/hr 1X ONCE IV Last administered on 11/01/19at 15:18; Start 11/01/19 at 14:30; Stop 11/01/19 at 15:29; Status DC Linezolid/Dextrose 300 ml @ 300 mls/hr Q12HR IV Last administered on 11/02/19at 21:11; Start 11/01/19 at 21:00 Oxymetazoline HCl (Afrin) 2 spray BID NS ; Start 11/03/19 at 09:00 Succinylcholine Chloride (Anectine) 200 mg STK-MED ONCE .ROUTE ; Start 11/03/19 at 08:24; Stop 11/03/19 at 08:24; Status DC Etomidate (Amidate) 20 mg STK-MED ONCE IV ; Start 11/03/19 at 08:24; Stop 11/03/19 at 08:25; Status DC Midazolam HCl 100 ml @ 0 mls/hr CONT PRN IV SEE PROTOCOL Last administered on 11/03/19at 09:04; Start 11/03/19 at 08:45 Fentanyl Citrate (Fentanyl 2ml Vial) 100 mcg STK-MED ONCE .ROUTE ; Start 11/03/19 at 08:45; Stop 11/03/19 at 08:45; Status DC Fentanyl Citrate 30 ml @ 0 mls/hr CONT PRN IV SEE PROTOCOL Last administered on 11/03/19at 09:14; Start 11/03/19 at 09:00 Chlorhexidine Gluconate (Peridex) 15 ml BID MM ; Start 11/03/19 at 09:00 Dexmedetomidine HCl 400 mcg/ Sodium Chloride 100 ml @ 0 mls/hr CONT PRN IV ANXIETY / AGITATION; Start 11/03/19 at 09:15 Sodium Chloride 500 ml @ 500 mls/hr 1X PRN PRN IV ELEVATED BP, SEE COMMENTS; Start 11/03/19 at 09:15 Atropine Sulfate (ATROPINE 0.5mg SYRINGE) 0.5 mg PRN Q5MIN PRN IV SEE COMMENTS; Start 11/03/19 at 09:15 Famotidine (Pepcid Vial) 20 mg BID IVP ; Start 11/03/19 at 21:00 Vecuronium [place] (Norcuron Bolus) 10 mg STK-MED ONCE IV ; Start 11/03/19 at 09:27; Stop 11/03/19 at 09:27; Status DC Vecuronium [place] (Norcuron Bolus) 10 mg 1X ONCE IV Last administered on 11/03/19at 09:30; Start 11/03/19 at 09:30; Stop 11/03/19 at 09:34; Status DC Active Scripts Active Reported Zyrtec (Cetirizine Hcl) 10 Mg Tablet 10 Mg PO DAILY Vitals/I & O Vital Sign - Last 24 Hours 11/02/19 11/02/19 11/02/19 11/02/19 10:00 11:00 12:00 12:16 Pulse 84 78 83 Resp 22 22 22 B/P (MAP) 119/66 (83) 141/84 (103) 140/84 (102) O2 Delivery NonRebreather Mask NonRebreather Mask NonRebreather Mask Non- Rebreather O2 Flow Rate 6.0 6.0 6.0 6.0 11/02/19 11/02/19 11/02/19 11/02/19 13:00 14:00 14:00 15:02 Pulse 86 84 83 80 Resp 22 B/P (MAP) 142/84 (103) 130/83 (99) 130/83 (99) 142/81 (101) Pulse Ox 97 O2 Delivery NonRebreather Mask NonRebreather Mask NonRebreather Mask NonRebreather Mask O2 Flow Rate 6.0 6.0 6.0 6.0 11/02/19 11/02/19 11/02/19 11/02/19 15:50 16:00 16:22 18:00 Temp 97.9 97.9 Pulse 76 70 Resp B/P (MAP) 129/76 (93) 140/82 (101) O2 Delivery NonRebreather Mask Non-Rebreather NonRebreather Mask O2 Flow Rate 6.0 6.0 6.0 11/02/19 11/02/19 11/02/19 11/02/19 19:00 20:00 20:00 21:00 Temp 98.5 98.5 Pulse 89 81 75 Resp B/P (MAP) 143/81 (101) 142/79 (100) 138/85 (102) Pulse Ox 93 97 94 O2 Delivery NonRebreather Mask NonRebreather Mask Non-Rebreather NonRebreather Mask O2 Flow Rate 6.0 6.0 6.0 6.0 11/02/19 11/02/19 11/03/19 11/03/19 22:00 23:00 00:00 00:00 Temp 97.7 97.7 Pulse 75 74 78 Resp 21 B/P (MAP) 144/85 (104) 147/82 (103) 148/89 (108) Pulse Ox 93 93 92 O2 Delivery NonRebreather Mask NonRebreather Mask NonRebreather Mask Non- Rebreather O2 Flow Rate 6.0 6.0 6.0 6.0 11/03/19 11/03/19 11/03/19 11/03/19 01:00 02:00 03:00 03:45 Pulse 76 77 80 Resp 19 17 18 B/P (MAP) 140/82 (101) 150/83 (105) 133/80 (97) Pulse Ox 91 94 96 O2 Delivery NonRebreather Mask NonRebreather Mask NonRebreather Mask Non- Rebreather O2 Flow Rate 6.0 6.0 6.0 6.0 11/03/19 11/03/19 11/03/19 11/03/19 04:00 05:00 06:00 07:00 Temp 97.8 97.8 Pulse 75 83 75 92 Resp 15 23 17 24 B/P (MAP) 118/77 (91) 140/83 (102) 155/88 (110) 162/89 (113) Pulse Ox 92 92 91 85 O2 Delivery NonRebreather Mask NonRebreather Mask NonRebreather Mask NonRebreather Mask O2 Flow Rate 6.0 6.0 10.0 10.0 11/03/19 08:00 Temp 98.2 98.2 Pulse 85 Resp 28 B/P (MAP) 155/82 (106) Pulse Ox 87 O2 Delivery NonRebreather Mask O2 Flow Rate 10.0 Intake and Output 11/02/19 11/02/19 11/03/19 15:00 23:00 07:00 Intake Total 250 ml 880 ml 1908 ml Output Total 200 ml 250 ml 250 ml Balance 50 ml 630 ml 1658 ml Hemodynamically unstable?: No Is patient in severe pain?: No Is NPO status required?: No MARTINA GODOY MD November 03, 2019 09:42
[2019-11-03] MEDS ORDERED: ALBUMIN HUMAN 25% 100 ML IV ONE (10:00)
--- NOTE | 2019-11-03 10:01 | RAD ---
PORTABLE CHEST 1V 11/03/2019 8:55 AM Abdominal radiograph INDICATION: Endotracheal tube placement, central line placement COMPARISON: 11/01/2019 TECHNIQUE: Portable frontal view of the chest is provided. Single supine view the abdomen is provided. FINDINGS: The cardiomediastinal silhouette is similar in appearance. Right IJ central venous catheter is identified with the distal tip projecting over the right atrium. Endotracheal tube is identified with the distal tip projecting towards the right mainstem bronchus, 0.9 cm above the level of the josué. This may be retracted 2 to 3 cm. Nasogastric tube is identified coursing below the level of the diaphragm with the distal tip projecting over the expected region of the stomach. Multifocal alveolar airspace disease identified with similar distribution to the prior examination. Trace bilateral pleural effusions. No pneumothorax is visualized. There are no dilated loops of small or large bowel. Limited evaluation of the small bowel due to paucity of small bowel gas. No suspicious osseous abnormality. No organomegaly. No differential air-fluid levels. Small volume fecal contents noted within the rectosigmoid colon. IMPRESSION: 1. Endotracheal tube terminates 0.9 cm above the level of the josué. This may be retracted 2 to 3 cm. Tube appears to be projecting towards the right mainstem bronchus. 2. Similar aeration of the lungs with multifocal patchy alveolar airspace disease as may be seen with acute respiratory distress syndrome. Consideration may be given for multifocal pneumonia versus alveolar edema. 3. Right IJ central venous catheter is identified with the distal tip projecting over the right atrium. Nasogastric tube is in appropriate position. 4. Nonobstructive bowel gas pattern. FOR INTERNAL CODING PURPOSES Critical result: Findings discussed with colten Boone nurse, at 11/03/2019 9:56 AM. RESULT CODE: (C) Electronically signed by: Ava Javier MD (11/03/2019 9:59 AM) [id number]
[2019-11-03 10:04] LABS: BASE EXCESS ABG -3 mmol/L (-3-3); HCO3 ABG 23 mmol/L (21-28); PCO2 ABG 44 mmHg (35-46); PO2 ABG 53 mmHg (65-108); SAT O2 ABG 81 % (92-99)
[2019-11-03 10:05] LABS: FIO2 ABG 100
[2019-11-03] MEDS: NOREPINEPHRINE VIAL 8 MG in IV DEXTROSE 5% 250 ML IV PRN (10:16)
--- NOTE | 2019-11-03 11:02 | PDOC ---
PROGRESS NOTES Subjective Subjective Tele-health f/u 11/03/2019 HPI - f/u of Hairy cell leukemia ROS - Has dyspnea Objective Objective Vital Signs Date Time Temp Pulse Resp B/P (MAP) Pulse Ox O2 Delivery O2 Flow Rate FiO2 11/03/19 08:00 98.2 85 28 155/82 (106) 87 NonRebreather Mask 10.0 98.2 Intake and Output 11/03/19 07:00 Intake Total 3038 ml Output Total 700 ml Balance 2338 ml Intake Oral 780 ml IV Total 2258 ml Output Urine Total 700 ml # Voids 1 # Bowel Movements 1 Assessment Assessment Problems Medical Problems: (1) COVID-19 virus infection Status: Acute IMPRESSION AND PLAN: 1. 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 Bone marrow biopsy on 03/05/2014 revealed complete remission with no evidence of residual leukemia. He has never had any evidence of recurrent leukemia since then. His CBC from 10/27/2019 also reveals no evidence of recurrent leukemia. 2. Pneumonia secondary to COVID-19 infection. He has hypoxic respiratory failure. He is not requiring intubation. Appreciate pulmonary consultation. 3. Fever due to COVID-19, appreciate ID eval.. 4. Anemia due to pneumonia, HB 12.3 on 11/03/19 Comment Review of Relevant I have reviewed the following items fany (where applicable) has been applied. Labs Laboratory Tests Test 11/02/19 05:00 11/03/19 04:32 11/03/19 06:25 11/03/19 09:44 Sodium Level 142 mmol/L (136-145) 146 mmol/L (136-145) Potassium Level 3.7 mmol/L (3.5-5.1) 3.3 mmol/L (3.5-5.1) Chloride Level 107 mmol/L (98-107) 108 mmol/L (98-107) Carbon Dioxide Level 29 mmol/L (21-32) 33 mmol/L (21-32) Anion Gap 6 (6-14) 5 (6-14) Blood Urea Nitrogen 14 mg/dL (8-26) 15 mg/dL (8-26) Creatinine 0.6 mg/dL (0.7-1.3) 0.7 mg/dL (0.7-1.3) Estimated GFR (Cockcroft-Gault) 137.0 114.6 BUN/Creatinine Ratio 23 (6-20) 21 (6-20) Glucose Level 152 mg/dL (70-99) 99 mg/dL (70-99) Calcium Level 8.6 mg/dL (8.5-10.1) 8.1 mg/dL (8.5-10.1) Magnesium Level 2.0 mg/dL (1.8-2.4) Total Bilirubin 0.5 mg/dL (0.2-1.0) 0.4 mg/dL (0.2-1.0) Aspartate Amino Transf (AST/SGOT) 28 U/L (15-37) 30 U/L (15-37) Alanine Aminotransferase (ALT/SGPT) 24 U/L (16-63) 27 U/L (16-63) Alkaline Phosphatase 449 U/L (46-116) 367 U/L (46-116) Total Protein 5.0 g/dL (6.4-8.2) 4.6 g/dL (6.4-8.2) Albumin 1.6 g/dL (3.4-5.0) 1.6 g/dL (3.4-5.0) Albumin/Globulin Ratio 0.5 (1.0-1.7) 0.5 (1.0-1.7) White Blood Count 7.5 x10^3/uL (4.0-11.0) Red Blood Count 4.03 x10^6/uL (4.30-5.70) Hemoglobin 12.3 g/dL (13.0-17.5) Hematocrit 36.4 % (39.0-53.0) Mean Corpuscular Volume 90 fL (79-100) Mean Corpuscular Hemoglobin 31 pg (25-35) Mean Corpuscular Hemoglobin Concent 34 g/dL (31-37) Red Cell Distribution Width 13.0 % (11.5-14.5) Platelet Count 260 x10^3/uL (140-400) Neutrophils (%) (Auto) 90 % (31-73) Lymphocytes (%) (Auto) 6 % (24-48) Monocytes (%) (Auto) 4 % (0-9) Eosinophils (%) (Auto) 0 % (0-3) Basophils (%) (Auto) 0 % (0-3) Neutrophils # (Auto) 6.8 x10^3/uL (1.8-7.7) Lymphocytes # (Auto) 0.4 x10^3/uL (1.0-4.8) Monocytes # (Auto) 0.3 x10^3/uL (0.0-1.1) Eosinophils # (Auto) 0.0 x10^3/uL (0.0-0.7) Basophils # (Auto) 0.0 x10^3/uL (0.0-0.2) Lactate Dehydrogenase 268 U/L (85-227) C-Reactive Protein, Quantitative 69.7 mg/L (0-3.3) O2 Saturation 92 % (92-99) 81 % (92-99) Arterial Blood pH 7.41 (7.35-7.45) 7.33 (7.35-7.45) Arterial Blood pCO2 at Patient Temp 46 mmHg (35-46) 44 mmHg (35-46) Arterial Blood pO2 at Patient Temp 65 mmHg (65-108) 53 mmHg (65-108) Arterial Blood HCO3 29 mmol/L (21-28) 23 mmol/L (21-28) Arterial Blood Base Excess 4 mmol/L (-3-3) -3 mmol/L (-3-3) FiO2 100 100 Laboratory Tests Test 11/03/19 04:32 11/03/19 06:25 11/03/19 09:44 White Blood Count 7.5 x10^3/uL (4.0-11.0) Red Blood Count 4.03 x10^6/uL (4.30-5.70) Hemoglobin 12.3 g/dL (13.0-17.5) Hematocrit 36.4 % (39.0-53.0) Mean Corpuscular Volume 90 fL (79-100) Mean Corpuscular Hemoglobin 31 pg (25-35) Mean Corpuscular Hemoglobin Concent 34 g/dL (31-37) Red Cell Distribution Width 13.0 % (11.5-14.5) Platelet Count 260 x10^3/uL (140-400) Neutrophils (%) (Auto) 90 % (31-73) Lymphocytes (%) (Auto) 6 % (24-48) Monocytes (%) (Auto) 4 % (0-9) Eosinophils (%) (Auto) 0 % (0-3) Basophils (%) (Auto) 0 % (0-3) Neutrophils # (Auto) 6.8 x10^3/uL (1.8-7.7) Lymphocytes # (Auto) 0.4 x10^3/uL (1.0-4.8) Monocytes # (Auto) 0.3 x10^3/uL (0.0-1.1) Eosinophils # (Auto) 0.0 x10^3/uL (0.0-0.7) Basophils # (Auto) 0.0 x10^3/uL (0.0-0.2) Sodium Level 146 mmol/L (136-145) Potassium Level 3.3 mmol/L (3.5-5.1) Chloride Level 108 mmol/L (98-107) Carbon Dioxide Level 33 mmol/L (21-32) Anion Gap 5 (6-14) Blood Urea Nitrogen 15 mg/dL (8-26) Creatinine 0.7 mg/dL (0.7-1.3) Estimated GFR (Cockcroft-Gault) 114.6 BUN/Creatinine Ratio 21 (6-20) Glucose Level 99 mg/dL (70-99) Calcium Level 8.1 mg/dL (8.5-10.1) Total Bilirubin 0.4 mg/dL (0.2-1.0) Aspartate Amino Transf (AST/SGOT) 30 U/L (15-37) Alanine Aminotransferase (ALT/SGPT) 27 U/L (16-63) Alkaline Phosphatase 367 U/L (46-116) Lactate Dehydrogenase 268 U/L (85-227) C-Reactive Protein, Quantitative 69.7 mg/L (0-3.3) Total Protein 4.6 g/dL (6.4-8.2) Albumin 1.6 g/dL (3.4-5.0) Albumin/Globulin Ratio 0.5 (1.0-1.7) O2 Saturation 92 % (92-99) 81 % (92-99) Arterial Blood pH 7.41 (7.35-7.45) 7.33 (7.35-7.45) Arterial Blood pCO2 at Patient Temp 46 mmHg (35-46) 44 mmHg (35-46) Arterial Blood pO2 at Patient Temp 65 mmHg (65-108) 53 mmHg (65-108) Arterial Blood HCO3 29 mmol/L (21-28) 23 mmol/L (21-28) Arterial Blood Base Excess 4 mmol/L (-3-3) -3 mmol/L (-3-3) FiO2 100 100 Microbiology 10/27/19 Blood Culture - Final, Complete NO GROWTH AFTER 5 DAYS Medications Current Medications Sodium Chloride 1,000 ml @ 1,000 mls/hr 1X ONCE IV Last administered on 10/27/19at 13:30; Start 10/27/19 at 13:30; Stop 10/27/19 at 14:29; Status DC Acetaminophen (Tylenol) 1,000 mg 1X ONCE PO Last administered on 10/27/19at 16:10; Start 10/27/19 at 16:00; Stop 10/27/19 at 16:01; Status DC Sodium Chloride (Normal Saline Flush) 3 ml QSHIFT PRN IV AFTER MEDS AND BLOOD DRAWS; Start 10/27/19 at 16:30 Sodium Chloride 1,000 ml @ 100 mls/hr Q10H IV Last administered on 11/03/19at 04:23; Start 10/27/19 at 16:22 Ondansetron HCl (Zofran) 4 mg PRN Q4HRS PRN IV NAUSEA/VOMITING Last administered on 11/03/19at 05:59; Start 10/27/19 at 16:30 Acetaminophen (Tylenol) 650 mg PRN Q4HRS PRN PO TEMP OVER 100.4F OR MILD PAIN Last administered on 11/03/19at 00:14; Start 10/27/19 at 16:30 Al Hydroxide/Mg Hydroxide (Mylanta Plus Xs) 30 ml PRN DAILY PRN PO HEARTBURN / GAS; Start 10/27/19 at 16:30 Sodium Monofluorophosphate (Fleet Adult) 133 ml PRN DAILY PRN VT CONSTIPATION; Start 10/27/19 at 16:30 Docusate Sodium (Colace) 100 mg PRN BID PRN PO HARD STOOLS; Start 10/27/19 at 16:30 Albuterol/ Ipratropium (Duoneb) 3 ml Q4H NEB ; Start 10/27/19 at 16:30; Stop 10/27/19 at 18:28; Status DC Guaifenesin (Robitussin) 200 mg PRN Q4HRS PRN PO COUGH 2ND CHOICE Last administered on 11/01/19at 12:57; Start 10/27/19 at 16:30 Lorazepam (Ativan) 0.5 mg PRN Q4HRS PRN PO ANXIETY / AGITATION Last administered on 11/03/19at 05:59; Start 10/27/19 at 16:30 Enoxaparin Sodium (Lovenox 40mg Syringe) 40 mg Q24H SQ Last administered on 11/02/19at 21:11; Start 10/27/19 at 21:00 Piperacillin Sod/ Tazobactam Sod 3.375 gm/Sodium Chloride 50 ml @ 100 mls/hr Q6HRS IV Last administered on 11/01/19 11:26; Start 10/27/19 at 18:00; Stop 11/01/19 at 12:49; Status DC Azithromycin 250 ml @ 250 mls/hr 1X ONCE IV ; Start 10/27/19 at 16:30; Stop 10/27/19 at 17:29; Status Cancel Azithromycin 500 mg/Sodium Chloride 250 ml @ 250 mls/hr Q24H IV Last administered on 10/31/19at 18:28; Start 10/27/19 at 18:00; Stop 11/01/19 at 08:39; Status DC Albuterol Sulfate (Ventolin Neb Soln) 2.5 mg PRN Q4HRS PRN NEB SHORTNESS OF BREATH; Start 10/27/19 at 18:30 Sodium Chloride (Saline Mist Nasal) 1 nicolas PRN Q1HR PRN NS NASAL CONGESTION Last administered on 11/02/19at 12:34; Start 10/29/19 at 02:45 Pantoprazole Sodium (Protonix) 40 mg DAILYAC PO Last administered on 11/02/19at 09:06; Start 10/30/19 at 07:30 Calcium Carbonate/ Glycine (Tums) 500 mg PRN AFTMEALHC PRN PO INDIGESTION; Start 10/29/19 at 14:45 Polyethylene Glycol (miraLAX PACKET) 17 gm PRN DAILY PRN PO CONSTIPATION; Start 10/29/19 at 14:45 Lactobacillus Rhamnosus (Culturelle) 1 cap BID PO Last administered on 11/02/19at 21:10; Start 10/30/19 at 21:00 Guaifenesin (MUCINEX ER with DM) 2 tab PRN Q12HR PRN PO COUGH 1ST CHOICE Last administered on 11/03/19at 00:07; Start 10/30/19 at 11:15 Potassium Chloride (Klor-Con) 40 meq 1X ONCE PO Last administered on 11/01/19at 12:10; Start 11/01/19 at 12:15; Stop 11/01/19 at 12:16; Status DC Zinc Sulfate (Orazinc) 220 mg DAILY PO Last administered on 11/02/19at 09:06; Start 11/01/19 at 13:00 Meropenem 500 mg/ Sodium Chloride 50 ml @ 100 mls/hr Q8HRS IV Last administered on 11/03/19at 06:01; Start 11/01/19 at 14:00 Benzonatate (Tessalon Perle) 100 mg [id number] PO Last administered on 11/02/19at 21:10; Start 11/01/19 at 14:00 Acetaminophen (Tylenol) 650 mg 1X ONCE PO Last administered on 11/01/19at 14:24; Start 11/01/19 at 14:00; Stop 11/01/19 at 14:01; Status DC Diphenhydramine HCl (Benadryl) 25 mg 1X ONCE IV Last administered on 11/01/19at 14:25; Start 11/01/19 at 14:00; Stop 11/01/19 at 14:01; Status DC Methylprednisolone Sodium Succinate (SOLU-Medrol 40MG VIAL) 40 mg 1X ONCE IV Last administered on 11/01/19at 14:25; Start 11/01/19 at 14:00; Stop 11/01/19 at 14:01; Status DC Tocilizumab 400 mg/Sodium Chloride 100 ml @ 100 mls/hr 1X ONCE IV Last administered on 11/01/19at 15:18; Start 11/01/19 at 14:30; Stop 11/01/19 at 15:29; Status DC Linezolid/Dextrose 300 ml @ 300 mls/hr Q12HR IV Last administered on 11/03/19at 09:54; Start 11/01/19 at 21:00 Oxymetazoline HCl (Afrin) 2 spray BID NS ; Start 11/03/19 at 09:00 Succinylcholine Chloride (Anectine) 200 mg STK-MED ONCE .ROUTE ; Start 11/03/19 at 08:24; Stop 11/03/19 at 08:24; Status DC Etomidate (Amidate) 20 mg STK-MED ONCE IV ; Start 11/03/19 at 08:24; Stop 11/03/19 at 08:25; Status DC Midazolam HCl 100 ml @ 0 mls/hr CONT PRN IV SEE PROTOCOL Last administered on 11/03/19at 09:04; Start 11/03/19 at 08:45 Fentanyl Citrate (Fentanyl 2ml Vial) 100 mcg STK-MED ONCE .ROUTE ; Start 11/03/19 at 08:45; Stop 11/03/19 at 08:45; Status DC Fentanyl Citrate 30 ml @ 0 mls/hr CONT PRN IV SEE PROTOCOL Last administered on 11/03/19at 09:14; Start 11/03/19 at 09:00 Chlorhexidine Gluconate (Peridex) 15 ml BID MM ; Start 11/03/19 at 09:00 Dexmedetomidine HCl 400 mcg/ Sodium Chloride 100 ml @ 0 mls/hr CONT PRN IV ANXIETY / AGITATION Last administered on 11/03/19at 09:42; Start 11/03/19 at 09:15 Sodium Chloride 500 ml @ 500 mls/hr 1X PRN PRN IV ELEVATED BP, SEE COMMENTS; Start 11/03/19 at 09:15 Atropine Sulfate (ATROPINE 0.5mg SYRINGE) 0.5 mg PRN Q5MIN PRN IV SEE COMMENTS; Start 11/03/19 at 09:15 Famotidine (Pepcid Vial) 20 mg BID IVP ; Start 11/03/19 at 21:00 Vecuronium [place] (Norcuron Bolus) 10 mg STK-MED ONCE IV ; Start 11/03/19 at 09:27; Stop 11/03/19 at 09:27; Status DC Vecuronium [place] (Norcuron Bolus) 10 mg 1X ONCE IV Last administered on 11/03/19at 09:30; Start 11/03/19 at 09:30; Stop 11/03/19 at 09:34; Status DC Albumin Human 100 ml @ 100 mls/hr 1X ONCE IV Last administered on 11/03/19at 10:28; Start 11/03/19 at 10:00; Stop 11/03/19 at 10:59 Norepinephrine Bitartrate 8 mg/ Dextrose 258 ml @ 17.647 mls/ hr CONT PRN IV PER PROTOCOL Last administered on 11/03/19at 10:16; Start 11/03/19 at 10:00 Active Scripts Active Reported Zyrtec (Cetirizine Hcl) 10 Mg Tablet 10 Mg PO DAILY Vitals/I & O Vital Sign - Last 24 Hours 11/02/19 11/02/19 11/02/19 11/02/19 11:00 12:00 12:16 13:00 Pulse 78 83 86 Resp B/P (MAP) 141/84 (103) 140/84 (102) 142/84 (103) O2 Delivery NonRebreather Mask NonRebreather Mask Non-Rebreather NonRebreather Mask O2 Flow Rate 6.0 6.0 6.0 6.0 11/02/19 11/02/19 11/02/19 11/02/19 14:00 14:00 15:02 15:50 Temp 97.9 97.9 Pulse 84 83 80 Resp B/P (MAP) 130/83 (99) 130/83 (99) 142/81 (101) Pulse Ox 97 O2 Delivery NonRebreather Mask NonRebreather Mask NonRebreather Mask O2 Flow Rate 6.0 6.0 6.0 11/02/19 11/02/19 11/02/19 11/02/19 16:00 16:22 18:00 19:00 Pulse 76 70 89 Resp 24 B/P (MAP) 129/76 (93) 140/82 (101) 143/81 (101) Pulse Ox 93 O2 Delivery NonRebreather Mask Non-Rebreather NonRebreather Mask NonRebreather Mask O2 Flow Rate 6.0 6.0 6.0 6.0 11/02/19 11/02/19 11/02/19 11/02/19 20:00 20:00 21:00 22:00 Temp 98.5 98.5 Pulse 81 75 75 Resp 21 B/P (MAP) 142/79 (100) 138/85 (102) 144/85 (104) Pulse Ox 97 94 93 O2 Delivery NonRebreather Mask Non-Rebreather NonRebreather Mask NonRebreather Mask O2 Flow Rate 6.0 6.0 6.0 6.0 11/02/19 11/03/19 11/03/19 11/03/19 23:00 00:00 00:00 01:00 Temp 97.7 97.7 Pulse 74 78 76 Resp 23 21 19 B/P (MAP) 147/82 (103) 148/89 (108) 140/82 (101) Pulse Ox 93 92 91 O2 Delivery NonRebreather Mask NonRebreather Mask Non-Rebreather NonRebreather Mask O2 Flow Rate 6.0 6.0 6.0 6.0 20 5/11/17 5//20 5/20 02:00 03:00 03:45 04:00 Temp 97.8 97.8 Pulse 77 80 75 Resp 17 18 15 B/P (MAP) 150/83 (105) 133/80 (97) 118/77 (91) Pulse Ox 94 96 92 O2 Delivery NonRebreather Mask NonRebreather Mask Non-Rebreather NonRebreather Mask O2 Flow Rate 6.0 6.0 6.0 6.0 11/03/19 5/11/17 5//20 5//20 05:00 06:00 07:00 08:00 Temp 98.2 98.2 Pulse 83 75 92 85 Resp 23 17 24 28 B/P (MAP) 140/83 (102) 155/88 (110) 162/89 (113) 155/82 (106) Pulse Ox 92 91 85 87 O2 Delivery NonRebreather Mask NonRebreather Mask NonRebreather Mask NonRebreather Mask O2 Flow Rate 6.0 10.0 10.0 10.0 Intake and Output 11/02/19/20 5/20 15:00 23:00 07:00 Intake Total 250 ml 880 ml 1908 ml Output Total 200 ml 250 ml 250 ml Balance 50 ml 630 ml 1658 ml Hemodynamically unstable?: No Is patient in severe pain?: No Is NPO status required?: No KODY AVITIA MD November 03, 2019 11:02
--- NOTE | 2019-11-03 13:38 | NUR ---
Patient's SPO2 was sustaining at <90%, upon assessment patient was slightly short of air, patient was notified that without improvement, the next step is intubation, patient is agreeable to being intubated. Notified Dr. Paz of ABG results and work of breathing, received the order to intubate patient. Patient was intubated by Dr. Palafox at 0827, central line and arterial line placed as well. Confirmed ETT placement and CL placement via CXR, retracted ETT per radiologist. Patient's was notified of condition change via telephone contact. Patient is currently in prone position, occasional PVC but otherwise tolerating so far. Will continue to monitor.
[2019-11-03] MEDS: POTASSIUM CHLORIDE 20MEQ 100 ML IV SCH ×2 (14:22→15:27)
--- NOTE | 2019-11-03 16:09 | NUR ---
SS following up with discharge planning. SS reviewed pt chart and discussed with RNPaolo. Pt is Full Code and COVID19 positive. Pt intubated and now on the vent. SS will continue to follow for discharge planning.
[2019-11-03 16:54] LABS: D-DIMER 6.95 ug/mlFEU (0.00-0.50)
[2019-11-03] MEDS: FAMOTIDINE 20 MG/2 ML VIAL IVP SCH (19:57)
[2019-11-03] MEDS: ENOXAPARIN 40 MG/0.4 ML SYRINGE. SQ SCH (19:59)
[2019-11-03] MEDS: fentaNYL HIGH DOSE PCA 55 ML IV PRN (20:21)
[2019-11-04] VITALS (24 sets, daily range): BP systolic 84–158; BP diastolic 52–88
[2019-11-04] MEDS: MIDAZOLAM 100mg/100ml NS BAG 100 ML IV PRN (01:00)
[2019-11-04 01:07] LABS: ALKPHOS BONE 33 % (12-68); ALKPHOS INTES% 0 % (0-18); ALKPHOS LIV 67 % (13-88); ALPHOS TOT 507 IU/L (39-117)
[2019-11-04] MEDS: DEXMEDETOMIDINE 400 MCG in IV NORMAL SALINE 100ML 96 ML IV PRN ×2 (03:56→17:59)
[2019-11-04] MEDS: MEROPENEM 500 MG in IV NORMAL SALINE 50ML 50 ML IV SCH (06:27)
[2019-11-04 06:44] LABS: ALBUMIN 1.6 g/dL (3.4-5.0); ALBUMIN/GLOBULIN RATIO 0.6 (1.0-1.7); CALCIUM 7.5 mg/dL (8.5-10.1); CREATININE 0.7 mg/dL (0.7-1.3); GFR 114.6; POTASSIUM 3.6 mmol/L (3.5-5.1); TOTAL BILIRUBIN 0.5 mg/dL (0.2-1.0); TOTAL PROTEIN 4.2 g/dL (6.4-8.2)
[2019-11-04 07:03] LABS: BASO % 1 % (0-3); EOS # 0.1 x10^3/uL (0.0-0.7); EOS % 2 % (0-3); HEMATOCRIT 30.8 % (39.0-53.0); HEMOGLOBIN 10.7 g/dL (13.0-17.5); LYMPH # 0.4 x10^3/uL (1.0-4.8); LYMPH % 8 % (24-48); MEAN CORPUSCULAR HEMOGLOBIN 31 pg (25-35); MEAN CORPUSCULAR HGB CONC 35 g/dL (31-37); MEAN CORPUSCULAR VOLUME 90 fL (79-100); MONO # 0.2 x10^3/uL (0.0-1.1); MONO % 4 % (0-9); NEUT % 86 % (31-73); PLATELET COUNT 172 x10^3/uL (140-400); RED BLOOD COUNT 3.43 x10^6/uL (4.30-5.70); RED CELL DISTRIBUTION WIDTH 12.6 % (11.5-14.5); WHITE BLOOD COUNT 4.7 x10^3/uL (4.0-11.0)
[2019-11-04] MEDS: PANTOPRAZOLE 40 MG TABLET.DR. PO SCH (07:30)
--- NOTE | 2019-11-04 07:57 | PDOC ---
Infectious Disease Note Subjective Subjective Intubated/sedated 11/02 On 100 Fi02 and PEEP 12 ROS ROS unable to obtain Vital Sign Vital Signs Vital Signs Date Time Temp Pulse Resp B/P (MAP) Pulse Ox O2 Delivery O2 Flow Rate FiO2 11/04/19 06:00 60 26 92/52 (65) 98 Ventilator 11/04/19 04:00 98.7 98.7 11/03/19 08:00 10.0 Physical Exam PHYSICAL EXAM GENERAL: Intubated /sedated HEENT: Normocephalic, atraumatic, anicteric.PERRL. Oc/Op- open clear -ETT/OGT NECK: Supple, no JVD. LUNGS: Decreased breath sounds at the bases. No wheezing. No accessory muscle use. ABDOMEN: Soft, nontender, nondistended. : Sams EXTREMITIES: No edema, no cyanosis. DERMATOLOGIC: No generalized rash. BACK: Reveals normal curvature. No CVA tenderness. NEUROLOGIC: intubated/sedated PSYCHIATRIC: Unable to assess IV RIJ Labs Lab Laboratory Tests Test 11/03/19 09:44 11/03/19 15:15 11/04/19 00:15 11/04/19 05:45 O2 Saturation 81 % (92-99) Arterial Blood pH 7.33 (7.35-7.45) Arterial Blood pCO2 at Patient Temp 44 mmHg (35-46) Arterial Blood pO2 at Patient Temp 53 mmHg (65-108) Arterial Blood HCO3 23 mmol/L (21-28) Arterial Blood Base Excess -3 mmol/L (-3-3) FiO2 100 Fibrinogen 587 mg/dL (200-440) D-Dimer (Padmini) 6.95 ug/mlFEU (0.00-0.50) Ferritin 375 ng/mL (26-388) Glucose (Fingerstick) 103 mg/dL (70-99) White Blood Count 4.7 x10^3/uL (4.0-11.0) Red Blood Count 3.43 x10^6/uL (4.30-5.70) Hemoglobin 10.7 g/dL (13.0-17.5) Hematocrit 30.8 % (39.0-53.0) Mean Corpuscular Volume 90 fL (79-100) Mean Corpuscular Hemoglobin 31 pg (25-35) Mean Corpuscular Hemoglobin Concent 35 g/dL (31-37) Red Cell Distribution Width 12.6 % (11.5-14.5) Platelet Count 172 x10^3/uL (140-400) Neutrophils (%) (Auto) 86 % (31-73) Lymphocytes (%) (Auto) 8 % (24-48) Monocytes (%) (Auto) 4 % (0-9) Eosinophils (%) (Auto) 2 % (0-3) Basophils (%) (Auto) 1 % (0-3) Neutrophils # (Auto) 4.0 x10^3/uL (1.8-7.7) Lymphocytes # (Auto) 0.4 x10^3/uL (1.0-4.8) Monocytes # (Auto) 0.2 x10^3/uL (0.0-1.1) Eosinophils # (Auto) 0.1 x10^3/uL (0.0-0.7) Basophils # (Auto) 0.0 x10^3/uL (0.0-0.2) Sodium Level 147 mmol/L (136-145) Potassium Level 3.6 mmol/L (3.5-5.1) Chloride Level 112 mmol/L (98-107) Carbon Dioxide Level 32 mmol/L (21-32) Anion Gap 3 (6-14) Blood Urea Nitrogen 11 mg/dL (8-26) Creatinine 0.7 mg/dL (0.7-1.3) Estimated GFR (Cockcroft-Gault) 114.6 BUN/Creatinine Ratio 16 (6-20) Glucose Level 84 mg/dL (70-99) Calcium Level 7.5 mg/dL (8.5-10.1) Total Bilirubin 0.5 mg/dL (0.2-1.0) Aspartate Amino Transf (AST/SGOT) 31 U/L (15-37) Alanine Aminotransferase (ALT/SGPT) 23 U/L (16-63) Alkaline Phosphatase 393 U/L (46-116) Lactate Dehydrogenase 801 U/L (85-227) C-Reactive Protein, Quantitative 40.0 mg/L (0-3.3) Total Protein 4.2 g/dL (6.4-8.2) Albumin 1.6 g/dL (3.4-5.0) Albumin/Globulin Ratio 0.6 (1.0-1.7) Micro CXR/KUB 11/02 IMPRESSION: 1. Endotracheal tube terminates 0.9 cm above the level of the josué. This may be retracted 2 to 3 cm. Tube appears to be projecting towards the right mainstem bronchus. 2. Similar aeration of the lungs with multifocal patchy alveolar airspace disease as may be seen with acute respiratory distress syndrome. Consideration may be given for multifocal pneumonia versus alveolar edema. 3. Right IJ central venous catheter is identified with the distal tip projecting over the right atrium. Nasogastric tube is in appropriate position. 4. Nonobstructive bowel gas pattern. Microbiology 10/27/19 Blood Culture - Final, Complete NO GROWTH AFTER 5 DAYS Objective Assessment 1. Fever - better. Likely from COVID-19 2. COVID-19 respiratory illness to ICU 10/31 LFTs and CRP better - but requiring more 02 Status post convalescent serum administration 10/31/2019 CRP better - LDH up IL- 6 10/31 3. Pneumonia, secondary bacterial infection cannot be ruled out.s/p solumedrol 10/31 CXR 10/31 - slight worse 4. Nausea. 5. Headache. Resolved 6. Generalized weakness. 7. History of hairy cell leukemia in remission 8. Abnormal liver function tests likely from COVID 19. 9. Diarrhea prior to admission, now resolved. 10. Achalasia, status post esophagectomy. Plan Plan of Care D/c Zyvox/Meropenem 10/31 - today and monitor Actemera 10/31 and plasma 10/30 Continue supportive care off Zosyn 10/26 - 10/31 Completed azithromycin Follow-up lab in am and culture Maintain aspiration precautions Discussed with EDUARDO VERA MD November 04, 2019 07:57
[2019-11-04] MEDS: BENZONATATE 100 MG CAPSULE. PO SCH (09:00)
[2019-11-04] MEDS: OXYMETAZOLINE 0.05% NASAL SPRAY 30ML BOTTLE. NS SCH (09:00)
[2019-11-04] MEDS: CHLORHEXIDINE 0.12% 15 ML MOUTHWASH. MM SCH (09:00)
[2019-11-04] MEDS: ZINC SULFATE 220 MG CAPSULE. PO SCH (09:03)
[2019-11-04] MEDS: FAMOTIDINE 20 MG/2 ML VIAL IVP SCH ×2 (09:03→20:36)
[2019-11-04] MEDS: LACTOBACILLUS RHAMNOSUS GG 1 CAPSULE. PO SCH (09:04)
[2019-11-04 09:05] LABS: BASE EXCESS ABG 3 mmol/L (-3-3); HCO3 ABG 27 mmol/L (21-28); PCO2 ABG 39 mmHg (35-46); PO2 ABG 89 mmHg (65-108); SAT O2 ABG 95 % (92-99)
[2019-11-04 09:07] LABS: FIO2 ABG 90
--- NOTE | 2019-11-04 10:13 | RAD ---
PORTABLE CHEST 1V History: Ventilated patient. Respiratory failure. Comparison: November 03, 2019 Findings: Endotracheal tube above the josué, similar compared to prior. Enteric tube looped within the distal thorax in the gastric pull-through Stable right IJ central line. Multifocal pulmonary opacities, decreased within the bilateral upper lungs and left midlung. No pleural effusion. No pneumothorax. Unchanged heart size. Impression: 1. Enteric tube looped within the distal thorax in the region of the gastric pull-through. Recommend correlation for desired positioning. 2. Multifocal pulmonary opacities, decreased compared to prior. Electronically signed by: Flynn Garcia DO (11/04/2019 10:10 AM) [id number]
--- NOTE | 2019-11-04 10:41 | NUR ---
SS following up with discharge planning. SS discussed with RN, Lyubov. Pt is currently on the vent and COVID19 positive. SS will continue to follow for discharge planning.
[2019-11-04 11:03] LABS: % BANDS 1 % (0-9); % EOS 1 % (0-5); % LYMPHS 10 % (24-48); % MONOS 1 % (0-10); % SEGS 87 % (35-66); NUCLEATED RBC 1
[2019-11-04 11:04] LABS: PLT ESTIMATE ADEQUATE (ADEQUATE)
--- NOTE | 2019-11-04 11:04 | PDOC ---
Objective: Objective: Reviewed w/ nurse - OG to suction but bilious drainage around tube when prone - suction held currently because gave meds, wondering if needs PPN/TPN. D-dimer elevated yesterday, normal AMA. Stool charted yesterday, no OG output charted. She checked while I was in ICU - not much output now, tube flushes okay. Vital Signs: Vital Signs Date Time Temp Pulse Resp B/P (MAP) Pulse Ox O2 Delivery O2 Flow Rate FiO2 11/04/19 10:00 68 26 155/76 (102) 98 Ventilator 11/04/19 08:00 98.5 98.5 11/03/19 08:00 10.0 Labs: Laboratory Tests Test 11/03/19 15:15 11/04/19 00:15 11/04/19 05:45 11/04/19 08:00 Fibrinogen 587 mg/dL D-Dimer (Padmini) 6.95 ug/mlFEU Ferritin 375 ng/mL Glucose (Fingerstick) 103 mg/dL White Blood Count 4.7 x10^3/uL Red Blood Count 3.43 x10^6/uL Hemoglobin 10.7 g/dL Hematocrit 30.8 % Mean Corpuscular Volume 90 fL Mean Corpuscular Hemoglobin 31 pg Mean Corpuscular Hemoglobin Concent 35 g/dL Red Cell Distribution Width 12.6 % Platelet Count 172 x10^3/uL Neutrophils (%) (Auto) 86 % Lymphocytes (%) (Auto) 8 % Monocytes (%) (Auto) 4 % Eosinophils (%) (Auto) 2 % Basophils (%) (Auto) 1 % Neutrophils # (Auto) 4.0 x10^3/uL Lymphocytes # (Auto) 0.4 x10^3/uL Monocytes # (Auto) 0.2 x10^3/uL Eosinophils # (Auto) 0.1 x10^3/uL Basophils # (Auto) 0.0 x10^3/uL Platelet Estimate Pending Sodium Level 147 mmol/L Potassium Level 3.6 mmol/L Chloride Level 112 mmol/L Carbon Dioxide Level 32 mmol/L Anion Gap 3 Blood Urea Nitrogen 11 mg/dL Creatinine 0.7 mg/dL Estimated GFR (Cockcroft-Gault) 114.6 BUN/Creatinine Ratio 16 Glucose Level 84 mg/dL Calcium Level 7.5 mg/dL Total Bilirubin 0.5 mg/dL Aspartate Amino Transf (AST/SGOT) 31 U/L Alanine Aminotransferase (ALT/SGPT) 23 U/L Alkaline Phosphatase 393 U/L Lactate Dehydrogenase 801 U/L C-Reactive Protein, Quantitative 40.0 mg/L Total Protein 4.2 g/dL Albumin 1.6 g/dL Albumin/Globulin Ratio 0.6 O2 Saturation 95 % Arterial Blood pH 7.46 Arterial Blood pCO2 at Patient Temp 39 mmHg Arterial Blood pO2 at Patient Temp 89 mmHg Arterial Blood HCO3 27 mmol/L Arterial Blood Base Excess 3 mmol/L FiO2 90 Imaging: CXR 11/03 Impression: 1. Enteric tube looped within the distal thorax in the region of the gastric pull-through. Recommend correlation for desired positioning. 2. Multifocal pulmonary opacities, decreased compared to prior. PE: GEN: intubated in isolation LUNGS: vent HEART: RRR ABD: not distended NEURO/PSYCH: sedated A/P: Resp failure, +COVID-19 pneumonia - intubated 11/03/19 Mild anemia Elevated Alk Phos - fluctuating, US on hold H/o achalasia s/p esophagectomy and gastric pull through H/o cholelithiasis -- Getting IV H2 emily BID (previously PO PPI), CXR as above. Reviewed w/ Dr. Tolbert - continue same per GI. Hemodynamically unstable?: No Is patient in severe pain?: No Is NPO status required?: No ALEXIS COSTELLO November 04, 2019 11:04
[2019-11-04] MEDS ORDERED: HYDROCORTISONE SODIUM SUCC IV SCH (12:00)
[2019-11-04] MEDS ORDERED: methylPREDNISolone SOD SUCC 500 MG in IV NORMAL SALINE 100ML 100 ML IV SCH (12:00)
[2019-11-04] MEDS ORDERED: methylPREDNISolone SOD SUCC PF 125 MG/2 ML VIAL. IV SCH (12:00)
[2019-11-04] MEDS ORDERED: NORMAL SALINE IV SCH (12:00)
[2019-11-04] MEDS ORDERED: BENZONATATE 100 MG CAPSULE. PO PRN (12:15)
[2019-11-04] MEDS ORDERED: OXYMETAZOLINE 0.05% NASAL SPRAY 30ML BOTTLE. NS PRN (12:15)
[2019-11-04] MEDS ORDERED: ALBUMIN HUMAN 25% 100 ML IV ONE (13:45)
--- NOTE | 2019-11-04 14:27 | PDOC ---
PULMONARY PROGRESS NOTES Subjective Patient deteriorated this morning, intubated now FiO2 and 10 of PEEP Vitals Vital Signs Date Time Temp Pulse Resp B/P (MAP) Pulse Ox O2 Delivery O2 Flow Rate FiO2 11/04/19 11:50 100 Ventilator 11/04/19 10:00 68 26 155/76 (102) 11/04/19 08:00 98.5 98.5 11/03/19 08:00 10.0 Comments Patient seen during the the pandemic, visual exam, in sync with the ventilator. No respiratory distress edema Labs Laboratory Tests Test 11/03/19 04:32 11/03/19 06:25 11/03/19 09:44 11/03/19 15:15 White Blood Count 7.5 x10^3/uL (4.0-11.0) Red Blood Count 4.03 x10^6/uL (4.30-5.70) Hemoglobin 12.3 g/dL (13.0-17.5) Hematocrit 36.4 % (39.0-53.0) Mean Corpuscular Volume 90 fL (79-100) Mean Corpuscular Hemoglobin 31 pg (25-35) Mean Corpuscular Hemoglobin Concent 34 g/dL (31-37) Red Cell Distribution Width 13.0 % (11.5-14.5) Platelet Count 260 x10^3/uL (140-400) Neutrophils (%) (Auto) 90 % (31-73) Lymphocytes (%) (Auto) 6 % (24-48) Monocytes (%) (Auto) 4 % (0-9) Eosinophils (%) (Auto) 0 % (0-3) Basophils (%) (Auto) 0 % (0-3) Neutrophils # (Auto) 6.8 x10^3/uL (1.8-7.7) Lymphocytes # (Auto) 0.4 x10^3/uL (1.0-4.8) Monocytes # (Auto) 0.3 x10^3/uL (0.0-1.1) Eosinophils # (Auto) 0.0 x10^3/uL (0.0-0.7) Basophils # (Auto) 0.0 x10^3/uL (0.0-0.2) Sodium Level 146 mmol/L (136-145) Potassium Level 3.3 mmol/L (3.5-5.1) Chloride Level 108 mmol/L (98-107) Carbon Dioxide Level 33 mmol/L (21-32) Anion Gap 5 (6-14) Blood Urea Nitrogen 15 mg/dL (8-26) Creatinine 0.7 mg/dL (0.7-1.3) Estimated GFR (Cockcroft-Gault) 114.6 BUN/Creatinine Ratio 21 (6-20) Glucose Level 99 mg/dL (70-99) Calcium Level 8.1 mg/dL (8.5-10.1) Total Bilirubin 0.4 mg/dL (0.2-1.0) Aspartate Amino Transf (AST/SGOT) 30 U/L (15-37) Alanine Aminotransferase (ALT/SGPT) 27 U/L (16-63) Alkaline Phosphatase 367 U/L (46-116) Lactate Dehydrogenase 268 U/L (85-227) C-Reactive Protein, Quantitative 69.7 mg/L (0-3.3) Total Protein 4.6 g/dL (6.4-8.2) Albumin 1.6 g/dL (3.4-5.0) Albumin/Globulin Ratio 0.5 (1.0-1.7) O2 Saturation 92 % (92-99) 81 % (92-99) Arterial Blood pH 7.41 (7.35-7.45) 7.33 (7.35-7.45) Arterial Blood pCO2 at Patient Temp 46 mmHg (35-46) 44 mmHg (35-46) Arterial Blood pO2 at Patient Temp 65 mmHg (65-108) 53 mmHg (65-108) Arterial Blood HCO3 29 mmol/L (21-28) 23 mmol/L (21-28) Arterial Blood Base Excess 4 mmol/L (-3-3) -3 mmol/L (-3-3) FiO2 100 100 Fibrinogen 587 mg/dL (200-440) D-Dimer (Padmini) 6.95 ug/mlFEU (0.00-0.50) Ferritin 375 ng/mL (26-388) Test 11/04/19 00:15 11/04/19 05:45 11/04/19 08:00 Glucose (Fingerstick) 103 mg/dL (70-99) White Blood Count 4.7 x10^3/uL (4.0-11.0) Red Blood Count 3.43 x10^6/uL (4.30-5.70) Hemoglobin 10.7 g/dL (13.0-17.5) Hematocrit 30.8 % (39.0-53.0) Mean Corpuscular Volume 90 fL (79-100) Mean Corpuscular Hemoglobin 31 pg (25-35) Mean Corpuscular Hemoglobin Concent 35 g/dL (31-37) Red Cell Distribution Width 12.6 % (11.5-14.5) Platelet Count 172 x10^3/uL (140-400) Neutrophils (%) (Auto) 86 % (31-73) Lymphocytes (%) (Auto) 8 % (24-48) Monocytes (%) (Auto) 4 % (0-9) Eosinophils (%) (Auto) 2 % (0-3) Basophils (%) (Auto) 1 % (0-3) Neutrophils # (Auto) 4.0 x10^3/uL (1.8-7.7) Lymphocytes # (Auto) 0.4 x10^3/uL (1.0-4.8) Monocytes # (Auto) 0.2 x10^3/uL (0.0-1.1) Eosinophils # (Auto) 0.1 x10^3/uL (0.0-0.7) Basophils # (Auto) 0.0 x10^3/uL (0.0-0.2) Segmented Neutrophils % 87 % (35-66) Band Neutrophils % 1 % (0-9) Lymphocytes % 10 % (24-48) Monocytes % 1 % (0-10) Eosinophils % 1 % (0-5) Nucleated Red Blood Cells 1 Platelet Estimate Adequate (ADEQUATE) Sodium Level 147 mmol/L (136-145) Potassium Level 3.6 mmol/L (3.5-5.1) Chloride Level 112 mmol/L (98-107) Carbon Dioxide Level 32 mmol/L (21-32) Anion Gap 3 (6-14) Blood Urea Nitrogen 11 mg/dL (8-26) Creatinine 0.7 mg/dL (0.7-1.3) Estimated GFR (Cockcroft-Gault) 114.6 BUN/Creatinine Ratio 16 (6-20) Glucose Level 84 mg/dL (70-99) Calcium Level 7.5 mg/dL (8.5-10.1) Total Bilirubin 0.5 mg/dL (0.2-1.0) Aspartate Amino Transf (AST/SGOT) 31 U/L (15-37) Alanine Aminotransferase (ALT/SGPT) 23 U/L (16-63) Alkaline Phosphatase 393 U/L (46-116) Lactate Dehydrogenase 801 U/L (85-227) C-Reactive Protein, Quantitative 40.0 mg/L (0-3.3) Total Protein 4.2 g/dL (6.4-8.2) Albumin 1.6 g/dL (3.4-5.0) Albumin/Globulin Ratio 0.6 (1.0-1.7) O2 Saturation 95 % (92-99) Arterial Blood pH 7.46 (7.35-7.45) Arterial Blood pCO2 at Patient Temp 39 mmHg (35-46) Arterial Blood pO2 at Patient Temp 89 mmHg (65-108) Arterial Blood HCO3 27 mmol/L (21-28) Arterial Blood Base Excess 3 mmol/L (-3-3) FiO2 90 Laboratory Tests Test 11/03/19 15:15 11/04/19 00:15 11/04/19 05:45 11/04/19 08:00 Fibrinogen 587 mg/dL (200-440) D-Dimer (Padmini) 6.95 ug/mlFEU (0.00-0.50) Ferritin 375 ng/mL (26-388) Glucose (Fingerstick) 103 mg/dL (70-99) White Blood Count 4.7 x10^3/uL (4.0-11.0) Red Blood Count 3.43 x10^6/uL (4.30-5.70) Hemoglobin 10.7 g/dL (13.0-17.5) Hematocrit 30.8 % (39.0-53.0) Mean Corpuscular Volume 90 fL (79-100) Mean Corpuscular Hemoglobin 31 pg (25-35) Mean Corpuscular Hemoglobin Concent 35 g/dL (31-37) Red Cell Distribution Width 12.6 % (11.5-14.5) Platelet Count 172 x10^3/uL (140-400) Neutrophils (%) (Auto) 86 % (31-73) Lymphocytes (%) (Auto) 8 % (24-48) Monocytes (%) (Auto) 4 % (0-9) Eosinophils (%) (Auto) 2 % (0-3) Basophils (%) (Auto) 1 % (0-3) Neutrophils # (Auto) 4.0 x10^3/uL (1.8-7.7) Lymphocytes # (Auto) 0.4 x10^3/uL (1.0-4.8) Monocytes # (Auto) 0.2 x10^3/uL (0.0-1.1) Eosinophils # (Auto) 0.1 x10^3/uL (0.0-0.7) Basophils # (Auto) 0.0 x10^3/uL (0.0-0.2) Segmented Neutrophils % 87 % (35-66) Band Neutrophils % 1 % (0-9) Lymphocytes % 10 % (24-48) Monocytes % 1 % (0-10) Eosinophils % 1 % (0-5) Nucleated Red Blood Cells 1 Platelet Estimate Adequate (ADEQUATE) Sodium Level 147 mmol/L (136-145) Potassium Level 3.6 mmol/L (3.5-5.1) Chloride Level 112 mmol/L (98-107) Carbon Dioxide Level 32 mmol/L (21-32) Anion Gap 3 (6-14) Blood Urea Nitrogen 11 mg/dL (8-26) Creatinine 0.7 mg/dL (0.7-1.3) Estimated GFR (Cockcroft-Gault) 114.6 BUN/Creatinine Ratio 16 (6-20) Glucose Level 84 mg/dL (70-99) Calcium Level 7.5 mg/dL (8.5-10.1) Total Bilirubin 0.5 mg/dL (0.2-1.0) Aspartate Amino Transf (AST/SGOT) 31 U/L (15-37) Alanine Aminotransferase (ALT/SGPT) 23 U/L (16-63) Alkaline Phosphatase 393 U/L (46-116) Lactate Dehydrogenase 801 U/L (85-227) C-Reactive Protein, Quantitative 40.0 mg/L (0-3.3) Total Protein 4.2 g/dL (6.4-8.2) Albumin 1.6 g/dL (3.4-5.0) Albumin/Globulin Ratio 0.6 (1.0-1.7) O2 Saturation 95 % (92-99) Arterial Blood pH 7.46 (7.35-7.45) Arterial Blood pCO2 at Patient Temp 39 mmHg (35-46) Arterial Blood pO2 at Patient Temp 89 mmHg (65-108) Arterial Blood HCO3 27 mmol/L (21-28) Arterial Blood Base Excess 3 mmol/L (-3-3) FiO2 90 Medications Active Scripts Medications Dose Route/Sig Max Daily Dose Days Date Category Zyrtec (Cetirizine Hcl) 10 Mg Tablet 10 Mg PO DAILY 10/27/19 Reported Impression . 1. Acute hypoxic respiratory failure secondary to COVID-19/ARDS status post convalescent serum, and Tocilizumab 2. Abnormal chest x-ray with faint bilateral infiltrates suggestive of COVID-19 pneumonia. 3. Hairy cell leukemia, in remission. 4. Abnormal LFTs, likely related to COVID-19 infection. 5. Increase inflammatory markers 6. Achalasia 7. Encephalopathy Plan . Patient intubated on 11/02, some inflammatory markers have gone up, will add steroid Status post convalescent center Antibiotics, per ID Prone position IV fluids Nutritional support Total cumulative critical care time of 35 minutes, discussed case with ARIC, RN, reviewing labs, chest x-ray, formulating a plan ERMA NICHOLE MD November 04, 2019 14:27
--- NOTE | 2019-11-04 14:48 | PDOC ---
PROGRESS NOTES Chief Complaint Chief Complaint A/P: Acute hypoxic resp failure - 2/2 SARS-CoV-2 unfortunately requiring mechanical ventilation now. 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 Bone marrow biopsy on 03/05/2014 revealed complete remission PSH esophagectomy in 2016 remote tobacco abuse Elevated alkaline phos - hx Cholelithiasis. This is possibly 2/2 Zosyn as this is a reported side effect severe protein-caloric malnutrition Plan: ventilatory support as per pulmonary x ray reviewed abdominal x ray reviewed will need to reposition OG tube Antibiotics as per ID Status post administration of convalescent plasma on October 30 Status post anti-IL 6 inhibitor Supportive measures Reassess in the a.m. COVID-19 CRITERIA: The patient was evaluated during the global COVID-19 pandemic, and that diagnosis was suspected/considered upon their initial presentation. Their evaluation, treatment and testing was consistent with c dylanrent guidelines for patients who present with complaints or symptoms that may be related to COVID-19. History of Present Illness History of Present Illness Mr Schilling is a 59 yo M w/ PMHx Hairy cell leukemia, achalasia admitted in isolation in ICU w/ +COVID-19 pneumonia. 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 5: Cough worsening. Admitted to ICU 10/30: Transferred from ICU. Received 1 unit of [facility]FP from [facility] [place] COVID 19 convalescent plasma program donor 10/31:Today seen on COVID isolation unit, does not feel well, says he has felt sick for 12 days and would not wish this on his worst enemy. Pain on coughing. On 5 liters/min. 11/01: No acute events reported overnight, case discussed with nursing staff patient in no acute distress no complaints during my visit 11/02: Patient now requiring mechanical ventilation no acute events reported ov ernight. 11/03: No acute events reported overnight, case discussed with nursing staff patient in no acute distress no complaints during my visit Plan: ATB as per ID supprotive measures COVID-19 CRITERIA: The patient was evaluated during the global COVID-19 pandemic, and that diagnosis was suspected/considered upon their initial presentation. Their evaluation, treatment and testing were consistent with current guidelines for patients who present with complaints or symptoms that may be related to COVID-19. Vitals Vitals Vital Signs Date Time Temp Pulse Resp B/P (MAP) Pulse Ox O2 Delivery O2 Flow Rate FiO2 11/04/19 11:50 100 Ventilator 11/04/19 10:00 68 26 155/76 (102) 11/04/19 08:00 98.5 98.5 11/03/19 08:00 10.0 Physical Exam Physical Exam GENERAL: Intubated /sedated HEENT: Normocephalic, atraumatic, anicteric.PERRL. Oc/Op- open clear -ETT/OGT NECK: Supple, no JVD. LUNGS: Decreased breath sounds at the bases. No wheezing. No accessory muscle use. ABDOMEN: Soft, nontender, nondistended. : Sams EXTREMITIES: No edema, no cyanosis. DERMATOLOGIC: No generalized rash. BACK: Reveals normal curvature. No CVA tenderness. NEUROLOGIC: intubated/sedated PSYCHIATRIC: Unable to assess IV RIJ General: Alert, Oriented X3, Cooperative, mild distress Abdomen: Soft Extremities: No cyanosis, No edema Labs LABS Laboratory Tests Test 11/03/19 15:15 11/04/19 00:15 11/04/19 05:45 11/04/19 08:00 Fibrinogen 587 mg/dL (200-440) D-Dimer (Padmini) 6.95 ug/mlFEU (0.00-0.50) Ferritin 375 ng/mL (26-388) Glucose (Fingerstick) 103 mg/dL (70-99) White Blood Count 4.7 x10^3/uL (4.0-11.0) Red Blood Count 3.43 x10^6/uL (4.30-5.70) Hemoglobin 10.7 g/dL (13.0-17.5) Hematocrit 30.8 % (39.0-53.0) Mean Corpuscular Volume 90 fL (79-100) Mean Corpuscular Hemoglobin 31 pg (25-35) Mean Corpuscular Hemoglobin Concent 35 g/dL (31-37) Red Cell Distribution Width 12.6 % (11.5-14.5) Platelet Count 172 x10^3/uL (140-400) Neutrophils (%) (Auto) 86 % (31-73) Lymphocytes (%) (Auto) 8 % (24-48) Monocytes (%) (Auto) 4 % (0-9) Eosinophils (%) (Auto) 2 % (0-3) Basophils (%) (Auto) 1 % (0-3) Neutrophils # (Auto) 4.0 x10^3/uL (1.8-7.7) Lymphocytes # (Auto) 0.4 x10^3/uL (1.0-4.8) Monocytes # (Auto) 0.2 x10^3/uL (0.0-1.1) Eosinophils # (Auto) 0.1 x10^3/uL (0.0-0.7) Basophils # (Auto) 0.0 x10^3/uL (0.0-0.2) Segmented Neutrophils % 87 % (35-66) Band Neutrophils % 1 % (0-9) Lymphocytes % 10 % (24-48) Monocytes % 1 % (0-10) Eosinophils % 1 % (0-5) Nucleated Red Blood Cells 1 Platelet Estimate Adequate (ADEQUATE) Sodium Level 147 mmol/L (136-145) Potassium Level 3.6 mmol/L (3.5-5.1) Chloride Level 112 mmol/L (98-107) Carbon Dioxide Level 32 mmol/L (21-32) Anion Gap 3 (6-14) Blood Urea Nitrogen 11 mg/dL (8-26) Creatinine 0.7 mg/dL (0.7-1.3) Estimated GFR (Cockcroft-Gault) 114.6 BUN/Creatinine Ratio 16 (6-20) Glucose Level 84 mg/dL (70-99) Calcium Level 7.5 mg/dL (8.5-10.1) Total Bilirubin 0.5 mg/dL (0.2-1.0) Aspartate Amino Transf (AST/SGOT) 31 U/L (15-37) Alanine Aminotransferase (ALT/SGPT) 23 U/L (16-63) Alkaline Phosphatase 393 U/L (46-116) Lactate Dehydrogenase 801 U/L (85-227) C-Reactive Protein, Quantitative 40.0 mg/L (0-3.3) Total Protein 4.2 g/dL (6.4-8.2) Albumin 1.6 g/dL (3.4-5.0) Albumin/Globulin Ratio 0.6 (1.0-1.7) O2 Saturation 95 % (92-99) Arterial Blood pH 7.46 (7.35-7.45) Arterial Blood pCO2 at Patient Temp 39 mmHg (35-46) Arterial Blood pO2 at Patient Temp 89 mmHg (65-108) Arterial Blood HCO3 27 mmol/L (21-28) Arterial Blood Base Excess 3 mmol/L (-3-3) FiO2 90 Assessment and Plan Assessmemt and Plan Problems Medical Problems: (1) COVID-19 virus infection Status: Acute Comment Review of Relevant I have reviewed the following items fany (where applicable) has been applied. Labs Laboratory Tests Test 11/03/19 04:32 11/03/19 06:25 11/03/19 09:44 11/03/19 15:15 White Blood Count 7.5 x10^3/uL (4.0-11.0) Red Blood Count 4.03 x10^6/uL (4.30-5.70) Hemoglobin 12.3 g/dL (13.0-17.5) Hematocrit 36.4 % (39.0-53.0) Mean Corpuscular Volume 90 fL (79-100) Mean Corpuscular Hemoglobin 31 pg (25-35) Mean Corpuscular Hemoglobin Concent 34 g/dL (31-37) Red Cell Distribution Width 13.0 % (11.5-14.5) Platelet Count 260 x10^3/uL (140-400) Neutrophils (%) (Auto) 90 % (31-73) Lymphocytes (%) (Auto) 6 % (24-48) Monocytes (%) (Auto) 4 % (0-9) Eosinophils (%) (Auto) 0 % (0-3) Basophils (%) (Auto) 0 % (0-3) Neutrophils # (Auto) 6.8 x10^3/uL (1.8-7.7) Lymphocytes # (Auto) 0.4 x10^3/uL (1.0-4.8) Monocytes # (Auto) 0.3 x10^3/uL (0.0-1.1) Eosinophils # (Auto) 0.0 x10^3/uL (0.0-0.7) Basophils # (Auto) 0.0 x10^3/uL (0.0-0.2) Sodium Level 146 mmol/L (136-145) Potassium Level 3.3 mmol/L (3.5-5.1) Chloride Level 108 mmol/L (98-107) Carbon Dioxide Level 33 mmol/L (21-32) Anion Gap 5 (6-14) Blood Urea Nitrogen 15 mg/dL (8-26) Creatinine 0.7 mg/dL (0.7-1.3) Estimated GFR (Cockcroft-Gault) 114.6 BUN/Creatinine Ratio 21 (6-20) Glucose Level 99 mg/dL (70-99) Calcium Level 8.1 mg/dL (8.5-10.1) Total Bilirubin 0.4 mg/dL (0.2-1.0) Aspartate Amino Transf (AST/SGOT) 30 U/L (15-37) Alanine Aminotransferase (ALT/SGPT) 27 U/L (16-63) Alkaline Phosphatase 367 U/L (46-116) Lactate Dehydrogenase 268 U/L (85-227) C-Reactive Protein, Quantitative 69.7 mg/L (0-3.3) Total Protein 4.6 g/dL (6.4-8.2) Albumin 1.6 g/dL (3.4-5.0) Albumin/Globulin Ratio 0.5 (1.0-1.7) O2 Saturation 92 % (92-99) 81 % (92-99) Arterial Blood pH 7.41 (7.35-7.45) 7.33 (7.35-7.45) Arterial Blood pCO2 at Patient Temp 46 mmHg (35-46) 44 mmHg (35-46) Arterial Blood pO2 at Patient Temp 65 mmHg (65-108) 53 mmHg (65-108) Arterial Blood HCO3 29 mmol/L (21-28) 23 mmol/L (21-28) Arterial Blood Base Excess 4 mmol/L (-3-3) -3 mmol/L (-3-3) FiO2 100 100 Fibrinogen 587 mg/dL (200-440) D-Dimer (Padmini) 6.95 ug/mlFEU (0.00-0.50) Ferritin 375 ng/mL (26-388) Test 11/04/19 00:15 11/04/19 05:45 11/04/19 08:00 Glucose (Fingerstick) 103 mg/dL (70-99) White Blood Count 4.7 x10^3/uL (4.0-11.0) Red Blood Count 3.43 x10^6/uL (4.30-5.70) Hemoglobin 10.7 g/dL (13.0-17.5) Hematocrit 30.8 % (39.0-53.0) Mean Corpuscular Volume 90 fL (79-100) Mean Corpuscular Hemoglobin 31 pg (25-35) Mean Corpuscular Hemoglobin Concent 35 g/dL (31-37) Red Cell Distribution Width 12.6 % (11.5-14.5) Platelet Count 172 x10^3/uL (140-400) Neutrophils (%) (Auto) 86 % (31-73) Lymphocytes (%) (Auto) 8 % (24-48) Monocytes (%) (Auto) 4 % (0-9) Eosinophils (%) (Auto) 2 % (0-3) Basophils (%) (Auto) 1 % (0-3) Neutrophils # (Auto) 4.0 x10^3/uL (1.8-7.7) Lymphocytes # (Auto) 0.4 x10^3/uL (1.0-4.8) Monocytes # (Auto) 0.2 x10^3/uL (0.0-1.1) Eosinophils # (Auto) 0.1 x10^3/uL (0.0-0.7) Basophils # (Auto) 0.0 x10^3/uL (0.0-0.2) Segmented Neutrophils % 87 % (35-66) Band Neutrophils % 1 % (0-9) Lymphocytes % 10 % (24-48) Monocytes % 1 % (0-10) Eosinophils % 1 % (0-5) Nucleated Red Blood Cells 1 Platelet Estimate Adequate (ADEQUATE) Sodium Level 147 mmol/L (136-145) Potassium Level 3.6 mmol/L (3.5-5.1) Chloride Level 112 mmol/L (98-107) Carbon Dioxide Level 32 mmol/L (21-32) Anion Gap 3 (6-14) Blood Urea Nitrogen 11 mg/dL (8-26) Creatinine 0.7 mg/dL (0.7-1.3) Estimated GFR (Cockcroft-Gault) 114.6 BUN/Creatinine Ratio 16 (6-20) Glucose Level 84 mg/dL (70-99) Calcium Level 7.5 mg/dL (8.5-10.1) Total Bilirubin 0.5 mg/dL (0.2-1.0) Aspartate Amino Transf (AST/SGOT) 31 U/L (15-37) Alanine Aminotransferase (ALT/SGPT) 23 U/L (16-63) Alkaline Phosphatase 393 U/L (46-116) Lactate Dehydrogenase 801 U/L (85-227) C-Reactive Protein, Quantitative 40.0 mg/L (0-3.3) Total Protein 4.2 g/dL (6.4-8.2) Albumin 1.6 g/dL (3.4-5.0) Albumin/Globulin Ratio 0.6 (1.0-1.7) O2 Saturation 95 % (92-99) Arterial Blood pH 7.46 (7.35-7.45) Arterial Blood pCO2 at Patient Temp 39 mmHg (35-46) Arterial Blood pO2 at Patient Temp 89 mmHg (65-108) Arterial Blood HCO3 27 mmol/L (21-28) Arterial Blood Base Excess 3 mmol/L (-3-3) FiO2 90 Laboratory Tests Test 11/03/19 15:15 11/04/19 00:15 11/04/19 05:45 11/04/19 08:00 Fibrinogen 587 mg/dL (200-440) D-Dimer (Padmini) 6.95 ug/mlFEU (0.00-0.50) Ferritin 375 ng/mL (26-388) Glucose (Fingerstick) 103 mg/dL (70-99) White Blood Count 4.7 x10^3/uL (4.0-11.0) Red Blood Count 3.43 x10^6/uL (4.30-5.70) Hemoglobin 10.7 g/dL (13.0-17.5) Hematocrit 30.8 % (39.0-53.0) Mean Corpuscular Volume 90 fL (79-100) Mean Corpuscular Hemoglobin 31 pg (25-35) Mean Corpuscular Hemoglobin Concent 35 g/dL (31-37) Red Cell Distribution Width 12.6 % (11.5-14.5) Platelet Count 172 x10^3/uL (140-400) Neutrophils (%) (Auto) 86 % (31-73) Lymphocytes (%) (Auto) 8 % (24-48) Monocytes (%) (Auto) 4 % (0-9) Eosinophils (%) (Auto) 2 % (0-3) Basophils (%) (Auto) 1 % (0-3) Neutrophils # (Auto) 4.0 x10^3/uL (1.8-7.7) Lymphocytes # (Auto) 0.4 x10^3/uL (1.0-4.8) Monocytes # (Auto) 0.2 x10^3/uL (0.0-1.1) Eosinophils # (Auto) 0.1 x10^3/uL (0.0-0.7) Basophils # (Auto) 0.0 x10^3/uL (0.0-0.2) Segmented Neutrophils % 87 % (35-66) Band Neutrophils % 1 % (0-9) Lymphocytes % 10 % (24-48) Monocytes % 1 % (0-10) Eosinophils % 1 % (0-5) Nucleated Red Blood Cells 1 Platelet Estimate Adequate (ADEQUATE) Sodium Level 147 mmol/L (136-145) Potassium Level 3.6 mmol/L (3.5-5.1) Chloride Level 112 mmol/L (98-107) Carbon Dioxide Level 32 mmol/L (21-32) Anion Gap 3 (6-14) Blood Urea Nitrogen 11 mg/dL (8-26) Creatinine 0.7 mg/dL (0.7-1.3) Estimated GFR (Cockcroft-Gault) 114.6 BUN/Creatinine Ratio 16 (6-20) Glucose Level 84 mg/dL (70-99) Calcium Level 7.5 mg/dL (8.5-10.1) Total Bilirubin 0.5 mg/dL (0.2-1.0) Aspartate Amino Transf (AST/SGOT) 31 U/L (15-37) Alanine Aminotransferase (ALT/SGPT) 23 U/L (16-63) Alkaline Phosphatase 393 U/L (46-116) Lactate Dehydrogenase 801 U/L (85-227) C-Reactive Protein, Quantitative 40.0 mg/L (0-3.3) Total Protein 4.2 g/dL (6.4-8.2) Albumin 1.6 g/dL (3.4-5.0) Albumin/Globulin Ratio 0.6 (1.0-1.7) O2 Saturation 95 % (92-99) Arterial Blood pH 7.46 (7.35-7.45) Arterial Blood pCO2 at Patient Temp 39 mmHg (35-46) Arterial Blood pO2 at Patient Temp 89 mmHg (65-108) Arterial Blood HCO3 27 mmol/L (21-28) Arterial Blood Base Excess 3 mmol/L (-3-3) FiO2 90 Microbiology 10/27/19 Blood Culture - Final, Complete NO GROWTH AFTER 5 DAYS Medications Current Medications Sodium Chloride 1,000 ml @ 1,000 mls/hr 1X ONCE IV Last administered on 10/27/19at 13:30; Start 10/27/19 at 13:30; Stop 10/27/19 at 14:29; Status DC Acetaminophen (Tylenol) 1,000 mg 1X ONCE PO Last administered on 10/27/19at 16:10; Start 10/27/19 at 16:00; Stop 10/27/19 at 16:01; Status DC Sodium Chloride (Normal Saline Flush) 3 ml QSHIFT PRN IV AFTER MEDS AND BLOOD DRAWS; Start 10/27/19 at 16:30 Sodium Chloride 1,000 ml @ 100 mls/hr Q10H IV Last administered on 11/03/19at 19:57; Start 10/27/19 at 16:22; Stop 11/04/19 at 13:33; Status DC Ondansetron HCl (Zofran) 4 mg PRN Q4HRS PRN IV NAUSEA/VOMITING Last administered on 11/03/19at 05:59; Start 10/27/19 at 16:30 Acetaminophen (Tylenol) 650 mg PRN Q4HRS PRN PO TEMP OVER 100.4F OR MILD PAIN Last administered on 11/03/19at 00:14; Start 10/27/19 at 16:30 Al Hydroxide/Mg Hydroxide (Mylanta Plus Xs) 30 ml PRN DAILY PRN PO HEARTBURN / GAS; Start 10/27/19 at 16:30 Sodium Monofluorophosphate (Fleet Adult) 133 ml PRN DAILY PRN ID CONSTIPATION; Start 10/27/19 at 16:30 Docusate Sodium (Colace) 100 mg PRN BID PRN PO HARD STOOLS; Start 10/27/19 at 16:30 Albuterol/ Ipratropium (Duoneb) 3 ml Q4H NEB ; Start 10/27/19 at 16:30; Stop 10/27/19 at 18:28; Status DC Guaifenesin (Robitussin) 200 mg PRN Q4HRS PRN PO COUGH 2ND CHOICE Last administered on 11/01/19at 12:57; Start 10/27/19 at 16:30 Lorazepam (Ativan) 0.5 mg PRN Q4HRS PRN PO ANXIETY / AGITATION Last administered on 11/03/19at 05:59; Start 10/27/19 at 16:30 Enoxaparin Sodium (Lovenox 40mg Syringe) 40 mg Q24H SQ Last administered on 11/03/19at 19:59; Start 10/27/19 at 21:00 Piperacillin Sod/ Tazobactam Sod 3.375 gm/Sodium Chloride 50 ml @ 100 mls/hr Q6HRS IV Last administered on 11/01/19at 11:26; Start 10/27/19 at 18:00; Stop 11/01/19 at 12:49; Status DC Azithromycin 250 ml @ 250 mls/hr 1X ONCE IV ; Start 10/27/19 at 16:30; Stop 10/27/19 at 17:29; Status Cancel Azithromycin 500 mg/Sodium Chloride 250 ml @ 250 mls/hr Q24H IV Last administered on 10/31/19at 18:28; Start 10/27/19 at 18:00; Stop 11/01/19 at 08:39; Status DC Albuterol Sulfate (Ventolin Neb Soln) 2.5 mg PRN Q4HRS PRN NEB SHORTNESS OF BREATH; Start 10/27/19 at 18:30 Sodium Chloride (Saline Mist Nasal) 1 nicolas PRN Q1HR PRN NS NASAL CONGESTION Last administered on 11/02/19at 12:34; Start 10/29/19 at 02:45 Pantoprazole Sodium (Protonix) 40 mg DAILYAC PO Last administered on 11/02/19at 09:06; Start 10/30/19 at 07:30; Stop 11/04/19 at 11:05; Status DC Calcium Carbonate/ Glycine (Tums) 500 mg PRN AFTMEALHC PRN PO INDIGESTION; Start 10/29/19 at 14:45 Polyethylene Glycol (miraLAX PACKET) 17 gm PRN DAILY PRN PO CONSTIPATION; Start 10/29/19 at 14:45 Lactobacillus Rhamnosus (Culturelle) 1 cap BID PO Last administered on 11/04/19at 09:04; Start 10/30/19 at 21:00; Stop 11/04/19 at 09:27; Status DC Guaifenesin (MUCINEX ER with DM) 2 tab PRN Q12HR PRN PO COUGH 1ST CHOICE Last administered on 11/03/19at 00:07; Start 10/30/19 at 11:15 Potassium Chloride (Klor-Con) 40 meq 1X ONCE PO Last administered on 11/01/19at 12:10; Start 11/01/19 at 12:15; Stop 11/01/19 at 12:16; Status DC Zinc Sulfate (Orazinc) 220 mg DAILY PO Last administered on 11/04/19at 09:03; Start 11/01/19 at 13:00 Meropenem 500 mg/ Sodium Chloride 50 ml @ 100 mls/hr Q8HRS IV Last administered on 11/04/19at 06:27; Start 11/01/19 at 14:00; Stop 11/04/19 at 07:56; Status DC Benzonatate (Tessalon Perle) 100 mg [id number] PO Last administered on 11/02/19at 21:10; Start 11/01/19 at 14:00; Stop 11/04/19 at 12:17; Status DC Acetaminophen (Tylenol) 650 mg 1X ONCE PO Last administered on 11/01/19at 14:24; Start 11/01/19 at 14:00; Stop 11/01/19 at 14:01; Status DC Diphenhydramine HCl (Benadryl) 25 mg 1X ONCE IV Last administered on 11/01/19at 14:25; Start 11/01/19 at 14:00; Stop 11/01/19 at 14:01; Status DC Methylprednisolone Sodium Succinate (SOLU-Medrol 40MG VIAL) 40 mg 1X ONCE IV Last administered on 11/01/19at 14:25; Start 11/01/19 at 14:00; Stop 11/01/19 at 14:01; Status DC Tocilizumab 400 mg/Sodium Chloride 100 ml @ 100 mls/hr 1X ONCE IV Last administered on 11/01/19at 15:18; Start 11/01/19 at 14:30; Stop 11/01/19 at 15:29; Status DC Linezolid/Dextrose 300 ml @ 300 mls/hr Q12HR IV Last administered on 11/03/19at 19:57; Start 11/01/19 at 21:00; Stop 11/04/19 at 07:56; Status DC Oxymetazoline HCl (Afrin) 2 spray BID NS ; Start 11/03/19 at 09:00; Stop 11/04/19 at 12:17; Status DC Succinylcholine Chloride (Anectine) 200 mg STK-MED ONCE .ROUTE ; Start 11/03/19 at 08:24; Stop 11/03/19 at 08:24; Status DC Etomidate (Amidate) 20 mg STK-MED ONCE IV ; Start 11/03/19 at 08:24; Stop 11/03/19 at 08:25; Status DC Midazolam HCl 100 ml @ 0 mls/hr CONT PRN IV SEE PROTOCOL Last administered on 11/04/19at 01:00; Start 11/03/19 at 08:45 Fentanyl Citrate (Fentanyl 2ml Vial) 100 mcg STK-MED ONCE .ROUTE ; Start 11/03/19 at 08:45; Stop 11/03/19 at 08:45; Status DC Fentanyl Citrate 30 ml @ 0 mls/hr CONT PRN IV SEE PROTOCOL Last administered on 11/03/19at 14:01; Start 11/03/19 at 09:00; Stop 11/03/19 at 19:32; Status DC Chlorhexidine Gluconate (Peridex) 15 ml BID MM Last administered on 11/03/19at 19:57; Start 11/03/19 at 09:00; Stop 11/04/19 at 10:16; Status DC Dexmedetomidine HCl 400 mcg/ Sodium Chloride 100 ml @ 0 mls/hr CONT PRN IV ANXIETY / AGITATION Last administered on 11/04/19at 03:56; Start 11/03/19 at 09:15 Sodium Chloride 500 ml @ 500 mls/hr 1X PRN PRN IV ELEVATED BP, SEE COMMENTS; Start 11/03/19 at 09:15 Atropine Sulfate (ATROPINE 0.5mg SYRINGE) 0.5 mg PRN Q5MIN PRN IV SEE COMMENTS; Start 11/03/19 at 09:15 Famotidine (Pepcid Vial) 20 mg BID IVP Last administered on 11/04/19at 09:03; Start 11/03/19 at 21:00 Vecuronium [place] (Norcuron Bolus) 10 mg STK-MED ONCE IV ; Start 11/03/19 at 09:27; Stop 11/03/19 at 09:27; Status DC Vecuronium [place] (Norcuron Bolus) 10 mg 1X ONCE IV Last administered on 11/03/19at 09:30; Start 11/03/19 at 09:30; Stop 11/03/19 at 09:34; Status DC Albumin Human 100 ml @ 100 mls/hr 1X ONCE IV Last administered on 11/03/19at 10:28; Start 11/03/19 at 10:00; Stop 11/03/19 at 10:59; Status DC Norepinephrine Bitartrate 8 mg/ Dextrose 258 ml @ 17.647 mls/ hr CONT PRN IV PER PROTOCOL Last administered on 11/03/19at 10:16; Start 11/03/19 at 10:00 Potassium Chloride/Water 100 ml @ 100 mls/hr Q1H IV Last administered on 11/03/19at 15:27; Start 11/03/19 at 13:30; Stop 11/03/19 at 15:29; Status DC Fentanyl Citrate 55 ml @ 0 mls/hr CONT PRN IV SEE I/O RECORD Last administered on 11/03/19at 20:21; Start 11/03/19 at 19:45 Fentanyl Citrate (Fentanyl 2ml Vial) 100 mcg STK-MED ONCE .ROUTE ; Start 11/03/19 at 09:00; Stop 11/04/19 at 09:05; Status DC Etomidate (Amidate) 20 mg STK-MED ONCE IV ; Start 11/03/19 at 09:00; Stop 11/04/19 at 09:06; Status DC Succinylcholine Chloride (Anectine) 200 mg STK-MED ONCE .ROUTE ; Start 11/03/19 at 09:00; Stop 11/04/19 at 09:06; Status DC Methylprednisolone Sodium Succinate (SOLU-Medrol 125MG VIAL) 500 mg Q6HRS IV ; Start 11/04/19 at 12:00; Stop 11/07/19 at 12:00; Status Cancel Hydrocortisone Sodium Succinate 500 mg/Sodium Chloride 104 ml @ 104 mls/hr Q6H IV ; Start 11/04/19 at 12:00; Stop 11/05/19 at 00:59; Status Cancel Methylprednisolone Sodium Succinate 500 mg/Sodium Chloride 100 ml @ 100 mls/hr Q6HRS IV Last administered on 11/04/19at 12:33; Start 11/04/19 at 12:00; Stop 11/04/19 at 14:30; Status DC Benzonatate (Tessalon Perle) 100 mg [id number] PRN PO COUGH; Start 11/04/19 at 12:15 Oxymetazoline HCl (Afrin) 2 spray BID PRN NS NASAL CONGESTION; Start 11/04/19 at 12:15 Albumin Human 100 ml @ 100 mls/hr 1X ONCE IV Last administered on 11/04/19at 14:36; Start 11/04/19 at 13:45; Stop 11/04/19 at 14:44 Methylprednisolone Sodium Succinate 250 mg/Sodium Chloride 100 ml @ 100 mls/hr Q6HRS IV ; Start 11/04/19 at 18:00; Stop 11/07/19 at 12:59 Active Scripts Active Reported Zyrtec (Cetirizine Hcl) 10 Mg Tablet 10 Mg PO DAILY Vitals/I & O Vital Sign - Last 24 Hours 11/03/19 11/03/19 11/03/19 11/03/19 15:00 16:00 16:00 16:00 Temp 98.3 98.3 Pulse 61 60 Resp 26 B/P (MAP) 123/82 (96) 122/82 (95) Pulse Ox 100 98 O2 Delivery Ventilator Mechanical Ventilator Ventilator 11/03/19 11/03/19 11/03/19 11/03/19 16:02 17:00 18:00 19:00 Pulse 56 60 56 Resp 26 26 B/P (MAP) 128/84 (99) 102/75 (84) 103/78 (86) Pulse Ox 100 100 99 99 O2 Delivery Ventilator Ventilator Ventilator Ventilator 11/03/19 11/03/19 11/03/19 11/03/19 19:58 20:00 20:00 20:15 Temp 97.8 97.8 Pulse 58 Resp 26 B/P (MAP) 102/76 (85) 136/68 (90) Pulse Ox 99 96 O2 Delivery Ventilator Ventilator Mechanical Ventilator 11/03/19 11/03/19 11/03/19 11/03/19 20:21 20:30 20:45 21:00 Pulse 58 Resp 26 B/P (MAP) 132/66 (88) 126/64 (84) 110/58 (75) Pulse Ox 98 99 O2 Delivery Ventilator Ventilator 11/03/19 11/03/19 11/03/19 11/04/19 21:03 22:00 23:00 00:00 Temp 98.7 98.7 Pulse 59 60 61 Resp 26 B/P (MAP) 124/67 (86) 123/65 (84) 119/64 (82) Pulse Ox 98 99 99 99 O2 Delivery Ventilator Ventilator Ventilator Ventilator 11/04/19 11/04/19 11/04/19 11/04/19 00:00 00:15 01:00 02:00 Pulse 56 56 Resp B/P (MAP) 88/66 (73) 86/56 (66) Pulse Ox 99 99 95 O2 Delivery Mechanical Ventilator Ventilator Ventilator Ventilator 11/04/19 11/04/19 11/04/19 11/04/19 03:00 04:00 04:00 04:00 Temp 98.7 98.7 Pulse 60 60 Resp B/P (MAP) 108/60 (76) 112/60 (77) Pulse Ox 99 99 99 O2 Delivery Ventilator Ventilator Ventilator 11/04/19 11/04/19 11/04/19 11/04/19 04:00 05:00 06:00 07:00 Pulse 60 60 60 Resp 26 26 B/P (MAP) 98/55 (69) 92/52 (65) 94/61 (72) Pulse Ox 97 98 98 O2 Delivery Mechanical Ventilator Ventilator Ventilator Ventilator 11/04/19 11/04/19 11/04/19 11/04/19 07:50 08:00 08:00 08:00 Temp 98.5 98.5 Pulse 62 Resp 26 B/P (MAP) 84/57 (66) Pulse Ox 97 98 O2 Delivery Ventilator Mechanical Ventilator Ventilator 11/04/19 11/04/19 11/04/19 09:00 10:00 11:50 Pulse 62 68 Resp 26 26 B/P (MAP) 91/62 (72) 155/76 (102) Pulse Ox 97 98 100 O2 Delivery Ventilator Ventilator Ventilator Intake and Output 11/03/19 11/03/19 11/04/19 15:00 23:00 07:00 Intake Total 450 ml 1444 ml 1718 ml Output Total 600 ml 1050 ml 850 ml Balance -150 ml 394 ml 868 ml Hemodynamically unstable?: No Is patient in severe pain?: No Is NPO status required?: No MARTINA GODOY MD November 04, 2019 14:47
[2019-11-04] MEDS: methylPREDNISolone SOD SUCC 250 MG in IV NORMAL SALINE 100ML 100 ML IV SCH (17:36)
[2019-11-04] MEDS: ENOXAPARIN 40 MG/0.4 ML SYRINGE. SQ SCH (20:36)
[2019-11-05] VITALS (24 sets, daily range): BP systolic 119–169; BP diastolic 68–97
[2019-11-05] MEDS: methylPREDNISolone SOD SUCC 250 MG in IV NORMAL SALINE 100ML 100 ML IV SCH ×5 (00:44→23:56)
[2019-11-05] MEDS: MIDAZOLAM 100mg/100ml NS BAG 100 ML IV PRN ×2 (01:43→12:11)
[2019-11-05] MEDS: fentaNYL HIGH DOSE PCA 55 ML IV PRN (02:59)
[2019-11-05 06:56] LABS: BASO % 0 % (0-3); EOS % 0 % (0-3); HEMATOCRIT 33.5 % (39.0-53.0); HEMOGLOBIN 11.5 g/dL (13.0-17.5); LYMPH # 0.3 x10^3/uL (1.0-4.8); LYMPH % 8 % (24-48); MEAN CORPUSCULAR HEMOGLOBIN 31 pg (25-35); MEAN CORPUSCULAR HGB CONC 35 g/dL (31-37); MEAN CORPUSCULAR VOLUME 90 fL (79-100); MONO % 1 % (0-9); NEUT # 3.5 x10^3/uL (1.8-7.7); NEUT % 92 % (31-73); PLATELET COUNT 169 x10^3/uL (140-400); RED BLOOD COUNT 3.74 x10^6/uL (4.30-5.70); WHITE BLOOD COUNT 3.8 x10^3/uL (4.0-11.0)
--- NOTE | 2019-11-05 07:32 | PDOC ---
Infectious Disease Note Subjective Subjective Intubated/sedated 11/02 On 90 Fi02 and PEEP 12 ROS ROS unable to obtain Vital Sign Vital Signs Vital Signs Date Time Temp Pulse Resp B/P (MAP) Pulse Ox O2 Delivery O2 Flow Rate FiO2 11/05/19 06:00 45 26 124/71 (88) 100 Ventilator 11/05/19 04:00 97.6 97.6 Physical Exam PHYSICAL EXAM GENERAL: Intubated /sedated but did open his eyes HEENT: Normocephalic, atraumatic, anicteric.PERRL. Oc/Op- open clear -ETT/OGT NECK: Supple, no JVD. LUNGS: Decreased breath sounds at the bases. ABDOMEN: Soft, nontender, nondistended. : Sams EXTREMITIES: No edema, no cyanosis. DERMATOLOGIC: No generalized rash. BACK: No CVA tenderness. NEUROLOGIC: intubated/sedated some PSYCHIATRIC: Unable to assess IV RIJ. R art line Labs Lab Laboratory Tests Test 11/04/19 08:00 11/05/19 00:38 11/05/19 06:15 O2 Saturation 95 % (92-99) Arterial Blood pH 7.46 (7.35-7.45) Arterial Blood pCO2 at Patient Temp 39 mmHg (35-46) Arterial Blood pO2 at Patient Temp 89 mmHg (65-108) Arterial Blood HCO3 27 mmol/L (21-28) Arterial Blood Base Excess 3 mmol/L (-3-3) FiO2 90 Glucose (Fingerstick) 137 mg/dL (70-99) White Blood Count 3.8 x10^3/uL (4.0-11.0) Red Blood Count 3.74 x10^6/uL (4.30-5.70) Hemoglobin 11.5 g/dL (13.0-17.5) Hematocrit 33.5 % (39.0-53.0) Mean Corpuscular Volume 90 fL (79-100) Mean Corpuscular Hemoglobin 31 pg (25-35) Mean Corpuscular Hemoglobin Concent 35 g/dL (31-37) Red Cell Distribution Width 13.0 % (11.5-14.5) Platelet Count 169 x10^3/uL (140-400) Neutrophils (%) (Auto) 92 % (31-73) Lymphocytes (%) (Auto) 8 % (24-48) Monocytes (%) (Auto) 1 % (0-9) Eosinophils (%) (Auto) 0 % (0-3) Basophils (%) (Auto) 0 % (0-3) Neutrophils # (Auto) 3.5 x10^3/uL (1.8-7.7) Lymphocytes # (Auto) 0.3 x10^3/uL (1.0-4.8) Monocytes # (Auto) 0.0 x10^3/uL (0.0-1.1) Eosinophils # (Auto) 0.0 x10^3/uL (0.0-0.7) Basophils # (Auto) 0.0 x10^3/uL (0.0-0.2) Micro CXR/KUB 11/02 IMPRESSION: 1. Endotracheal tube terminates 0.9 cm above the level of the josué. This may be retracted 2 to 3 cm. Tube appears to be projecting towards the right mainstem bronchus. 2. Similar aeration of the lungs with multifocal patchy alveolar airspace disease as may be seen with acute respiratory distress syndrome. Consideration may be given for multifocal pneumonia versus alveolar edema. 3. Right IJ central venous catheter is identified with the distal tip projecting over the right atrium. Nasogastric tube is in appropriate position. 4. Nonobstructive bowel gas pattern. Microbiology 10/27/19 Blood Culture - Final, Complete NO GROWTH AFTER 5 DAYS Objective Assessment 1. Fever - better. Likely from COVID-19 2. COVID-19 respiratory illness to ICU 10/31 LFTs and CRP better - but requiring more 02 Status post convalescent serum administration 10/31/2019 CRP - up - LDH better IL- 6 10/31 3. Pneumonia, secondary bacterial infection cannot be ruled out. s/p solumedrol / 4. Leukopenia 5. Headache. Resolved 6. Generalized weakness. 7. History of hairy cell leukemia in remission 8. Abnormal liver function tests likely from COVID 19. 9. Diarrhea prior to admission, now resolved. 10. Achalasia, status post esophagectomy. Plan Plan of Care TPN 5/6 Steroids restarted / single dose / off Zosyn 10/26 - 10/31 Off Zyvox/Meropenem 10/31 - 11/03 and monitor S/p Actemera 5/3 and plasma 5/2 Continue supportive care Completed azithromycin Follow-up lab in am and culture Maintain aspiration precautions Discussed with EDUARDO VERA MD November 05, 2019 07:32
[2019-11-05 07:53] LABS: C-REACTIVE PROTEIN 55.3 mg/L (0-3.3); CALCIUM 8.1 mg/dL (8.5-10.1); CREATININE 0.8 mg/dL (0.7-1.3); GFR 98.3; POTASSIUM 3.8 mmol/L (3.5-5.1)
[2019-11-05 08:00] LABS: BASE EXCESS ABG 1 mmol/L (-3-3); HCO3 ABG 26 mmol/L (21-28); PCO2 ABG 41 mmHg (35-46); PO2 ABG 145 mmHg (65-108); SAT O2 ABG 98 % (92-99)
--- NOTE | 2019-11-05 08:19 | PDOC ---
PULMONARY PROGRESS NOTES Subjective Patient deteriorated this morning, intubated now FiO2 80%, 11 of PEEP Vitals Vital Signs Date Time Temp Pulse Resp B/P (MAP) Pulse Ox O2 Delivery O2 Flow Rate FiO2 11/05/19 06:00 45 26 124/71 (88) 100 Ventilator 11/05/19 04:00 97.6 97.6 Comments Patient seen during the the pandemic, visual exam, in sync with the ventilator. No respiratory distress edema Labs Laboratory Tests Test 11/03/19 09:44 11/03/19 15:15 11/04/19 00:15 11/04/19 05:45 O2 Saturation 81 % (92-99) Arterial Blood pH 7.33 (7.35-7.45) Arterial Blood pCO2 at Patient Temp 44 mmHg (35-46) Arterial Blood pO2 at Patient Temp 53 mmHg (65-108) Arterial Blood HCO3 23 mmol/L (21-28) Arterial Blood Base Excess -3 mmol/L (-3-3) FiO2 100 Fibrinogen 587 mg/dL (200-440) D-Dimer (Padmini) 6.95 ug/mlFEU (0.00-0.50) Ferritin 375 ng/mL (26-388) Glucose (Fingerstick) 103 mg/dL (70-99) White Blood Count 4.7 x10^3/uL (4.0-11.0) Red Blood Count 3.43 x10^6/uL (4.30-5.70) Hemoglobin 10.7 g/dL (13.0-17.5) Hematocrit 30.8 % (39.0-53.0) Mean Corpuscular Volume 90 fL (79-100) Mean Corpuscular Hemoglobin 31 pg (25-35) Mean Corpuscular Hemoglobin Concent 35 g/dL (31-37) Red Cell Distribution Width 12.6 % (11.5-14.5) Platelet Count 172 x10^3/uL (140-400) Neutrophils (%) (Auto) 86 % (31-73) Lymphocytes (%) (Auto) 8 % (24-48) Monocytes (%) (Auto) 4 % (0-9) Eosinophils (%) (Auto) 2 % (0-3) Basophils (%) (Auto) 1 % (0-3) Neutrophils # (Auto) 4.0 x10^3/uL (1.8-7.7) Lymphocytes # (Auto) 0.4 x10^3/uL (1.0-4.8) Monocytes # (Auto) 0.2 x10^3/uL (0.0-1.1) Eosinophils # (Auto) 0.1 x10^3/uL (0.0-0.7) Basophils # (Auto) 0.0 x10^3/uL (0.0-0.2) Segmented Neutrophils % 87 % (35-66) Band Neutrophils % 1 % (0-9) Lymphocytes % 10 % (24-48) Monocytes % 1 % (0-10) Eosinophils % 1 % (0-5) Nucleated Red Blood Cells 1 Platelet Estimate Adequate (ADEQUATE) Sodium Level 147 mmol/L (136-145) Potassium Level 3.6 mmol/L (3.5-5.1) Chloride Level 112 mmol/L (98-107) Carbon Dioxide Level 32 mmol/L (21-32) Anion Gap 3 (6-14) Blood Urea Nitrogen 11 mg/dL (8-26) Creatinine 0.7 mg/dL (0.7-1.3) Estimated GFR (Cockcroft-Gault) 114.6 BUN/Creatinine Ratio 16 (6-20) Glucose Level 84 mg/dL (70-99) Calcium Level 7.5 mg/dL (8.5-10.1) Total Bilirubin 0.5 mg/dL (0.2-1.0) Aspartate Amino Transf (AST/SGOT) 31 U/L (15-37) Alanine Aminotransferase (ALT/SGPT) 23 U/L (16-63) Alkaline Phosphatase 393 U/L (46-116) Lactate Dehydrogenase 801 U/L (85-227) C-Reactive Protein, Quantitative 40.0 mg/L (0-3.3) Total Protein 4.2 g/dL (6.4-8.2) Albumin 1.6 g/dL (3.4-5.0) Albumin/Globulin Ratio 0.6 (1.0-1.7) Test 11/04/19 08:00 11/05/19 00:38 11/05/19 06:15 O2 Saturation 95 % (92-99) Arterial Blood pH 7.46 (7.35-7.45) Arterial Blood pCO2 at Patient Temp 39 mmHg (35-46) Arterial Blood pO2 at Patient Temp 89 mmHg (65-108) Arterial Blood HCO3 27 mmol/L (21-28) Arterial Blood Base Excess 3 mmol/L (-3-3) FiO2 90 Glucose (Fingerstick) 137 mg/dL (70-99) White Blood Count 3.8 x10^3/uL (4.0-11.0) Red Blood Count 3.74 x10^6/uL (4.30-5.70) Hemoglobin 11.5 g/dL (13.0-17.5) Hematocrit 33.5 % (39.0-53.0) Mean Corpuscular Volume 90 fL (79-100) Mean Corpuscular Hemoglobin 31 pg (25-35) Mean Corpuscular Hemoglobin Concent 35 g/dL (31-37) Red Cell Distribution Width 13.0 % (11.5-14.5) Platelet Count 169 x10^3/uL (140-400) Neutrophils (%) (Auto) 92 % (31-73) Lymphocytes (%) (Auto) 8 % (24-48) Monocytes (%) (Auto) 1 % (0-9) Eosinophils (%) (Auto) 0 % (0-3) Basophils (%) (Auto) 0 % (0-3) Neutrophils # (Auto) 3.5 x10^3/uL (1.8-7.7) Lymphocytes # (Auto) 0.3 x10^3/uL (1.0-4.8) Monocytes # (Auto) 0.0 x10^3/uL (0.0-1.1) Eosinophils # (Auto) 0.0 x10^3/uL (0.0-0.7) Basophils # (Auto) 0.0 x10^3/uL (0.0-0.2) Sodium Level 147 mmol/L (136-145) Potassium Level 3.8 mmol/L (3.5-5.1) Chloride Level 110 mmol/L (98-107) Carbon Dioxide Level 32 mmol/L (21-32) Anion Gap 5 (6-14) Blood Urea Nitrogen 18 mg/dL (8-26) Creatinine 0.8 mg/dL (0.7-1.3) Estimated GFR (Cockcroft-Gault) 98.3 Glucose Level 144 mg/dL (70-99) Calcium Level 8.1 mg/dL (8.5-10.1) Lactate Dehydrogenase 299 U/L (85-227) C-Reactive Protein, Quantitative 55.3 mg/L (0-3.3) Laboratory Tests Test 11/05/19 00:38 11/05/19 06:15 Glucose (Fingerstick) 137 mg/dL (70-99) White Blood Count 3.8 x10^3/uL (4.0-11.0) Red Blood Count 3.74 x10^6/uL (4.30-5.70) Hemoglobin 11.5 g/dL (13.0-17.5) Hematocrit 33.5 % (39.0-53.0) Mean Corpuscular Volume 90 fL (79-100) Mean Corpuscular Hemoglobin 31 pg (25-35) Mean Corpuscular Hemoglobin Concent 35 g/dL (31-37) Red Cell Distribution Width 13.0 % (11.5-14.5) Platelet Count 169 x10^3/uL (140-400) Neutrophils (%) (Auto) 92 % (31-73) Lymphocytes (%) (Auto) 8 % (24-48) Monocytes (%) (Auto) 1 % (0-9) Eosinophils (%) (Auto) 0 % (0-3) Basophils (%) (Auto) 0 % (0-3) Neutrophils # (Auto) 3.5 x10^3/uL (1.8-7.7) Lymphocytes # (Auto) 0.3 x10^3/uL (1.0-4.8) Monocytes # (Auto) 0.0 x10^3/uL (0.0-1.1) Eosinophils # (Auto) 0.0 x10^3/uL (0.0-0.7) Basophils # (Auto) 0.0 x10^3/uL (0.0-0.2) Sodium Level 147 mmol/L (136-145) Potassium Level 3.8 mmol/L (3.5-5.1) Chloride Level 110 mmol/L (98-107) Carbon Dioxide Level 32 mmol/L (21-32) Anion Gap 5 (6-14) Blood Urea Nitrogen 18 mg/dL (8-26) Creatinine 0.8 mg/dL (0.7-1.3) Estimated GFR (Cockcroft-Gault) 98.3 Glucose Level 144 mg/dL (70-99) Calcium Level 8.1 mg/dL (8.5-10.1) Lactate Dehydrogenase 299 U/L (85-227) C-Reactive Protein, Quantitative 55.3 mg/L (0-3.3) Medications Active Scripts Medications Dose Route/Sig Max Daily Dose Days Date Category Zyrtec (Cetirizine Hcl) 10 Mg Tablet 10 Mg PO DAILY 10/27/19 Reported Impression . 1. Acute hypoxic respiratory failure secondary to COVID-19/ARDS status post convalescent serum, and Tocilizumab 2. Abnormal chest x-ray with faint bilateral infiltrates suggestive of COVID-19 pneumonia. 3. Hairy cell leukemia, in remission. 4. Abnormal LFTs, likely related to COVID-19 infection. 5. Increase inflammatory markers 6. Achalasia 7. Encephalopathy Plan . Patient intubated on 11/02, some inflammatory markers have gone up, will add steroid, oxygenation much improved today Status post convalescent center Antibiotics, per ID Prone position IV fluids Nutritional support Total cumulative critical care time of 35 minutes, discussed case with ARIC RN, reviewing labs, chest x-ray, formulating a plan ERMA NICHOLE MD November 05, 2019 08:19
[2019-11-05 08:38] LABS: FIO2 ABG 90 VENT
[2019-11-05] MEDS: ZINC SULFATE 220 MG CAPSULE. PO SCH (09:10)
[2019-11-05] MEDS: FAMOTIDINE 20 MG/2 ML VIAL IVP SCH ×2 (09:10→20:21)
--- NOTE | 2019-11-05 09:53 | PDOC ---
Objective: Objective: D/w nurse - had some bilious drainage around OG when prone again but then not much out with suctioning later. Plans for TPN tonight. Vital Signs: Vital Signs Date Time Temp Pulse Resp B/P (MAP) Pulse Ox O2 Delivery O2 Flow Rate FiO2 11/05/19 06:00 45 26 124/71 (88) 100 Ventilator 11/05/19 04:00 97.6 97.6 Labs: Laboratory Tests Test 11/05/19 00:38 11/05/19 06:15 11/05/19 07:50 Glucose (Fingerstick) 137 mg/dL White Blood Count 3.8 x10^3/uL Red Blood Count 3.74 x10^6/uL Hemoglobin 11.5 g/dL Hematocrit 33.5 % Mean Corpuscular Volume 90 fL Mean Corpuscular Hemoglobin 31 pg Mean Corpuscular Hemoglobin Concent 35 g/dL Red Cell Distribution Width 13.0 % Platelet Count 169 x10^3/uL Neutrophils (%) (Auto) 92 % Lymphocytes (%) (Auto) 8 % Monocytes (%) (Auto) 1 % Eosinophils (%) (Auto) 0 % Basophils (%) (Auto) 0 % Neutrophils # (Auto) 3.5 x10^3/uL Lymphocytes # (Auto) 0.3 x10^3/uL Monocytes # (Auto) 0.0 x10^3/uL Eosinophils # (Auto) 0.0 x10^3/uL Basophils # (Auto) 0.0 x10^3/uL Sodium Level 147 mmol/L Potassium Level 3.8 mmol/L Chloride Level 110 mmol/L Carbon Dioxide Level 32 mmol/L Anion Gap 5 Blood Urea Nitrogen 18 mg/dL Creatinine 0.8 mg/dL Estimated GFR (Cockcroft-Gault) 98.3 Glucose Level 144 mg/dL Calcium Level 8.1 mg/dL Lactate Dehydrogenase 299 U/L C-Reactive Protein, Quantitative 55.3 mg/L O2 Saturation 98 % Arterial Blood pH 7.42 Arterial Blood pCO2 at Patient Temp 41 mmHg Arterial Blood pO2 at Patient Temp 145 mmHg Arterial Blood HCO3 26 mmol/L Arterial Blood Base Excess 1 mmol/L FiO2 90 vent PE: GEN: intubated in COVID isolation room LUNGS: vent HEART: HR 45 in chart ABD: non-distended NEURO/PSYCH: sedated A/P: Resp failure, +COVID-19 pneumonia - intubated 11/03/19 Elevated Alk Phos - fluctuating, imaging on hold -- Continue same per GI. Hemodynamically unstable?: No Is patient in severe pain?: No Is NPO status required?: Yes ALEXIS COSTELLO November 05, 2019 09:53
--- NOTE | 2019-11-05 10:47 | PDOC ---
PROGRESS NOTES Subjective Subjective Tele-health f/u 11/05/2019 HPI - f/u of Hairy cell leukemia ROS - intubated, on vent Objective Objective Vital Signs Date Time Temp Pulse Resp B/P (MAP) Pulse Ox O2 Delivery O2 Flow Rate FiO2 11/05/19 06:00 45 26 124/71 (88) 100 Ventilator 11/05/19 04:00 97.6 97.6 11/03/19 08:00 10.0 Intake and Output 11/05/19 07:00 Intake Total 2261 ml Output Total 1650 ml Balance 611 ml IV Total 2261 ml Output Urine Total 1650 ml Assessment Assessment Problems Medical Problems: (1) COVID-19 virus infection Status: Acute IMPRESSION AND PLAN: 1. 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 Bone marrow biopsy on 03/05/2014 revealed complete remission with no evidence of residual leukemia. He has never had any evidence of recurrent leukemia since then. His CBC from 10/27/2019 also reveals no evidence of recurrent leukemia. 2. Pneumonia secondary to COVID-19 infection. He has hypoxic respiratory failure. Appreciate pulmonary consultation. Intubated 11/03/19. 3. Fever due to COVID-19, appreciate ID eval.. 4. Anemia due to pneumonia, HB 12.3 on 11/03/19 Hb 11.5 on 11/05/19 Comment Review of Relevant I have reviewed the following items fany (where applicable) has been applied. Labs Laboratory Tests Test 11/03/19 15:15 11/04/19 00:15 11/04/19 05:45 11/04/19 08:00 Fibrinogen 587 mg/dL (200-440) D-Dimer (Padmini) 6.95 ug/mlFEU (0.00-0.50) Ferritin 375 ng/mL (26-388) Glucose (Fingerstick) 103 mg/dL (70-99) White Blood Count 4.7 x10^3/uL (4.0-11.0) Red Blood Count 3.43 x10^6/uL (4.30-5.70) Hemoglobin 10.7 g/dL (13.0-17.5) Hematocrit 30.8 % (39.0-53.0) Mean Corpuscular Volume 90 fL (79-100) Mean Corpuscular Hemoglobin 31 pg (25-35) Mean Corpuscular Hemoglobin Concent 35 g/dL (31-37) Red Cell Distribution Width 12.6 % (11.5-14.5) Platelet Count 172 x10^3/uL (140-400) Neutrophils (%) (Auto) 86 % (31-73) Lymphocytes (%) (Auto) 8 % (24-48) Monocytes (%) (Auto) 4 % (0-9) Eosinophils (%) (Auto) 2 % (0-3) Basophils (%) (Auto) 1 % (0-3) Neutrophils # (Auto) 4.0 x10^3/uL (1.8-7.7) Lymphocytes # (Auto) 0.4 x10^3/uL (1.0-4.8) Monocytes # (Auto) 0.2 x10^3/uL (0.0-1.1) Eosinophils # (Auto) 0.1 x10^3/uL (0.0-0.7) Basophils # (Auto) 0.0 x10^3/uL (0.0-0.2) Segmented Neutrophils % 87 % (35-66) Band Neutrophils % 1 % (0-9) Lymphocytes % 10 % (24-48) Monocytes % 1 % (0-10) Eosinophils % 1 % (0-5) Nucleated Red Blood Cells 1 Platelet Estimate Adequate (ADEQUATE) Sodium Level 147 mmol/L (136-145) Potassium Level 3.6 mmol/L (3.5-5.1) Chloride Level 112 mmol/L (98-107) Carbon Dioxide Level 32 mmol/L (21-32) Anion Gap 3 (6-14) Blood Urea Nitrogen 11 mg/dL (8-26) Creatinine 0.7 mg/dL (0.7-1.3) Estimated GFR (Cockcroft-Gault) 114.6 BUN/Creatinine Ratio 16 (6-20) Glucose Level 84 mg/dL (70-99) Calcium Level 7.5 mg/dL (8.5-10.1) Total Bilirubin 0.5 mg/dL (0.2-1.0) Aspartate Amino Transf (AST/SGOT) 31 U/L (15-37) Alanine Aminotransferase (ALT/SGPT) 23 U/L (16-63) Alkaline Phosphatase 393 U/L (46-116) Lactate Dehydrogenase 801 U/L (85-227) C-Reactive Protein, Quantitative 40.0 mg/L (0-3.3) Total Protein 4.2 g/dL (6.4-8.2) Albumin 1.6 g/dL (3.4-5.0) Albumin/Globulin Ratio 0.6 (1.0-1.7) O2 Saturation 95 % (92-99) Arterial Blood pH 7.46 (7.35-7.45) Arterial Blood pCO2 at Patient Temp 39 mmHg (35-46) Arterial Blood pO2 at Patient Temp 89 mmHg (65-108) Arterial Blood HCO3 27 mmol/L (21-28) Arterial Blood Base Excess 3 mmol/L (-3-3) FiO2 90 Test 11/05/19 00:38 11/05/19 06:15 11/05/19 07:50 Glucose (Fingerstick) 137 mg/dL (70-99) White Blood Count 3.8 x10^3/uL (4.0-11.0) Red Blood Count 3.74 x10^6/uL (4.30-5.70) Hemoglobin 11.5 g/dL (13.0-17.5) Hematocrit 33.5 % (39.0-53.0) Mean Corpuscular Volume 90 fL (79-100) Mean Corpuscular Hemoglobin 31 pg (25-35) Mean Corpuscular Hemoglobin Concent 35 g/dL (31-37) Red Cell Distribution Width 13.0 % (11.5-14.5) Platelet Count 169 x10^3/uL (140-400) Neutrophils (%) (Auto) 92 % (31-73) Lymphocytes (%) (Auto) 8 % (24-48) Monocytes (%) (Auto) 1 % (0-9) Eosinophils (%) (Auto) 0 % (0-3) Basophils (%) (Auto) 0 % (0-3) Neutrophils # (Auto) 3.5 x10^3/uL (1.8-7.7) Lymphocytes # (Auto) 0.3 x10^3/uL (1.0-4.8) Monocytes # (Auto) 0.0 x10^3/uL (0.0-1.1) Eosinophils # (Auto) 0.0 x10^3/uL (0.0-0.7) Basophils # (Auto) 0.0 x10^3/uL (0.0-0.2) Sodium Level 147 mmol/L (136-145) Potassium Level 3.8 mmol/L (3.5-5.1) Chloride Level 110 mmol/L (98-107) Carbon Dioxide Level 32 mmol/L (21-32) Anion Gap 5 (6-14) Blood Urea Nitrogen 18 mg/dL (8-26) Creatinine 0.8 mg/dL (0.7-1.3) Estimated GFR (Cockcroft-Gault) 98.3 Glucose Level 144 mg/dL (70-99) Calcium Level 8.1 mg/dL (8.5-10.1) Lactate Dehydrogenase 299 U/L (85-227) C-Reactive Protein, Quantitative 55.3 mg/L (0-3.3) O2 Saturation 98 % (92-99) Arterial Blood pH 7.42 (7.35-7.45) Arterial Blood pCO2 at Patient Temp 41 mmHg (35-46) Arterial Blood pO2 at Patient Temp 145 mmHg (65-108) Arterial Blood HCO3 26 mmol/L (21-28) Arterial Blood Base Excess 1 mmol/L (-3-3) FiO2 90 vent Laboratory Tests Test 11/05/19 00:38 11/05/19 06:15 11/05/19 07:50 Glucose (Fingerstick) 137 mg/dL (70-99) White Blood Count 3.8 x10^3/uL (4.0-11.0) Red Blood Count 3.74 x10^6/uL (4.30-5.70) Hemoglobin 11.5 g/dL (13.0-17.5) Hematocrit 33.5 % (39.0-53.0) Mean Corpuscular Volume 90 fL (79-100) Mean Corpuscular Hemoglobin 31 pg (25-35) Mean Corpuscular Hemoglobin Concent 35 g/dL (31-37) Red Cell Distribution Width 13.0 % (11.5-14.5) Platelet Count 169 x10^3/uL (140-400) Neutrophils (%) (Auto) 92 % (31-73) Lymphocytes (%) (Auto) 8 % (24-48) Monocytes (%) (Auto) 1 % (0-9) Eosinophils (%) (Auto) 0 % (0-3) Basophils (%) (Auto) 0 % (0-3) Neutrophils # (Auto) 3.5 x10^3/uL (1.8-7.7) Lymphocytes # (Auto) 0.3 x10^3/uL (1.0-4.8) Monocytes # (Auto) 0.0 x10^3/uL (0.0-1.1) Eosinophils # (Auto) 0.0 x10^3/uL (0.0-0.7) Basophils # (Auto) 0.0 x10^3/uL (0.0-0.2) Sodium Level 147 mmol/L (136-145) Potassium Level 3.8 mmol/L (3.5-5.1) Chloride Level 110 mmol/L (98-107) Carbon Dioxide Level 32 mmol/L (21-32) Anion Gap 5 (6-14) Blood Urea Nitrogen 18 mg/dL (8-26) Creatinine 0.8 mg/dL (0.7-1.3) Estimated GFR (Cockcroft-Gault) 98.3 Glucose Level 144 mg/dL (70-99) Calcium Level 8.1 mg/dL (8.5-10.1) Lactate Dehydrogenase 299 U/L (85-227) C-Reactive Protein, Quantitative 55.3 mg/L (0-3.3) O2 Saturation 98 % (92-99) Arterial Blood pH 7.42 (7.35-7.45) Arterial Blood pCO2 at Patient Temp 41 mmHg (35-46) Arterial Blood pO2 at Patient Temp 145 mmHg (65-108) Arterial Blood HCO3 26 mmol/L (21-28) Arterial Blood Base Excess 1 mmol/L (-3-3) FiO2 90 vent Microbiology 10/27/19 Blood Culture - Final, Complete NO GROWTH AFTER 5 DAYS Medications Current Medications Sodium Chloride 1,000 ml @ 1,000 mls/hr 1X ONCE IV Last administered on 10/27/19at 13:30; Start 10/27/19 at 13:30; Stop 10/27/19 at 14:29; Status DC Acetaminophen (Tylenol) 1,000 mg 1X ONCE PO Last administered on 10/27/19at 16:10; Start 10/27/19 at 16:00; Stop 10/27/19 at 16:01; Status DC Sodium Chloride (Normal Saline Flush) 3 ml QSHIFT PRN IV AFTER MEDS AND BLOOD DRAWS; Start 10/27/19 at 16:30 Sodium Chloride 1,000 ml @ 100 mls/hr Q10H IV Last administered on 11/03/19at 19:57; Start 10/27/19 at 16:22; Stop 11/04/19 at 13:33; Status DC Ondansetron HCl (Zofran) 4 mg PRN Q4HRS PRN IV NAUSEA/VOMITING Last adm inistered on 11/03/19at 05:59; Start 10/27/19 at 16:30 Acetaminophen (Tylenol) 650 mg PRN Q4HRS PRN PO TEMP OVER 100.4F OR MILD PAIN Last administered on 11/03/19at 00:14; Start 10/27/19 at 16:30 Al Hydroxide/Mg Hydroxide (Mylanta Plus Xs) 30 ml PRN DAILY PRN PO HEARTBURN / GAS; Start 10/27/19 at 16:30 Sodium Monofluorophosphate (Fleet Adult) 133 ml PRN DAILY PRN NC CONSTIPATION; Start 10/27/19 at 16:30 Docusate Sodium (Colace) 100 mg PRN BID PRN PO HARD STOOLS; Start 10/27/19 at 16:30 Albuterol/ Ipratropium (Duoneb) 3 ml Q4H NEB ; Start 10/27/19 at 16:30; Stop 10/27/19 at 18:28; Status DC Guaifenesin (Robitussin) 200 mg PRN Q4HRS PRN PO COUGH 2ND CHOICE Last administered on 11/01/19at 12:57; Start 10/27/19 at 16:30 Lorazepam (Ativan) 0.5 mg PRN Q4HRS PRN PO ANXIETY / AGITATION Last administered on 11/03/19 05:59; Start 10/27/19 at 16:30 Enoxaparin Sodium (Lovenox 40mg Syringe) 40 mg Q24H SQ Last administered on 11/04/19at 20:36; Start 10/27/19 at 21:00 Piperacillin Sod/ Tazobactam Sod 3.375 gm/Sodium Chloride 50 ml @ 100 mls/hr Q6HRS IV Last administered on 11/01/19at 11:26; Start 10/27/19 at 18:00; Stop 11/01/19 at 12:49; Status DC Azithromycin 250 ml @ 250 mls/hr 1X ONCE IV ; Start 10/27/19 at 16:30; Stop 10/27/19 at 17:29; Status Cancel Azithromycin 500 mg/Sodium Chloride 250 ml @ 250 mls/hr Q24H IV Last administered on 10/31/19at 18:28; Start 10/27/19 at 18:00; Stop 11/01/19 at 08:39; Status DC Albuterol Sulfate (Ventolin Neb Soln) 2.5 mg PRN Q4HRS PRN NEB SHORTNESS OF BREATH; Start 10/27/19 at 18:30 Sodium Chloride (Saline Mist Nasal) 1 nicolas PRN Q1HR PRN NS NASAL CONGESTION Last administered on 11/02/19at 12:34; Start 10/29/19 at 02:45 Pantoprazole Sodium (Protonix) 40 mg DAILYAC PO Last administered on 11/02/19at 09:06; Start 10/30/19 at 07:30; Stop 11/04/19 at 11:05; Status DC Calcium Carbonate/ Glycine (Tums) 500 mg PRN AFTMEALHC PRN PO INDIGESTION; Start 10/29/19 at 14:45 Polyethylene Glycol (miraLAX PACKET) 17 gm PRN DAILY PRN PO CONSTIPATION; Start 10/29/19 at 14:45 Lactobacillus Rhamnosus (Culturelle) 1 cap BID PO Last administered on 11/04/19at 09:04; Start 10/30/19 at 21:00; Stop 11/04/19 at 09:27; Status DC Guaifenesin (MUCINEX ER with DM) 2 tab PRN Q12HR PRN PO COUGH 1ST CHOICE Last administered on 11/03/19at 00:07; Start 10/30/19 at 11:15 Potassium Chloride (Klor-Con) 40 meq 1X ONCE PO Last administered on 11/01/19at 12:10; Start 11/01/19 at 12:15; Stop 11/01/19 at 12:16; Status DC Zinc Sulfate (Orazinc) 220 mg DAILY PO Last administered on 11/05/19at 09:10; Start 11/01/19 at 13:00 Meropenem 500 mg/ Sodium Chloride 50 ml @ 100 mls/hr Q8HRS IV Last administered on 11/04/19at 06:27; Start 11/01/19 at 14:00; Stop 11/04/19 at 07:56; Status DC Benzonatate (Tessalon Perle) 100 mg [id number] PO Last administered on 11/02/19at 21:10; Start 11/01/19 at 14:00; Stop 11/04/19 at 12:17; Status DC Acetaminophen (Tylenol) 650 mg 1X ONCE PO Last administered on 11/01/19at 14:24; Start 11/01/19 at 14:00; Stop 11/01/19 at 14:01; Status DC Diphenhydramine HCl (Benadryl) 25 mg 1X ONCE IV Last administered on 11/01/19at 14:25; Start 11/01/19 at 14:00; Stop 11/01/19 at 14:01; Status DC Methylprednisolone Sodium Succinate (SOLU-Medrol 40MG VIAL) 40 mg 1X ONCE IV Last administered on 11/01/19at 14:25; Start 11/01/19 at 14:00; Stop 11/01/19 at 14:01; Status DC Tocilizumab 400 mg/Sodium Chloride 100 ml @ 100 mls/hr 1X ONCE IV Last administered on 11/01/19at 15:18; Start 11/01/19 at 14:30; Stop 11/01/19 at 15:29; Status DC Linezolid/Dextrose 300 ml @ 300 mls/hr Q12HR IV Last administered on 11/03/19at 19:57; Start 11/01/19 at 21:00; Stop 11/04/19 at 07:56; Status DC Oxymetazoline HCl (Afrin) 2 spray BID NS ; Start 11/03/19 at 09:00; Stop 11/04/19 at 12:17; Status DC Succinylcholine Chloride (Anectine) 200 mg STK-MED ONCE .ROUTE ; Start 11/03/19 at 08:24; Stop 11/03/19 at 08:24; Status DC Etomidate (Amidate) 20 mg STK-MED ONCE IV ; Start 11/03/19 at 08:24; Stop 11/03/19 at 08:25; Status DC Midazolam HCl 100 ml @ 0 mls/hr CONT PRN IV SEE PROTOCOL Last administered on 11/05/19at 01:43; Start 11/03/19 at 08:45 Fentanyl Citrate (Fentanyl 2ml Vial) 100 mcg STK-MED ONCE .ROUTE ; Start 11/03/19 at 08:45; Stop 11/03/19 at 08:45; Status DC Fentanyl Citrate 30 ml @ 0 mls/hr CONT PRN IV SEE PROTOCOL Last administered on 11/03/19at 14:01; Start 11/03/19 at 09:00; Stop 11/03/19 at 19:32; Status DC Chlorhexidine Gluconate (Peridex) 15 ml BID MM Last administered on 11/03/19at 19:57; Start 11/03/19 at 09:00; Stop 11/04/19 at 10:16; Status DC Dexmedetomidine HCl 400 mcg/ Sodium Chloride 100 ml @ 0 mls/hr CONT PRN IV ANXIETY / AGITATION Last administered on 11/04/19at 17:59; Start 11/03/19 at 09:15 Sodium Chloride 500 ml @ 500 mls/hr 1X PRN PRN IV ELEVATED BP, SEE COMMENTS; Start 11/03/19 at 09:15 Atropine Sulfate (ATROPINE 0.5mg SYRINGE) 0.5 mg PRN Q5MIN PRN IV SEE COMMENTS; Start 11/03/19 at 09:15 Famotidine (Pepcid Vial) 20 mg BID IVP Last administered on 11/05/19at 09:10; Start 11/03/19 at 21:00 Vecuronium [place] (Norcuron Bolus) 10 mg STK-MED ONCE IV ; Start 11/03/19 at 09:27; Stop 11/03/19 at 09:27; Status DC Vecuronium [place] (Norcuron Bolus) 10 mg 1X ONCE IV Last administered on 11/03/19at 09:30; Start 11/03/19 at 09:30; Stop 11/03/19 at 09:34; Status DC Albumin Human 100 ml @ 100 mls/hr 1X ONCE IV Last administered on 11/03/19at 10:28; Start 11/03/19 at 10:00; Stop 11/03/19 at 10:59; Status DC Norepinephrine Bitartrate 8 mg/ Dextrose 258 ml @ 17.647 mls/ hr CONT PRN IV PER PROTOCOL Last administered on 11/03/19at 10:16; Start 11/03/19 at 10:00 Potassium Chloride/Water 100 ml @ 100 mls/hr Q1H IV Last administered on 11/03/19at 15:27; Start 11/03/19 at 13:30; Stop 11/03/19 at 15:29; Status DC Fentanyl Citrate 55 ml @ 0 mls/hr CONT PRN IV SEE I/O RECORD Last administered on 11/05/19at 02:59; Start 11/03/19 at 19:45 Fentanyl Citrate (Fentanyl 2ml Vial) 100 mcg STK-MED ONCE .ROUTE ; Start 11/03/19 at 09:00; Stop 11/04/19 at 09:05; Status DC Etomidate (Amidate) 20 mg STK-MED ONCE IV ; Start 11/03/19 at 09:00; Stop 11/04/19 at 09:06; Status DC Succinylcholine Chloride (Anectine) 200 mg STK-MED ONCE .ROUTE ; Start 11/03/19 at 09:00; Stop 11/04/19 at 09:06; Status DC Methylprednisolone Sodium Succinate (SOLU-Medrol 125MG VIAL) 500 mg Q6HRS IV ; Start 11/04/19 at 12:00; Stop 11/07/19 at 12:00; Status Cancel Hydrocortisone Sodium Succinate 500 mg/Sodium Chloride 104 ml @ 104 mls/hr Q6H IV ; Start 11/04/19 at 12:00; Stop 11/05/19 at 00:59; Status Cancel Methylprednisolone Sodium Succinate 500 mg/Sodium Chloride 100 ml @ 100 mls/hr Q6HRS IV Last administered on 11/04/19at 12:33; Start 11/04/19 at 12:00; Stop 11/04/19 at 14:30; Status DC Benzonatate (Tessalon Perle) 100 mg [id number] PRN PO COUGH; Start 11/04/19 at 12:15 Oxymetazoline HCl (Afrin) 2 spray BID PRN NS NASAL CONGESTION; Start 11/04/19 at 12:15 Albumin Human 100 ml @ 100 mls/hr 1X ONCE IV Last administered on 11/04/19at 14:36; Start 11/04/19 at 13:45; Stop 11/04/19 at 14:44; Status DC Methylprednisolone Sodium Succinate 250 mg/Sodium Chloride 100 ml @ 100 mls/hr Q6HRS IV Last administered on 11/05/19at 06:46; Start 11/04/19 at 18:00; Stop 11/07/19 at 12:59 Info (Tpn Per Pharmacy) 1 each PRN DAILY PRN MC SEE COMMENTS; Start 11/05/19 at 11:00 Active Scripts Active Reported Zyrtec (Cetirizine Hcl) 10 Mg Tablet 10 Mg PO DAILY Vitals/I & O Vital Sign - Last 24 Hours 11/04/19 11/04/19 11/04/19 11/04/19 11:00 11:50 12:00 12:00 Pulse 66 Resp B/P (MAP) 155/75 (101) Pulse Ox 98 100 O2 Delivery Ventilator Ventilator Mechanical Ventilator 11/04/19 11/04/19 11/04/19 11/04/19 12:00 13:00 14:00 15:00 Temp 98.4 98.4 Pulse 62 62 58 60 Resp B/P (MAP) 120/78 (92) 138/80 (99) 134/88 (103) 136/77 (96) Pulse Ox 98 98 98 98 O2 Delivery Ventilator Ventilator Ventilator Ventilator 11/04/19 11/04/19 11/04/19 11/04/19 16:00 16:00 16:00 16:15 Temp 97.7 97.7 Pulse 68 B/P (MAP) 158/88 (111) Pulse Ox 98 100 O2 Delivery Ventilator Mechanical Ventilator Ventilator 11/04/19 11/04/19 11/04/19 11/04/19 17:00 18:00 19:00 20:00 Pulse 48 48 45 Resp B/P (MAP) 155/76 (102) 146/86 (106) 143/81 (101) Pulse Ox 98 100 100 O2 Delivery Ventilator Ventilator Ventilator 11/04/19 11/04/19 11/04/19 11/04/19 20:00 20:00 20:45 21:00 Temp 97.9 97.9 Pulse 44 56 B/P (MAP) 140/80 (100) 128/77 (94) Pulse Ox 100 100 100 O2 Delivery Mechanical Ventilator Ventilator Ventilator Ventilator 11/04/19 11/04/19 11/04/19 11/05/19 22:00 23:00 23:30 00:00 Pulse 44 43 Resp B/P (MAP) 129/76 (93) 135/79 (97) Pulse Ox 100 100 100 O2 Delivery Ventilator Ventilator Mechanical Ventilator Ventilator 11/05/19 11/05/19 11/05/19 11/05/19 00:00 00:00 01:00 02:00 Temp 97.7 97.7 Pulse 42 42 49 Resp 26 B/P (MAP) 151/97 (115) 142/86 (104) 126/68 (87) Pulse Ox 100 100 100 O2 Delivery Ventilator Ventilator Ventilator 11/05/19 11/05/19 11/05/19 11/05/19 02:59 03:00 03:37 04:00 Pulse 43 Resp B/P (MAP) 120/70 (87) Pulse Ox 100 100 100 O2 Delivery Ventilator Ventilator Ventilator 11/05/19 11/05/19 11/05/19 11/05/19 04:00 04:00 04:20 05:00 Temp 97.6 97.6 Pulse 42 45 Resp 26 B/P (MAP) 158/80 (106) 135/85 (102) Pulse Ox 100 100 100 O2 Delivery Ventilator Mechanical Ventilator Ventilator Ventilator 11/05/19 06:00 Pulse 45 Resp 26 B/P (MAP) 124/71 (88) Pulse Ox 100 O2 Delivery Ventilator Intake and Output 11/04/19 11/04/19 11/05/19 15:00 23:00 07:00 Intake Total 1399 ml 271 ml 591 ml Output Total 600 ml 575 ml 475 ml Balance 799 ml -304 ml 116 ml Hemodynamically unstable?: No Is patient in severe pain?: No Is NPO status required?: Yes KODY AVITIA MD November 05, 2019 10:47
--- NOTE | 2019-11-05 11:11 | PDOC ---
PROGRESS NOTES Chief Complaint Chief Complaint A/P: Acute hypoxic resp failure - 2/2 SARS-CoV-2 unfortunately requiring mechanical ventilation now. 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 Bone marrow biopsy on 03/05/2014 revealed complete remission PSH esophagectomy in 2016 remote tobacco abuse Elevated alkaline phos - hx Cholelithiasis. This is possibly 2/2 Zosyn as this is a reported side effect severe protein-caloric malnutrition Plan: ventilatory support as per pulmonary Antibiotics as per ID Status post administration of convalescent plasma on October 30 Status post anti-IL 6 inhibitor Supportive measures Reassess in the a.m. COVID-19 CRITERIA: The patient was evaluated during the global COVID-19 pandemic, and that diagnosis was suspected/considered upon their initial presentation. Their evaluation, treatment and testing was consistent with current guidelines for patients who present with complaints or symptoms that may be related to COVID-19. History of Present Illness History of Present Illness Mr Schilling is a 59 yo M w/ PMHx Hairy cell leukemia, achalasia admitted in isolation in ICU w/ +COVID-19 pneumonia. 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 5: Cough worsening. Admitted to ICU 10/30: Transferred from ICU. Received 1 unit of FFP from [facility] blood [place] COVID 19 convalescent plasma program donor 10/31:Today seen on COVID isolation unit, does not feel well, says he has felt sick for 12 days and would not wish this on his worst enemy. Pain on coughing. On 5 liters/min. 11/01: No acute events reported overnight, case discussed with nursing staff patient in no acute distress no complaints during my visit 11/02: Patient now requiring mechanical ventilation no acute events reported overnight. 11/03: No acute events reported overnight, case discussed with nursing staff patient in no acute distress no complaints during my visit 11/04: No changes overnight. Continues to require ventilatory support quite a bit. Appreciate pulmonary financial management consultant recommendations Plan: ATB as per ID supprotive measures COVID-19 CRITERIA: The patient was evaluated during the global COVID-19 pandemic, and that diagnosis was suspected/considered upon their initial presentation. Their evaluation, treatment and testing were consistent with current guidelines for patients who present with complaints or symptoms that may be related to COVID-19. Vitals Vitals Vital Signs Date Time Temp Pulse Resp B/P (MAP) Pulse Ox O2 Delivery O2 Flow Rate FiO2 11/05/19 06:00 45 26 124/71 (88) 100 Ventilator 11/05/19 04:00 97.6 97.6 Physical Exam Physical Exam GENERAL: Intubated /sedated but did open his eyes HEENT: Normocephalic, atraumatic, anicteric.PERRL. Oc/Op- open clear -ETT/OGT NECK: Supple, no JVD. LUNGS: Decreased breath sounds at the bases. ABDOMEN: Soft, nontender, nondistended. : Sams EXTREMITIES: No edema, no cyanosis. DERMATOLOGIC: No generalized rash. BACK: No CVA tenderness. NEUROLOGIC: intubated/sedated some PSYCHIATRIC: Unable to assess IV RIJ. R art line General: Alert, Oriented X3, Cooperative, mild distress Abdomen: Soft Extremities: No cyanosis, No edema Labs LABS Laboratory Tests Test 11/05/19 00:38 11/05/19 06:15 11/05/19 07:50 Glucose (Fingerstick) 137 mg/dL (70-99) White Blood Count 3.8 x10^3/uL (4.0-11.0) Red Blood Count 3.74 x10^6/uL (4.30-5.70) Hemoglobin 11.5 g/dL (13.0-17.5) Hematocrit 33.5 % (39.0-53.0) Mean Corpuscular Volume 90 fL (79-100) Mean Corpuscular Hemoglobin 31 pg (25-35) Mean Corpuscular Hemoglobin Concent 35 g/dL (31-37) Red Cell Distribution Width 13.0 % (11.5-14.5) Platelet Count 169 x10^3/uL (140-400) Neutrophils (%) (Auto) 92 % (31-73) Lymphocytes (%) (Auto) 8 % (24-48) Monocytes (%) (Auto) 1 % (0-9) Eosinophils (%) (Auto) 0 % (0-3) Basophils (%) (Auto) 0 % (0-3) Neutrophils # (Auto) 3.5 x10^3/uL (1.8-7.7) Lymphocytes # (Auto) 0.3 x10^3/uL (1.0-4.8) Monocytes # (Auto) 0.0 x10^3/uL (0.0-1.1) Eosinophils # (Auto) 0.0 x10^3/uL (0.0-0.7) Basophils # (Auto) 0.0 x10^3/uL (0.0-0.2) Sodium Level 147 mmol/L (136-145) Potassium Level 3.8 mmol/L (3.5-5.1) Chloride Level 110 mmol/L (98-107) Carbon Dioxide Level 32 mmol/L (21-32) Anion Gap 5 (6-14) Blood Urea Nitrogen 18 mg/dL (8-26) Creatinine 0.8 mg/dL (0.7-1.3) Estimated GFR (Cockcroft-Gault) 98.3 Glucose Level 144 mg/dL (70-99) Calcium Level 8.1 mg/dL (8.5-10.1) Lactate Dehydrogenase 299 U/L (85-227) C-Reactive Protein, Quantitative 55.3 mg/L (0-3.3) O2 Saturation 98 % (92-99) Arterial Blood pH 7.42 (7.35-7.45) Arterial Blood pCO2 at Patient Temp 41 mmHg (35-46) Arterial Blood pO2 at Patient Temp 145 mmHg (65-108) Arterial Blood HCO3 26 mmol/L (21-28) Arterial Blood Base Excess 1 mmol/L (-3-3) FiO2 90 vent Assessment and Plan Assessmemt and Plan Problems Medical Problems: (1) COVID-19 virus infection Status: Acute Comment Review of Relevant I have reviewed the following items fany (where applicable) has been applied. Labs Laboratory Tests Test 11/03/19 15:15 11/04/19 00:15 11/04/19 05:45 11/04/19 08:00 Fibrinogen 587 mg/dL (200-440) D-Dimer (Padmini) 6.95 ug/mlFEU (0.00-0.50) Ferritin 375 ng/mL (26-388) Glucose (Fingerstick) 103 mg/dL (70-99) White Blood Count 4.7 x10^3/uL (4.0-11.0) Red Blood Count 3.43 x10^6/uL (4.30-5.70) Hemoglobin 10.7 g/dL (13.0-17.5) Hematocrit 30.8 % (39.0-53.0) Mean Corpuscular Volume 90 fL (79-100) Mean Corpuscular Hemoglobin 31 pg (25-35) Mean Corpuscular Hemoglobin Concent 35 g/dL (31-37) Red Cell Distribution Width 12.6 % (11.5-14.5) Platelet Count 172 x10^3/uL (140-400) Neutrophils (%) (Auto) 86 % (31-73) Lymphocytes (%) (Auto) 8 % (24-48) Monocytes (%) (Auto) 4 % (0-9) Eosinophils (%) (Auto) 2 % (0-3) Basophils (%) (Auto) 1 % (0-3) Neutrophils # (Auto) 4.0 x10^3/uL (1.8-7.7) Lymphocytes # (Auto) 0.4 x10^3/uL (1.0-4.8) Monocytes # (Auto) 0.2 x10^3/uL (0.0-1.1) Eosinophils # (Auto) 0.1 x10^3/uL (0.0-0.7) Basophils # (Auto) 0.0 x10^3/uL (0.0-0.2) Segmented Neutrophils % 87 % (35-66) Band Neutrophils % 1 % (0-9) Lymphocytes % 10 % (24-48) Monocytes % 1 % (0-10) Eosinophils % 1 % (0-5) Nucleated Red Blood Cells 1 Platelet Estimate Adequate (ADEQUATE) Sodium Level 147 mmol/L (136-145) Potassium Level 3.6 mmol/L (3.5-5.1) Chloride Level 112 mmol/L (98-107) Carbon Dioxide Level 32 mmol/L (21-32) Anion Gap 3 (6-14) Blood Urea Nitrogen 11 mg/dL (8-26) Creatinine 0.7 mg/dL (0.7-1.3) Estimated GFR (Cockcroft-Gault) 114.6 BUN/Creatinine Ratio 16 (6-20) Glucose Level 84 mg/dL (70-99) Calcium Level 7.5 mg/dL (8.5-10.1) Total Bilirubin 0.5 mg/dL (0.2-1.0) Aspartate Amino Transf (AST/SGOT) 31 U/L (15-37) Alanine Aminotransferase (ALT/SGPT) 23 U/L (16-63) Alkaline Phosphatase 393 U/L (46-116) Lactate Dehydrogenase 801 U/L (85-227) C-Reactive Protein, Quantitative 40.0 mg/L (0-3.3) Total Protein 4.2 g/dL (6.4-8.2) Albumin 1.6 g/dL (3.4-5.0) Albumin/Globulin Ratio 0.6 (1.0-1.7) O2 Saturation 95 % (92-99) Arterial Blood pH 7.46 (7.35-7.45) Arterial Blood pCO2 at Patient Temp 39 mmHg (35-46) Arterial Blood pO2 at Patient Temp 89 mmHg (65-108) Arterial Blood HCO3 27 mmol/L (21-28) Arterial Blood Base Excess 3 mmol/L (-3-3) FiO2 90 Test 11/05/19 00:38 11/05/19 06:15 11/05/19 07:50 Glucose (Fingerstick) 137 mg/dL (70-99) White Blood Count 3.8 x10^3/uL (4.0-11.0) Red Blood Count 3.74 x10^6/uL (4.30-5.70) Hemoglobin 11.5 g/dL (13.0-17.5) Hematocrit 33.5 % (39.0-53.0) Mean Corpuscular Volume 90 fL (79-100) Mean Corpuscular Hemoglobin 31 pg (25-35) Mean Corpuscular Hemoglobin Concent 35 g/dL (31-37) Red Cell Distribution Width 13.0 % (11.5-14.5) Platelet Count 169 x10^3/uL (140-400) Neutrophils (%) (Auto) 92 % (31-73) Lymphocytes (%) (Auto) 8 % (24-48) Monocytes (%) (Auto) 1 % (0-9) Eosinophils (%) (Auto) 0 % (0-3) Basophils (%) (Auto) 0 % (0-3) Neutrophils # (Auto) 3.5 x10^3/uL (1.8-7.7) Lymphocytes # (Auto) 0.3 x10^3/uL (1.0-4.8) Monocytes # (Auto) 0.0 x10^3/uL (0.0-1.1) Eosinophils # (Auto) 0.0 x10^3/uL (0.0-0.7) Basophils # (Auto) 0.0 x10^3/uL (0.0-0.2) Sodium Level 147 mmol/L (136-145) Potassium Level 3.8 mmol/L (3.5-5.1) Chloride Level 110 mmol/L (98-107) Carbon Dioxide Level 32 mmol/L (21-32) Anion Gap 5 (6-14) Blood Urea Nitrogen 18 mg/dL (8-26) Creatinine 0.8 mg/dL (0.7-1.3) Estimated GFR (Cockcroft-Gault) 98.3 Glucose Level 144 mg/dL (70-99) Calcium Level 8.1 mg/dL (8.5-10.1) Lactate Dehydrogenase 299 U/L (85-227) C-Reactive Protein, Quantitative 55.3 mg/L (0-3.3) O2 Saturation 98 % (92-99) Arterial Blood pH 7.42 (7.35-7.45) Arterial Blood pCO2 at Patient Temp 41 mmHg (35-46) Arterial Blood pO2 at Patient Temp 145 mmHg (65-108) Arterial Blood HCO3 26 mmol/L (21-28) Arterial Blood Base Excess 1 mmol/L (-3-3) FiO2 90 vent Laboratory Tests Test 11/05/19 00:38 11/05/19 06:15 11/05/19 07:50 Glucose (Fingerstick) 137 mg/dL (70-99) White Blood Count 3.8 x10^3/uL (4.0-11.0) Red Blood Count 3.74 x10^6/uL (4.30-5.70) Hemoglobin 11.5 g/dL (13.0-17.5) Hematocrit 33.5 % (39.0-53.0) Mean Corpuscular Volume 90 fL (79-100) Mean Corpuscular Hemoglobin 31 pg (25-35) Mean Corpuscular Hemoglobin Concent 35 g/dL (31-37) Red Cell Distribution Width 13.0 % (11.5-14.5) Platelet Count 169 x10^3/uL (140-400) Neutrophils (%) (Auto) 92 % (31-73) Lymphocytes (%) (Auto) 8 % (24-48) Monocytes (%) (Auto) 1 % (0-9) Eosinophils (%) (Auto) 0 % (0-3) Basophils (%) (Auto) 0 % (0-3) Neutrophils # (Auto) 3.5 x10^3/uL (1.8-7.7) Lymphocytes # (Auto) 0.3 x10^3/uL (1.0-4.8) Monocytes # (Auto) 0.0 x10^3/uL (0.0-1.1) Eosinophils # (Auto) 0.0 x10^3/uL (0.0-0.7) Basophils # (Auto) 0.0 x10^3/uL (0.0-0.2) Sodium Level 147 mmol/L (136-145) Potassium Level 3.8 mmol/L (3.5-5.1) Chloride Level 110 mmol/L (98-107) Carbon Dioxide Level 32 mmol/L (21-32) Anion Gap 5 (6-14) Blood Urea Nitrogen 18 mg/dL (8-26) Creatinine 0.8 mg/dL (0.7-1.3) Estimated GFR (Cockcroft-Gault) 98.3 Glucose Level 144 mg/dL (70-99) Calcium Level 8.1 mg/dL (8.5-10.1) Lactate Dehydrogenase 299 U/L (85-227) C-Reactive Protein, Quantitative 55.3 mg/L (0-3.3) O2 Saturation 98 % (92-99) Arterial Blood pH 7.42 (7.35-7.45) Arterial Blood pCO2 at Patient Temp 41 mmHg (35-46) Arterial Blood pO2 at Patient Temp 145 mmHg (65-108) Arterial Blood HCO3 26 mmol/L (21-28) Arterial Blood Base Excess 1 mmol/L (-3-3) FiO2 90 vent Microbiology 10/27/19 Blood Culture - Final, Complete NO GROWTH AFTER 5 DAYS Medications Current Medications Sodium Chloride 1,000 ml @ 1,000 mls/hr 1X ONCE IV Last administered on 10/27/19at 13:30; Start 10/27/19 at 13:30; Stop 10/27/19 at 14:29; Status DC Acetaminophen (Tylenol) 1,000 mg 1X ONCE PO Last administered on 10/27/19at 16:10; Start 10/27/19 at 16:00; Stop 10/27/19 at 16:01; Status DC Sodium Chloride (Normal Saline Flush) 3 ml QSHIFT PRN IV AFTER MEDS AND BLOOD DRAWS; Start 10/27/19 at 16:30 Sodium Chloride 1,000 ml @ 100 mls/hr Q10H IV Last administered on 11/03/19at 19:57; Start 10/27/19 at 16:22; Stop 11/04/19 at 13:33; Status DC Ondansetron HCl (Zofran) 4 mg PRN Q4HRS PRN IV NAUSEA/VOMITING Last administered on 11/03/19at 05:59; Start 10/27/19 at 16:30 Acetaminophen (Tylenol) 650 mg PRN Q4HRS PRN PO TEMP OVER 100.4F OR MILD PAIN Last administered on 11/03/19at 00:14; Start 10/27/19 at 16:30 Al Hydroxide/Mg Hydroxide (Mylanta Plus Xs) 30 ml PRN DAILY PRN PO HEARTBURN / GAS; Start 10/27/19 at 16:30 Sodium Monofluorophosphate (Fleet Adult) 133 ml PRN DAILY PRN UT CONSTIPATION; Start 10/27/19 at 16:30 Docusate Sodium (Colace) 100 mg PRN BID PRN PO HARD STOOLS; Start 10/27/19 at 16:30 Albuterol/ Ipratropium (Duoneb) 3 ml Q4H NEB ; Start 10/27/19 at 16:30; Stop 10/27/19 at 18:28; Status DC Guaifenesin (Robitussin) 200 mg PRN Q4HRS PRN PO COUGH 2ND CHOICE Last administered on 11/01/19at 12:57; Start 10/27/19 at 16:30 Lorazepam (Ativan) 0.5 mg PRN Q4HRS PRN PO ANXIETY / AGITATION Last administered on 11/03/19at 05:59; Start 10/27/19 at 16:30 Enoxaparin Sodium (Lovenox 40mg Syringe) 40 mg Q24H SQ Last administered on 11/04/19at 20:36; Start 10/27/19 at 21:00 Piperacillin Sod/ Tazobactam Sod 3.375 gm/Sodium Chloride 50 ml @ 100 mls/hr Q6HRS IV Last administered on 11/01/19at 11:26; Start 10/27/19 at 18:00; Stop 11/01/19 at 12:49; Status DC Azithromycin 250 ml @ 250 mls/hr 1X ONCE IV ; Start 10/27/19 at 16:30; Stop 10/27/19 at 17:29; Status Cancel Azithromycin 500 mg/Sodium Chloride 250 ml @ 250 mls/hr Q24H IV Last administered on 10/31/19at 18:28; Start 10/27/19 at 18:00; Stop 11/01/19 at 08:39; Status DC Albuterol Sulfate (Ventolin Neb Soln) 2.5 mg PRN Q4HRS PRN NEB SHORTNESS OF BREATH; Start 10/27/19 at 18:30 Sodium Chloride (Saline Mist Nasal) 1 nicolas PRN Q1HR PRN NS NASAL CONGESTION Last administered on 11/02/19at 12:34; Start 10/29/19 at 02:45 Pantoprazole Sodium (Protonix) 40 mg DAILYAC PO Last administered on 11/02/19at 09:06; Start 10/30/19 at 07:30; Stop 11/04/19 at 11:05; Status DC Calcium Carbonate/ Glycine (Tums) 500 mg PRN AFTMEALHC PRN PO INDIGESTION; Start 10/29/19 at 14:45 Polyethylene Glycol (miraLAX PACKET) 17 gm PRN DAILY PRN PO CONSTIPATION; Start 10/29/19 at 14:45 Lactobacillus Rhamnosus (Culturelle) 1 cap BID PO Last administered on 11/04/19at 09:04; Start 10/30/19 at 21:00; Stop 11/04/19 at 09:27; Status DC Guaifenesin (MUCINEX ER with DM) 2 tab PRN Q12HR PRN PO COUGH 1ST CHOICE Last administered on 11/03/19at 00:07; Start 10/30/19 at 11:15 Potassium Chloride (Klor-Con) 40 meq 1X ONCE PO Last administered on 11/01/19at 12:10; Start 11/01/19 at 12:15; Stop 11/01/19 at 12:16; Status DC Zinc Sulfate (Orazinc) 220 mg DAILY PO Last administered on 11/05/19at 09:10; Start 11/01/19 at 13:00 Meropenem 500 mg/ Sodium Chloride 50 ml @ 100 mls/hr Q8HRS IV Last administered on 11/04/19at 06:27; Start 11/01/19 at 14:00; Stop 11/04/19 at 07:56; Status DC Benzonatate (Tessalon Perle) 100 mg [id number] PO Last administered on 11/02/19at 21:10; Start 11/01/19 at 14:00; Stop 11/04/19 at 12:17; Status DC Acetaminophen (Tylenol) 650 mg 1X ONCE PO Last administered on 11/01/19at 14:24; Start 11/01/19 at 14:00; Stop 11/01/19 at 14:01; Status DC Diphenhydramine HCl (Benadryl) 25 mg 1X ONCE IV Last administered on 11/01/19at 14:25; Start 11/01/19 at 14:00; Stop 11/01/19 at 14:01; Status DC Methylprednisolone Sodium Succinate (SOLU-Medrol 40MG VIAL) 40 mg 1X ONCE IV Last administered on 11/01/19at 14:25; Start 11/01/19 at 14:00; Stop 11/01/19 at 14:01; Status DC Tocilizumab 400 mg/Sodium Chloride 100 ml @ 100 mls/hr 1X ONCE IV Last administered on 11/01/19at 15:18; Start 11/01/19 at 14:30; Stop 11/01/19 at 15:29; Status DC Linezolid/Dextrose 300 ml @ 300 mls/hr Q12HR IV Last administered on 11/03/19at 19:57; Start 11/01/19 at 21:00; Stop 11/04/19 at 07:56; Status DC Oxymetazoline HCl (Afrin) 2 spray BID NS ; Start 11/03/19 at 09:00; Stop 11/04/19 at 12:17; Status DC Succinylcholine Chloride (Anectine) 200 mg STK-MED ONCE .ROUTE ; Start 11/03/19 at 08:24; Stop 11/03/19 at 08:24; Status DC Etomidate (Amidate) 20 mg STK-MED ONCE IV ; Start 11/03/19 at 08:24; Stop 11/03/19 at 08:25; Status DC Midazolam HCl 100 ml @ 0 mls/hr CONT PRN IV SEE PROTOCOL Last administered on 11/05/19at 01:43; Start 11/03/19 at 08:45 Fentanyl Citrate (Fentanyl 2ml Vial) 100 mcg STK-MED ONCE .ROUTE ; Start 11/03/19 at 08:45; Stop 11/03/19 at 08:45; Status DC Fentanyl Citrate 30 ml @ 0 mls/hr CONT PRN IV SEE PROTOCOL Last administered on 11/03/19at 14:01; Start 11/03/19 at 09:00; Stop 11/03/19 at 19:32; Status DC Chlorhexidine Gluconate (Peridex) 15 ml BID MM Last administered on 11/03/19at 19:57; Start 11/03/19 at 09:00; Stop 11/04/19 at 10:16; Status DC Dexmedetomidine HCl 400 mcg/ Sodium Chloride 100 ml @ 0 mls/hr CONT PRN IV ANXIETY / AGITATION Last administered on 11/04/19at 17:59; Start 11/03/19 at 09:15 Sodium Chloride 500 ml @ 500 mls/hr 1X PRN PRN IV ELEVATED BP, SEE COMMENTS; Start 11/03/19 at 09:15 Atropine Sulfate (ATROPINE 0.5mg SYRINGE) 0.5 mg PRN Q5MIN PRN IV SEE COMMENTS; Start 11/03/19 at 09:15 Famotidine (Pepcid Vial) 20 mg BID IVP Last administered on 11/05/19at 09:10; Start 11/03/19 at 21:00 Vecuronium Broseley (Norcuron Bolus) 10 mg STK-MED ONCE IV ; Start 11/03/19 at 09:27; Stop 11/03/19 at 09:27; Status DC Vecuronium [place]seley (Norcuron Bolus) 10 mg 1X ONCE IV Last administered on 11/03/19at 09:30; Start 11/03/19 at 09:30; Stop 11/03/19 at 09:34; Status DC Albumin Human 100 ml @ 100 mls/hr 1X ONCE IV Last administered on 11/03/19at 10:28; Start 11/03/19 at 10:00; Stop 11/03/19 at 10:59; Status DC Norepinephrine Bitartrate 8 mg/ Dextrose 258 ml @ 17.647 mls/ hr CONT PRN IV PER PROTOCOL Last administered on 11/03/19at 10:16; Start 11/03/19 at 10:00 Potassium Chloride/Water 100 ml @ 100 mls/hr Q1H IV Last administered on 11/03/19at 15:27; Start 11/03/19 at 13:30; Stop 11/03/19 at 15:29; Status DC Fentanyl Citrate 55 ml @ 0 mls/hr CONT PRN IV SEE I/O RECORD Last administered on 11/05/19at 02:59; Start 11/03/19 at 19:45 Fentanyl Citrate (Fentanyl 2ml Vial) 100 mcg STK-MED ONCE .ROUTE ; Start 11/03/19 at 09:00; Stop 11/04/19 at 09:05; Status DC Etomidate (Amidate) 20 mg STK-MED ONCE IV ; Start 11/03/19 at 09:00; Stop 11/04/19 at 09:06; Status DC Succinylcholine Chloride (Anectine) 200 mg STK-MED ONCE .ROUTE ; Start 11/03/19 at 09:00; Stop 11/04/19 at 09:06; Status DC Methylprednisolone Sodium Succinate (SOLU-Medrol 125MG VIAL) 500 mg Q6HRS IV ; Start 11/04/19 at 12:00; Stop 11/07/19 at 12:00; Status Cancel Hydrocortisone Sodium Succinate 500 mg/Sodium Chloride 104 ml @ 104 mls/hr Q6H IV ; Start 11/04/19 at 12:00; Stop 11/05/19 at 00:59; Status Cancel Methylprednisolone Sodium Succinate 500 mg/Sodium Chloride 100 ml @ 100 mls/hr Q6HRS IV Last administered on 11/04/19at 12:33; Start 11/04/19 at 12:00; Stop 11/04/19 at 14:30; Status DC Benzonatate (Tessalon Perle) 100 mg [id number] PRN PO COUGH; Start 11/04/19 at 12:15 Oxymetazoline HCl (Afrin) 2 spray BID PRN NS NASAL CONGESTION; Start 11/04/19 at 12:15 Albumin Human 100 ml @ 100 mls/hr 1X ONCE IV Last administered on 11/04/19at 14:36; Start 11/04/19 at 13:45; Stop 11/04/19 at 14:44; Status DC Methylprednisolone Sodium Succinate 250 mg/Sodium Chloride 100 ml @ 100 mls/hr Q6HRS IV Last administered on 11/05/19at 06:46; Start 11/04/19 at 18:00; Stop 11/07/19 at 12:59 Info (Tpn Per Pharmacy) 1 each PRN DAILY PRN MC SEE COMMENTS; Start 11/05/19 at 11:00 Active Scripts Active Reported Zyrtec (Cetirizine Hcl) 10 Mg Tablet 10 Mg PO DAILY Vitals/I & O Vital Sign - Last 24 Hours 11/04/19 11/04/19 11/04/19 11/04/19 11:50 12:00 12:00 12:00 Temp 98.4 98.4 Pulse 62 B/P (MAP) 120/78 (92) Pulse Ox 100 98 O2 Delivery Ventilator Mechanical Ventilator Ventilator 11/04/19 11/04/19 11/04/19 11/04/19 13:00 14:00 15:00 16:00 Pulse 62 58 60 Resp B/P (MAP) 138/80 (99) 134/88 (103) 136/77 (96) Pulse Ox 98 98 98 O2 Delivery Ventilator Ventilator Ventilator 11/04/19 11/04/19 11/04/19 11/04/19 16:00 16:00 16:15 17:00 Temp 97.7 97.7 Pulse 68 48 B/P (MAP) 158/88 (111) 155/76 (102) Pulse Ox 98 100 98 O2 Delivery Ventilator Mechanical Ventilator Ventilator Ventilator 11/04/19 11/04/19 11/04/19 11/04/19 18:00 19:00 20:00 20:00 Pulse 48 45 Resp B/P (MAP) 146/86 (106) 143/81 (101) Pulse Ox 100 100 O2 Delivery Ventilator Ventilator Mechanical Ventilator 11/04/19 11/04/19 11/04/19 11/04/19 20:00 20:45 21:00 22:00 Temp 97.9 97.9 Pulse 44 56 44 Resp 26 B/P (MAP) 140/80 (100) 128/77 (94) 129/76 (93) Pulse Ox 100 100 100 100 O2 Delivery Ventilator Ventilator Ventilator Ventilator 11/04/19 11/04/19 11/05/19 11/05/19 23:00 23:30 00:00 00:00 Pulse 43 B/P (MAP) 135/79 (97) Pulse Ox 100 100 O2 Delivery Ventilator Mechanical Ventilator Ventilator 11/05/19 11/05/19 11/05/19 11/05/19 00:00 01:00 02:00 02:59 Temp 97.7 97.7 Pulse 42 42 49 Resp B/P (MAP) 151/97 (115) 142/86 (104) 126/68 (87) Pulse Ox 100 100 100 100 O2 Delivery Ventilator Ventilator Ventilator Ventilator 11/05/19 11/05/19 11/05/19 11/05/19 03:00 03:37 04:00 04:00 Temp 97.6 97.6 Pulse 43 42 Resp B/P (MAP) 120/70 (87) 158/80 (106) Pulse Ox 100 100 100 O2 Delivery Ventilator Ventilator Ventilator 11/05/19 11/05/19 11/05/19 11/05/19 04:00 04:20 05:00 06:00 Pulse 45 45 Resp B/P (MAP) 135/85 (102) 124/71 (88) Pulse Ox 100 100 100 O2 Delivery Mechanical Ventilator Ventilator Ventilator Ventilator Intake and Output 11/04/19 11/04/19 11/05/19 15:00 23:00 07:00 Intake Total 1399 ml 271 ml 591 ml Output Total 600 ml 575 ml 475 ml Balance 799 ml -304 ml 116 ml Hemodynamically unstable?: No Is patient in severe pain?: No Is NPO status required?: Yes MARTINA GODOY MD November 05, 2019 11:11
[2019-11-05 13:12] LABS: MAGNESIUM 2.1 mg/dL (1.8-2.4)
[2019-11-05] MEDS: TPN PER PHARMACY MC PRN (13:32)
--- NOTE | 2019-11-05 13:43 | NUR ---
Pharmacy TPN Dosing Note S: FUENTES RAGLAND is a 59 year old M Currently receiving Central Continuous TPN started 11/05/19 B:Pertinent PMH: Critical illness; unable to tolerate tube feeding Height: 6 feet, 0 inches Weight: 91.1kg Current diet: NPO LABS: Sodium: 147 Potassium: 3.8 Chloride: 110 Calcium: 8.1 Corrected Calcium: 10.02 Magnesium: 2.1 CO2: 32 SCr: 0.8 Glucose: 144 Albumin: 1.6 AST: 31 ALT: 23 TPN FORMULA: TPN TYPE: Central Continuous AMINO ACIDS: 100 gm DEXTROSE: 225 gm LIPIDS: 20 gm POTASSIUM CHLORIDE: 20 mEq POTASSIUM ACETATE: 30 mEq POTASSIUM PHOSPHATE: 13.6 mmol MAGNESIUM: 10 mEq CALCIUM: 8 mEq MULTIPLE VITAMIN: 10 ml TRACE ELEMENTS: 0.5 ml(s) TPN PLAN: Initiate TPN with macros per rn private duty rec's. No sodium chloride in TPN for now. Potassium split over chloride/acetate salts. Calcium at 8mEq d/t mildly elevated corrected calcium level. R: Begin TPN Will monitor electrolytes, glucose, and tolerance to TPN. Amelie Marshall [facility], 11/05/19 [id number]
--- NOTE | 2019-11-05 13:53 | NUR ---
SS following up with discharge planning. SS discussed with RNLyubov. Pt remains on the vent at this time. Per RN, X-ray looks better. Pt is COVID positive and on TPN. SS will continue to follow for discharge planning.
[2019-11-05] MEDS: ENOXAPARIN 40 MG/0.4 ML SYRINGE. SQ SCH (20:23)
[2019-11-05] MEDS ORDERED: [UNRECOGNIZED DRUG - OTHER] IV SCH ×10 (22:00)
[2019-11-05] MEDS ORDERED: DEXTROSE 70% IV SCH ×10 (22:00)
[2019-11-05] MEDS ORDERED: AMINO ACID IV SCH ×10 (22:00)
[2019-11-05] MEDS ORDERED: TOTAL PARENTERAL NUTRITION IV SCH ×10 (22:00)
[2019-11-06] VITALS (24 sets, daily range): BP systolic 143–185; BP diastolic 68–100
[2019-11-06] MEDS: MIDAZOLAM 100mg/100ml NS BAG 100 ML IV PRN ×3 (00:23→23:57)
[2019-11-06] MEDS: methylPREDNISolone SOD SUCC 250 MG in IV NORMAL SALINE 100ML 100 ML IV SCH ×4 (06:09→23:54)
[2019-11-06 07:08] LABS: BASO # 0.1 x10^3/uL (0.0-0.2); BASO % 1 % (0-3); EOS % 0 % (0-3); HEMATOCRIT 33.6 % (39.0-53.0); HEMOGLOBIN 11.5 g/dL (13.0-17.5); LYMPH # 0.3 x10^3/uL (1.0-4.8); LYMPH % 4 % (24-48); MEAN CORPUSCULAR HEMOGLOBIN 31 pg (25-35); MEAN CORPUSCULAR HGB CONC 34 g/dL (31-37); MEAN CORPUSCULAR VOLUME 90 fL (79-100); MONO # 0.2 x10^3/uL (0.0-1.1); MONO % 3 % (0-9); NEUT # 7.5 x10^3/uL (1.8-7.7); NEUT % 93 % (31-73); PLATELET COUNT 201 x10^3/uL (140-400); RED BLOOD COUNT 3.73 x10^6/uL (4.30-5.70); RED CELL DISTRIBUTION WIDTH 12.7 % (11.5-14.5); WHITE BLOOD COUNT 8.1 x10^3/uL (4.0-11.0)
--- NOTE | 2019-11-06 07:11 | PDOC ---
Infectious Disease Note Subjective Subjective Intubated/sedated 11/02 On 80 Fi02 and PEEP 11 ROS ROS Unable to obtain Vital Sign Vital Signs Vital Signs Date Time Temp Pulse Resp B/P (MAP) Pulse Ox O2 Delivery O2 Flow Rate FiO2 11/06/19 06:00 50 26 163/81 (108) 100 Ventilator 11/06/19 04:00 97.7 97.7 Physical Exam PHYSICAL EXAM GENERAL: Intubated /sedated but did open his eyes HEENT: Normocephalic, atraumatic, anicteric.PERRL. Oc/Op- open clear -ETT/OGT NECK: Supple, no JVD. LUNGS: Decreased breath sounds at the bases. ABDOMEN: Soft, nontender, slight distended, decreased sounds : Sams EXTREMITIES: No edema, no cyanosis. DERMATOLOGIC: No generalized rash. BACK: No CVA tenderness. NEUROLOGIC: intubated/sedated some PSYCHIATRIC: Unable to assess IV RIJ. R art line Labs Lab Laboratory Tests Test 11/05/19 07:50 11/06/19 05:15 O2 Saturation 98 % (92-99) Arterial Blood pH 7.42 (7.35-7.45) Arterial Blood pCO2 at Patient Temp 41 mmHg (35-46) Arterial Blood pO2 at Patient Temp 145 mmHg (65-108) Arterial Blood HCO3 26 mmol/L (21-28) Arterial Blood Base Excess 1 mmol/L (-3-3) FiO2 90 vent White Blood Count 8.1 x10^3/uL (4.0-11.0) Red Blood Count 3.73 x10^6/uL (4.30-5.70) Hemoglobin 11.5 g/dL (13.0-17.5) Hematocrit 33.6 % (39.0-53.0) Mean Corpuscular Volume 90 fL (79-100) Mean Corpuscular Hemoglobin 31 pg (25-35) Mean Corpuscular Hemoglobin Concent 34 g/dL (31-37) Red Cell Distribution Width 12.7 % (11.5-14.5) Platelet Count 201 x10^3/uL (140-400) Neutrophils (%) (Auto) 93 % (31-73) Lymphocytes (%) (Auto) 4 % (24-48) Monocytes (%) (Auto) 3 % (0-9) Eosinophils (%) (Auto) 0 % (0-3) Basophils (%) (Auto) 1 % (0-3) Neutrophils # (Auto) 7.5 x10^3/uL (1.8-7.7) Lymphocytes # (Auto) 0.3 x10^3/uL (1.0-4.8) Monocytes # (Auto) 0.2 x10^3/uL (0.0-1.1) Eosinophils # (Auto) 0.0 x10^3/uL (0.0-0.7) Basophils # (Auto) 0.1 x10^3/uL (0.0-0.2) Micro CXR/KUB 11/02 IMPRESSION: 1. Endotracheal tube terminates 0.9 cm above the level of the josué. This may be retracted 2 to 3 cm. Tube appears to be projecting towards the right mainstem bronchus. 2. Similar aeration of the lungs with multifocal patchy alveolar airspace disease as may be seen with acute respiratory distress syndrome. Consideration may be given for multifocal pneumonia versus alveolar edema. 3. Right IJ central venous catheter is identified with the distal tip projecting over the right atrium. Nasogastric tube is in appropriate position. 4. Nonobstructive bowel gas pattern. Microbiology 10/27/19 Blood Culture - Final, Complete NO GROWTH AFTER 5 DAYS Objective Assessment 1. Fever - better. Likely from COVID-19 2. COVID-19 respiratory illness to ICU 10/31 LFTs and CRP better - but requiring more 02 Status post convalescent serum administration 10/31/2019 CRP - better - LDH up IL- 6 10/31 3. Pneumonia, secondary bacterial infection cannot be ruled out. s/p solumedrol 10/31 4. Leukopenia - better 5. Headache. Resolved 6. Generalized weakness. 7. History of hairy cell leukemia in remission 8. Abnormal liver function tests likely from COVID 19. 9. Diarrhea prior to admission, now resolved. 10. Achalasia, status post esophagectomy. Plan Plan of Care TPN 5/6 Steroids restarted 5/6 single dose 5/ off Zosyn 10/26 - 10/31 Off Zyvox/Meropenem / - 11/03 and monitor S/p Actemera 10/31 and plasma 10/30 Continue supportive care Completed azithromycin Follow-up lab in am and culture Maintain aspiration precautions Remains Critically ill Discussed with EDUARDO VERA MD November 06, 2019 07:11
[2019-11-06 07:15] LABS: MAGNESIUM 2.4 mg/dL (1.8-2.4)
[2019-11-06 07:32] LABS: D-DIMER 10.11 ug/mlFEU (0.00-0.50)
[2019-11-06 07:34] LABS: ALBUMIN/GLOBULIN RATIO 0.7 (1.0-1.7); C-REACTIVE PROTEIN 24.5 mg/L (0-3.3); CALCIUM 8.2 mg/dL (8.5-10.1); CREATININE 0.7 mg/dL (0.7-1.3); GFR 114.6; TOTAL BILIRUBIN 0.4 mg/dL (0.2-1.0); TOTAL PROTEIN 4.8 g/dL (6.4-8.2)
[2019-11-06] MEDS: FAMOTIDINE 20 MG/2 ML VIAL IVP SCH ×2 (08:27→20:54)
[2019-11-06] MEDS: ZINC SULFATE 220 MG CAPSULE. PO SCH (08:27)
[2019-11-06] MEDS: ENOXAPARIN 40 MG/0.4 ML SYRINGE. SQ SCH ×2 (08:28→20:54)
[2019-11-06 08:40] LABS: BASE EXCESS ABG 1 mmol/L (-3-3); HCO3 ABG 25 mmol/L (21-28); PCO2 ABG 41 mmHg (35-46); PO2 ABG 126 mmHg (65-108); SAT O2 ABG 98 % (92-99)
[2019-11-06 08:43] LABS: FIO2 ABG 100%
--- NOTE | 2019-11-06 09:39 | PDOC ---
Objective: Objective: No GI concerns per nurse. On TPN and IV acid-jailer chief. Vital Signs: Vital Signs Date Time Temp Pulse Resp B/P (MAP) Pulse Ox O2 Delivery O2 Flow Rate FiO2 11/06/19 09:00 56 26 165/87 (113) 100 Ventilator 11/06/19 08:00 97.8 97.8 Labs: Laboratory Tests Test 11/06/19 05:15 11/06/19 08:00 White Blood Count 8.1 x10^3/uL Red Blood Count 3.73 x10^6/uL Hemoglobin 11.5 g/dL Hematocrit 33.6 % Mean Corpuscular Volume 90 fL Mean Corpuscular Hemoglobin 31 pg Mean Corpuscular Hemoglobin Concent 34 g/dL Red Cell Distribution Width 12.7 % Platelet Count 201 x10^3/uL Neutrophils (%) (Auto) 93 % Lymphocytes (%) (Auto) 4 % Monocytes (%) (Auto) 3 % Eosinophils (%) (Auto) 0 % Basophils (%) (Auto) 1 % Neutrophils # (Auto) 7.5 x10^3/uL Lymphocytes # (Auto) 0.3 x10^3/uL Monocytes # (Auto) 0.2 x10^3/uL Eosinophils # (Auto) 0.0 x10^3/uL Basophils # (Auto) 0.1 x10^3/uL Erythrocyte Sedimentation Rate 35 Fibrinogen 446 mg/dL D-Dimer (Padmini) 10.11 ug/mlFEU Sodium Level 146 mmol/L Potassium Level 4.0 mmol/L Chloride Level 111 mmol/L Carbon Dioxide Level 31 mmol/L Anion Gap 4 Blood Urea Nitrogen 24 mg/dL Creatinine 0.7 mg/dL Estimated GFR (Cockcroft-Gault) 114.6 BUN/Creatinine Ratio 34 Glucose Level 229 mg/dL Calcium Level 8.2 mg/dL Phosphorus Level 3.0 mg/dL Magnesium Level 2.4 mg/dL Total Bilirubin 0.4 mg/dL Aspartate Amino Transf (AST/SGOT) 47 U/L Alanine Aminotransferase (ALT/SGPT) 43 U/L Alkaline Phosphatase 277 U/L Lactate Dehydrogenase 246 U/L C-Reactive Protein, Quantitative 24.5 mg/L Total Protein 4.8 g/dL Albumin 2.0 g/dL Albumin/Globulin Ratio 0.7 Triglycerides Level 188 mg/dL O2 Saturation 98 % Arterial Blood pH 7.41 Arterial Blood pCO2 at Patient Temp 41 mmHg Arterial Blood pO2 at Patient Temp 126 mmHg Arterial Blood HCO3 25 mmol/L Arterial Blood Base Excess 1 mmol/L FiO2 100% PE: GEN: intubated, in isolation LUNGS: vent HEART: HR 50s on monitor ABD: non-distended NEURO/PSYCH: sedated A/P: Resp failure, +COVID-19 Elevated Alk Phos - improved, liver imaging on hold -- Continue same per GI. Hemodynamically unstable?: No Is patient in severe pain?: No Is NPO status required?: Yes ALEXIS COSTELLO November 06, 2019 09:38
[2019-11-06] MEDS: fentaNYL HIGH DOSE PCA 55 ML IV PRN (09:47)
[2019-11-06] MEDS: TPN PER PHARMACY MC PRN (10:46)
--- NOTE | 2019-11-06 10:46 | NUR ---
Pharmacy TPN Dosing Note S: FUENTES RAGLAND is a 59 year old M Currently receiving Central Continuous TPN started 11/05/19 B:Pertinent PMH: Critical illness; unable to tolerate tube feeding Height: 6 feet, 0 inches Weight: 92.6 kg Current diet: NPO LABS: Sodium: 146 Potassium: 4 Chloride: 111 Calcium: 8.2 Corrected Calcium: 9.80 Magnesium: 2.4 CO2: 31 SCr: 0.7 Glucose: 229 Albumin: 2.0 AST: 31 ALT: 23 TPN FORMULA: TPN TYPE: Central Continuous AMINO ACIDS: 100 gm DEXTROSE: 225 gm LIPIDS: 20 gm POTASSIUM CHLORIDE: 20 mEq POTASSIUM ACETATE: 30 mEq POTASSIUM PHOSPHATE: 13.6 mmol MAGNESIUM: 10 mEq CALCIUM: 8 mEq MULTIPLE VITAMIN: 10 ml TRACE ELEMENTS: 0.5 ml TPN PLAN: -Serum sodium slightly elevated, will increase rate to provide additional free water. Urine output adequate. -Other electrolytes appear WNL. -Blood glucose elevated with TPN start. Pt also receiving high-dose IV steroids. Will ask for SSI and accu-checks. -Triglycerides 188 - okay to continue same lipid component. -BMP, mag, phos tomorrow. R: Change TPN to 75 ml/hr and above formula. Will monitor electrolytes, glucose, and tolerance to TPN. [facility], 11/06/19 [id number]
--- NOTE | 2019-11-06 11:15 | NUR ---
SS following up with discharge planning. SS discussed with RN, Laurita, and reviewed pt's chart. Pt is currently on the vent and per RN is making slow progress but is still very critical. Pt is COVID19 positive. SS will continue to follow for discharge planning.
--- NOTE | 2019-11-06 13:53 | PDOC ---
PROGRESS NOTES Chief Complaint Chief Complaint A/P: Acute hypoxic resp failure - 2/2 SARS-CoV-2 unfortunately requiring mechanical ventilation now. 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 Bone marrow biopsy on 03/05/2014 revealed complete remission PSH esophagectomy in 2016 remote tobacco abuse Elevated alkaline phos - hx Cholelithiasis. This is possibly 2/2 Zosyn as this is a reported side effect severe protein-caloric malnutrition Plan: ventilatory support as per pulmonary Antibiotics as per ID Status post administration of convalescent plasma on October 30 Status post anti-IL 6 inhibitor on October 31 Supportive measures Reassess in the a.m. COVID-19 CRITERIA: The patient was evaluated during the global COVID-19 pandemic, and that diagnosis was suspected/considered upon their initial presentation. Their evaluation, treatment and testing was consistent with current guidelines for patients who present with complaints or symptoms that may be related to COVID-19. History of Present Illness History of Present Illness Mr Schilling is a 59 yo M w/ PMHx Hairy cell leukemia, achalasia admitted in isolation in ICU w/ +COVID-19 pneumonia. 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 5: Cough worsening. Admitted to ICU 10/30: Transferred from ICU. Received 1 unit of [facility] from [facility] COVID 19 convalescent plasma program donor 10/31:Today seen on COVID isolation unit, does not feel well, says he has felt sick for 12 days and would not wish this on his worst enemy. Pain on coughing. On 5 liters/min. 11/01: No acute events reported overnight, case discussed with nursing staff patient in no acute distress no complaints during my visit 11/02: Patient now requiring mechanical ventilation no acute events reported overnight. 11/03: No acute events reported overnight, case discussed with nursing staff patient in no acute distress no complaints during my visit 11/04: No changes overnight. Continues to require ventilatory support quite a bit. Appreciate pulmonary oracle e[employer] consultant recommendations 11/05: Bradycardia noted, most likely related to sedation, patient seems to respond to verbal stimuli during my visit and his heart rate goes up to the sixties range when more awake, discussed with nursing staff Plan: ATB as per ID supprotive measures COVID-19 CRITERIA: The patient was evaluated during the global COVID-19 pandemic, and that diagnosis was suspected/considered upon their initial presentation. Their evaluation, treatment and testing were consistent with current guidelines for patients who present with complaints or symptoms that may be related to COVID-19. Vitals Vitals Vital Signs Date Time Temp Pulse Resp B/P (MAP) Pulse Ox O2 Delivery O2 Flow Rate FiO2 11/06/19 11:36 98 Ventilator 11/06/19 11:00 40 12 154/77 (102) 11/06/19 09:47 10.0 11/06/19 08:00 97.8 97.8 Physical Exam Physical Exam GENERAL: Intubated /sedated but did open his eyes HEENT: Normocephalic, atraumatic, anicteric.PERRL. Oc/Op- open clear -ETT/OGT NECK: Supple, no JVD. LUNGS: Decreased breath sounds at the bases. ABDOMEN: Soft, nontender, slight distended, decreased sounds : Sams EXTREMITIES: No edema, no cyanosis. DERMATOLOGIC: No generalized rash. BACK: No CVA tenderness. NEUROLOGIC: intubated/sedated some PSYCHIATRIC: Unable to assess IV RIJ. R art line General: Alert, Oriented X3, Cooperative, mild distress Abdomen: Soft Extremities: No cyanosis, No edema Labs LABS Laboratory Tests Test 11/06/19 05:15 11/06/19 08:00 White Blood Count 8.1 x10^3/uL (4.0-11.0) Red Blood Count 3.73 x10^6/uL (4.30-5.70) Hemoglobin 11.5 g/dL (13.0-17.5) Hematocrit 33.6 % (39.0-53.0) Mean Corpuscular Volume 90 fL (79-100) Mean Corpuscular Hemoglobin 31 pg (25-35) Mean Corpuscular Hemoglobin Concent 34 g/dL (31-37) Red Cell Distribution Width 12.7 % (11.5-14.5) Platelet Count 201 x10^3/uL (140-400) Neutrophils (%) (Auto) 93 % (31-73) Lymphocytes (%) (Auto) 4 % (24-48) Monocytes (%) (Auto) 3 % (0-9) Eosinophils (%) (Auto) 0 % (0-3) Basophils (%) (Auto) 1 % (0-3) Neutrophils # (Auto) 7.5 x10^3/uL (1.8-7.7) Lymphocytes # (Auto) 0.3 x10^3/uL (1.0-4.8) Monocytes # (Auto) 0.2 x10^3/uL (0.0-1.1) Eosinophils # (Auto) 0.0 x10^3/uL (0.0-0.7) Basophils # (Auto) 0.1 x10^3/uL (0.0-0.2) Erythrocyte Sedimentation Rate 35 (0-15) Fibrinogen 446 mg/dL (200-440) D-Dimer (Padmini) 10.11 ug/mlFEU (0.00-0.50) Sodium Level 146 mmol/L (136-145) Potassium Level 4.0 mmol/L (3.5-5.1) Chloride Level 111 mmol/L (98-107) Carbon Dioxide Level 31 mmol/L (21-32) Anion Gap 4 (6-14) Blood Urea Nitrogen 24 mg/dL (8-26) Creatinine 0.7 mg/dL (0.7-1.3) Estimated GFR (Cockcroft-Gault) 114.6 BUN/Creatinine Ratio 34 (6-20) Glucose Level 229 mg/dL (70-99) Calcium Level 8.2 mg/dL (8.5-10.1) Phosphorus Level 3.0 mg/dL (2.6-4.7) Magnesium Level 2.4 mg/dL (1.8-2.4) Total Bilirubin 0.4 mg/dL (0.2-1.0) Aspartate Amino Transf (AST/SGOT) 47 U/L (15-37) Alanine Aminotransferase (ALT/SGPT) 43 U/L (16-63) Alkaline Phosphatase 277 U/L (46-116) Lactate Dehydrogenase 246 U/L (85-227) C-Reactive Protein, Quantitative 24.5 mg/L (0-3.3) Total Protein 4.8 g/dL (6.4-8.2) Albumin 2.0 g/dL (3.4-5.0) Albumin/Globulin Ratio 0.7 (1.0-1.7) Triglycerides Level 188 mg/dL (0-150) O2 Saturation 98 % (92-99) Arterial Blood pH 7.41 (7.35-7.45) Arterial Blood pCO2 at Patient Temp 41 mmHg (35-46) Arterial Blood pO2 at Patient Temp 126 mmHg (65-108) Arterial Blood HCO3 25 mmol/L (21-28) Arterial Blood Base Excess 1 mmol/L (-3-3) FiO2 100% Assessment and Plan Assessmemt and Plan Problems Medical Problems: (1) COVID-19 virus infection Status: Acute Comment Review of Relevant I have reviewed the following items fany (where applicable) has been applied. Labs Laboratory Tests Test 11/05/19 00:38 11/05/19 06:15 11/05/19 07:50 11/06/19 05:15 Glucose (Fingerstick) 137 mg/dL (70-99) White Blood Count 3.8 x10^3/uL (4.0-11.0) 8.1 x10^3/uL (4.0-11.0) Red Blood Count 3.74 x10^6/uL (4.30-5.70) 3.73 x10^6/uL (4.30-5.70) Hemoglobin 11.5 g/dL (13.0-17.5) 11.5 g/dL (13.0-17.5) Hematocrit 33.5 % (39.0-53.0) 33.6 % (39.0-53.0) Mean Corpuscular Volume 90 fL (79-100) 90 fL (79-100) Mean Corpuscular Hemoglobin 31 pg (25-35) 31 pg (25-35) Mean Corpuscular Hemoglobin Concent 35 g/dL (31-37) 34 g/dL (31-37) Red Cell Distribution Width 13.0 % (11.5-14.5) 12.7 % (11.5-14.5) Platelet Count 169 x10^3/uL (140-400) 201 x10^3/uL (140-400) Neutrophils (%) (Auto) 92 % (31-73) 93 % (31-73) Lymphocytes (%) (Auto) 8 % (24-48) 4 % (24-48) Monocytes (%) (Auto) 1 % (0-9) 3 % (0-9) Eosinophils (%) (Auto) 0 % (0-3) 0 % (0-3) Basophils (%) (Auto) 0 % (0-3) 1 % (0-3) Neutrophils # (Auto) 3.5 x10^3/uL (1.8-7.7) 7.5 x10^3/uL (1.8-7.7) Lymphocytes # (Auto) 0.3 x10^3/uL (1.0-4.8) 0.3 x10^3/uL (1.0-4.8) Monocytes # (Auto) 0.0 x10^3/uL (0.0-1.1) 0.2 x10^3/uL (0.0-1.1) Eosinophils # (Auto) 0.0 x10^3/uL (0.0-0.7) 0.0 x10^3/uL (0.0-0.7) Basophils # (Auto) 0.0 x10^3/uL (0.0-0.2) 0.1 x10^3/uL (0.0-0.2) Sodium Level 147 mmol/L (136-145) 146 mmol/L (136-145) Potassium Level 3.8 mmol/L (3.5-5.1) 4.0 mmol/L (3.5-5.1) Chloride Level 110 mmol/L (98-107) 111 mmol/L (98-107) Carbon Dioxide Level 32 mmol/L (21-32) 31 mmol/L (21-32) Anion Gap 5 (6-14) 4 (6-14) Blood Urea Nitrogen 18 mg/dL (8-26) 24 mg/dL (8-26) Creatinine 0.8 mg/dL (0.7-1.3) 0.7 mg/dL (0.7-1.3) Estimated GFR (Cockcroft-Gault) 98.3 114.6 Glucose Level 144 mg/dL (70-99) 229 mg/dL (70-99) Calcium Level 8.1 mg/dL (8.5-10.1) 8.2 mg/dL (8.5-10.1) Phosphorus Level 4.0 mg/dL (2.6-4.7) 3.0 mg/dL (2.6-4.7) Magnesium Level 2.1 mg/dL (1.8-2.4) 2.4 mg/dL (1.8-2.4) Lactate Dehydrogenase 299 U/L (85-227) 246 U/L (85-227) C-Reactive Protein, Quantitative 55.3 mg/L (0-3.3) 24.5 mg/L (0-3.3) O2 Saturation 98 % (92-99) Arterial Blood pH 7.42 (7.35-7.45) Arterial Blood pCO2 at Patient Temp 41 mmHg (35-46) Arterial Blood pO2 at Patient Temp 145 mmHg (65-108) Arterial Blood HCO3 26 mmol/L (21-28) Arterial Blood Base Excess 1 mmol/L (-3-3) FiO2 90 vent Erythrocyte Sedimentation Rate 35 (0-15) Fibrinogen 446 mg/dL (200-440) D-Dimer (Padmini) 10.11 ug/mlFEU (0.00-0.50) BUN/Creatinine Ratio 34 (6-20) Total Bilirubin 0.4 mg/dL (0.2-1.0) Aspartate Amino Transf (AST/SGOT) 47 U/L (15-37) Alanine Aminotransferase (ALT/SGPT) 43 U/L (16-63) Alkaline Phosphatase 277 U/L (46-116) Total Protein 4.8 g/dL (6.4-8.2) Albumin 2.0 g/dL (3.4-5.0) Albumin/Globulin Ratio 0.7 (1.0-1.7) Triglycerides Level 188 mg/dL (0-150) Test 11/06/19 08:00 O2 Saturation 98 % (92-99) Arterial Blood pH 7.41 (7.35-7.45) Arterial Blood pCO2 at Patient Temp 41 mmHg (35-46) Arterial Blood pO2 at Patient Temp 126 mmHg (65-108) Arterial Blood HCO3 25 mmol/L (21-28) Arterial Blood Base Excess 1 mmol/L (-3-3) FiO2 100% Laboratory Tests Test 11/06/19 05:15 11/06/19 08:00 White Blood Count 8.1 x10^3/uL (4.0-11.0) Red Blood Count 3.73 x10^6/uL (4.30-5.70) Hemoglobin 11.5 g/dL (13.0-17.5) Hematocrit 33.6 % (39.0-53.0) Mean Corpuscular Volume 90 fL (79-100) Mean Corpuscular Hemoglobin 31 pg (25-35) Mean Corpuscular Hemoglobin Concent 34 g/dL (31-37) Red Cell Distribution Width 12.7 % (11.5-14.5) Platelet Count 201 x10^3/uL (140-400) Neutrophils (%) (Auto) 93 % (31-73) Lymphocytes (%) (Auto) 4 % (24-48) Monocytes (%) (Auto) 3 % (0-9) Eosinophils (%) (Auto) 0 % (0-3) Basophils (%) (Auto) 1 % (0-3) Neutrophils # (Auto) 7.5 x10^3/uL (1.8-7.7) Lymphocytes # (Auto) 0.3 x10^3/uL (1.0-4.8) Monocytes # (Auto) 0.2 x10^3/uL (0.0-1.1) Eosinophils # (Auto) 0.0 x10^3/uL (0.0-0.7) Basophils # (Auto) 0.1 x10^3/uL (0.0-0.2) Erythrocyte Sedimentation Rate 35 (0-15) Fibrinogen 446 mg/dL (200-440) D-Dimer (Padmini) 10.11 ug/mlFEU (0.00-0.50) Sodium Level 146 mmol/L (136-145) Potassium Level 4.0 mmol/L (3.5-5.1) Chloride Level 111 mmol/L (98-107) Carbon Dioxide Level 31 mmol/L (21-32) Anion Gap 4 (6-14) Blood Urea Nitrogen 24 mg/dL (8-26) Creatinine 0.7 mg/dL (0.7-1.3) Estimated GFR (Cockcroft-Gault) 114.6 BUN/Creatinine Ratio 34 (6-20) Glucose Level 229 mg/dL (70-99) Calcium Level 8.2 mg/dL (8.5-10.1) Phosphorus Level 3.0 mg/dL (2.6-4.7) Magnesium Level 2.4 mg/dL (1.8-2.4) Total Bilirubin 0.4 mg/dL (0.2-1.0) Aspartate Amino Transf (AST/SGOT) 47 U/L (15-37) Alanine Aminotransferase (ALT/SGPT) 43 U/L (16-63) Alkaline Phosphatase 277 U/L (46-116) Lactate Dehydrogenase 246 U/L (85-227) C-Reactive Protein, Quantitative 24.5 mg/L (0-3.3) Total Protein 4.8 g/dL (6.4-8.2) Albumin 2.0 g/dL (3.4-5.0) Albumin/Globulin Ratio 0.7 (1.0-1.7) Triglycerides Level 188 mg/dL (0-150) O2 Saturation 98 % (92-99) Arterial Blood pH 7.41 (7.35-7.45) Arterial Blood pCO2 at Patient Temp 41 mmHg (35-46) Arterial Blood pO2 at Patient Temp 126 mmHg (65-108) Arterial Blood HCO3 25 mmol/L (21-28) Arterial Blood Base Excess 1 mmol/L (-3-3) FiO2 100% Microbiology 10/27/19 Blood Culture - Final, Complete NO GROWTH AFTER 5 DAYS Medications Current Medications Sodium Chloride 1,000 ml @ 1,000 mls/hr 1X ONCE IV Last administered on 10/27/19at 13:30; Start 10/27/19 at 13:30; Stop 10/27/19 at 14:29; Status DC Acetaminophen (Tylenol) 1,000 mg 1X ONCE PO Last administered on 10/27/19at 16:10; Start 10/27/19 at 16:00; Stop 10/27/19 at 16:01; Status DC Sodium Chloride (Normal Saline Flush) 3 ml QSHIFT PRN IV AFTER MEDS AND BLOOD DRAWS; Start 10/27/19 at 16:30 Sodium Chloride 1,000 ml @ 100 mls/hr Q10H IV Last administered on 11/03/19at 19:57; Start 10/27/19 at 16:22; Stop 11/04/19 at 13:33; Status DC Ondansetron HCl (Zofran) 4 mg PRN Q4HRS PRN IV NAUSEA/VOMITING Last administered on 11/03/19at 05:59; Start 10/27/19 at 16:30 Acetaminophen (Tylenol) 650 mg PRN Q4HRS PRN PO TEMP OVER 100.4F OR MILD PAIN Last administered on 11/03/19at 00:14; Start 10/27/19 at 16:30 Al Hydroxide/Mg Hydroxide (Mylanta Plus Xs) 30 ml PRN DAILY PRN PO HEARTBURN / GAS; Start 10/27/19 at 16:30 Sodium Monofluorophosphate (Fleet Adult) 133 ml PRN DAILY PRN IA CONSTIPATION; Start 10/27/19 at 16:30 Docusate Sodium (Colace) 100 mg PRN BID PRN PO HARD STOOLS; Start 10/27/19 at 16:30 Albuterol/ Ipratropium (Duoneb) 3 ml Q4H NEB ; Start 10/27/19 at 16:30; Stop 10/27/19 at 18:28; Status DC Guaifenesin (Robitussin) 200 mg PRN Q4HRS PRN PO COUGH 2ND CHOICE Last administered on 11/01/19at 12:57; Start 10/27/19 at 16:30 Lorazepam (Ativan) 0.5 mg PRN Q4HRS PRN PO ANXIETY / AGITATION Last administered on 11/03/19at 05:59; Start 10/27/19 at 16:30 Enoxaparin Sodium (Lovenox 40mg Syringe) 40 mg Q24H SQ Last administered on 11/04/19at 20:36; Start 10/27/19 at 21:00; Stop 11/05/19 at 12:41; Status DC Piperacillin Sod/ Tazobactam Sod 3.375 gm/Sodium Chloride 50 ml @ 100 mls/hr Q6HRS IV Last administered on 11/01/19at 11:26; Start 10/27/19 at 18:00; Stop 11/01/19 at 12:49; Status DC Azithromycin 250 ml @ 250 mls/hr 1X ONCE IV ; Start 10/27/19 at 16:30; Stop 10/27/19 at 17:29; Status Cancel Azithromycin 500 mg/Sodium Chloride 250 ml @ 250 mls/hr Q24H IV Last adm inistered on 10/31/19at 18:28; Start 10/27/19 at 18:00; Stop 11/01/19 at 08:39; Status DC Albuterol Sulfate (Ventolin Neb Soln) 2.5 mg PRN Q4HRS PRN NEB SHORTNESS OF BREATH; Start 10/27/19 at 18:30 Sodium Chloride (Saline Mist Nasal) 1 nicolas PRN Q1HR PRN NS NASAL CONGESTION Last administered on 11/02/19at 12:34; Start 10/29/19 at 02:45 Pantoprazole Sodium (Protonix) 40 mg DAILYAC PO Last administered on 11/02/19 09:06; Start 10/30/19 at 07:30; Stop 11/04/19 at 11:05; Status DC Calcium Carbonate/ Glycine (Tums) 500 mg PRN AFTMEALHC PRN PO INDIGESTION; Start 10/29/19 at 14:45 Polyethylene Glycol (miraLAX PACKET) 17 gm PRN DAILY PRN PO CONSTIPATION; Start 10/29/19 at 14:45 Lactobacillus Rhamnosus (Culturelle) 1 cap BID PO Last administered on 11/04/19at 09:04; Start 10/30/19 at 21:00; Stop 11/04/19 at 09:27; Status DC Guaifenesin (MUCINEX ER with DM) 2 tab PRN Q12HR PRN PO COUGH 1ST CHOICE Last administered on 11/03/19at 00:07; Start 10/30/19 at 11:15 Potassium Chloride (Klor-Con) 40 meq 1X ONCE PO Last administered on 11/01/19 12:10; Start 11/01/19 at 12:15; Stop 11/01/19 at 12:16; Status DC Zinc Sulfate (Orazinc) 220 mg DAILY PO Last administered on 11/06/19at 08:27; Start 11/01/19 at 13:00 Meropenem 500 mg/ Sodium Chloride 50 ml @ 100 mls/hr Q8HRS IV Last administe red on 11/04/19at 06:27; Start 11/01/19 at 14:00; Stop 11/04/19 at 07:56; Status DC Benzonatate (Tessalon Perle) 100 mg [id number] PO Last administered on 11/02/19 21:10; Start 11/01/19 at 14:00; Stop 11/04/19 at 12:17; Status DC Acetaminophen (Tylenol) 650 mg 1X ONCE PO Last administered on 11/01/19 14:24; Start 11/01/19 at 14:00; Stop 11/01/19 at 14:01; Status DC Diphenhydramine HCl (Benadryl) 25 mg 1X ONCE IV Last administered on 11/01/19at 14:25; Start 11/01/19 at 14:00; Stop 11/01/19 at 14:01; Status DC Methylprednisolone Sodium Succinate (SOLU-Medrol 40MG VIAL) 40 mg 1X ONCE IV Last administered on 11/01/19at 14:25; Start 11/01/19 at 14:00; Stop 11/01/19 at 14:01; Status DC Tocilizumab 400 mg/Sodium Chloride 100 ml @ 100 mls/hr 1X ONCE IV Last administered on 11/01/19at 15:18; Start 11/01/19 at 14:30; Stop 11/01/19 at 15:29; Status DC Linezolid/Dextrose 300 ml @ 300 mls/hr Q12HR IV Last administered on 11/03/19at 19:57; Start 11/01/19 at 21:00; Stop 11/04/19 at 07:56; Status DC Oxymetazoline HCl (Afrin) 2 spray BID NS ; Start 11/03/19 at 09:00; Stop 11/04/19 at 12:17; Status DC Succinylcholine Chloride (Anectine) 200 mg STK-MED ONCE .ROUTE ; Start 11/03/19 at 08:24; Stop 11/03/19 at 08:24; Status DC Etomidate (Amidate) 20 mg STK-MED ONCE IV ; Start 11/03/19 at 08:24; Stop 11/03/19 at 08:25; Status DC Midazolam HCl 100 ml @ 0 mls/hr CONT PRN IV SEE PROTOCOL Last administered on 11/06/19at 11:22; Start 11/03/19 at 08:45 Fentanyl Citrate (Fentanyl 2ml Vial) 100 mcg STK-MED ONCE .ROUTE ; Start 11/03/19 at 08:45; Stop 11/03/19 at 08:45; Status DC Fentanyl Citrate 30 ml @ 0 mls/hr CONT PRN IV SEE PROTOCOL Last administered on 11/03/19at 14:01; Start 11/03/19 at 09:00; Stop 11/03/19 at 19:32; Status DC Chlorhexidine Gluconate (Peridex) 15 ml BID MM Last administered on 11/03/19 19:57; Start 11/03/19 at 09:00; Stop 11/04/19 at 10:16; Status DC Dexmedetomidine HCl 400 mcg/ Sodium Chloride 100 ml @ 0 mls/hr CONT PRN IV ANXIETY / AGITATION Last administered on 11/04/19at 17:59; Start 11/03/19 at 09:15 Sodium Chloride 500 ml @ 500 mls/hr 1X PRN PRN IV ELEVATED BP, SEE COMMENTS; Start 11/03/19 at 09:15 Atropine Sulfate (ATROPINE 0.5mg SYRINGE) 0.5 mg PRN Q5MIN PRN IV SEE COMMENTS; Start 11/03/19 at 09:15 Famotidine (Pepcid Vial) 20 mg BID IVP Last administered on 11/06/19 08:27; Start 11/03/19 at 21:00 Vecuronium Howe (Norcuron Bolus) 10 mg STK-MED ONCE IV ; Start 11/03/19 at 09:27; Stop 11/03/19 at 09:27; Status DC Vecuronium Howe (Norcuron Bolus) 10 mg 1X ONCE IV Last administered on 11/03/19at 09:30; Start 11/03/19 at 09:30; Stop 11/03/19 at 09:34; Status DC Albumin Human 100 ml @ 100 mls/hr 1X ONCE IV Last administered on 11/03/19 10:28; Start 11/03/19 at 10:00; Stop 11/03/19 at 10:59; Status DC Norepinephrine Bitartrate 8 mg/ Dextrose 258 ml @ 17.647 mls/ hr CONT PRN IV PER PROTOCOL Last administered on 11/03/19at 10:16; Start 11/03/19 at 10:00 Potassium Chloride/Water 100 ml @ 100 mls/hr Q1H IV Last administered on 11/03/19at 15:27; Start 11/03/19 at 13:30; Stop 11/03/19 at 15:29; Status DC Fentanyl Citrate 55 ml @ 0 mls/hr CONT PRN IV SEE I/O RECORD Last administered on 11/06/19at 09:47; Start 11/03/19 at 19:45 Fentanyl Citrate (Fentanyl 2ml Vial) 100 mcg STK-MED ONCE .ROUTE ; Start 11/03/19 at 09:00; Stop 11/04/19 at 09:05; Status DC Etomidate (Amidate) 20 mg STK-MED ONCE IV ; Start 11/03/19 at 09:00; Stop 11/04/19 at 09:06; Status DC Succinylcholine Chloride (Anectine) 200 mg STK-MED ONCE .ROUTE ; Start 11/03/19 at 09:00; Stop 11/04/19 at 09:06; Status DC Methylprednisolone Sodium Succinate (SOLU-Medrol 125MG VIAL) 500 mg Q6HRS IV ; Start 11/04/19 at 12:00; Stop 11/07/19 at 12:00; Status Cancel Hydrocortisone Sodium Succinate 500 mg/Sodium Chloride 104 ml @ 104 mls/hr Q6H IV ; Start 11/04/19 at 12:00; Stop 11/05/19 at 00:59; Status Cancel Methylprednisolone Sodium Succinate 500 mg/Sodium Chloride 100 ml @ 100 mls/hr Q6HRS IV Last administered on 11/04/19at 12:33; Start 11/04/19 at 12:00; Stop 11/04/19 at 14:30; Status DC Benzonatate (Tessalon Perle) 100 mg [id number] PRN PO COUGH; Start 11/04/19 at 12:15 Oxymetazoline HCl (Afrin) 2 spray BID PRN NS NASAL CONGESTION; Start 11/04/19 at 12:15 Albumin Human 100 ml @ 100 mls/hr 1X ONCE IV Last administered on 11/04/19at 14 :36; Start 11/04/19 at 13:45; Stop 11/04/19 at 14:44; Status DC Methylprednisolone Sodium Succinate 250 mg/Sodium Chloride 100 ml @ 100 mls/hr Q6HRS IV Last administered on 11/06/19at 06:09; Start 11/04/19 at 18:00; Stop 11/07/19 at 12:59 Info (Tpn Per Pharmacy) 1 each PRN DAILY PRN MC SEE COMMENTS Last administered on 11/06/19at 10:46; Start 11/05/19 at 11:00 Enoxaparin Sodium (Lovenox 40mg Syringe) 40 mg BID SQ Last administered on 11/06/19at 08:28; Start 11/05/19 at 21:00 Potassium Chloride 20 meq/ Potassium Acetate 30 meq/Potassium Phosphate 13.6 mmol/Magnesium Sulfate 10 meq/ Calcium Gluconate 8 meq/ Multivitamins 10 ml/Chromium/ Copper/Manganese/ Seleni/Zn 0.5 ml/ Total Parenteral Nutrition/Amino Acids/Dextrose/ Fat Emulsion Intravenous 1,512 ml @ 63 mls/hr TPN CONT IV Last administered on 11/05/19at 20:53; Start 11/05/19 at 22:00; Stop 11/06/19 at 21:59 Potassium Chloride 20 meq/ Potassium Acetate 30 meq/Potassium Phosphate 13.6 mmol/Magnesium Sulfate 10 meq/ Calcium Gluconate 8 meq/ Multivitamins 10 ml/Chromium/ Copper/Manganese/ Seleni/Zn 0.5 ml/ Total Parenteral Nutrition/Amino Acids/Dextrose/ Fat Emulsion Intravenous 1,800 ml @ 75 mls/hr TPN CONT IV ; Start 11/06/19 at 22:00; Stop 11/07/19 at 21:59 Active Scripts Active Reported Zyrtec (Cetirizine Hcl) 10 Mg Tablet 10 Mg PO DAILY Vitals/I & O Vital Sign - Last 24 Hours 11/05/19 11/05/19 11/05/19 11/05/19 14:00 15:00 15:56 16:00 Temp 97.5 97.5 Pulse 55 62 59 Resp B/P (MAP) 130/88 (102) 159/92 (114) 161/88 (112) Pulse Ox 100 100 100 O2 Delivery Ventilator Ventilator Ventilator Ventilator 11/05/19 11/05/19 11/05/19 11/05/19 16:00 16:00 17:00 17:51 Pulse 52 48 Resp B/P (MAP) 142/74 (96) 155/81 (105) Pulse Ox 100 100 O2 Delivery Mechanical Ventilator Ventilator Ventilator 11/05/19 11/05/19 11/05/19 11/05/19 19:00 20:00 20:00 20:33 Temp 97.7 97.7 Pulse 46 46 Resp B/P (MAP) 164/84 (110) 156/91 (112) Pulse Ox 100 100 100 O2 Delivery Ventilator Mechanical Ventilator Ventilator Ventilator 11/05/19 11/05/19 11/05/19 11/06/19 21:00 22:00 23:00 00:00 Temp 97.7 97.7 Pulse 52 47 45 44 Resp B/P (MAP) 132/70 (90) 131/72 (91) 156/82 (106) 157/84 (108) Pulse Ox 99 100 100 100 O2 Delivery Ventilator Ventilator Ventilator Ventilator 11/06/19 11/06/19 11/06/19 11/06/19 00:00 00:10 01:00 02:00 Pulse 43 43 B/P (MAP) 156/83 (107) 143/78 (99) Pulse Ox 100 100 99 O2 Delivery Mechanical Ventilator Ventilator Ventilator Ventilator 11/06/19 11/06/19 11/06/19 11/06/19 03:03 03:55 04:00 04:00 Temp 97.7 97.7 Pulse 43 42 B/P (MAP) 149/77 (101) 154/81 (105) Pulse Ox 100 100 100 O2 Delivery Ventilator Ventilator Mechanical Ventilator Ventilator 11/06/19 11/06/19 11/06/19 11/06/19 05:00 06:00 07:00 08:00 Temp 97.8 97.8 Pulse 42 50 42 42 Resp B/P (MAP) 166/85 (112) 163/81 (108) 151/77 (101) 157/80 (105) Pulse Ox 99 100 100 100 O2 Delivery Ventilator Ventilator Ventilator Ventilator 11/06/19 11/06/19 11/06/19 11/06/19 08:00 08:02 08:46 09:00 Pulse 56 B/P (MAP) 165/87 (113) Pulse Ox 100 97 100 O2 Delivery Mechanical Ventilator Ventilator Ventilator Ventilator 11/06/19 11/06/19 11/06/19 11/06/19 09:47 10:00 10:17 11:00 Pulse 43 40 Resp 25 12 B/P (MAP) 149/77 (101) 154/77 (102) Pulse Ox 100 100 100 100 O2 Delivery Ventilator Ventilator Ventilator O2 Flow Rate 10.0 11/06/19 11:36 Pulse Ox 98 O2 Delivery Ventilator Intake and Output 11/05/19 11/05/19 11/06/19 15:00 23:00 07:00 Intake Total 200 ml 968 ml 1140 ml Output Total 220 ml 850 ml 425 ml Balance -20 ml 118 ml 715 ml Hemodynamically unstable?: No Is patient in severe pain?: No Is NPO status required?: Yes MARTINA GODOY MD November 06, 2019 13:53
[2019-11-06] MEDS ORDERED: DEXTROSE 50% 25 GM / 50ML DISP.SYRIN. IV PRN ×2 (14:15→15:30)
--- NOTE | 2019-11-06 14:28 | PDOC ---
PULMONARY PROGRESS NOTES Subjective Patient sedated, assist control ventilation, now down to 70% 10 of PEEP Vitals Vital Signs Date Time Temp Pulse Resp B/P (MAP) Pulse Ox O2 Delivery O2 Flow Rate FiO2 11/06/19 11:36 98 Ventilator 11/06/19 11:00 40 12 154/77 (102) 11/06/19 09:47 10.0 11/06/19 08:00 97.8 97.8 Comments Patient seen during the the pandemic, visual exam, in sync with the ventilator. No respiratory distress edema Labs Laboratory Tests Test 11/05/19 00:38 11/05/19 06:15 11/05/19 07:50 11/06/19 05:15 Glucose (Fingerstick) 137 mg/dL (70-99) White Blood Count 3.8 x10^3/uL (4.0-11.0) 8.1 x10^3/uL (4.0-11.0) Red Blood Count 3.74 x10^6/uL (4.30-5.70) 3.73 x10^6/uL (4.30-5.70) Hemoglobin 11.5 g/dL (13.0-17.5) 11.5 g/dL (13.0-17.5) Hematocrit 33.5 % (39.0-53.0) 33.6 % (39.0-53.0) Mean Corpuscular Volume 90 fL (79-100) 90 fL (79-100) Mean Corpuscular Hemoglobin 31 pg (25-35) 31 pg (25-35) Mean Corpuscular Hemoglobin Concent 35 g/dL (31-37) 34 g/dL (31-37) Red Cell Distribution Width 13.0 % (11.5-14.5) 12.7 % (11.5-14.5) Platelet Count 169 x10^3/uL (140-400) 201 x10^3/uL (140-400) Neutrophils (%) (Auto) 92 % (31-73) 93 % (31-73) Lymphocytes (%) (Auto) 8 % (24-48) 4 % (24-48) Monocytes (%) (Auto) 1 % (0-9) 3 % (0-9) Eosinophils (%) (Auto) 0 % (0-3) 0 % (0-3) Basophils (%) (Auto) 0 % (0-3) 1 % (0-3) Neutrophils # (Auto) 3.5 x10^3/uL (1.8-7.7) 7.5 x10^3/uL (1.8-7.7) Lymphocytes # (Auto) 0.3 x10^3/uL (1.0-4.8) 0.3 x10^3/uL (1.0-4.8) Monocytes # (Auto) 0.0 x10^3/uL (0.0-1.1) 0.2 x10^3/uL (0.0-1.1) Eosinophils # (Auto) 0.0 x10^3/uL (0.0-0.7) 0.0 x10^3/uL (0.0-0.7) Basophils # (Auto) 0.0 x10^3/uL (0.0-0.2) 0.1 x10^3/uL (0.0-0.2) Sodium Level 147 mmol/L (136-145) 146 mmol/L (136-145) Potassium Level 3.8 mmol/L (3.5-5.1) 4.0 mmol/L (3.5-5.1) Chloride Level 110 mmol/L (98-107) 111 mmol/L (98-107) Carbon Dioxide Level 32 mmol/L (21-32) 31 mmol/L (21-32) Anion Gap 5 (6-14) 4 (6-14) Blood Urea Nitrogen 18 mg/dL (8-26) 24 mg/dL (8-26) Creatinine 0.8 mg/dL (0.7-1.3) 0.7 mg/dL (0.7-1.3) Estimated GFR (Cockcroft-Gault) 98.3 114.6 Glucose Level 144 mg/dL (70-99) 229 mg/dL (70-99) Calcium Level 8.1 mg/dL (8.5-10.1) 8.2 mg/dL (8.5-10.1) Phosphorus Level 4.0 mg/dL (2.6-4.7) 3.0 mg/dL (2.6-4.7) Magnesium Level 2.1 mg/dL (1.8-2.4) 2.4 mg/dL (1.8-2.4) Lactate Dehydrogenase 299 U/L (85-227) 246 U/L (85-227) C-Reactive Protein, Quantitative 55.3 mg/L (0-3.3) 24.5 mg/L (0-3.3) O2 Saturation 98 % (92-99) Arterial Blood pH 7.42 (7.35-7.45) Arterial Blood pCO2 at Patient Temp 41 mmHg (35-46) Arterial Blood pO2 at Patient Temp 145 mmHg (65-108) Arterial Blood HCO3 26 mmol/L (21-28) Arterial Blood Base Excess 1 mmol/L (-3-3) FiO2 90 vent Erythrocyte Sedimentation Rate 35 (0-15) Fibrinogen 446 mg/dL (200-440) D-Dimer (Padmini) 10.11 ug/mlFEU (0.00-0.50) BUN/Creatinine Ratio 34 (6-20) Total Bilirubin 0.4 mg/dL (0.2-1.0) Aspartate Amino Transf (AST/SGOT) 47 U/L (15-37) Alanine Aminotransferase (ALT/SGPT) 43 U/L (16-63) Alkaline Phosphatase 277 U/L (46-116) Total Protein 4.8 g/dL (6.4-8.2) Albumin 2.0 g/dL (3.4-5.0) Albumin/Globulin Ratio 0.7 (1.0-1.7) Triglycerides Level 188 mg/dL (0-150) Test 11/06/19 08:00 11/06/19 14:07 O2 Saturation 98 % (92-99) Arterial Blood pH 7.41 (7.35-7.45) Arterial Blood pCO2 at Patient Temp 41 mmHg (35-46) Arterial Blood pO2 at Patient Temp 126 mmHg (65-108) Arterial Blood HCO3 25 mmol/L (21-28) Arterial Blood Base Excess 1 mmol/L (-3-3) FiO2 100% Glucose (Fingerstick) 205 mg/dL (70-99) Laboratory Tests Test 11/06/19 05:15 11/06/19 08:00 11/06/19 14:07 White Blood Count 8.1 x10^3/uL (4.0-11.0) Red Blood Count 3.73 x10^6/uL (4.30-5.70) Hemoglobin 11.5 g/dL (13.0-17.5) Hematocrit 33.6 % (39.0-53.0) Mean Corpuscular Volume 90 fL (79-100) Mean Corpuscular Hemoglobin 31 pg (25-35) Mean Corpuscular Hemoglobin Concent 34 g/dL (31-37) Red Cell Distribution Width 12.7 % (11.5-14.5) Platelet Count 201 x10^3/uL (140-400) Neutrophils (%) (Auto) 93 % (31-73) Lymphocytes (%) (Auto) 4 % (24-48) Monocytes (%) (Auto) 3 % (0-9) Eosinophils (%) (Auto) 0 % (0-3) Basophils (%) (Auto) 1 % (0-3) Neutrophils # (Auto) 7.5 x10^3/uL (1.8-7.7) Lymphocytes # (Auto) 0.3 x10^3/uL (1.0-4.8) Monocytes # (Auto) 0.2 x10^3/uL (0.0-1.1) Eosinophils # (Auto) 0.0 x10^3/uL (0.0-0.7) Basophils # (Auto) 0.1 x10^3/uL (0.0-0.2) Erythrocyte Sedimentation Rate 35 (0-15) Fibrinogen 446 mg/dL (200-440) D-Dimer (Padmini) 10.11 ug/mlFEU (0.00-0.50) Sodium Level 146 mmol/L (136-145) Potassium Level 4.0 mmol/L (3.5-5.1) Chloride Level 111 mmol/L (98-107) Carbon Dioxide Level 31 mmol/L (21-32) Anion Gap 4 (6-14) Blood Urea Nitrogen 24 mg/dL (8-26) Creatinine 0.7 mg/dL (0.7-1.3) Estimated GFR (Cockcroft-Gault) 114.6 BUN/Creatinine Ratio 34 (6-20) Glucose Level 229 mg/dL (70-99) Calcium Level 8.2 mg/dL (8.5-10.1) Phosphorus Level 3.0 mg/dL (2.6-4.7) Magnesium Level 2.4 mg/dL (1.8-2.4) Total Bilirubin 0.4 mg/dL (0.2-1.0) Aspartate Amino Transf (AST/SGOT) 47 U/L (15-37) Alanine Aminotransferase (ALT/SGPT) 43 U/L (16-63) Alkaline Phosphatase 277 U/L (46-116) Lactate Dehydrogenase 246 U/L (85-227) C-Reactive Protein, Quantitative 24.5 mg/L (0-3.3) Total Protein 4.8 g/dL (6.4-8.2) Albumin 2.0 g/dL (3.4-5.0) Albumin/Globulin Ratio 0.7 (1.0-1.7) Triglycerides Level 188 mg/dL (0-150) O2 Saturation 98 % (92-99) Arterial Blood pH 7.41 (7.35-7.45) Arterial Blood pCO2 at Patient Temp 41 mmHg (35-46) Arterial Blood pO2 at Patient Temp 126 mmHg (65-108) Arterial Blood HCO3 25 mmol/L (21-28) Arterial Blood Base Excess 1 mmol/L (-3-3) FiO2 100% Glucose (Fingerstick) 205 mg/dL (70-99) Medications Active Scripts Medications Dose Route/Sig Max Daily Dose Days Date Category Zyrtec (Cetirizine Hcl) 10 Mg Tablet 10 Mg PO DAILY 10/27/19 Reported Impression . 1. Acute hypoxic respiratory failure secondary to COVID-19/ARDS status post convalescent serum, and Tocilizumab 2. Abnormal chest x-ray with faint bilateral infiltrates suggestive of COVID-19 pneumonia. 3. Hairy cell leukemia, in remission. 4. Abnormal LFTs, likely related to COVID-19 infection. 5. Increase inflammatory markers 6. Achalasia 7. Encephalopathy Plan . Oxygenation is better, will continue current support, spoke with his yesterday Status post convalescent center Antibiotics, per ID Prone position IV fluids Nutritional support Total cumulative critical care time of 35 minutes, discussed case with ARIC, RN, reviewing labs, chest x-ray, formulating a plan ERMA NICHOLE MD November 06, 2019 14:28
[2019-11-06] MEDS: INSULIN LISPRO 300 UNITS/3 ML VIAL. SQ SCH ×2 (17:53→23:55)
--- NOTE | 2019-11-06 18:30 | NUR ---
Pt vent alarming, pt coughing, red in the face, ETT noted to be out further than last being with pt in last 20 min. RT called to come check pt. Sats remained 98-99% Voice heard when coughing and suctioned. RT came to check pt and replaced ETT awllace. Pt tolerated this well and remained stable.
[2019-11-06] MEDS ORDERED: [UNRECOGNIZED DRUG - OTHER] IV SCH ×10 (22:00)
[2019-11-06] MEDS ORDERED: TOTAL PARENTERAL NUTRITION IV SCH ×10 (22:00)
[2019-11-06] MEDS ORDERED: AMINO ACID IV SCH ×10 (22:00)
[2019-11-06] MEDS ORDERED: DEXTROSE 70% IV SCH ×10 (22:00)
[2019-11-07] VITALS (24 sets, daily range): BP systolic 149–199; BP diastolic 77–95
[2019-11-07] MEDS: methylPREDNISolone SOD SUCC 250 MG in IV NORMAL SALINE 100ML 100 ML IV SCH ×2 (05:59→12:10)
[2019-11-07 06:30] LABS: CALCIUM 8.6 mg/dL (8.5-10.1); CREATININE 0.6 mg/dL (0.7-1.3); MAGNESIUM 2.4 mg/dL (1.8-2.4); PHOSPHORUS 2.8 mg/dL (2.6-4.7); POTASSIUM 4.2 mmol/L (3.5-5.1)
[2019-11-07] MEDS: INSULIN LISPRO 300 UNITS/3 ML VIAL. SQ SCH ×3 (06:41→17:56)
[2019-11-07] MEDS: ENOXAPARIN 40 MG/0.4 ML SYRINGE. SQ SCH ×2 (08:03→21:21)
[2019-11-07] MEDS: FAMOTIDINE 20 MG/2 ML VIAL IVP SCH ×2 (08:03→21:21)
[2019-11-07] MEDS: ZINC SULFATE 220 MG CAPSULE. PO SCH (08:03)
[2019-11-07 08:41] LABS: BASE EXCESS ABG 2 mmol/L (-3-3); HCO3 ABG 27 mmol/L (21-28); PCO2 ABG 45 mmHg (35-46); PO2 ABG 123 mmHg (65-108); SAT O2 ABG 98 % (92-99)
[2019-11-07 08:43] LABS: FIO2 ABG 70
--- NOTE | 2019-11-07 09:51 | PDOC ---
Infectious Disease Note Subjective Subjective Sedated Orally intubated FiO2 down to 70% PEEP down to 10 On TPN No fevers last 24 hrs ROS ROS unobtainable Vital Sign Vital Signs Vital Signs Date Time Temp Pulse Resp B/P (MAP) Pulse Ox O2 Delivery O2 Flow Rate FiO2 11/07/19 09:00 50 25 168/93 (118) 100 Ventilator 11/07/19 08:00 97.2 97.2 11/06/19 09:47 10.0 Physical Exam PHYSICAL EXAM Visually, GENERAL: Orally intubated and sedated, mitts HEENT: ETT/OGT LUNGS: vent CV: Regular : Sams EXTREMITIES: SCDs bilaterally NEUROLOGIC: sedated RIJ Labs Lab Laboratory Tests Test 11/06/19 14:07 11/06/19 17:42 11/06/19 23:48 11/07/19 05:25 Glucose (Fingerstick) 205 mg/dL (70-99) 187 mg/dL (70-99) 168 mg/dL (70-99) Sodium Level 145 mmol/L (136-145) Potassium Level 4.2 mmol/L (3.5-5.1) Chloride Level 109 mmol/L (98-107) Carbon Dioxide Level 31 mmol/L (21-32) Anion Gap 5 (6-14) Blood Urea Nitrogen 25 mg/dL (8-26) Creatinine 0.6 mg/dL (0.7-1.3) Estimated GFR (Cockcroft-Gault) 137.0 Glucose Level 187 mg/dL (70-99) Calcium Level 8.6 mg/dL (8.5-10.1) Phosphorus Level 2.8 mg/dL (2.6-4.7) Magnesium Level 2.4 mg/dL (1.8-2.4) Test 11/07/19 08:25 O2 Saturation 98 % (92-99) Arterial Blood pH 7.40 (7.35-7.45) Arterial Blood pCO2 at Patient Temp 45 mmHg (35-46) Arterial Blood pO2 at Patient Temp 123 mmHg (65-108) Arterial Blood HCO3 27 mmol/L (21-28) Arterial Blood Base Excess 2 mmol/L (-3-3) FiO2 70 Micro Objective Assessment Fever - better. Likely from COVID-19 COVID-19 respiratory illness to ICU 5/3 LFTs and CRP better - but requiring more 02 - s/p convalescent serum administration 10/31/2019 CRP - better - LDH up - IL- 6 10/31 Pneumonia, secondary bacterial infection cannot be ruled out. s/p solumedrol 10/31. off abx Leukopenia - better Headache. Resolved Generalized weakness. History of hairy cell leukemia in remission Abnormal liver function tests likely from COVID 19. Diarrhea prior to admission, now resolved. Achalasia, status post esophagectomy. Plan Plan of Care off Zosyn 10/26 - 10/31 Off Zyvox/Meropenem 10/31 - 11/03 S/p Actemera 10/31 and plasma 10/30 Completed azithromycin Maintain aspiration precautions Supportive care Remains Critically ill D/w nursing Patient seen and examined. Chart reviewed in detail. Case discussed with ART TEACHER. Agree with above plan. JORI CORREA APRN November 07, 2019 09:51 WILFRID ELIZALDE MD November 07, 2019 20:50
[2019-11-07] MEDS: TPN PER PHARMACY MC PRN (10:56)
--- NOTE | 2019-11-07 10:56 | NUR ---
Pharmacy TPN Dosing Note S: FUENTES RAGLAND is a 59 year old M Currently receiving Central Continuous TPN started 11/05/19 B:Pertinent PMH: Critical illness; unable to tolerate tube feeding Height: 6 feet, 0 inches Weight: 91.4 kg Current diet: NPO LABS: Sodium: 145 Potassium: 4.2 Chloride: 109 Calcium: 8.6 Corrected Calcium: 10.20 Magnesium: 2.4 CO2: 31 SCr: 0.6 Glucose: 168-187 Albumin: 2.0 AST: 47 ALT: 43 TPN FORMULA: TPN TYPE: Central Continuous AMINO ACIDS: 100 gm DEXTROSE: 225 gm LIPIDS: 20 gm POTASSIUM CHLORIDE: 20 mEq POTASSIUM ACETATE: 30 mEq POTASSIUM PHOSPHATE: 13.6 mmol MAGNESIUM: 10 mEq CALCIUM: 8 mEq MULTIPLE VITAMIN: 10 ml TRACE ELEMENTS: 0.5 ml(s) TPN PLAN: Electrolytes wnl. Continue same TPN. BG improved. BMP, Mag, Phos in AM. R: Continue same TPN formulation as yesterday. Will monitor electrolytes, glucose, and tolerance to TPN. FAMILIA ZARATE Julia, 11/07/19 [id number]
[2019-11-07] MEDS: fentaNYL HIGH DOSE PCA 55 ML IV PRN (11:02)
[2019-11-07] MEDS: ENALAPRILAT 1.25 MG/ML VIAL. IVP PRN ×2 (12:10→21:35)
--- NOTE | 2019-11-07 12:10 | PDOC ---
PULMONARY PROGRESS NOTES Subjective Intubated 11/03/2019 Patient sedated, assist control ventilation, now down to 70% and 10 of PEEP on versed and fent gtt Vitals Vital Signs Date Time Temp Pulse Resp B/P (MAP) Pulse Ox O2 Delivery O2 Flow Rate FiO2 11/07/19 11:39 25 100 Ventilator 11/07/19 11:00 41 199/91 (127) 11/07/19 08:00 97.2 97.2 11/06/19 09:47 10.0 Comments Patient seen during the the COVID- pandemic, visual exam, in sync with the ventilator. No respiratory distress edema Labs Laboratory Tests Test 11/06/19 05:15 11/06/19 08:00 11/06/19 14:07 11/06/19 17:42 White Blood Count 8.1 x10^3/uL (4.0-11.0) Red Blood Count 3.73 x10^6/uL (4.30-5.70) Hemoglobin 11.5 g/dL (13.0-17.5) Hematocrit 33.6 % (39.0-53.0) Mean Corpuscular Volume 90 fL (79-100) Mean Corpuscular Hemoglobin 31 pg (25-35) Mean Corpuscular Hemoglobin Concent 34 g/dL (31-37) Red Cell Distribution Width 12.7 % (11.5-14.5) Platelet Count 201 x10^3/uL (140-400) Neutrophils (%) (Auto) 93 % (31-73) Lymphocytes (%) (Auto) 4 % (24-48) Monocytes (%) (Auto) 3 % (0-9) Eosinophils (%) (Auto) 0 % (0-3) Basophils (%) (Auto) 1 % (0-3) Neutrophils # (Auto) 7.5 x10^3/uL (1.8-7.7) Lymphocytes # (Auto) 0.3 x10^3/uL (1.0-4.8) Monocytes # (Auto) 0.2 x10^3/uL (0.0-1.1) Eosinophils # (Auto) 0.0 x10^3/uL (0.0-0.7) Basophils # (Auto) 0.1 x10^3/uL (0.0-0.2) Erythrocyte Sedimentation Rate 35 (0-15) Fibrinogen 446 mg/dL (200-440) D-Dimer (Padmini) 10.11 ug/mlFEU (0.00-0.50) Sodium Level 146 mmol/L (136-145) Potassium Level 4.0 mmol/L (3.5-5.1) Chloride Level 111 mmol/L (98-107) Carbon Dioxide Level 31 mmol/L (21-32) Anion Gap 4 (6-14) Blood Urea Nitrogen 24 mg/dL (8-26) Creatinine 0.7 mg/dL (0.7-1.3) Estimated GFR (Cockcroft-Gault) 114.6 BUN/Creatinine Ratio 34 (6-20) Glucose Level 229 mg/dL (70-99) Calcium Level 8.2 mg/dL (8.5-10.1) Phosphorus Level 3.0 mg/dL (2.6-4.7) Magnesium Level 2.4 mg/dL (1.8-2.4) Total Bilirubin 0.4 mg/dL (0.2-1.0) Aspartate Amino Transf (AST/SGOT) 47 U/L (15-37) Alanine Aminotransferase (ALT/SGPT) 43 U/L (16-63) Alkaline Phosphatase 277 U/L (46-116) Lactate Dehydrogenase 246 U/L (85-227) C-Reactive Protein, Quantitative 24.5 mg/L (0-3.3) Total Protein 4.8 g/dL (6.4-8.2) Albumin 2.0 g/dL (3.4-5.0) Albumin/Globulin Ratio 0.7 (1.0-1.7) Triglycerides Level 188 mg/dL (0-150) O2 Saturation 98 % (92-99) Arterial Blood pH 7.41 (7.35-7.45) Arterial Blood pCO2 at Patient Temp 41 mmHg (35-46) Arterial Blood pO2 at Patient Temp 126 mmHg (65-108) Arterial Blood HCO3 25 mmol/L (21-28) Arterial Blood Base Excess 1 mmol/L (-3-3) FiO2 100% Glucose (Fingerstick) 205 mg/dL (70-99) 187 mg/dL (70-99) Test 11/06/19 23:48 11/07/19 05:25 11/07/19 08:25 Glucose (Fingerstick) 168 mg/dL (70-99) Sodium Level 145 mmol/L (136-145) Potassium Level 4.2 mmol/L (3.5-5.1) Chloride Level 109 mmol/L (98-107) Carbon Dioxide Level 31 mmol/L (21-32) Anion Gap 5 (6-14) Blood Urea Nitrogen 25 mg/dL (8-26) Creatinine 0.6 mg/dL (0.7-1.3) Estimated GFR (Cockcroft-Gault) 137.0 Glucose Level 187 mg/dL (70-99) Calcium Level 8.6 mg/dL (8.5-10.1) Phosphorus Level 2.8 mg/dL (2.6-4.7) Magnesium Level 2.4 mg/dL (1.8-2.4) O2 Saturation 98 % (92-99) Arterial Blood pH 7.40 (7.35-7.45) Arterial Blood pCO2 at Patient Temp 45 mmHg (35-46) Arterial Blood pO2 at Patient Temp 123 mmHg (65-108) Arterial Blood HCO3 27 mmol/L (21-28) Arterial Blood Base Excess 2 mmol/L (-3-3) FiO2 70 Laboratory Tests Test 11/06/19 14:07 11/06/19 17:42 11/06/19 23:48 11/07/19 05:25 Glucose (Fingerstick) 205 mg/dL (70-99) 187 mg/dL (70-99) 168 mg/dL (70-99) Sodium Level 145 mmol/L (136-145) Potassium Level 4.2 mmol/L (3.5-5.1) Chloride Level 109 mmol/L (98-107) Carbon Dioxide Level 31 mmol/L (21-32) Anion Gap 5 (6-14) Blood Urea Nitrogen 25 mg/dL (8-26) Creatinine 0.6 mg/dL (0.7-1.3) Estimated GFR (Cockcroft-Gault) 137.0 Glucose Level 187 mg/dL (70-99) Calcium Level 8.6 mg/dL (8.5-10.1) Phosphorus Level 2.8 mg/dL (2.6-4.7) Magnesium Level 2.4 mg/dL (1.8-2.4) Test 11/07/19 08:25 O2 Saturation 98 % (92-99) Arterial Blood pH 7.40 (7.35-7.45) Arterial Blood pCO2 at Patient Temp 45 mmHg (35-46) Arterial Blood pO2 at Patient Temp 123 mmHg (65-108) Arterial Blood HCO3 27 mmol/L (21-28) Arterial Blood Base Excess 2 mmol/L (-3-3) FiO2 70 Medications Active Scripts Medications Dose Route/Sig Max Daily Dose Days Date Category Zyrtec (Cetirizine Hcl) 10 Mg Tablet 10 Mg PO DAILY 10/27/19 Reported Impression . 1. Acute hypoxic respiratory failure secondary to COVID-19/ARDS status post convalescent serum, and Tocilizumab 2. Abnormal chest x-ray with faint bilateral infiltrates suggestive of COVID-19 pneumonia. 3. Hairy cell leukemia, in remission. 4. Abnormal LFTs, likely related to COVID-19 infection. 5. Increase inflammatory markers 6. Achalasia 7. Encephalopathy Plan . mechanical ventilation support in A/C mode FI02 70% and PEEP 10, follow ABG and makes changes Decrease PEEP to 6 decrease FiO2 to 60 Proning per protocol ABX per ID Status post convalescent serum on 10/31/2019 Nutritional support-- TPN DVT/GI PPX: lovenox/pepcid Spoke with his Kerri Total cumulative critical care time of 35 minutes, discussed case with ARIC, RN, reviewing labs, chest x-ray, formulating a plan ERMA NICHOLE MD November 07, 2019 12:10
--- NOTE | 2019-11-07 12:21 | PDOC ---
PROGRESS NOTES Chief Complaint Chief Complaint A/P: Acute hypoxic resp failure - 2/2 SARS-CoV-2 unfortunately requiring mechanical ventilation now. 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 Bone marrow biopsy on 03/05/2014 revealed complete remission PSH esophagectomy in 2016 remote tobacco abuse Elevated alkaline phos - hx Cholelithiasis. This is possibly 2/2 Zosyn as this is a reported side effect severe protein-caloric malnutrition Plan: ventilatory support as per pulmonary Antibiotics as per ID Status post administration of convalescent plasma on October 30 Status post anti-IL 6 inhibitor on October 31 Supportive measures Reassess in the a.m. COVID-19 CRITERIA: The patient was evaluated during the global COVID-19 pandemic, and that diagnosis was suspected/considered upon their initial presentation. Their evaluation, treatment and testing was consistent with current guidelines for patients who present with complaints or symptoms that may be related to COVID-19. History of Present Illness History of Present Illness Mr Schilling is a 59 yo M w/ PMHx Hairy cell leukemia, achalasia admitted in isolation in ICU w/ +COVID-19 pneumonia. 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 5: Cough worsening. Admitted to ICU 10/30: Transferred from ICU. Received 1 unit of [facility]FP from [facility] [place] COVID 19 convalescent plasma program donor 10/31:Today seen on COVID isolation unit, does not feel well, says he has felt sick for 12 days and would not wish this on his worst enemy. Pain on coughing. On 5 liters/min. 11/01: No acute events reported overnight, case discussed with nursing staff patient in no acute distress no complaints during my visit 11/02: Patient now requiring mechanical ventilation no acute events reported overnight. 11/03: No acute events reported overnight, case discussed with nursing staff patient in no acute distress no complaints during my visit 11/04: No changes overnight. Continues to require ventilatory support quite a bit. Appreciate pulmonary oracle ascp consultant recommendations 11/05: Bradycardia noted, most likely related to sedation, patient seems to respond to verbal stimuli during my visit and his heart rate goes up to the sixties range when more awake, discussed with nursing staff 11/06: No acute events reported overnight, case discussed with nursing staff patient in no acute distress no complaints during my visit Plan: ATB as per ID supprotive measures COVID-19 CRITERIA: The patient was evaluated during the global COVID-19 pandemic, and that diagnosis was suspected/considered upon their initial presentation. Their evaluation, treatment and testing were consistent with current guidelines for patients who present with complaints or symptoms that may be related to COVID-19. Vitals Vitals Vital Signs Date Time Temp Pulse Resp B/P (MAP) Pulse Ox O2 Delivery O2 Flow Rate FiO2 11/07/19 12:10 41 199/91 11/07/19 11:39 25 100 Ventilator 11/07/19 08:00 97.2 97.2 11/06/19 09:47 10.0 Physical Exam Physical Exam Visually, GENERAL: Orally intubated and sedated, mitts HEENT: ETT/OGT LUNGS: vent CV: Regular : Sams EXTREMITIES: SCDs bilaterally NEUROLOGIC: sedated RIJ General: Alert, Oriented X3, Cooperative, mild distress Abdomen: Soft Extremities: No cyanosis, No edema Labs LABS Laboratory Tests Test 11/06/19 14:07 11/06/19 17:42 11/06/19 23:48 11/07/19 05:25 Glucose (Fingerstick) 205 mg/dL (70-99) 187 mg/dL (70-99) 168 mg/dL (70-99) Sodium Level 145 mmol/L (136-145) Potassium Level 4.2 mmol/L (3.5-5.1) Chloride Level 109 mmol/L (98-107) Carbon Dioxide Level 31 mmol/L (21-32) Anion Gap 5 (6-14) Blood Urea Nitrogen 25 mg/dL (8-26) Creatinine 0.6 mg/dL (0.7-1.3) Estimated GFR (Cockcroft-Gault) 137.0 Glucose Level 187 mg/dL (70-99) Calcium Level 8.6 mg/dL (8.5-10.1) Phosphorus Level 2.8 mg/dL (2.6-4.7) Magnesium Level 2.4 mg/dL (1.8-2.4) Test 11/07/19 08:25 O2 Saturation 98 % (92-99) Arterial Blood pH 7.40 (7.35-7.45) Arterial Blood pCO2 at Patient Temp 45 mmHg (35-46) Arterial Blood pO2 at Patient Temp 123 mmHg (65-108) Arterial Blood HCO3 27 mmol/L (21-28) Arterial Blood Base Excess 2 mmol/L (-3-3) FiO2 70 Assessment and Plan Assessmemt and Plan Problems Medical Problems: (1) COVID-19 virus infection Status: Acute Comment Review of Relevant I have reviewed the following items fany (where applicable) has been applied. Labs Laboratory Tests Test 11/06/19 05:15 11/06/19 08:00 11/06/19 14:07 11/06/19 17:42 White Blood Count 8.1 x10^3/uL (4.0-11.0) Red Blood Count 3.73 x10^6/uL (4.30-5.70) Hemoglobin 11.5 g/dL (13.0-17.5) Hematocrit 33.6 % (39.0-53.0) Mean Corpuscular Volume 90 fL (79-100) Mean Corpuscular Hemoglobin 31 pg (25-35) Mean Corpuscular Hemoglobin Concent 34 g/dL (31-37) Red Cell Distribution Width 12.7 % (11.5-14.5) Platelet Count 201 x10^3/uL (140-400) Neutrophils (%) (Auto) 93 % (31-73) Lymphocytes (%) (Auto) 4 % (24-48) Monocytes (%) (Auto) 3 % (0-9) Eosinophils (%) (Auto) 0 % (0-3) Basophils (%) (Auto) 1 % (0-3) Neutrophils # (Auto) 7.5 x10^3/uL (1.8-7.7) Lymphocytes # (Auto) 0.3 x10^3/uL (1.0-4.8) Monocytes # (Auto) 0.2 x10^3/uL (0.0-1.1) Eosinophils # (Auto) 0.0 x10^3/uL (0.0-0.7) Basophils # (Auto) 0.1 x10^3/uL (0.0-0.2) Erythrocyte Sedimentation Rate 35 (0-15) Fibrinogen 446 mg/dL (200-440) D-Dimer (Padmini) 10.11 ug/mlFEU (0.00-0.50) Sodium Level 146 mmol/L (136-145) Potassium Level 4.0 mmol/L (3.5-5.1) Chloride Level 111 mmol/L (98-107) Carbon Dioxide Level 31 mmol/L (21-32) Anion Gap 4 (6-14) Blood Urea Nitrogen 24 mg/dL (8-26) Creatinine 0.7 mg/dL (0.7-1.3) Estimated GFR (Cockcroft-Gault) 114.6 BUN/Creatinine Ratio 34 (6-20) Glucose Level 229 mg/dL (70-99) Calcium Level 8.2 mg/dL (8.5-10.1) Phosphorus Level 3.0 mg/dL (2.6-4.7) Magnesium Level 2.4 mg/dL (1.8-2.4) Total Bilirubin 0.4 mg/dL (0.2-1.0) Aspartate Amino Transf (AST/SGOT) 47 U/L (15-37) Alanine Aminotransferase (ALT/SGPT) 43 U/L (16-63) Alkaline Phosphatase 277 U/L (46-116) Lactate Dehydrogenase 246 U/L (85-227) C-Reactive Protein, Quantitative 24.5 mg/L (0-3.3) Total Protein 4.8 g/dL (6.4-8.2) Albumin 2.0 g/dL (3.4-5.0) Albumin/Globulin Ratio 0.7 (1.0-1.7) Triglycerides Level 188 mg/dL (0-150) O2 Saturation 98 % (92-99) Arterial Blood pH 7.41 (7.35-7.45) Arterial Blood pCO2 at Patient Temp 41 mmHg (35-46) Arterial Blood pO2 at Patient Temp 126 mmHg (65-108) Arterial Blood HCO3 25 mmol/L (21-28) Arterial Blood Base Excess 1 mmol/L (-3-3) FiO2 100% Glucose (Fingerstick) 205 mg/dL (70-99) 187 mg/dL (70-99) Test 11/06/19 23:48 11/07/19 05:25 11/07/19 08:25 Glucose (Fingerstick) 168 mg/dL (70-99) Sodium Level 145 mmol/L (136-145) Potassium Level 4.2 mmol/L (3.5-5.1) Chloride Level 109 mmol/L (98-107) Carbon Dioxide Level 31 mmol/L (21-32) Anion Gap 5 (6-14) Blood Urea Nitrogen 25 mg/dL (8-26) Creatinine 0.6 mg/dL (0.7-1.3) Estimated GFR (Cockcroft-Gault) 137.0 Glucose Level 187 mg/dL (70-99) Calcium Level 8.6 mg/dL (8.5-10.1) Phosphorus Level 2.8 mg/dL (2.6-4.7) Magnesium Level 2.4 mg/dL (1.8-2.4) O2 Saturation 98 % (92-99) Arterial Blood pH 7.40 (7.35-7.45) Arterial Blood pCO2 at Patient Temp 45 mmHg (35-46) Arterial Blood pO2 at Patient Temp 123 mmHg (65-108) Arterial Blood HCO3 27 mmol/L (21-28) Arterial Blood Base Excess 2 mmol/L (-3-3) FiO2 70 Laboratory Tests Test 11/06/19 14:07 11/06/19 17:42 11/06/19 23:48 11/07/19 05:25 Glucose (Fingerstick) 205 mg/dL (70-99) 187 mg/dL (70-99) 168 mg/dL (70-99) Sodium Level 145 mmol/L (136-145) Potassium Level 4.2 mmol/L (3.5-5.1) Chloride Level 109 mmol/L (98-107) Carbon Dioxide Level 31 mmol/L (21-32) Anion Gap 5 (6-14) Blood Urea Nitrogen 25 mg/dL (8-26) Creatinine 0.6 mg/dL (0.7-1.3) Estimated GFR (Cockcroft-Gault) 137.0 Glucose Level 187 mg/dL (70-99) Calcium Level 8.6 mg/dL (8.5-10.1) Phosphorus Level 2.8 mg/dL (2.6-4.7) Magnesium Level 2.4 mg/dL (1.8-2.4) Test 11/07/19 08:25 O2 Saturation 98 % (92-99) Arterial Blood pH 7.40 (7.35-7.45) Arterial Blood pCO2 at Patient Temp 45 mmHg (35-46) Arterial Blood pO2 at Patient Temp 123 mmHg (65-108) Arterial Blood HCO3 27 mmol/L (21-28) Arterial Blood Base Excess 2 mmol/L (-3-3) FiO2 70 Microbiology 10/27/19 Blood Culture - Final, Complete NO GROWTH AFTER 5 DAYS Medications Current Medications Sodium Chloride 1,000 ml @ 1,000 mls/hr 1X ONCE IV Last administered on 10/27/19at 13:30; Start 10/27/19 at 13:30; Stop 10/27/19 at 14:29; Status DC Acetaminophen (Tylenol) 1,000 mg 1X ONCE PO Last administered on 10/27/19at 16:10; Start 10/27/19 at 16:00; Stop 10/27/19 at 16:01; Status DC Sodium Chloride (Normal Saline Flush) 3 ml QSHIFT PRN IV AFTER MEDS AND BLOOD DRAWS; Start 10/27/19 at 16:30 Sodium Chloride 1,000 ml @ 100 mls/hr Q10H IV Last administered on 11/03/19at 19:57; Start 10/27/19 at 16:22; Stop 11/04/19 at 13:33; Status DC Ondansetron HCl (Zofran) 4 mg PRN Q4HRS PRN IV NAUSEA/VOMITING Last admin istered on 11/03/19at 05:59; Start 10/27/19 at 16:30 Acetaminophen (Tylenol) 650 mg PRN Q4HRS PRN PO TEMP OVER 100.4F OR MILD PAIN Last administered on 11/03/19at 00:14; Start 10/27/19 at 16:30 Al Hydroxide/Mg Hydroxide (Mylanta Plus Xs) 30 ml PRN DAILY PRN PO HEARTBURN / GAS; Start 10/27/19 at 16:30 Sodium Monofluorophosphate (Fleet Adult) 133 ml PRN DAILY PRN LA CONSTIPATION; Start 10/27/19 at 16:30 Docusate Sodium (Colace) 100 mg PRN BID PRN PO HARD STOOLS; Start 10/27/19 at 16:30 Albuterol/ Ipratropium (Duoneb) 3 ml Q4H NEB ; Start 10/27/19 at 16:30; Stop 10/27/19 at 18:28; Status DC Guaifenesin (Robitussin) 200 mg PRN Q4HRS PRN PO COUGH 2ND CHOICE Last administered on 11/01/19at 12:57; Start 10/27/19 at 16:30 Lorazepam (Ativan) 0.5 mg PRN Q4HRS PRN PO ANXIETY / AGITATION Last administered on 11/03/19at 05:59; Start 10/27/19 at 16:30 Enoxaparin Sodium (Lovenox 40mg Syringe) 40 mg Q24H SQ Last administered on 11/04/19at 20:36; Start 10/27/19 at 21:00; Stop 11/05/19 at 12:41; Status DC Piperacillin Sod/ Tazobactam Sod 3.375 gm/Sodium Chloride 50 ml @ 100 mls/hr Q6HRS IV Last administered on 11/01/19at 11:26; Start 10/27/19 at 18:00; Stop 11/01/19 at 12:49; Status DC Azithromycin 250 ml @ 250 mls/hr 1X ONCE IV ; Start 10/27/19 at 16:30; Stop 10/27/19 at 17:29; Status Cancel Azithromycin 500 mg/Sodium Chloride 250 ml @ 250 mls/hr Q24H IV Last administered on 10/31/19at 18:28; Start 10/27/19 at 18:00; Stop 11/01/19 at 08:39; Status DC Albuterol Sulfate (Ventolin Neb Soln) 2.5 mg PRN Q4HRS PRN NEB SHORTNESS OF BREATH; Start 10/27/19 at 18:30 Sodium Chloride (Saline Mist Nasal) 1 nicolas PRN Q1HR PRN NS NASAL CONGESTION Last administered on 11/02/19at 12:34; Start 10/29/19 at 02:45 Pantoprazole Sodium (Protonix) 40 mg DAILYAC PO Last administered on 11/02/19at 09:06; Start 10/30/19 at 07:30; Stop 11/04/19 at 11:05; Status DC Calcium Carbonate/ Glycine (Tums) 500 mg PRN AFTMEALHC PRN PO INDIGESTION; Start 10/29/19 at 14:45 Polyethylene Glycol (miraLAX PACKET) 17 gm PRN DAILY PRN PO CONSTIPATION; Start 10/29/19 at 14:45 Lactobacillus Rhamnosus (Culturelle) 1 cap BID PO Last administered on 11/04/19at 09:04; Start 10/30/19 at 21:00; Stop 11/04/19 at 09:27; Status DC Guaifenesin (MUCINEX ER with DM) 2 tab PRN Q12HR PRN PO COUGH 1ST CHOICE Last administered on 11/03/19at 00:07; Start 10/30/19 at 11:15 Potassium Chloride (Klor-Con) 40 meq 1X ONCE PO Last administered on 11/01/19at 12:10; Start 11/01/19 at 12:15; Stop 11/01/19 at 12:16; Status DC Zinc Sulfate (Orazinc) 220 mg DAILY PO Last administered on 11/07/19at 08:03; Start 11/01/19 at 13:00 Meropenem 500 mg/ Sodium Chloride 50 ml @ 100 mls/hr Q8HRS IV Last administered on 11/04/19at 06:27; Start 11/01/19 at 14:00; Stop 11/04/19 at 07:56; Status DC Benzonatate (Tessalon Perle) 100 mg [id number] PO Last administered on 11/02/19at 21:10; Start 11/01/19 at 14:00; Stop 11/04/19 at 12:17; Status DC Acetaminophen (Tylenol) 650 mg 1X ONCE PO Last administered on 11/01/19at 14:24; Start 11/01/19 at 14:00; Stop 11/01/19 at 14:01; Status DC Diphenhydramine HCl (Benadryl) 25 mg 1X ONCE IV Last administered on 11/01/19at 14:25; Start 11/01/19 at 14:00; Stop 11/01/19 at 14:01; Status DC Methylprednisolone Sodium Succinate (SOLU-Medrol 40MG VIAL) 40 mg 1X ONCE IV Last administered on 11/01/19at 14:25; Start 11/01/19 at 14:00; Stop 11/01/19 at 14:01; Status DC Tocilizumab 400 mg/Sodium Chloride 100 ml @ 100 mls/hr 1X ONCE IV Last administered on 11/01/19at 15:18; Start 11/01/19 at 14:30; Stop 11/01/19 at 15:29; Status DC Linezolid/Dextrose 300 ml @ 300 mls/hr Q12HR IV Last administered on 11/03/19at 19:57; Start 11/01/19 at 21:00; Stop 11/04/19 at 07:56; Status DC Oxymetazoline HCl (Afrin) 2 spray BID NS ; Start 11/03/19 at 09:00; Stop 11/04/19 at 12:17; Status DC Succinylcholine Chloride (Anectine) 200 mg STK-MED ONCE .ROUTE ; Start 11/03/19 at 08:24; Stop 11/03/19 at 08:24; Status DC Etomidate (Amidate) 20 mg STK-MED ONCE IV ; Start 11/03/19 at 08:24; Stop 11/03/19 at 08:25; Status DC Midazolam HCl 100 ml @ 0 mls/hr CONT PRN IV SEE PROTOCOL Last administered on 11/06/19at 23:57; Start 11/03/19 at 08:45 Fentanyl Citrate (Fentanyl 2ml Vial) 100 mcg STK-MED ONCE .ROUTE ; Start 11/03/19 at 08:45; Stop 11/03/19 at 08:45; Status DC Fentanyl Citrate 30 ml @ 0 mls/hr CONT PRN IV SEE PROTOCOL Last administered on 11/03/19at 14:01; Start 11/03/19 at 09:00; Stop 11/03/19 at 19:32; Status DC Chlorhexidine Gluconate (Peridex) 15 ml BID MM Last administered on 11/03/19at 19:57; Start 11/03/19 at 09:00; Stop 11/04/19 at 10:16; Status DC Dexmedetomidine HCl 400 mcg/ Sodium Chloride 100 ml @ 0 mls/hr CONT PRN IV ANXIETY / AGITATION Last administered on 11/04/19at 17:59; Start 11/03/19 at 09:15 Sodium Chloride 500 ml @ 500 mls/hr 1X PRN PRN IV ELEVATED BP, SEE COMMENTS; Start 11/03/19 at 09:15 Atropine Sulfate (ATROPINE 0.5mg SYRINGE) 0.5 mg PRN Q5MIN PRN IV SEE COMMENTS; Start 11/03/19 at 09:15 Famotidine (Pepcid Vial) 20 mg BID IVP Last administered on 11/07/19at 08:03; Start 11/03/19 at 21:00 Vecuronium [place] (Norcuron Bolus) 10 mg STK-MED ONCE IV ; Start 11/03/19 at 09:27; Stop 11/03/19 at 09:27; Status DC Vecuronium [place] (Norcuron Bolus) 10 mg 1X ONCE IV Last administered on 11/03/19at 09:30; Start 11/03/19 at 09:30; Stop 11/03/19 at 09:34; Status DC Albumin Human 100 ml @ 100 mls/hr 1X ONCE IV Last administered on 11/03/19at 10:28; Start 11/03/19 at 10:00; Stop 11/03/19 at 10:59; Status DC Norepinephrine Bitartrate 8 mg/ Dextrose 258 ml @ 17.647 mls/ hr CONT PRN IV PER PROTOCOL Last administered on 11/03/19at 10:16; Start 11/03/19 at 10:00 Potassium Chloride/Water 100 ml @ 100 mls/hr Q1H IV Last administered on 11/03/19at 15:27; Start 11/03/19 at 13:30; Stop 11/03/19 at 15:29; Status DC Fentanyl Citrate 55 ml @ 0 mls/hr CONT PRN IV SEE I/O RECORD Last administered on 11/07/19at 11:02; Start 11/03/19 at 19:45 Fentanyl Citrate (Fentanyl 2ml Vial) 100 mcg STK-MED ONCE .ROUTE ; Start 11/03/19 at 09:00; Stop 11/04/19 at 09:05; Status DC Etomidate (Amidate) 20 mg STK-MED ONCE IV ; Start 11/03/19 at 09:00; Stop 11/04/19 at 09:06; Status DC Succinylcholine Chloride (Anectine) 200 mg STK-MED ONCE .ROUTE ; Start 11/03/19 at 09:00; Stop 11/04/19 at 09:06; Status DC Methylprednisolone Sodium Succinate (SOLU-Medrol 125MG VIAL) 500 mg Q6HRS IV ; Start 11/04/19 at 12:00; Stop 11/07/19 at 12:00; Status Cancel Hydrocortisone Sodium Succinate 500 mg/Sodium Chloride 104 ml @ 104 mls/hr Q6H IV ; Start 11/04/19 at 12:00; Stop 11/05/19 at 00:59; Status Cancel Methylprednisolone Sodium Succinate 500 mg/Sodium Chloride 100 ml @ 100 mls/hr Q6HRS IV Last administered on 11/04/19at 12:33; Start 11/04/19 at 12:00; Stop 11/04/19 at 14:30; Status DC Benzonatate (Tessalon Perle) 100 mg [id number] PRN PO COUGH; Start 11/04/19 at 12:15 Oxymetazoline HCl (Afrin) 2 spray BID PRN NS NASAL CONGESTION; Start 11/04/19 at 12:15 Albumin Human 100 ml @ 100 mls/hr 1X ONCE IV Last administered on 11/04/19at 14:36; Start 11/04/19 at 13:45; Stop 11/04/19 at 14:44; Status DC Methylprednisolone Sodium Succinate 250 mg/Sodium Chloride 100 ml @ 100 mls/hr Q6HRS IV Last administered on 11/07/19at 12:10; Start 11/04/19 at 18:00; Stop 11/07/19 at 12:59 Info (Tpn Per Pharmacy) 1 each PRN DAILY PRN MC SEE COMMENTS Last administered on 11/07/19at 10:56; Start 11/05/19 at 11:00 Enoxaparin Sodium (Lovenox 40mg Syringe) 40 mg BID SQ Last administered on 11/07/19at 08:03; Start 11/05/19 at 21:00 Potassium Chloride 20 meq/ Potassium Acetate 30 meq/Potassium Phosphate 13.6 mmol/Magnesium Sulfate 10 meq/ Calcium Gluconate 8 meq/ Multivitamins 10 ml/Chromium/ Copper/Manganese/ Seleni/Zn 0.5 ml/ Total Parenteral Nutrition/Amino Acids/Dextrose/ Fat Emulsion Intravenous 1,512 ml @ 63 mls/hr TPN CONT IV Last administered on 11/05/19at 20:53; Start 11/05/19 at 22:00; Stop 11/06/19 at 21:59; Status DC Potassium Chloride 20 meq/ Potassium Acetate 30 meq/Potassium Phosphate 13.6 mmol/Magnesium Sulfate 10 meq/ Calcium Gluconate 8 meq/ Multivitamins 10 ml/Chromium/ Copper/Manganese/ Seleni/Zn 0.5 ml/ Total Parenteral Nutrition/Amino Acids/Dextrose/ Fat Emulsion Intravenous 1,800 ml @ 75 mls/hr TPN CONT IV Last administered on 11/06/19at 21:13; Start 11/06/19 at 22:00; Stop 11/07/19 at 21:59 Dextrose (Dextrose 50%-Water Syringe) 12.5 gm PRN Q15MIN PRN IV SEE COMMENTS; Start 11/06/19 at 14:15 Insulin Human Lispro (HumaLOG) 0-7 UNITS Q6HRS SQ Last administered on 11/07/19at 06:41; Start 11/06/19 at 18:00 Dextrose (Dextrose 50%-Water Syringe) 12.5 gm PRN Q15MIN PRN IV SEE COMMENTS; Start 11/06/19 at 15:30; Status UNV Potassium Chloride 20 meq/ Potassium Acetate 30 meq/Potassium Phosphate 13.6 mmol/Magnesium Sulfate 10 meq/ Calcium Gluconate 8 meq/ Multivitamins 10 ml/Chromium/ Copper/Manganese/ Seleni/Zn 0.5 ml/ Total Parenteral Nutrition/Amino Acids/Dextrose/ Fat Emulsion Intravenous 1,800 ml @ 75 mls/hr TPN CONT IV ; Start 11/07/19 at 22:00; Stop 11/08/19 at 21:59 Enalaprilat (Vasotec Inj) 1.25 mg PRN Q6HRS PRN IVP HYPERTENSION Last administered on 11/07/19at 12:10; Start 11/07/19 at 12:00 Active Scripts Active Reported Zyrtec (Cetirizine Hcl) 10 Mg Tablet 10 Mg PO DAILY Vitals/I & O Vital Sign - Last 24 Hours 11/06/19 11/06/19 11/06/19 11/06/19 13:00 14:00 15:00 16:00 Pulse 56 87 40 Resp 26 B/P (MAP) 169/89 (115) 169/87 (114) 151/82 (105) Pulse Ox 100 100 100 O2 Delivery Ventilator Ventilator Ventilator Mechanical Ventilator 11/06/19 11/06/19 11/06/19 11/06/19 16:00 16:01 17:00 18:00 Temp 97.7 97.7 Pulse 42 47 46 Resp 26 26 30 B/P (MAP) 159/68 (98) 169/78 (108) 158/85 (109) Pulse Ox 100 100 100 O2 Delivery Ventilator Ventilator Ventilator Ventilator 11/06/19 11/06/19 11/06/19 11/06/19 19:00 19:25 20:00 20:00 Temp 98.7 98.7 Pulse 46 26 Resp 26 26 B/P (MAP) 153/84 (107) 160/88 (112) Pulse Ox 97 98 O2 Delivery Ventilator Ventilator Mechanical Ventilator Ventilator 11/06/19 11/06/19 11/06/19 11/07/19 21:00 22:00 23:00 00:00 Temp 98.7 98.7 Pulse 48 40 40 56 Resp 16 16 23 25 B/P (MAP) 185/96 (125) 178/94 (122) 180/100 (126) 164/90 (114) Pulse Ox 100 100 100 99 O2 Delivery Ventilator Ventilator Ventilator Ventilator 11/07/19 11/07/19 11/07/19 11/07/19 00:00 00:57 01:00 02:00 Pulse 48 44 Resp 26 B/P (MAP) 163/89 (113) 170/87 (114) Pulse Ox 97 98 100 O2 Delivery Mechanical Ventilator Ventilator Ventilator Ventilator 11/07/19 11/07/19 11/07/19 11/07/19 03:00 04:00 04:00 05:00 Temp 98.0 98.0 Pulse 56 52 42 Resp 26 25 B/P (MAP) 180/95 (123) 168/85 (112) 170/86 (114) Pulse Ox 100 100 100 O2 Delivery Ventilator Ventilator Mechanical Ventilator Ventilator 11/07/19 11/07/19 11/07/19 11/07/19 05:11 06:00 07:00 08:00 Pulse 42 42 Resp 25 25 B/P (MAP) 181/80 (113) 177/85 (115) Pulse Ox 97 100 100 O2 Delivery Ventilator Ventilator Ventilator Mechanical Ventilator 11/07/19 11/07/19 11/07/19 11/07/19 08:00 09:00 10:00 11:00 Temp 97.2 97.2 Pulse 55 50 45 41 Resp 25 25 25 25 B/P (MAP) 159/82 (107) 168/93 (118) 149/78 (101) 199/91 (127) Pulse Ox 100 100 100 100 O2 Delivery Ventilator Ventilator Ventilator Ventilator 11/07/19 11/07/19 11/07/19 11:02 11:39 12:10 Pulse 41 Resp 25 25 B/P (MAP) 199/91 Pulse Ox 100 100 O2 Delivery Ventilator Ventilator Intake and Output 11/06/19 11/06/19 11/07/19 15:00 23:00 07:00 Intake Total 200 ml 1010 ml 806 ml Output Total 205 ml 240 ml 400 ml Balance -5 ml 770 ml 406 ml Hemodynamically unstable?: No Is patient in severe pain?: No Is NPO status required?: Yes MARTINA GODOY MD November 07, 2019 12:20
--- NOTE | 2019-11-07 13:26 | PDOC ---
GI PROGRESS NOTES Date Date/Time DATE: 11/07/19 TIME: 13:25 Subjective Subjective COVID elevated alk phos Objective Vitals Vital Signs Date Time Temp Pulse Resp B/P (MAP) Pulse Ox O2 Delivery O2 Flow Rate FiO2 11/07/19 13:00 41 26 177/89 (118) 100 Ventilator 11/07/19 12:10 41 199/91 11/07/19 12:01 100 Ventilator 11/07/19 12:00 Mechanical Ventilator 11/07/19 12:00 41 26 184/86 (118) 100 Ventilator 11/07/19 11:39 25 100 Ventilator 11/07/19 11:02 25 100 Ventilator 11/07/19 11:00 41 25 199/91 (127) 100 Ventilator 11/07/19 10:00 45 25 149/78 (101) 100 Ventilator 11/07/19 09:00 50 25 168/93 (118) 100 Ventilator 11/07/19 08:25 100 Ventilator 11/07/19 08:00 97.2 55 25 159/82 (107) 100 Ventilator 97.2 11/07/19 08:00 Mechanical Ventilator 11/07/19 07:00 42 25 177/85 (115) 100 Ventilator 11/07/19 06:00 42 25 181/80 (113) 100 Ventilator 11/07/19 05:11 97 Ventilator 11/07/19 05:00 42 25 170/86 (114) 100 Ventilator 11/07/19 04:00 Mechanical Ventilator 11/07/19 04:00 98.0 52 26 168/85 (112) 100 Ventilator 98.0 11/07/19 03:00 56 26 180/95 (123) 100 Ventilator 11/07/19 02:00 44 26 170/87 (114) 100 Ventilator 11/07/19 01:00 48 25 163/89 (113) 98 Ventilator 11/07/19 00:57 97 Ventilator 11/07/19 00:00 Mechanical Ventilator 11/07/19 00:00 98.7 56 25 164/90 (114) 99 Ventilator 98.7 11/06/19 23:00 40 23 180/100 (126) 100 Ventilator 11/06/19 22:00 40 16 178/94 (122) 100 Ventilator 11/06/19 21:00 48 16 185/96 (125) 100 Ventilator 11/06/19 20:00 98.7 26 26 160/88 (112) 98 Ventilator 98.7 11/06/19 20:00 Mechanical Ventilator 11/06/19 19:25 97 Ventilator 11/06/19 19:00 46 26 153/84 (107) Ventilator 11/06/19 18:00 46 30 158/85 (109) Ventilator 11/06/19 17:00 47 26 169/78 (108) 100 Ventilator 11/06/19 16:01 100 Ventilator 11/06/19 16:00 97.7 42 26 159/68 (98) 100 Ventilator 97.7 11/06/19 16:00 Mechanical Ventilator 11/06/19 15:00 40 26 151/82 (105) 100 Ventilator 11/06/19 14:00 87 26 169/87 (114) 100 Ventilator Labs Labs Laboratory Tests Test 11/06/19 14:07 11/06/19 17:42 11/06/19 23:48 11/07/19 05:25 Glucose (Fingerstick) 205 mg/dL (70-99) 187 mg/dL (70-99) 168 mg/dL (70-99) Sodium Level 145 mmol/L (136-145) Potassium Level 4.2 mmol/L (3.5-5.1) Chloride Level 109 mmol/L (98-107) Carbon Dioxide Level 31 mmol/L (21-32) Anion Gap 5 (6-14) Blood Urea Nitrogen 25 mg/dL (8-26) Creatinine 0.6 mg/dL (0.7-1.3) Estimated GFR (Cockcroft-Gault) 137.0 Glucose Level 187 mg/dL (70-99) Calcium Level 8.6 mg/dL (8.5-10.1) Phosphorus Level 2.8 mg/dL (2.6-4.7) Magnesium Level 2.4 mg/dL (1.8-2.4) Test 11/07/19 08:25 11/07/19 12:14 O2 Saturation 98 % (92-99) Arterial Blood pH 7.40 (7.35-7.45) Arterial Blood pCO2 at Patient Temp 45 mmHg (35-46) Arterial Blood pO2 at Patient Temp 123 mmHg (65-108) Arterial Blood HCO3 27 mmol/L (21-28) Arterial Blood Base Excess 2 mmol/L (-3-3) FiO2 70 Glucose (Fingerstick) 174 mg/dL (70-99) Assessment Assessment Elevated Alk phos and GGTP and isoenzymes support liver origin- cause unknown- awaiting AMA - continue to monitor- when more stable, consider US or other imaging History of Achalasia s/p esophagectomy COVID 19 with respiratory distress- back in ICU- Hemodynamically unstable?: No Is patient in severe pain?: No Is NPO status required?: Yes JUSTEN GARNICA MD November 07, 2019 13:26
[2019-11-07] MEDS: MIDAZOLAM 100mg/100ml NS BAG 100 ML IV PRN (13:52)
[2019-11-07] MEDS ORDERED: TOTAL PARENTERAL NUTRITION IV SCH ×10 (22:00)
[2019-11-07] MEDS ORDERED: [UNRECOGNIZED DRUG - OTHER] IV SCH ×10 (22:00)
[2019-11-07] MEDS ORDERED: AMINO ACID IV SCH ×10 (22:00)
[2019-11-07] MEDS ORDERED: DEXTROSE 70% IV SCH ×10 (22:00)
[2019-11-08] VITALS (24 sets, daily range): BP systolic 80–178; BP diastolic 49–95
[2019-11-08] MEDS: MIDAZOLAM 100mg/100ml NS BAG 100 ML IV PRN ×3 (00:18→14:19)
[2019-11-08] MEDS: INSULIN LISPRO 300 UNITS/3 ML VIAL. SQ SCH ×4 (00:18→18:00)
[2019-11-08 06:34] LABS: CALCIUM 8.2 mg/dL (8.5-10.1); CREATININE 0.7 mg/dL (0.7-1.3); GFR 114.6; MAGNESIUM 2.3 mg/dL (1.8-2.4); PHOSPHORUS 3.2 mg/dL (2.6-4.7); POTASSIUM 4.2 mmol/L (3.5-5.1)
[2019-11-08 08:36] LABS: BASE EXCESS ABG 5 mmol/L (-3-3); HCO3 ABG 30 mmol/L (21-28); PCO2 ABG 44 mmHg (35-46); PO2 ABG 72 mmHg (65-108); SAT O2 ABG 93 % (92-99)
[2019-11-08 08:40] LABS: FIO2 ABG 60 +10
[2019-11-08] MEDS: ZINC SULFATE 220 MG CAPSULE. PO SCH (09:23)
[2019-11-08] MEDS: FAMOTIDINE 20 MG/2 ML VIAL IVP SCH ×2 (09:23→20:53)
[2019-11-08] MEDS: ENOXAPARIN 40 MG/0.4 ML SYRINGE. SQ SCH ×2 (09:24→20:52)
--- NOTE | 2019-11-08 11:21 | PDOC ---
PULMONARY PROGRESS NOTES Subjective Intubated 11/03/2019 Patient sedated, assist control ventilation, now down to 60% and 10 of PEEP on versed and fent gtt Vitals Vital Signs Date Time Temp Pulse Resp B/P (MAP) Pulse Ox O2 Delivery O2 Flow Rate FiO2 11/08/19 10:00 68 21 136/78 (97) 98 Ventilator 11/08/19 08:00 98.0 98.0 Comments Patient seen during the the pandemic, visual exam, in sync with the ventilator. No respiratory distress edema, prone position Labs Laboratory Tests Test 11/06/19 14:07 11/06/19 17:42 11/06/19 23:48 11/07/19 05:25 Glucose (Fingerstick) 205 mg/dL (70-99) 187 mg/dL (70-99) 168 mg/dL (70-99) Sodium Level 145 mmol/L (136-145) Potassium Level 4.2 mmol/L (3.5-5.1) Chloride Level 109 mmol/L (98-107) Carbon Dioxide Level 31 mmol/L (21-32) Anion Gap 5 (6-14) Blood Urea Nitrogen 25 mg/dL (8-26) Creatinine 0.6 mg/dL (0.7-1.3) Estimated GFR (Cockcroft-Gault) 137.0 Glucose Level 187 mg/dL (70-99) Calcium Level 8.6 mg/dL (8.5-10.1) Phosphorus Level 2.8 mg/dL (2.6-4.7) Magnesium Level 2.4 mg/dL (1.8-2.4) Test 11/07/19 08:25 11/07/19 12:14 11/07/19 17:52 11/08/19 00:12 O2 Saturation 98 % (92-99) Arterial Blood pH 7.40 (7.35-7.45) Arterial Blood pCO2 at Patient Temp 45 mmHg (35-46) Arterial Blood pO2 at Patient Temp 123 mmHg (65-108) Arterial Blood HCO3 27 mmol/L (21-28) Arterial Blood Base Excess 2 mmol/L (-3-3) FiO2 70 Glucose (Fingerstick) 174 mg/dL (70-99) 174 mg/dL (70-99) 175 mg/dL (70-99) Test 11/08/19 05:45 11/08/19 05:51 11/08/19 08:00 Sodium Level 144 mmol/L (136-145) Potassium Level 4.2 mmol/L (3.5-5.1) Chloride Level 107 mmol/L (98-107) Carbon Dioxide Level 33 mmol/L (21-32) Anion Gap 4 (6-14) Blood Urea Nitrogen 22 mg/dL (8-26) Creatinine 0.7 mg/dL (0.7-1.3) Estimated GFR (Cockcroft-Gault) 114.6 Glucose Level 182 mg/dL (70-99) Calcium Level 8.2 mg/dL (8.5-10.1) Phosphorus Level 3.2 mg/dL (2.6-4.7) Magnesium Level 2.3 mg/dL (1.8-2.4) Glucose (Fingerstick) 149 mg/dL (70-99) O2 Saturation 93 % (92-99) Arterial Blood pH 7.45 (7.35-7.45) Arterial Blood pCO2 at Patient Temp 44 mmHg (35-46) Arterial Blood pO2 at Patient Temp 72 mmHg (65-108) Arterial Blood HCO3 30 mmol/L (21-28) Arterial Blood Base Excess 5 mmol/L (-3-3) FiO2 60 +10 Laboratory Tests Test 11/07/19 12:14 11/07/19 17:52 11/08/19 00:12 11/08/19 05:45 Glucose (Fingerstick) 174 mg/dL (70-99) 174 mg/dL (70-99) 175 mg/dL (70-99) Sodium Level 144 mmol/L (136-145) Potassium Level 4.2 mmol/L (3.5-5.1) Chloride Level 107 mmol/L (98-107) Carbon Dioxide Level 33 mmol/L (21-32) Anion Gap 4 (6-14) Blood Urea Nitrogen 22 mg/dL (8-26) Creatinine 0.7 mg/dL (0.7-1.3) Estimated GFR (Cockcroft-Gault) 114.6 Glucose Level 182 mg/dL (70-99) Calcium Level 8.2 mg/dL (8.5-10.1) Phosphorus Level 3.2 mg/dL (2.6-4.7) Magnesium Level 2.3 mg/dL (1.8-2.4) Test 11/08/19 05:51 11/08/19 08:00 Glucose (Fingerstick) 149 mg/dL (70-99) O2 Saturation 93 % (92-99) Arterial Blood pH 7.45 (7.35-7.45) Arterial Blood pCO2 at Patient Temp 44 mmHg (35-46) Arterial Blood pO2 at Patient Temp 72 mmHg (65-108) Arterial Blood HCO3 30 mmol/L (21-28) Arterial Blood Base Excess 5 mmol/L (-3-3) FiO2 60 +10 Medications Active Scripts Medications Dose Route/Sig Max Daily Dose Days Date Category Zyrtec (Cetirizine Hcl) 10 Mg Tablet 10 Mg PO DAILY 10/27/19 Reported Impression . 1. Acute hypoxic respiratory failure secondary to COVID-19/ARDS status post convalescent serum, and Tocilizumab 2. Abnormal chest x-ray with faint bilateral infiltrates suggestive of COVID-19 pneumonia. 3. Hairy cell leukemia, in remission. 4. Abnormal LFTs, likely related to COVID-19 infection. 5. Increase inflammatory markers 6. Achalasia 7. Encephalopathy Plan . mechanical ventilation support in A/C mode FI02 60% and PEEP 10, follow ABG and makes changes, Proning per protocol ABX per ID Status post convalescent serum on 10/31/2019 Nutritional support-- TPN DVT/GI PPX: lovenox/pepcid Spoke with his Kerri Total cumulative critical care time of 35 minutes, discussed case with ARIC, RN, reviewing labs, chest x-ray, formulating a plan ERMA NICHOLE MD November 08, 2019 11:21
[2019-11-08] MEDS: fentaNYL HIGH DOSE PCA 55 ML IV PRN (11:46)
[2019-11-08] MEDS: TPN PER PHARMACY MC PRN (12:04)
--- NOTE | 2019-11-08 12:06 | NUR ---
Pharmacy TPN Dosing Note S: FUENTES RAGLAND is a 59 year old M Currently receiving Central Continuous TPN started 11/05/19 B:Pertinent PMH: Critical illness; unable to tolerate tube feeding Height: 6 feet, 0 inches Weight: 92.7 kg Current diet: NPO LABS: Sodium: 144 Potassium: 4.2 Chloride: 107 Calcium: 8.2 Corrected Calcium: 9.80 Magnesium: 2.3 CO2: 33 SCr: 0.7 Glucose: 149-182 Albumin: 2.0 AST: 47 ALT: 43 TPN FORMULA: TPN TYPE: Central Continuous AMINO ACIDS: 100 gm DEXTROSE: 225 gm LIPIDS: 20 gm POTASSIUM CHLORIDE: 50 mEq POTASSIUM PHOSPHATE: 13.6 mmol MAGNESIUM: 10 mEq CALCIUM: 8 mEq MULTIPLE VITAMIN: 10 ml TRACE ELEMENTS: 0.5 ml(s) TPN PLAN: TCO2 is elevated. Will change to KCL 50 mEq and remove KAce from TPN. All other electrolytes WNL. R: Change TPN as noted above. Will monitor electrolytes, glucose, and tolerance to TPN. FAMILIA ZARATE [facility], 11/08/19 [id number]
--- NOTE | 2019-11-08 12:13 | PDOC ---
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 Bone marrow biopsy on 03/05/2014 revealed complete remission PSH esophagectomy in 2016 remote tobacco abuse Elevated alkaline phos - hx Cholelithiasis. This is possibly 2/2 Zosyn as this is a reported side effect severe protein-caloric malnutrition Plan: ventilatory support as per pulmonary Antibiotics as per ID Status post administration of convalescent plasma on October 30 Status post anti-IL 6 inhibitor on October 31 Supportive measures Reassess in the a.m. COVID-19 CRITERIA: The patient was evaluated during the global COVID-19 pandemic, and that diagnosis was suspected/considered upon their initial presentation. Their evaluation, treatment and testing was consistent with current guidelines for patients who present with complaints or symptoms that may be related to COVID-19. History of Present Illness History of Present Illness Mr Schilling is a 59 yo M w/ PMHx Hairy cell leukemia, achalasia admitted in isolation in ICU w/ +COVID-19 pneumonia. 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 5: Cough worsening. Admitted to ICU 10/30: Transferred from ICU. Received [address] [facility] COVID 19 convalescent plasma program donor 10/31:Today seen on COVID isolation unit, does not feel well, says he has felt sick for 12 days and would not wish this on his worst enemy. Pain on coughing. On 5 liters/min. 11/01: No acute events reported overnight, case discussed with nursing staff patient in no acute distress no complaints during my visit 5: Patient now requiring mechanical ventilation no acute events reported overnight. 11/03: No acute events reported overnight, case discussed with nursing staff patient in no acute distress no complaints during my visit 11/04: No changes overnight. Continues to require ventilatory support quite a bit. Appreciate pulmonary outside sales consultant recommendations 11/05: Bradycardia noted, most likely related to sedation, patient seems to respond to verbal stimuli during my visit and his heart rate goes up to the sixties range when more awake, discussed with nursing staff 11/06: No acute events reported overnight, case discussed with nursing staff jazzy awadnt in no acute distress no complaints during my visit 5:10: No new events, remains critically stable. Plan: ATB as per ID supprotive measures COVID-19 CRITERIA: The patient was evaluated during the global COVID-19 pandemic, and that diagnosis was suspected/considered upon their initial presentation. Their evaluation, treatment and testing were consistent with current guidelines for patients who present with complaints or symptoms that may be related to COVID-19. Vitals Vitals Vital Signs Date Time Temp Pulse Resp B/P (MAP) Pulse Ox O2 Delivery O2 Flow Rate FiO2 11/08/19 12:00 97.8 72 21 164/88 (113) 100 Ventilator 97.8 Physical Exam Physical Exam Visually, GENERAL: Orally intubated and sedated, mitts HEENT: ETT/OGT LUNGS: vent CV: Regular : Sams EXTREMITIES: SCDs bilaterally NEUROLOGIC: sedated RIJ General: Alert, Oriented X3, Cooperative, mild distress Abdomen: Soft Extremities: No cyanosis, No edema Labs LABS Laboratory Tests Test 11/07/19 12:14 11/07/19 17:52 11/08/19 00:12 11/08/19 05:45 Glucose (Fingerstick) 174 mg/dL (70-99) 174 mg/dL (70-99) 175 mg/dL (70-99) Sodium Level 144 mmol/L (136-145) Potassium Level 4.2 mmol/L (3.5-5.1) Chloride Level 107 mmol/L (98-107) Carbon Dioxide Level 33 mmol/L (21-32) Anion Gap 4 (6-14) Blood Urea Nitrogen 22 mg/dL (8-26) Creatinine 0.7 mg/dL (0.7-1.3) Estimated GFR (Cockcroft-Gault) 114.6 Glucose Level 182 mg/dL (70-99) Calcium Level 8.2 mg/dL (8.5-10.1) Phosphorus Level 3.2 mg/dL (2.6-4.7) Magnesium Level 2.3 mg/dL (1.8-2.4) Test 11/08/19 05:51 11/08/19 08:00 11/08/19 11:41 Glucose (Fingerstick) 149 mg/dL (70-99) 163 mg/dL (70-99) O2 Saturation 93 % (92-99) Arterial Blood pH 7.45 (7.35-7.45) Arterial Blood pCO2 at Patient Temp 44 mmHg (35-46) Arterial Blood pO2 at Patient Temp 72 mmHg (65-108) Arterial Blood HCO3 30 mmol/L (21-28) Arterial Blood Base Excess 5 mmol/L (-3-3) FiO2 60 +10 Assessment and Plan Assessmemt and Plan Problems Medical Problems: (1) COVID-19 virus infection Status: Acute Comment Review of Relevant I have reviewed the following items fany (where applicable) has been applied. Labs Laboratory Tests Test 11/06/19 14:07 11/06/19 17:42 11/06/19 23:48 11/07/19 05:25 Glucose (Fingerstick) 205 mg/dL (70-99) 187 mg/dL (70-99) 168 mg/dL (70-99) Sodium Level 145 mmol/L (136-145) Potassium Level 4.2 mmol/L (3.5-5.1) Chloride Level 109 mmol/L (98-107) Carbon Dioxide Level 31 mmol/L (21-32) Anion Gap 5 (6-14) Blood Urea Nitrogen 25 mg/dL (8-26) Creatinine 0.6 mg/dL (0.7-1.3) Estimated GFR (Cockcroft-Gault) 137.0 Glucose Level 187 mg/dL (70-99) Calcium Level 8.6 mg/dL (8.5-10.1) Phosphorus Level 2.8 mg/dL (2.6-4.7) Magnesium Level 2.4 mg/dL (1.8-2.4) Test 11/07/19 08:25 11/07/19 12:14 11/07/19 17:52 11/08/19 00:12 O2 Saturation 98 % (92-99) Arterial Blood pH 7.40 (7.35-7.45) Arterial Blood pCO2 at Patient Temp 45 mmHg (35-46) Arterial Blood pO2 at Patient Temp 123 mmHg (65-108) Arterial Blood HCO3 27 mmol/L (21-28) Arterial Blood Base Excess 2 mmol/L (-3-3) FiO2 70 Glucose (Fingerstick) 174 mg/dL (70-99) 174 mg/dL (70-99) 175 mg/dL (70-99) Test 11/08/19 05:45 5/10/20 05:51 11/08/19 08:00 11/08/19 11:41 Sodium Level 144 mmol/L (136-145) Potassium Level 4.2 mmol/L (3.5-5.1) Chloride Level 107 mmol/L (98-107) Carbon Dioxide Level 33 mmol/L (21-32) Anion Gap 4 (6-14) Blood Urea Nitrogen 22 mg/dL (8-26) Creatinine 0.7 mg/dL (0.7-1.3) Estimated GFR (Cockcroft-Gault) 114.6 Glucose Level 182 mg/dL (70-99) Calcium Level 8.2 mg/dL (8.5-10.1) Phosphorus Level 3.2 mg/dL (2.6-4.7) Magnesium Level 2.3 mg/dL (1.8-2.4) Glucose (Fingerstick) 149 mg/dL (70-99) 163 mg/dL (70-99) O2 Saturation 93 % (92-99) Arterial Blood pH 7.45 (7.35-7.45) Arterial Blood pCO2 at Patient Temp 44 mmHg (35-46) Arterial Blood pO2 at Patient Temp 72 mmHg (65-108) Arterial Blood HCO3 30 mmol/L (21-28) Arterial Blood Base Excess 5 mmol/L (-3-3) FiO2 60 +10 Laboratory Tests Test 11/07/19 12:14 11/07/19 17:52 11/08/19 00:12 11/08/19 05:45 Glucose (Fingerstick) 174 mg/dL (70-99) 174 mg/dL (70-99) 175 mg/dL (70-99) Sodium Level 144 mmol/L (136-145) Potassium Level 4.2 mmol/L (3.5-5.1) Chloride Level 107 mmol/L (98-107) Carbon Dioxide Level 33 mmol/L (21-32) Anion Gap 4 (6-14) Blood Urea Nitrogen 22 mg/dL (8-26) Creatinine 0.7 mg/dL (0.7-1.3) Estimated GFR (Cockcroft-Gault) 114.6 Glucose Level 182 mg/dL (70-99) Calcium Level 8.2 mg/dL (8.5-10.1) Phosphorus Level 3.2 mg/dL (2.6-4.7) Magnesium Level 2.3 mg/dL (1.8-2.4) Test 11/08/19 05:51 11/08/19 08:00 11/08/19 11:41 Glucose (Fingerstick) 149 mg/dL (70-99) 163 mg/dL (70-99) O2 Saturation 93 % (92-99) Arterial Blood pH 7.45 (7.35-7.45) Arterial Blood pCO2 at Patient Temp 44 mmHg (35-46) Arterial Blood pO2 at Patient Temp 72 mmHg (65-108) Arterial Blood HCO3 30 mmol/L (21-28) Arterial Blood Base Excess 5 mmol/L (-3-3) FiO2 60 +10 Microbiology 10/27/19 Blood Culture - Final, Complete NO GROWTH AFTER 5 DAYS Medications Current Medications Sodium Chloride 1,000 ml @ 1,000 mls/hr 1X ONCE IV Last administered on 10/27/19at 13:30; Start 10/27/19 at 13:30; Stop 10/27/19 at 14:29; Status DC Acetaminophen (Tylenol) 1,000 mg 1X ONCE PO Last administered on 10/27/19at 16:10; Start 10/27/19 at 16:00; Stop 10/27/19 at 16:01; Status DC Sodium Chloride (Normal Saline Flush) 3 ml QSHIFT PRN IV AFTER MEDS AND BLOOD DRAWS; Start 10/27/19 at 16:30 Sodium Chloride 1,000 ml @ 100 mls/hr Q10H IV Last administered on 11/03/19at 19:57; Start 10/27/19 at 16:22; Stop 11/04/19 at 13:33; Status DC Ondansetron HCl (Zofran) 4 mg PRN Q4HRS PRN IV NAUSEA/VOMITING Last administered on 11/03/19at 05:59; Start 10/27/19 at 16:30 Acetaminophen (Tylenol) 650 mg PRN Q4HRS PRN PO TEMP OVER 100.4F OR MILD PAIN Last administered on 11/03/19at 00:14; Start 10/27/19 at 16:30 Al Hydroxide/Mg Hydroxide (Mylanta Plus Xs) 30 ml PRN DAILY PRN PO HEARTBURN / GAS; Start 10/27/19 at 16:30 Sodium Monofluorophosphate (Fleet Adult) 133 ml PRN DAILY PRN [place] CONSTIPATION; Start 10/27/19 at 16:30 Docusate Sodium (Colace) 100 mg PRN BID PRN PO HARD STOOLS; Start 10/27/19 at 16:30 Albuterol/ Ipratropium (Duoneb) 3 ml Q4H NEB ; Start 10/27/19 at 16:30; Stop 10/27/19 at 18:28; Status DC Guaifenesin (Robitussin) 200 mg PRN Q4HRS PRN PO COUGH 2ND CHOICE Last admi nistered on 11/01/19at 12:57; Start 10/27/19 at 16:30 Lorazepam (Ativan) 0.5 mg PRN Q4HRS PRN PO ANXIETY / AGITATION Last adminis tered on 11/03/19at 05:59; Start 10/27/19 at 16:30 Enoxaparin Sodium (Lovenox 40mg Syringe) 40 mg Q24H SQ Last administered on 11/04/19at 20:36; Start 10/27/19 at 21:00; Stop 11/05/19 at 12:41; Status DC Piperacillin Sod/ Tazobactam Sod 3.375 gm/Sodium Chloride 50 ml @ 100 mls/hr Q6HRS IV Last administered on 11/01/19at 11:26; Start 10/27/19 at 18:00; Stop 11/01/19 at 12:49; Status DC Azithromycin 250 ml @ 250 mls/hr 1X ONCE IV ; Start 10/27/19 at 16:30; Stop 10/27/19 at 17:29; Status Cancel Azithromycin 500 mg/Sodium Chloride 250 ml @ 250 mls/hr Q24H IV Last administered on 10/31/19at 18:28; Start 10/27/19 at 18:00; Stop 11/01/19 at 08:39; Status DC Albuterol Sulfate (Ventolin Neb Soln) 2.5 mg PRN Q4HRS PRN NEB SHORTNESS OF BREATH; Start 10/27/19 at 18:30 Sodium Chloride (Saline Mist Nasal) 1 nicolas PRN Q1HR PRN NS NASAL CONGESTION- 1ST CHOICE Last administered on 11/02/19at 12:34; Start 10/29/19 at 02:45 Pantoprazole Sodium (Protonix) 40 mg DAILYAC PO Last administered on 5/4/20at 09:06; Start 10/30/19 at 07:30; Stop 11/04/19 at 11:05; Status DC Calcium Carbonate/ Glycine (Tums) 500 mg PRN AFTMEALHC PRN PO INDIGESTION; Start 10/29/19 at 14:45 Polyethylene Glycol (miraLAX PACKET) 17 gm PRN DAILY PRN PO CONSTIPATION; Start 10/29/19 at 14:45 Lactobacillus Rhamnosus (Culturelle) 1 cap BID PO Last administered on 11/04/19at 09:04; Start 10/30/19 at 21:00; Stop 11/04/19 at 09:27; Status DC Guaifenesin (MUCINEX ER with DM) 2 tab PRN Q12HR PRN PO COUGH 1ST CHOICE Last administered on 11/03/19at 00:07; Start 10/30/19 at 11:15 Potassium Chloride (Klor-Con) 40 meq 1X ONCE PO Last administered on 11/01/19at 12:10; Start 11/01/19 at 12:15; Stop 11/01/19 at 12:16; Status DC Zinc Sulfate (Orazinc) 220 mg DAILY PO Last administered on 11/08/19at 09:23; Start 11/01/19 at 13:00 Meropenem 500 mg/ Sodium Chloride 50 ml @ 100 mls/hr Q8HRS IV Last administered on 11/04/19at 06:27; Start 11/01/19 at 14:00; Stop 11/04/19 at 07:56; Status DC Benzonatate (Tessalon Perle) 100 mg [id number] PO Last administered on 11/02/19at 21:10; Start 11/01/19 at 14:00; Stop 11/04/19 at 12:17; Status DC Acetaminophen (Tylenol) 650 mg 1X ONCE PO Last administered on 11/01/19at 14:24; Start 11/01/19 at 14:00; Stop 11/01/19 at 14:01; Status DC Diphenhydramine HCl (Benadryl) 25 mg 1X ONCE IV Last administered on 11/01/19at 14:25; Start 11/01/19 at 14:00; Stop 11/01/19 at 14:01; Status DC Methylprednisolone Sodium Succinate (SOLU-Medrol 40MG VIAL) 40 mg 1X ONCE IV Last administered on 11/01/19at 14:25; Start 11/01/19 at 14:00; Stop 11/01/19 at 14:01; Status DC Tocilizumab 400 mg/Sodium Chloride 100 ml @ 100 mls/hr 1X ONCE IV Last administered on 11/01/19at 15:18; Start 11/01/19 at 14:30; Stop 11/01/19 at 15:29; Status DC Linezolid/Dextrose 300 ml @ 300 mls/hr Q12HR IV Last administered on 11/03/19at 19:57; Start 11/01/19 at 21:00; Stop 11/04/19 at 07:56; Status DC Oxymetazoline HCl (Afrin) 2 spray BID NS ; Start 11/03/19 at 09:00; Stop 11/04/19 at 12:17; Status DC Succinylcholine Chloride (Anectine) 200 mg STK-MED ONCE .ROUTE ; Start 11/03/19 at 08:24; Stop 11/03/19 at 08:24; Status DC Etomidate (Amidate) 20 mg STK-MED ONCE IV ; Start 11/03/19 at 08:24; Stop 11/03/19 at 08:25; Status DC Midazolam HCl 100 ml @ 0 mls/hr CONT PRN IV SEE PROTOCOL Last administered on 11/08/19at 07:14; Start 11/03/19 at 08:45 Fentanyl Citrate (Fentanyl 2ml Vial) 100 mcg STK-MED ONCE .ROUTE ; Start 11/03/19 at 08:45; Stop 11/03/19 at 08:45; Status DC Fentanyl Citrate 30 ml @ 0 mls/hr CONT PRN IV SEE PROTOCOL Last administered on 11/03/19at 14:01; Start 11/03/19 at 09:00; Stop 11/03/19 at 19:32; Status DC Chlorhexidine Gluconate (Peridex) 15 ml BID MM Last administered on 11/03/19at 19:57; Start 11/03/19 at 09:00; Stop 11/04/19 at 10:16; Status DC Dexmedetomidine HCl 400 mcg/ Sodium Chloride 100 ml @ 0 mls/hr CONT PRN IV ANXIETY / AGITATION Last administered on 11/04/19at 17:59; Start 11/03/19 at 09:15 Sodium Chloride 500 ml @ 500 mls/hr 1X PRN PRN IV ELEVATED BP, SEE COMMENTS; Start 11/03/19 at 09:15 Atropine Sulfate (ATROPINE 0.5mg SYRINGE) 0.5 mg PRN Q5MIN PRN IV SEE COMMENTS; Start 11/03/19 at 09:15 Famotidine (Pepcid Vial) 20 mg BID IVP Last administered on 11/08/19at 09:23; Start 11/03/19 at 21:00 Vecuronium [place] (Norcuron Bolus) 10 mg STK-MED ONCE IV ; Start 11/03/19 at 09:27; Stop 11/03/19 at 09:27; Status DC Vecuronium [place] (Norcuron Bolus) 10 mg 1X ONCE IV Last administered on 11/03/19at 09:30; Start 11/03/19 at 09:30; Stop 11/03/19 at 09:34; Status DC Albumin Human 100 ml @ 100 mls/hr 1X ONCE IV Last administered on 11/03/19at 10:28; Start 11/03/19 at 10:00; Stop 11/03/19 at 10:59; Status DC Norepinephrine Bitartrate 8 mg/ Dextrose 258 ml @ 17.647 mls/ hr CONT PRN IV PER PROTOCOL Last administered on 11/03/19at 10:16; Start 11/03/19 at 10:00 Potassium Chloride/Water 100 ml @ 100 mls/hr Q1H IV Last administered on 11/03/19at 15:27; Start 11/03/19 at 13:30; Stop 11/03/19 at 15:29; Status DC Fentanyl Citrate 55 ml @ 0 mls/hr CONT PRN IV SEE I/O RECORD Last administered on 11/08/19at 11:46; Start 11/03/19 at 19:45 Fentanyl Citrate (Fentanyl 2ml Vial) 100 mcg STK-MED ONCE .ROUTE ; Start 11/03/19 at 09:00; Stop 11/04/19 at 09:05; Status DC Etomidate (Amidate) 20 mg STK-MED ONCE IV ; Start 11/03/19 at 09:00; Stop 11/04/19 at 09:06; Status DC Succinylcholine Chloride (Anectine) 200 mg STK-MED ONCE .ROUTE ; Start 11/03/19 at 09:00; Stop 11/04/19 at 09:06; Status DC Methylprednisolone Sodium Succinate (SOLU-Medrol 125MG VIAL) 500 mg Q6HRS IV ; Start 11/04/19 at 12:00; Stop 11/07/19 at 12:00; Status Cancel Hydrocortisone Sodium Succinate 500 mg/Sodium Chloride 104 ml @ 104 mls/hr Q6H IV ; Start 11/04/19 at 12:00; Stop 11/05/19 at 00:59; Status Cancel Methylprednisolone Sodium Succinate 500 mg/Sodium Chloride 100 ml @ 100 mls/hr Q6HRS IV Last administered on 11/04/19at 12:33; Start 11/04/19 at 12:00; Stop 11/04/19 at 14:30; Status DC Benzonatate (Tessalon Perle) 100 mg WHO920 PRN PO COUGH; Start 11/04/19 at 12:15 Oxymetazoline HCl (Afrin) 2 spray BID PRN NS NASAL CONGESTION; Start 11/04/19 at 12:15 Albumin Human 100 ml @ 100 mls/hr 1X ONCE IV Last administered on 11/04/19at 14:36; Start 11/04/19 at 13:45; Stop 11/04/19 at 14:44; Status DC Methylprednisolone Sodium Succinate 250 mg/Sodium Chloride 100 ml @ 100 mls/hr Q6HRS IV Last administered on 11/07/19at 12:10; Start 11/04/19 at 18:00; Stop 11/07/19 at 12:59; Status DC Info (Tpn Per Pharmacy) 1 each PRN DAILY PRN MC SEE COMMENTS Last administered on 11/08/19at 12:04; Start 11/05/19 at 11:00 Enoxaparin Sodium (Lovenox 40mg Syringe) 40 mg BID SQ Last administered on 11/08/19at 09:24; Start 11/05/19 at 21:00 Potassium Chloride 20 meq/ Potassium Acetate 30 meq/Potassium Phosphate 13.6 m mol/Magnesium Sulfate 10 meq/ Calcium Gluconate 8 meq/ Multivitamins 10 ml/Chromium/ Copper/Manganese/ Seleni/Zn 0.5 ml/ Total Parenteral Nutrition/Amino Acids/Dextrose/ Fat Emulsion Intravenous 1,512 ml @ 63 mls/hr TPN CONT IV Last administered on 11/05/19at 20:53; Start 11/05/19 at 22:00; Stop 11/06/19 at 21:59; Status DC Potassium Chloride 20 meq/ Potassium Acetate 30 meq/Potassium Phosphate 13.6 mmol/Magnesium Sulfate 10 meq/ Calcium Gluconate 8 meq/ Multivitamins 10 ml/Chromium/ Copper/Manganese/ Seleni/Zn 0.5 ml/ Total Parenteral Nutrition/Amino Acids/Dextrose/ Fat Emulsion Intravenous 1,800 ml @ 75 mls/hr TPN CONT IV Last administered on 11/06/19at 21:13; Start 11/06/19 at 22:00; Stop 11/07/19 at 21:59; Status DC Dextrose (Dextrose 50%-Water Syringe) 12.5 gm PRN Q15MIN PRN IV SEE COMMENTS; Start 11/06/19 at 14:15 Insulin Human Lispro (HumaLOG) 0-7 UNITS Q6HRS SQ Last administered on 11/08/19at 00:18; Start 11/06/19 at 18:00 Dextrose (Dextrose 50%-Water Syringe) 12.5 gm PRN Q15MIN PRN IV SEE COMMENTS; Start 11/06/19 at 15:30; Status UNV Potassium Chloride 20 meq/ Potassium Acetate 30 meq/Potassium Phosphate 13.6 mmol/Magnesium Sulfate 10 meq/ Calcium Gluconate 8 meq/ Multivitamins 10 ml/Chromium/ Copper/Manganese/ Seleni/Zn 0.5 ml/ Total Parenteral Nutri tion/Amino Acids/Dextrose/ Fat Emulsion Intravenous 1,800 ml @ 75 mls/hr TPN CONT IV Last administered on 11/07/19at 21:22; Start 11/07/19 at 22:00; Stop 11/08/19 at 21:59 Enalaprilat (Vasotec Inj) 1.25 mg PRN Q6HRS PRN IVP HYPERTENSION Last administered on 11/07/19at 21:35; Start 11/07/19 at 12:00 Potassium Chloride 50 meq/ Potassium Phosphate 13.6 mmol/Magnesium Sulfate 10 meq/ Calcium Gluconate 8 meq/ Multivitamins 10 ml/Chromium/ Copper/Manganese/ Seleni/Zn 0.5 ml/ Total Parenteral Nutrition/Amino Acids/Dextrose/ Fat Emulsion Intravenous 1,800 ml @ 75 mls/hr TPN CONT IV ; Start 11/08/19 at 22:00; Stop 11/09/19 at 21:59 Active Scripts Active Reported Zyrtec (Cetirizine Hcl) 10 Mg Tablet 10 Mg PO DAILY Vitals/I & O Vital Sign - Last 24 Hours 11/07/19 11/07/19 11/07/19 11/07/19 13:00 14:00 15:00 15:57 Pulse 41 44 41 Resp B/P (MAP) 177/89 (118) 172/88 (116) 159/80 (106) Pulse Ox 100 100 100 100 O2 Delivery Ventilator Ventilator Ventilator Ventilator 11/07/19 11/07/19 11/07/19 11/07/19 16:00 16:00 17:00 18:00 Temp 97.4 97.4 Pulse 46 40 41 B/P (MAP) 158/80 (106) 157/77 (103) 171/86 (114) Pulse Ox 100 100 100 O2 Delivery Ventilator Mechanical Ventilator Ventilator Ventilator 11/07/19 11/07/19 11/07/19 11/07/19 19:00 20:00 20:00 20:10 Pulse 41 43 B/P (MAP) 170/80 (110) 176/85 (115) Pulse Ox 100 100 100 O2 Delivery Ventilator Ventilator Mechanical Ventilator Ventilator 11/07/19 11/07/19 11/07/19 11/07/19 21:00 21:35 22:00 23:00 Temp 97.6 97.6 Pulse 40 43 41 40 B/P (MAP) 160/77 (104) 172/85 163/83 (109) 161/82 (108) Pulse Ox 100 100 100 O2 Delivery Ventilator Ventilator Ventilator 11/08/19 11/08/19 11/08/19 11/08/19 00:00 00:00 00:12 01:00 Temp 98.0 98.0 Pulse 42 39 B/P (MAP) 174/86 (115) 167/82 (110) Pulse Ox 100 100 100 O2 Delivery Ventilator Mechanical Ventilator Ventilator Ventilator 11/08/19 11/08/19 11/08/19 11/08/19 02:00 03:00 04:00 04:00 Temp 97.7 97.7 Pulse 38 38 49 Resp B/P (MAP) 164/81 (108) 168/83 (111) 159/87 (111) Pulse Ox 100 100 100 O2 Delivery Ventilator Ventilator Mechanical Ventilator Ventilator 11/08/19 11/08/19 11/08/19 11/08/19 04:10 05:00 06:00 07:00 Pulse 44 47 48 Resp 26 21 B/P (MAP) 173/92 (119) 166/89 (114) 154/86 (108) Pulse Ox 100 94 95 95 O2 Delivery Ventilator Ventilator Ventilator Ventilator 11/08/19 11/08/19 11/08/19 11/08/19 08:00 08:00 09:00 10:00 Temp 98.0 98.0 Pulse 58 75 68 Resp 22 21 B/P (MAP) 167/95 (119) 165/95 (118) 136/78 (97) Pulse Ox 97 99 98 O2 Delivery Ventilator Mechanical Ventilator Ventilator Ventilator 11/08/19 11/08/19 11/08/19 11:00 11:46 12:00 Temp 97.8 97.8 Pulse 70 72 Resp 21 B/P (MAP) 157/84 (108) 164/88 (113) Pulse Ox 99 100 100 O2 Delivery Ventilator Ventilator Ventilator Intake and Output 11/07/19 11/07/19 11/08/19 15:00 23:00 07:00 Intake Total 175 ml 1746.3 ml 1301 ml Output Total 525 ml 1115 ml 650 ml Balance -350 ml 631.3 ml 651 ml Hemodynamically unstable?: No Is patient in severe pain?: No Is NPO status required?: Yes MARTINA GODOY MD November 08, 2019 12:13
[2019-11-08] MEDS: DEXMEDETOMIDINE 400 MCG in IV NORMAL SALINE 100ML 96 ML IV PRN ×2 (14:49→23:14)
[2019-11-08] MEDS ORDERED: VECURONIUM BOLUS 10 MG VIAL. IV ONE ×2 (16:35→16:45)
[2019-11-08] MEDS ORDERED: VECURONIUM BOLUS 10 MG VIAL. IV PRN (18:00)
[2019-11-08] MEDS: NOREPINEPHRINE VIAL 8 MG in IV DEXTROSE 5% 250 ML IV PRN (20:21)
[2019-11-08] MEDS ORDERED: DEXTROSE 70% IV SCH ×9 (22:00)
[2019-11-08] MEDS ORDERED: AMINO ACID IV SCH ×9 (22:00)
[2019-11-08] MEDS ORDERED: [UNRECOGNIZED DRUG - OTHER] IV SCH ×9 (22:00)
[2019-11-08] MEDS ORDERED: TOTAL PARENTERAL NUTRITION IV SCH ×9 (22:00)
[2019-11-09] VITALS (12 sets, daily range): BP systolic 56–162; BP diastolic 34–90
[2019-11-09] MEDS: ACETAMINOPHEN 325 MG TABLET. PO PRN (00:13)
[2019-11-09] MEDS: NOREPINEPHRINE VIAL 32 MG in IV D5W 250ML IV PRN ×2 (00:35→06:47)
[2019-11-09] MEDS: MIDAZOLAM 100mg/100ml NS BAG 100 ML IV PRN (02:08)
[2019-11-09] MEDS: DEXMEDETOMIDINE 400 MCG in IV NORMAL SALINE 100ML 96 ML IV PRN ×2 (02:16→05:43)
[2019-11-09] MEDS ORDERED: VECURONIUM BROMIDE 50 MG in TOTAL VOLUME 50 ML IV PRN (02:30)
[2019-11-09] MEDS ORDERED: PHENYLEPHRINE INJ 50 MG in IV NORMAL SALINE 250ML 250 ML IV PRN (02:30)
--- NOTE | 2019-11-09 03:05 | RAD ---
CHEST AP ONLY Clinical History: Intubated, increased O2 needs Technique: AP view of the chest was obtained at 11/09/2019 2:35 AM. Comparison: November 04, 2019. Findings: The endotracheal tube has its tip at the level of clavicles 6.5 cm above the josué. The right jugular line is again seen. The NG tube courses to the right into a large hiatal hernia. There is patchy opacities in the mid and lower lungs bilaterally. The pulmonary vessels are top normal limits in size. Impression: 1. The NG tube courses into a large hiatal hernia above the diaphragm. It may be helpful to advance the NG tube at least 10 cm. 2. Endotracheal tube and right jugular line well-positioned. No pneumothorax. 3. Moderate to marked bilateral infiltrates could be ARDS or pneumonia and appears similar to the prior study. Electronically signed by: Nguyễn Paul III, MD (11/09/2019 3:01 AM) [id number]
[2019-11-09] MEDS ORDERED: EPINEPHrine SYRINGE 1 MG/10 ML SYRINGE ONE ×2 (03:45→04:00)
[2019-11-09 04:13] LABS: BASO % 0 % (0-3); EOS % 0 % (0-3); HEMATOCRIT 35.1 % (39.0-53.0); HEMOGLOBIN 11.9 g/dL (13.0-17.5); LYMPH # 0.6 x10^3/uL (1.0-4.8); LYMPH % 12 % (24-48); MEAN CORPUSCULAR HEMOGLOBIN 31 pg (25-35); MEAN CORPUSCULAR HGB CONC 34 g/dL (31-37); MEAN CORPUSCULAR VOLUME 92 fL (79-100); MONO # 0.1 x10^3/uL (0.0-1.1); MONO % 3 % (0-9); NEUT # 4.3 x10^3/uL (1.8-7.7); NEUT % 85 % (31-73); PLATELET COUNT 232 x10^3/uL (140-400); RED BLOOD COUNT 3.81 x10^6/uL (4.30-5.70); RED CELL DISTRIBUTION WIDTH 13.2 % (11.5-14.5)
[2019-11-09 04:31] LABS: CALCIUM 7.5 mg/dL (8.5-10.1); CREATININE 1.3 mg/dL (0.7-1.3); GFR 56.1; POTASSIUM 3.8 mmol/L (3.5-5.1)
[2019-11-09] MEDS: INSULIN LISPRO 300 UNITS/3 ML VIAL. SQ SCH ×2 (05:50)
[2019-11-09] MEDS ORDERED: HEPARIN 25,000UTS/250ML PREMIX 250 ML IV PRN ×3 (06:45→07:15)
[2019-11-09] MEDS ORDERED: EPINEPHrine 1 MG/ML VIAL ONE (06:46)
[2019-11-09] MEDS ORDERED: HYDROCORTISONE SOD SUCC/PF 100 MG/2 ML VIAL. IVP ONE (07:00)
[2019-11-09] MEDS ORDERED: VASOPRESSIN 20 UNIT in IV DEXTROSE 5% 100ML 100 ML IV PRN (07:00)
[2019-11-09 07:14] LABS: BASE EXCESS ABG -10 mmol/L (-3-3); HCO3 ABG 21 mmol/L (21-28)
[2019-11-09] MEDS ORDERED: HEPARIN for IV BOLUS 10,000 UNIT/10 ML VIAL. IV ONE (07:15)
[2019-11-09] MEDS ORDERED: HEPARIN for IV BOLUS 10,000 UNIT/10 ML VIAL. IV PRN ×4 (07:15)
--- NOTE | 2019-11-09 07:57 | NUR ---
Several times over night, patient suddenly had low blood pressure and low O2 sat. Each time, pt required Epi IVP to recover blood pressure. O2 sat recovered after vent changes each time. Levophed, Vasopressin, Phenylepherine, Vecuronium all at max rate. At 0530, blood pressure decreased again with O2 sat decrease. Dr Paz called with many new orders received and implemented. Dr Rice on unit at this time. called with update and she requests pt to be changed to DNR status, but continue with all current treatments and not adding anything else. Dr Rice changed pt code status at this time. Urine now orange with large amount of sediment. Oral secretions now chunky. IVF bolus given with little urine returned. Daughter called without answering x3. Edema now 4+ and pitting. Report given to day shift RN and Dr Rice.
[2019-11-09 08:08] LABS: PROTHROMBIN TIME PATIENT 15.7 SEC (11.7-14.0)
--- NOTE | 2019-11-09 08:19 | NUR ---
Cas RN and April RN were at bedside when pt went asystole. No spontaneous respirations off ventilator. No chest rise. Dr. iRce at bedside and pt was pronounced at 0803 by auscultation.
--- NOTE | 2019-11-09 08:50 | NUR ---
This RN was on hold with [facility] network for about 20 minutes attempting to give them a TOD on pt. Unable to sit on the phone and wait to give report on pt. Called [facility] back and gave report on pt around 0848. See charting. Kerri- called and notified of TOD. She will call back with home information.
[2019-11-09 09:06] LABS: PCO2 ABG 75 mmHg (35-46)
[2019-11-09 09:07] LABS: FIO2 ABG 100; PO2 ABG 46 mmHg (65-108); SAT O2 ABG 66 % (92-99)
--- NOTE | 2019-11-09 10:05 | DS ---
DATE OF DISCHARGE: 11/09/2019 SUMMARY ADMISSION DIAGNOSES: Respiratory failure with COVID-19, history of hairy cell leukemia. CAUSE OF : Progression of disease with severe multifactorial respiratory failure including COVID-19 syndrome. CONSULTATIONS: GI, Nephrology, Hematology/Oncology and Pulmonary Medicine. PROCEDURES: Intubation. 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 Basically, he presented with respiratory failure. He was short of breath. He had been exposed to COVID-19, I think, at the shelter. He ultimately tested positive the Saturday before he was admitted. He had high temperatures of 102. The patient was admitted, started on COVID-19 protocol including IV antibiotics with broad-spectrum coverage and azithromycin. We consulted Pulmonary. Ultimately, the patient had to be intubated. Today, I saw him and examined him in the ICU. He was still alive at that point. He was on the vent with assist control and was sedated with fentanyl and paralyzed with vecuronium. He was on TPN and Precedex and vasopressin. He was in reverse Trendelenburg position. I discussed the case with the nurse. The nurse called his and made him DNR. About 30 minutes later, the nurses explained that he had just passed. I went into the room and examined the patient for a second time, and indeed he had . We pronounced the patient at 8:03 a.m[address] MICHELLE LEMON DO DR: HAYES/kristin JOB#: [id number] / [id number]
== END 2019-11-09 08:03 | disposition expired | DRG 870 ==
LOC: ER 13:06 → 1 WEST ICU 14:59 → 6 SOUTH 10-31 07:37 → 1 WEST ICU 11-01 23:14
PROVIDERS: ADMIT Family Medicine; ATTEND Family Medicine
PROC: 5A1955Z Respiratory Ventilation, Greater than 96 Consecutive Hours (ICD-10-PCS; principal; 2019-10-27)
PROC: 0BH17EZ Insertion of Endotracheal Airway into Trachea, Via Natural or Artificial Opening (ICD-10-PCS; 2019-10-27)
PROC: 02H633Z Insertion of Infusion Device into Right Atrium, Percutaneous Approach (ICD-10-PCS; 2019-10-27)
PROC: 30233K1 Transfusion of Nonautologous Frozen Plasma into Peripheral Vein, Percutaneous Approach (ICD-10-PCS; 2019-10-28)
DX: A41.9 Sepsis, unspecified organism (principal); U07.1 COVID-19; J96.01 Acute respiratory failure with hypoxia; E43 Unspecified severe protein-calorie malnutrition; J12.89 Other viral pneumonia; C91.41 Hairy cell leukemia, in remission; G93.40 Encephalopathy, unspecified; K56.609 Unspecified intestinal obstruction, unspecified as to partial versus complete obstruction; K22.0 Achalasia of cardia; K63.5 Polyp of colon; K80.20 Calculus of gallbladder without cholecystitis without obstruction; Z66 Do not resuscitate; Z78.9 Other specified health status; Z82.5 Family history of asthma and other chronic lower respiratory diseases; Z87.891 Personal history of nicotine dependence; Z92.21 Personal history of antineoplastic chemotherapy
CPT/HCPCS: 36415; 36600; 71045; 74018; 80048; 80053; 80076; 82728; 82805; 82962; 82977; 83516; 83605; 83615; 83735; 84075; 84080; 84100; 84145; 84478; 84484; 85007; 85025; 85379; 85384; 85610; 85651; 85730; 86140; 86705; 86709; 86803; 86850; 86900; 86901; 86927; 87040; 87340; 94002; 94003; 94760; 96360; J0171; J0330; J0456; J0610; J1200; J1650; J1720; J1815; J2020; J2185; J2250; J2370; J2405; J2543; J2920; J2930; J3010; J3262; J3475; J3480; J3490; J7030; J7050; J7060; P9017; P9046; 99285-25; G0378